=== PATIENT | female | born 1950 | race Caucasian/White ===

== ENCOUNTER 2022-10-27 09:58 | Inpatient (IN) | payer MEDICARE ==
--- NOTE | 2022-10-27 10:05 | ED ---
General Adult HPI - General Stated complaint: Bleeding R Arm Time Seen by Provider: 10/27/22 09:58 Source: patient, RN notes reviewed, old records reviewed - History of Present Illness Initial comments: This is a 71-year-old female who has a fistula in her forearm on the right. Patient states she woke up this morning and started to bleed and it was pumping like it was arterial bleeder. According to EMS was quite a message saying that the house was lightheaded but blood. Patient was unable to stop the bleeding EMS was called they eventually put a pressure dressing on and he slowly bleeding down considerably. - Related Data Home Medications Medication Instructions Recorded Confirmed ALPRAZolam [Xanax] 0.5 mg PO DAILY 10/27/22 10/27/22 Dicyclomine [Bentyl] 20 mg PO BID 10/27/22 10/27/22 HYDROcodone/APAP 10-325MG [Strawn 1 tab PO Q4H PRN 10/27/22 10/27/22 10-325] Isosorbide Dinitrate 20 mg PO BID 10/27/22 10/27/22 Lidocaine-Prilocaine Cream [Emla 1 applic TOPICAL MOWEFR PRN 10/27/22 10/27/22 Cream 2.5%/2.5%] Ondansetron [Zofran] 4 mg PO BID PRN 10/27/22 10/27/22 Sevelamer [Renvela] 2,400 mg PO AC-TID 10/27/22 10/27/22 allopurinoL [Zyloprim] 100 mg PO DAILY 10/27/22 10/27/22 amLODIPine [Norvasc] 10 mg PO DAILY 10/27/22 10/27/22 carvediloL [Coreg] 25 mg PO BID-W/MEALS 10/27/22 10/27/22 Allergies Allergy/AdvReac Type Severity Reaction Status Date / Time Iodinated Contrast Media Allergy Unknown Verified 10/27/22 11:09 Phenothiazines Allergy Unknown Verified 10/27/22 11:09 prednisone Allergy Unknown Verified 10/27/22 11:09 Review of Systems ROS Statement: Those systems with pertinent positive or pertinent negative responses have been documented in the HPI. ROS Other: All systems not noted in ROS Statement are negative. General Exam - General Exam Comments Initial Comments: GENERAL: Patient is well-developed and well-nourished. Patient is nontoxic and well-hydrated and is in mild distress. ENT: Neck is soft and supple. No significant lymphadenopathy is noted. Oropharynx is clear. Moist mucous membranes. Neck has full range of motion without eliciting any pain. 6640 EYES: The sclera were anicteric and conjunctiva were pink and moist. Extraocular move ments were intact and pupils were equal round and reactive to light. Eyelids were unremarkable. PULMONARY: Unlabored respirations. Good breath sounds bilaterally. No audible rales rhonchi or wheezing was noted. CARDIOVASCULAR: There is a regular rate and rhythm without any murmurs gallops or rubs. ABDOMEN: Soft and nontender with normal bowel sounds. SKIN: Skin is clear with no lesions or rashes and otherwise unremarkable. NEUROLOGIC: Patient is alert and oriented 2. Cranial nerves II through XII are grossly intact. Motor and sensory are also intact. Normal speech, volume and content. Symmetrical smile. MUSCULOSKELETAL: Normal extremities with adequate strength and full range of motion. Patient has a fistula in the right forearm is under a pressure wrap currently patient got great Refill all of her fingers on that side. I did not unwrap at this time because according to EMS is an arterial bleeder and it makes quite a mess LYMPHATICS: No significant lymphadenopathy is noted PSYCHIATRIC: Normal psychiatric evaluation. Course Vital Signs 10/27/22 10/27/22 10/27/22 10:03 11:41 11:43 Temperature 99.3 F 99.3 F Pulse Rate 58 L 52 L 52 L Respiratory 18 18 18 Rate Blood Pressure 120/94 120/79 120/79 O2 Sat by Pulse 98 100 100 Oximetry Medical Decision Making - Medical Decision Making Was pt. sent in by a medical professional or institution (, PA, ADDICTION SOCIAL WORKER, urgent care, hospital, or alf...) When possible be specific @ -No Did you speak to anyone other than the patient for history (EMS, parent, family, police, friend...)? What history was obtained from this source @ -EMS gave some history because the was not here to give history Did you review nursing and triage notes (agree or disagree)? Why? @ -I reviewed and agree with nursing and triage notes Were old charts reviewed (outside hosp., previous admission, EMS record, old EKG, old radiological studies, urgent care reports/EKG's, alf records)? Report findings @ -No old charts were reviewed Differential Diagnosis (chest pain, altered mental status, abdominal pain women, abdominal pain men, vaginal bleeding, weakness, fever, dyspnea, syncope, headache, dizziness, GI bleed, back pain, seizure, CVA, palpatations, mental health, musculoskeletal)? @ -Fistula bleed arterial, venous bleed, EKG interpreted by me (3pts min.). @ -As above X-rays interpreted by me (1pt min.). @ -None done CT interpreted by me (1pt min.). @ -None done U/S interpreted by me (1pt. min.). @ -None done What testing was considered but not performed or refused? (CT, X-rays, U/S, labs)? Why? @ -None What meds were considered but not given or refused? Why? @ -None Did you discuss the management of the patient with other professionals (p rofessionals i.e. , PA, ADDICTION SOCIAL WORKER, lab, RT, psych nurse, social sciences professor, admiralty lawyer, teacher, nuclear security officer, patient case coordinator)? Give summary @ -Spoke with Dr. Cesar and she came down and saw the patient was takento the emergency department. I also spoke with the [facility] hospitalist Was smoking cessation discussed for >3mins.? @ -No Was critical care preformed (if so, how long)? @ -No Were there social determinants of health that impacted care today? How? (Homelessness, low income, unemployed, alcoholism, drug addiction, transportation, low edu. Level, literacy, decrease access to med. care, long-term, rehab)? @ -No Was there de-escalation of care discussed even if they declined (Discuss DNR or withdrawal of care, Hospice)? DNR status @ -No What co-morbidities impacted this encounter? (DM, HTN, Smoking, COPD, CAD, Cancer, CVA, ARF, Chemo, Hep., AIDS, mental health diagnosis, sleep apnea, morbid obesity)? @ -None Was patient admitted / discharged? Hospital course, mention meds given and route, prescriptions, significant lab abnormalities, going to OR and other pert inent info. @ -14 done so the patient emergency department and decided to take the patient to the OR. Patient will be admitted to significant hospitalist and nephrology be on consult for renal dialysis Undiagnosed new problem with uncertain prognosis? @ -No Drug Therapy requiring intensive monitoring for toxicity (Heparin, Nitro, Insulin, Cardizem)? @ -No Were any procedures done? @ -No Diagnosis/symptom? @ -Arterial hemorrhage Acute, or Chronic, or Acute on Chronic? @ -Acute Uncomplicated (without systemic symptoms) or Complicated (systemic symptoms)? @ -Complicated Side effects of treatment? @ -No Exacerbation, Progression, or Severe Exacerbation? @ -No Poses a threat to life or bodily function? How? (Chest pain, [place], [place], pneumonia, PE, COPD, DKA, ARF, appy, cholecystitis, CVA, Diverticulitis, Homicidal, Suicidal, threat to staff... and all critical care pts) @ -Yes this could lead to the patient bleeding out Diagnosis/symptom? @ -Renal failure and needs dialysis Acute, or Chronic, or Acute on Chronic? @ -Acute Uncomplicated (without systemic symptoms) or Complicated (systemic symptoms)? @ -Complicated Side effects of treatment? @ -none Exacerbation, Progression, or Severe Exacerbation] @ -no Poses a threat to life or bodily function? @ -no - Lab Data Result diagrams: 10/27/22 10:20 10/27/22 10:20 Lab Results 10/27/22 10/27/22 10/27/22 Range/Units 10:20 10:20 10:20 WBC 7.2 (3.8-10.6) k/uL RBC 2.55 L (3.80-5.40) m/uL Hgb 8.2 L (11.4-16.0) gm/dL Hct 24.4 L (34.0-46.0) % MCV 95.7 (80.0-100.0) fL MCH 32.0 (25.0-35.0) pg MCHC 33.4 (31.0-37.0) g/dL RDW 16.2 H (11.5-15.5) % Plt Count 189 (150-450) k/uL MPV 7.6 Neutrophils % 64 % Lymphocytes % 23 % Monocytes % 7 % Eosinophils % 4 % Basophils % 0 % Neutrophils # 4.6 (1.3-7.7) k/uL Lymphocytes # 1.7 (1.0-4.8) k/uL Monocytes # 0.5 (0-1.0) k/uL Eosinophils # 0.3 (0-0.7) k/uL Basophils # 0.0 (0-0.2) k/uL Anisocytosis Slight PT 11.0 (9.0-12.0) sec INR 1.0 (<1.2) APTT 23.7 (22.0-30.0) sec Sodium 132 L (137-145) mmol/L Potassium 4.8 (3.5-5.1) mmol/L Chloride 91 L (98-107) mmol/L Carbon Dioxide 29 (22-30) mmol/L Anion Gap 12 mmol/L BUN 41 H (7-17) mg/dL Creatinine 6.14 H (0.52-1.04) mg/dL Est GFR (CKD-EPI)AfAm 7 (>60 ml/min/1.73 sqM) Est GFR (CKD-EPI)NonAf 6 (>60 ml/min/1.73 sqM) Glucose 119 H (74-99) mg/dL Calcium 8.2 L (8.4-10.2) mg/dL Total Bilirubin 0.4 (0.2-1.3) mg/dL AST 39 H (14-36) U/L ALT 26 (4-34) U/L Alkaline Phosphatase 118 (38-126) U/L Total Protein 7.2 (6.3-8.2) g/dL Albumin 3.9 (3.5-5.0) g/dL Blood Type Blood Type Confirm Blood Type Recheck Bld Type Recheck Status Antibody Screen Crossmatch Spec Expiration Date 10/27/22 10/27/22 Range/Units 10:20 10:25 WBC (3.8-10.6) k/uL RBC (3.80-5.40) m/uL Hgb (11.4-16.0) gm/dL Hct (34.0-46.0) % MCV (80.0-100.0) fL MCH (25.0-35.0) pg MCHC (31.0-37.0) g/dL RDW (11.5-15.5) % Plt Count (150-450) k/uL MPV Neutrophils % % Lymphocytes % % Monocytes % % Eosinophils % % Basophils % % Neutrophils # (1.3-7.7) k/uL Lymphocytes # (1.0-4.8) k/uL Monocytes # (0-1.0) k/uL Eosinophils # (0-0.7) k/uL Basophils # (0-0.2) k/uL Anisocytosis PT (9.0-12.0) sec INR (<1.2) APTT (22.0-30.0) sec Sodium (137-145) mmol/L Potassium (3.5-5.1) mmol/L Chloride (98-107) mmol/L Carbon Dioxide (22-30) mmol/L Anion Gap mmol/L BUN (7-17) mg/dL Creatinine (0.52-1.04) mg/dL Est GFR (CKD-EPI)AfAm (>60 ml/min/1.73 sqM) Est GFR (CKD-EPI)NonAf (>60 ml/min/1.73 sqM) Glucose (74-99) mg/dL Calcium (8.4-10.2) mg/dL Total Bilirubin (0.2-1.3) mg/dL AST (14-36) U/L ALT (4-34) U/L Alkaline Phosphatase (38-126) U/L Total Protein (6.3-8.2) g/dL Albumin (3.5-5.0) g/dL Blood Type A Positive Blood Type Confirm A Positive Blood Type Recheck No Previous Record Bld Type Recheck Status CABO Indicated Antibody Screen NEGATIVE Crossmatch See Detail Spec Expiration Date 10/30/20222319 Disposition Clinical Impression: Arterial hemorrhage Disposition: ADMITTED IP TO THIS [facility] Referrals: Nonstaff,Physician [REFERRING] - 1-2 days Time of Disposition: 11:54
[2022-10-27] MEDS ORDERED: SODIUM CHLORIDE 0.9% 500 ML 500 ML IV ONE ×2 (10:09→12:00)
[2022-10-27 10:31] LABS: Anisocytosis Slight; Basophils % (A) 0 %; Eosinophils # (A) 0.3 k/uL (0-0.7); Eosinophils % (A) 4 %; HCT 24.4 % (34.0-46.0); HGB 8.2 gm/dL (11.4-16.0); Lymphocytes # (A) 1.7 k/uL (1.0-4.8); Lymphocytes % (A) 23 %; MCHC 33.4 g/dL (31.0-37.0); MCV 95.7 fL (80.0-100.0); Mean Platelet Volume 7.6; Monocytes # (A) 0.5 k/uL (0-1.0); Monocytes % (A) 7 %; Neutrophils # (A) 4.6 k/uL (1.3-7.7); Neutrophils % (A) 64 %; Platelet Count 189 k/uL (150-450); RBC 2.55 m/uL (3.80-5.40); RDW 16.2 % (11.5-15.5); WBC 7.2 k/uL (3.8-10.6)
[2022-10-27 10:45] LABS: Partial Thromboplastin Time 23.7 sec (22.0-30.0)
[2022-10-27 10:48] LABS: Albumin 3.9 g/dL (3.5-5.0); Calcium 8.2 mg/dL (8.4-10.2); Potassium 4.8 mmol/L (3.5-5.1); Total Bilirubin 0.4 mg/dL (0.2-1.3); Total Protein 7.2 g/dL (6.3-8.2)
--- NOTE | 2022-10-27 11:36 | P.GSCN ---
History of Present Illness Consult date: 10/27/22 Reason for Consult: Bleeding fistula Requesting physician: Migel Jeong History of present illness: This a pleasant 71-year-old female who was brought in by EMS this morning for complaints of bleeding from her fistula. Apparently patient woke up this morning and was doing fine, her checked on her and was getting her ready to go for dialysis when he had noted that she was bleeding at her fistula site, bleeding was pulsatile. He applied pressure, however continued to bleed and called EMS. Pressure dressing with tourniquet was applied to the right arm to control bleeding by EMS. She has a past medical history including diabetes mellitus, end-stage renal disease on hemodialysis recent stroke in July 2022 and recent GI bleed at that time as well. Patient is a poor historian, much of her history obtained by her . They deny any blood thinners, denies aspirin or Plavix. States fistula was placed approximately 13 years ago. Her states that she has seen Dr. Reyes in the office once, prior to that she had been seeing Dr. Ware who placed the fistula however has not seen her in several years and was not following with anybody in regards to her fistula. She was supposed to get ultrasound of the fistula, however never followed up. She gets dialysis Sunday, her last dialysis treatment was on Sunday for which he states was full treatment without any difficulty with accessing fistula. States that they have not had any trouble with accessing and running dialysis, however they do state that the axis is same location each time and there has been scabbing over this area where the bleed is. Patient currently states that she has some numbness and tingling in her right hand, there is a tourniquet in place. Bleeding seems to be controlled at this time. She has good capillary refill, unable to palpate radial pulse. Has good sensorimotor of the right hand and upper extremity. She currently denies any shortness breath, chest pain, abdominal pain, does state she is nauseated but no vomiting. Hemoglobin 8.2. Blood pressure 120/64, heart rate 58, respiratory rate 18, oxygen 98% on 4 L nasal cannula, temperature 99.3. Review of Systems A 14 point review systems was completed all pertinent positives and negatives as stated in the HPI. Past Medical History Past Medical History: Asthma, Diabetes Mellitus, Dialysis, Sleep Apnea/CPAP/BIPAP, Thyroid Disorder History of Any Multi-Drug Resistant Organisms: None Reported Additional Past Surgical History / Comment(s): right fistula, left fistula Past Psychological History: No Psychological Hx Reported Smoking Status: Never smoker Past Alcohol Use History: None Reported Past Drug Use History: None Reported Medications and Allergies Home Medications Medication Instructions Recorded Confirmed Type ALPRAZolam [Xanax] 0.5 mg PO DAILY 10/27/22 10/27/22 History Dicyclomine [Bentyl] 20 mg PO BID 10/27/22 10/27/22 History HYDROcodone/APAP 10-325MG [Iron 1 tab PO Q4H PRN 10/27/22 10/27/22 History 10-325] Isosorbide Dinitrate 20 mg PO BID 10/27/22 10/27/22 History Lidocaine-Prilocaine Cream [Emla 1 applic TOPICAL MOWEFR PRN 10/27/22 10/27/22 History Cream 2.5%/2.5%] Ondansetron [Zofran] 4 mg PO BID PRN 10/27/22 10/27/22 History Sevelamer [Renvela] 2,400 mg PO AC-TID 10/27/22 10/27/22 History allopurinoL [Zyloprim] 100 mg PO DAILY 10/27/22 10/27/22 History amLODIPine [Norvasc] 10 mg PO DAILY 10/27/22 10/27/22 History carvediloL [Coreg] 25 mg PO BID-W/MEALS 10/27/22 10/27/22 History Allergies Allergy/AdvReac Type Severity Reaction Status Date / Time Iodinated Contrast Media Allergy Unknown Verified 10/27/22 11:09 Phenothiazines Allergy Unknown Verified 10/27/22 11:09 prednisone Allergy Unknown Verified 10/27/22 11:09 Surgical - Exam Vital Signs Temp Pulse Resp BP Pulse Ox 99.3 F 58 L 18 120/94 98 10/27/22 10:03 10/27/22 10:03 10/27/22 10:03 10/27/22 10:03 10/27/22 10:03 General appearance: The patient is alert, oriented, appears in no acute d istress. HET: Head is normocephalic and atraumatic. Pupils are equal and reactive. Neck: Supple. Trachea midline. Heart: Regular. Lungs: Equal expansion, normal respiratory effort. Abdomen: Soft, nontender, nondistended. Extremities: Normal skin color and turgor. Right upper extremity with dressing and tourniquet in place over the fistula, palpable thrill. Nonpalpable radial pulse, patient has good capillary refill, sensorimotor intact. Neurological: Patient is alert and oriented, does have some memory loss, poor memory likely due to previous stroke. Results - Labs 10/27/22 10:20 10/27/22 10:20 Abnormal Lab Results - Last 24 Hours (Table) 10/27/22 10/27/22 10/27/22 Range/Units 10:20 10:20 10:20 RBC 2.55 L (3.80-5.40) m/uL Hgb 8.2 L (11.4-16.0) gm/dL Hct 24.4 L (34.0-46.0) % RDW 16.2 H (11.5-15.5) % Sodium 132 L (137-145) mmol/L Chloride 91 L (98-107) mmol/L BUN 41 H (7-17) mg/dL Creatinine 6.14 H (0.52-1.04) mg/dL Glucose 119 H (74-99) mg/dL Calcium 8.2 L (8.4-10.2) mg/dL AST 39 H (14-36) U/L Crossmatch See Detail Diabetes panel 10/27/22 Range/Units 10:20 Sodium 132 L (137-145) mmol/L Potassium 4.8 (3.5-5.1) mmol/L Chloride 91 L (98-107) mmol/L Carbon Dioxide 29 (22-30) mmol/L BUN 41 H (7-17) mg/dL Creatinine 6.14 H (0.52-1.04) mg/dL Glucose 119 H (74-99) mg/dL Calcium 8.2 L (8.4-10.2) mg/dL AST 39 H (14-36) U/L ALT 26 (4-34) U/L Alkaline Phosphatase 118 (38-126) U/L Total Protein 7.2 (6.3-8.2) g/dL Albumin 3.9 (3.5-5.0) g/dL Calcium panel 10/27/22 Range/Units 10:20 Calcium 8.2 L (8.4-10.2) mg/dL Albumin 3.9 (3.5-5.0) g/dL Pituitary panel 10/27/22 Range/Units 10:20 Sodium 132 L (137-145) mmol/L Potassium 4.8 (3.5-5.1) mmol/L Chloride 91 L (98-107) mmol/L Carbon Dioxide 29 (22-30) mmol/L BUN 41 H (7-17) mg/dL Creatinine 6.14 H (0.52-1.04) mg/dL Glucose 119 H (74-99) mg/dL Calcium 8.2 L (8.4-10.2) mg/dL Adrenal panel 10/27/22 Range/Units 10:20 Sodium 132 L (137-145) mmol/L Potassium 4.8 (3.5-5.1) mmol/L Chloride 91 L (98-107) mmol/L Carbon Dioxide 29 (22-30) mmol/L BUN 41 H (7-17) mg/dL Creatinine 6.14 H (0.52-1.04) mg/dL Glucose 119 H (74-99) mg/dL Calcium 8.2 L (8.4-10.2) mg/dL Total Bilirubin 0.4 (0.2-1.3) mg/dL AST 39 H (14-36) U/L ALT 26 (4-34) U/L Alkaline Phosphatase 118 (38-126) U/L Total Protein 7.2 (6.3-8.2) g/dL Albumin 3.9 (3.5-5.0) g/dL Assessment and Plan Assessment: 1. Right upper extremity fistula hemorrhage 2. Acute blood loss anemia 3. End-stage renal disease on hemodialysis 4. Diabetes mellitus 5. History of stroke July 2022 Plan: Patient was evaluated in the emergency room, pressure dressing and tourniquet removed with Dr. Cesar at the bedside. Patient continued to have pulsatile bleeding, pressure was reapplied, attempted at suture however bleeding continued. Patient right upper extremity redressed with pressure dressing. Plan to take patient to the operating room for fistula hemorrhage, possible ligation, possible tunneled catheter. Transfuse 1 unit of blood. Please obtain consent. Patient and patient's agreeable to plan of care. Operating room notified per Dr. Cesar. The impression and plan of care has been dictated as directed. I performed a history and examination of this patient, discussed the same with the dictator. I agree with the dictator's note ,documented as a scribe. Any additional findings or plans will be noted.
[2022-10-27] MEDS ORDERED: GLYCOPYRROLATE 0.2 MG/ML 2 ML VIAL ONE (12:00)
[2022-10-27] MEDS ORDERED: PROPOFOL 10 MG/ML 20 ML VIAL IV ONE (12:00)
[2022-10-27] MEDS ORDERED: PHENYLEPHRINE-0.9% NACL SYG 1,000 MCG/10 ML SYRINGE ONE (12:00)
[2022-10-27] MEDS ORDERED: ePHEDrine 50 MG/ML 1 ML VIAL ONE (12:00)
[2022-10-27] MEDS ORDERED: KETAMINE 10 MG/ML 20 ML VIAL ONE (12:00)
[2022-10-27] MEDS ORDERED: fentaNYL (PF) 50 MCG/ML 2 ML AMP ONE (12:00)
[2022-10-27] MEDS ORDERED: SODIUM CHLORIDE 0.9% 50 ML with ceFAZolin 2,000 MG IV ONE ×2 (12:27)
[2022-10-27] MEDS ORDERED: GELATIN SPONGE,ABSORB (LARGE) 1 EACH SPONGE TOPICAL ONE (12:32)
[2022-10-27] MEDS ORDERED: THROMBIN (BOVINE) 5,000 UNIT VIAL TOPICAL ONE (12:33)
[2022-10-27] MEDS ORDERED: ceFAZolin 2,000 MG in SODIUM CHLORIDE 0.9% 500 ML IRRIGATION ONE (12:46)
[2022-10-27] MEDS ORDERED: HEPARIN SODIUM,PORCINE 2,000 UNIT in SODIUM CHLORIDE 0.9% 500 ML 500 ML IRRIGATION ONE (12:46)
[2022-10-27 13:31] LABS: Anisocytosis Slight; HCT 23.9 % (34.0-46.0); MCHC 33.5 g/dL (31.0-37.0); MCV 95.4 fL (80.0-100.0); Mean Platelet Volume 7.9; Platelet Count 133 k/uL (150-450); RBC 2.51 m/uL (3.80-5.40); RDW 16.2 % (11.5-15.5); WBC 6.5 k/uL (3.8-10.6)
[2022-10-27] MEDS ORDERED: ONDANSETRON 4 MG/2 ML VIAL IVP ONE (15:26)
[2022-10-27] MEDS ORDERED: HYDROmorphone 0.5 MG/0.5 ML SYRINGE IVP ONE ×3 (15:28→15:36)
[2022-10-27] MEDS ORDERED: MORPHINE SULFATE 2 MG/ML SYRINGE IVP PRN (15:57)
--- NOTE | 2022-10-27 15:57 | P.OP ---
Date of Procedure: 10/27/22 Description of Procedure: Preoperative diagnosis: Active hemorrhage right upper extremity AV loop forearm graft, skin ulceration, end-stage renal disease Postoperative diagnosis: Same Procedure: #1 control of hemorrhage #2 excision of graft and overlying necrotic skin/skin ulceration #3 interposition PTFE graft for dialysis Surgeon: Ashleigh Cesar D.O. EBL: 100 mL IV fluids: See records Urine output: Not measured Drains: None Complications: None immediately apparent Condition: Stable to recovery Operative indication and findings: Patient is a 71-year-old female with end- stage renal disease who gets dialysis via a left upper extremity loop forearm graft. She has been utilizing this graft for many years without significant issues. She was seen in our office back in June as a new patient and recommended to come back for follow-up however she did not return or visit, the transit she was in the hospital with other comorbidities including a recent stroke. They have been utilizing the fistula without issues. She woke up this morning and was getting ready to go to dialysis and began having pulsatile bleeding from the lateral portion of her arm with a continuous stick for access. Evaluation in the ER revealed an ulceration approximately 2-3 mm in size with active bleeding. Repeat pressure dressing was placed and the patient was taken to the OR. Discussion was had with the patient and her prior to the surgery. Attempts to revise the fistula versus ligation to control bleeding all discussed as well as the possibility of hemodialysis catheter. He seemingly understood the risks and are willing to proceed. Procedure in detail: The patient was taken the operative suite and placed in supine position. The right upper extremity was prepped and draped in usual sterile fashion with a pressure dressing was still in place, this was removed and the underlying portions were prepped and pressure was held again at the area of bleeding although it has decreased since the ER. Timeout was performed, all parties were in agreement. Proximally and distally to the area of thinned skin and bleeding, incisions were made and carried down to the graft itself. The graft was encircled proximally and distally. The decision was also then made to excise the overlying portion of skin with the necrotic ulceration. No elliptical incision was made around the area and carried onto the graft itself. The graft was transected at the proximal and distal incisions. Subcutaneous dissection was performed throughout the area of the graft itself. Appears to be well incorporated without evidence of infection. This was completely excised. At that point Tyler catheters were passed proximally and distally with return of significant amounts of thrombus. There was adequate pulsatile inflow as well as venous backbleeding therefore the plan to place an interposition graft was continued. A 4 x 7 graft was then tunneled between the points of incision. The graft was cut to size any proximal arterial anastomosis was performed with a 6-0 Prolene. The anastomosis completed and the graft was flushed pulsatile flow. Attention was then turned towards the outflow tract, the graft was cut to size and using a 6-0 Prolene, anastomosis was performed. Prior to completion of the graft, the artery was allowed to bleed in the vein was of backbleeding. The anastomosis was completed. There appeared to be adequate augmentation through the graft itself, there was diminished pulsatility to the level of the new graft in comparison with the previous graft given the significant amount of intimal hyperplasia in the previous graft. A Doppler was utilized and there was a appropriate bruit sounding waveform at the antecubital fossa with a palpable thrill in this area. She maintained a palpable radial pulse. That point the areas were copiously irrigated, hemostasis was perfected with electrocautery. The deep dermal layer was reapproximated with interrupted sutures of 3-0 Vicryl. Skin was reapproximated with running 4-0 Monocryl. The patient was allowed awaken from anesthesia and transferred to recovery in stable condition.
[2022-10-27] MEDS ORDERED: ONDANSETRON 4 MG TAB PO PRN (20:02)
[2022-10-27] MEDS: DICYCLOMINE 20 MG TAB PO SCH (20:35)
[2022-10-27] MEDS: carvediloL 12.5 MG TAB PO SCH (20:35)
[2022-10-27] MEDS: amLODIPine 10 MG TAB PO SCH (20:35)
[2022-10-27] MEDS: ISOSORBIDE DINITRATE 20 MG TAB PO SCH (20:35)
[2022-10-27 21:04] LABS: Glucose,Whole Blood 130 mg/dL (70-110)
[2022-10-28 05:10] LABS: Glucose,Whole Blood 116 mg/dL (70-110)
[2022-10-28] MEDS: SEVELAMER 800 MG TAB PO SCH ×3 (06:25→17:10)
[2022-10-28] MEDS: carvediloL 12.5 MG TAB PO SCH ×2 (06:25→17:10)
[2022-10-28] MEDS: ALPRAZolam 0.5 MG TAB PO SCH (08:36)
[2022-10-28] MEDS: allopurinoL 100 MG TAB PO SCH (08:36)
[2022-10-28] MEDS: amLODIPine 10 MG TAB PO SCH (08:36)
[2022-10-28] MEDS: DICYCLOMINE 20 MG TAB PO SCH ×2 (08:36→19:49)
[2022-10-28] MEDS: ISOSORBIDE DINITRATE 20 MG TAB PO SCH ×2 (08:37→19:49)
--- NOTE | 2022-10-28 09:41 | P.PN ---
Subjective Progress Note Date: 10/28/22 Principal diagnosis: right loop graft bleed patient doing well after recent emergent surgery. She states her arm is tender but denies any numbness in her hand or fingers. Objective - Vital Signs Vital signs: Vital Signs Temp 98.1 F 10/28/22 07:12 Pulse 58 L 10/28/22 07:12 Resp 16 10/28/22 07:12 BP 117/64 10/28/22 07:12 Pulse Ox 99 10/28/22 08:12 FiO2 Intake & Output 10/27/22 10/28/22 10/28/22 18:59 06:59 18:59 Intake Total 552 Output Total 100 Balance 452 Weight 80.286 kg Intake: IV 552 Output: Estimated Blood Loss 100 Other: # Voids 0 # Bowel Movements 0 - Exam Palpable thrill right upper extremity loop graft tender to palpation at the incision sites. graft augments well. palpable radial pulse - Labs CBC & Chem 7: 10/27/22 13:19 10/27/22 10:20 Labs: Abnormal Lab Results - Last 24 Hours (Table) 10/27/22 10/27/22 10/27/22 Range/Units 10:20 10:20 10:20 RBC 2.55 L (3.80-5.40) m/uL Hgb 8.2 L (11.4-16.0) gm/dL Hct 24.4 L (34.0-46.0) % RDW 16.2 H (11.5-15.5) % Plt Count (150-450) k/uL Sodium 132 L (137-145) mmol/L Chloride 91 L (98-107) mmol/L BUN 41 H (7-17) mg/dL Creatinine 6.14 H (0.52-1.04) mg/dL Glucose 119 H (74-99) mg/dL POC Glucose (mg/dL) (70-110) mg/dL Calcium 8.2 L (8.4-10.2) mg/dL AST 39 H (14-36) U/L Crossmatch See Detail 10/27/22 10/27/22 10/28/22 Range/Units 13:19 21:03 05:08 RBC 2.51 L (3.80-5.40) m/uL Hgb 8.0 L (11.4-16.0) gm/dL Hct 23.9 L (34.0-46.0) % RDW 16.2 H (11.5-15.5) % Plt Count 133 L (150-450) k/uL Sodium (137-145) mmol/L Chloride (98-107) mmol/L BUN (7-17) mg/dL Creatinine (0.52-1.04) mg/dL Glucose (74-99) mg/dL POC Glucose (mg/dL) 130 H 116 H (70-110) mg/dL Calcium (8.4-10.2) mg/dL AST (14-36) U/L Crossmatch Assessment and Plan Assessment: ESRD on HD Right upper extremity access bleed POD 1 hemorrhage control and revision Plan: Discussed with nephrology- if possible to hold off HD till Sunday would be recommended but if need to be utilized then graft has been outlined for place to access. Will re-eval Sunday.
--- NOTE | 2022-10-28 09:50 | P.NPCON ---
History of Present Illness - Reason for Consult end stage renal disease - History of Present Illness Reason for consultation: End-stage renal disease History of present illness: Patient is a 71-year-old female seen in renal consultation for end-stage renal disease. She is maintained on hemodialysis on Sunday schedule. Patient presented to the hospital due to hemorrhaging AV graft. She underwent excision of graft and overlying necrotic skin and interposition of the graft on 10/27/2022. She is currently resting in bed. No chest pain or shortness of breath. No vomiting or diarrhea. Only complains of soreness at the surgical site. She did not get dialysis yesterday. No other complaints at this time. Patient has long-standing history of diabetes as well as CVA. Vital signs are stable. General: Resting in bed. HEENT: Head exam is unremarkable. On nasal cannula. LUNGS: No audible rhonchi or wheezes. HEART: Rate and Rhythm are regular. ABDOMEN: No distention. No pain. EXTREMITITES: No edema. Past Medical History Past Medical History: Asthma, Diabetes Mellitus, Dialysis, Sleep Apnea/CPAP/BIPAP, Thyroid Disorder History of Any Multi-Drug Resistant Organisms: None Reported Additional Past Surgical History / Comment(s): right fistula, old left fistula Smoking Status: Never smoker - Past Family History Mother History Unknown: Yes Medications and Allergies Home Medications Medication Instructions Recorded Confirmed Type ALPRAZolam [Xanax] 0.5 mg PO DAILY 10/27/22 10/27/22 History Dicyclomine [Bentyl] 20 mg PO BID 10/27/22 10/27/22 History HYDROcodone/APAP 10-325MG [[place] 1 tab PO Q4H PRN 10/27/22 10/27/22 History 10-325] Isosorbide Dinitrate 20 mg PO BID 10/27/22 10/27/22 History Lidocaine-Prilocaine Cream [Emla 1 applic TOPICAL MOWEFR PRN 10/27/22 10/27/22 History Cream 2.5%/2.5%] Ondansetron [Zofran] 4 mg PO BID PRN 10/27/22 10/27/22 History Sevelamer [Renvela] 2,400 mg PO AC-TID 10/27/22 10/27/22 History allopurinoL [Zyloprim] 100 mg PO DAILY 10/27/22 10/27/22 History amLODIPine [Norvasc] 10 mg PO DAILY 10/27/22 10/27/22 History carvediloL [Coreg] 25 mg PO BID-W/MEALS 10/27/22 10/27/22 History Allergies Allergy/AdvReac Type Severity Reaction Status Date / Time Iodinated Contrast Media Allergy Unknown Verified 10/27/22 11:09 Phenothiazines Allergy Unknown Verified 10/27/22 11:09 prednisone Allergy Unknown Verified 10/27/22 11:09 Physical Exam Vitals: Vital Signs Temp Pulse Pulse Resp BP BP Pulse Ox 10/28/22 08:12 99 10/28/22 07:12 98.1 F 58 L 16 117/64 100 10/28/22 01:20 97.8 F 62 16 130/57 99 10/27/22 20:42 64 152/79 100 10/27/22 20:27 74 166/109 100 10/27/22 20:12 68 121/72 100 10/27/22 19:57 64 158/73 100 10/27/22 19:42 60 195/62 100 10/27/22 19:27 63 197/75 100 10/27/22 19:12 58 L 171/78 100 10/27/22 18:57 96.5 F L 58 L 18 171/78 100 10/27/22 17:20 56 L 16 150/67 100 10/27/22 16:47 57 L 16 136/62 100 10/27/22 16:32 56 L 16 140/65 100 10/27/22 16:17 56 L 16 141/61 100 10/27/22 16:02 54 L 16 132/64 100 10/27/22 15:47 54 L 16 135/65 100 10/27/22 15:32 58 L 16 130/67 99 10/27/22 15:17 63 16 125/74 98 10/27/22 15:02 65 16 114/60 99 10/27/22 14:47 97.0 F L 77 16 98/54 100 10/27/22 11:43 99.3 F 52 L 18 120/79 100 10/27/22 11:41 52 L 18 120/79 100 10/27/22 10:03 99.3 F 58 L 18 120/94 98 Intake and Output 10/27/22 10/28/22 10/28/22 22:59 06:59 14:59 Other: # Voids 0 # Bowel Movements 0 Weight 80.286 kg Results - Lab Results Most recent lab results Calcium 8.2 mg/dL (8.4-10.2) L 10/27/22 10:20 10/27/22 13:19 10/27/22 10:20 Assessment and Plan Plan: Assessment: 1. End-stage renal disease maintained on hemodialysis on Sunday schedule via right upper extremity AV graft. 2. Hemorrhage of AV graft status post excision an interposition 10/27/2022. 3. Chronic kidney disease mineral bone disease maintained on Renvela. 4. Hypertension with chronic kidney disease. Controlled. 5. Anemia of chronic kidney disease. Rule out deficiency. Plan: Check labs today. If stable, will plan for dialysis on Sunday to allow adequate healing of the graft. Check iron studies. Thank you for the consultation. I will continue to follow the patient with you during her hospital stay.
[2022-10-28] MEDS: HYDROcodone/APAP 5-325MG 1 EACH TAB PO PRN ×2 (10:05→20:08)
[2022-10-28 11:11] LABS: African American GFR (CKD) 6 (>60 ml/min/1.73 sqM); Anion Gap 11 mmol/L; Blood Urea Nitrogen 51 mg/dL (7-17); Calcium 8.2 mg/dL (8.4-10.2); Carbon Dioxide 27 mmol/L (22-30); Chloride 94 mmol/L (98-107); Glucose 134 mg/dL (74-99); Non-African American GFR(CKD) 5 (>60 ml/min/1.73 sqM); Potassium 5.3 mmol/L (3.5-5.1); Sodium 132 mmol/L (137-145)
[2022-10-28 11:29] LABS: Glucose,Whole Blood 144 mg/dL (70-110)
[2022-10-28] MEDS ORDERED: SODIUM ZIRCONIUM CYCLOSILICATE 10 GM PACKET PO ONE (11:40)
[2022-10-28 16:32] LABS: Glucose,Whole Blood 174 mg/dL (70-110)
[2022-10-28 20:22] LABS: Glucose,Whole Blood 170 mg/dL (70-110)
[2022-10-28 20:29] LABS: Iron 47 ug/dL (50-170)
[2022-10-28 20:42] LABS: % Iron Saturation 22.85 (12.00-45.00); Total Iron Binding Capacity 204 ug/dL (228-460)
[2022-10-29 06:08] LABS: Glucose,Whole Blood 119 mg/dL (70-110)
[2022-10-29] MEDS: amLODIPine 10 MG TAB PO SCH ×2 (08:23→08:46)
[2022-10-29] MEDS: DICYCLOMINE 20 MG TAB PO SCH ×2 (08:23→20:53)
[2022-10-29] MEDS: ALPRAZolam 0.5 MG TAB PO SCH (08:23)
[2022-10-29] MEDS: allopurinoL 100 MG TAB PO SCH (08:23)
[2022-10-29] MEDS: carvediloL 12.5 MG TAB PO SCH ×3 (08:23→16:57)
[2022-10-29] MEDS: ISOSORBIDE DINITRATE 20 MG TAB PO SCH ×2 (08:24→20:53)
[2022-10-29] MEDS: SEVELAMER 800 MG TAB PO SCH ×3 (08:24→16:56)
--- NOTE | 2022-10-29 08:30 | P.HPIM ---
History of Present Illness H&P Date: 10/27/22 Chief Complaint: Bleeding fistula 71-year-old female who was brought in by EMS this morning for complaints of bleeding from her fistula. Apparently patient woke up this morning and was doing fine, her checked on her and was getting her ready to go for dialysis when he had noted that she was bleeding at her fistula site, bleeding was pulsatile. He applied pressure, however continued to bleed and called EMS. Pressure dressing with tourniquet was applied to the right arm to control bleeding by EMS. She has a past medical history including diabetes mellitus, en d-stage renal disease on hemodialysis recent stroke in July 2022 and recent GI bleed at that time as well. Patient is a poor historian, much of her history obtained by her . They deny any blood thinners, denies aspirin or Plavix. States fistula was placed approximately 13 years ago. Her states that she has seen Dr. Reyes in the office once, prior to that she had been seeing Dr. Ware who placed the fistula however has not seen her in several years and was not following with anybody in regards to her fistula. She was supposed to get ultrasound of the fistula, however never followed up. She gets dialysis Sunday, her last dialysis treatment was on for which he states was full treatment without any difficulty with accessing fistula. States that they have not had any trouble with accessing and running dialysis, however they do state that the axis is same location each time and there has been scabbing over this area where the bleed is. Patient currently states that she has some numbness and tingling in her right hand, there is a tourniquet in place. Bleeding seems to be controlled at this time. She has good capillary refill, unable to palpate radial pulse. Has good sensorimotor of the right hand and upper extremity. She currently denies any shortness breath, chest pain, abdominal pain, does state she is nauseated but no vomiting. Hemoglobin 8.2. Blood pressure 120/64, heart rate 58, respiratory rate 18, oxygen 98% on 4 L nasal cannula, temperature 99.3. Review of Systems REVIEW OF SYSTEMS: CONSTITUTIONAL: No fever, no malaise, no fatigue. HEENT: No recent visual problems or hearing problems. Denied any sore throat. CARDIOVASCULAR: No chest pain, orthopnea, PND, no palpitations, no syncope. PULMONARY: No shortness of breath, no cough, no hemoptysis. GASTROINTESTINAL: No diarrhea, no nausea, no vomiting, no abdominal pain. NEUROLOGICAL: No headaches, no weakness, no numbness. HEMATOLOGICAL: Denies any bleeding or petechiae. GENITOURINARY: Denies any burning micturition, frequency, or urgency. MUSCULOSKELETAL/RHEUMATOLOGICAL: Denies any joint pain, swelling, or any muscle pain. ENDOCRINE: Denies any polyuria or polydipsia. The rest of the 14-point review of systems is negative. Past Medical History Past Medical History: Asthma, Diabetes Mellitus, Dialysis, Sleep Apnea/CPAP/BIPAP, Thyroid Disorder History of Any Multi-Drug Resistant Organisms: None Reported Additional Past Surgical History / Comment(s): right fistula, left fistula Past Psychological History: No Psychological Hx Reported Smoking Status: Never smoker Past Alcohol Use History: None Reported Past Drug Use History: None Reported - Past Family History Mother History Unknown: Yes Medications and Allergies Home Medications Medication Instructions Recorded Confirmed Type ALPRAZolam [Xanax] 0.5 mg PO DAILY 10/27/22 10/27/22 History Dicyclomine [Bentyl] 20 mg PO BID 10/27/22 10/27/22 History HYDROcodone/APAP 10-325MG [[place] 1 tab PO Q4H PRN 10/27/22 10/27/22 History 10-325] Isosorbide Dinitrate 20 mg PO BID 10/27/22 10/27/22 History Lidocaine-Prilocaine Cream [Emla 1 applic TOPICAL MOWEFR PRN 10/27/22 10/27/22 History Cream 2.5%/2.5%] Ondansetron [Zofran] 4 mg PO BID PRN 10/27/22 10/27/22 History Sevelamer [Renvela] 2,400 mg PO AC-TID 10/27/22 10/27/22 History allopurinoL [Zyloprim] 100 mg PO DAILY 10/27/22 10/27/22 History amLODIPine [Norvasc] 10 mg PO DAILY 10/27/22 10/27/22 History carvediloL [Coreg] 25 mg PO BID-W/MEALS 10/27/22 10/27/22 History Allergies Allergy/AdvReac Type Severity Reaction Status Date / Time Iodinated Contrast Media Allergy Unknown Verified 10/27/22 11:09 Phenothiazines Allergy Unknown Verified 10/27/22 11:09 prednisone Allergy Unknown Verified 10/27/22 11:09 Physical Exam Vitals: Vital Signs Temp Pulse Pulse Resp BP BP Pulse Ox 10/27/22 17:20 56 L 16 150/67 100 10/27/22 16:47 57 L 16 136/62 100 10/27/22 16:32 56 L 16 140/65 100 10/27/22 16:17 56 L 16 141/61 100 10/27/22 16:02 54 L 16 132/64 100 10/27/22 15:47 54 L 16 135/65 100 10/27/22 15:32 58 L 16 130/67 99 10/27/22 15:17 63 16 125/74 98 10/27/22 15:02 65 16 114/60 99 10/27/22 14:47 97.0 F L 77 16 98/54 100 10/27/22 11:43 99.3 F 52 L 18 120/79 100 10/27/22 11:41 52 L 18 120/79 100 10/27/22 10:03 99.3 F 58 L 18 120/94 98 Intake and Output 10/27/22 10/27/22 10/27/22 06:59 14:59 22:59 Intake Total 552 Output Total 100 Balance 452 Intake: IV 552 Output: Estimated Blood Loss 100 Other: Weight 80.286 kg PHYSICAL EXAMINATION: GENERAL: The patient is alert and oriented x3, not in any acute distress. Well developed, well nourished. HEENT: Pupils are round and equally reacting to light. EOMI. No scleral icterus. No conjunctival pallor. Normocephalic, atraumatic. No pharyngeal erythema. No thyromegaly. CARDIOVASCULAR: S1 and S2 present. No murmurs, rubs, or gallops. PULMONARY: Chest is clear to auscultation, no wheezing or crackles. ABDOMEN: Soft, nontender, nondistended, normoactive bowel sounds. No palpable organomegaly. MUSCULOSKELETAL: No joint swelling or deformity. EXTREMITIES: No cyanosis, clubbing, or pedal edema. NEUROLOGICAL: Gross neurological examination did not reveal any focal deficits. SKIN: No rashes. Results CBC & Chem 7: 10/27/22 13:19 10/28/22 18:00 Labs: Abnormal Lab Results - Last 24 Hours (Table) 10/27/22 10/27/22 10/27/22 Range/Units 10:20 10:20 10:20 RBC 2.55 L (3.80-5.40) m/uL Hgb 8.2 L (11.4-16.0) gm/dL Hct 24.4 L (34.0-46.0) % RDW 16.2 H (11.5-15.5) % Plt Count (150-450) k/uL Sodium 132 L (137-145) mmol/L Chloride 91 L (98-107) mmol/L BUN 41 H (7-17) mg/dL Creatinine 6.14 H (0.52-1.04) mg/dL Glucose 119 H (74-99) mg/dL Calcium 8.2 L (8.4-10.2) mg/dL AST 39 H (14-36) U/L Crossmatch See Detail 10/27/22 Range/Units 13:19 RBC 2.51 L (3.80-5.40) m/uL Hgb 8.0 L (11.4-16.0) gm/dL Hct 23.9 L (34.0-46.0) % RDW 16.2 H (11.5-15.5) % Plt Count 133 L (150-450) k/uL Sodium (137-145) mmol/L Chloride (98-107) mmol/L BUN (7-17) mg/dL Creatinine (0.52-1.04) mg/dL Glucose (74-99) mg/dL Calcium (8.4-10.2) mg/dL AST (14-36) U/L Crossmatch Thrombosis Risk Factor Assmnt - Choose All That Apply Each Risk Factor Represents 2 Points: Age 61-74 years, Major surgery Thrombosis Risk Factor Assessment Total Risk Factor Score: 4 Thrombosis Risk Factor Assessment Level: Moderate Risk Assessment and Plan Assessment: 1. Bleeding right upper extremity fistula - Patient was taken to or for control of hemorrhage along with excision of graft and overlying necrotic skin slight skin ulceration and interposition PTFE graft for dialysis 2. Acute blood loss anemia; patient received transfusion with 1 unit packed RBCs; we will continue to monitor H&H closely and transfuse if hemoglobin is less than 8 3. End-stage renal disease/HD; patient maintains a Sunday chair time; nephrology on board; continue with Renvela 2400 mg before meals 3 t imes a day 4. Chronic pain/anxiety; patient takes [place] 10 mg every 4 hours as needed along with Xanax 0.5 mg daily 5. Hypertension; patient takes amlodipine 10 mg daily, Coreg 25 mg twice a day and isosorbide 20 mg twice a day 6. Coronary artery disease; Coreg 25 mg twice a day and isosorbide 20 mg twice a day DVT prophylaxis; SCDs only given risk of rebleeding CODE STATUS; full code
--- NOTE | 2022-10-29 08:32 | P.PN ---
Subjective Progress Note Date: 10/28/22 71-year-old female who was brought in by EMS this morning for complaints of bleeding from her fistula. Apparently patient woke up this morning and was doing fine, her checked on her and was getting her ready to go for dialysis when he had noted that she was bleeding at her fistula site, bleeding was pulsatile. He applied pressure, however continued to bleed and called EMS. Pressure dressing with tourniquet was applied to the right arm to control bleeding by EMS. She has a past medical history including diabetes mellitus, end-stage renal disease on hemodialysis recent stroke in July 2022 and recent GI bleed at that time as well. Patient is a poor historian, much of her history obtained by her . They deny any blood thinners, denies aspirin or Plavix. States fistula was placed approximately 13 years ago. Her states that she has seen Dr. Reyes in the office once, prior to that she had been seeing Dr. Ware who placed the fistula however has not seen her in s everal years and was not following with anybody in regards to her fistula. She was supposed to get ultrasound of the fistula, however never followed up. She gets dialysis Sunday, her last dialysis treatment was on Sunday for which he states was full treatment without any difficulty with accessing fistula. States that they have not had any trouble with accessing and running dialysis, however they do state that the axis is same location each time and there has been scabbing over this area where the bleed is. Patient currently states that she has some numbness and tingling in her right hand, there is a tourniquet in place. Bleeding seems to be controlled at this time. She has good capillary refill, unable to palpate radial pulse. Has good sensorimotor of the right hand and upper extremity. She currently denies any shortness breath, chest pain, abdominal pain, does state she is nauseated but no vomiting. Hemoglobin 8.2. Blood pressure 120/64, heart rate 58, respiratory rate 18, oxygen 98% on 4 L nasal cannula, temperature 99.3. - Patient was taken to or for control of hemorrhage along with excision of graft and overlying necrotic skin slight skin ulceration and interposition PTFE graft for dialysis Objective - Vital Signs Vital signs: Vital Signs Temp 98.1 F 10/28/22 07:12 Pulse 58 L 10/28/22 07:12 Resp 16 10/28/22 07:12 BP 117/64 10/28/22 07:12 Pulse Ox 99 10/28/22 08:12 FiO2 Intake & Output 10/27/22 10/28/22 10/28/22 18:59 06:59 18:59 Intake Total 552 Output Total 100 Balance 452 Weight 80.286 kg Intake: IV 552 Output: Estimated Blood Loss 100 Other: # Voids 0 # Bowel Movements 0 - Exam GENERAL: The patient is alert and oriented x3, not in any acute distress. Well developed, well nourished. HEENT: Pupils are round and equally reacting to light. EOMI. No scleral icterus. No conjunctival pallor. Normocephalic, atraumatic. No pharyngeal erythema. No thyromegaly. CARDIOVASCULAR: S1 and S2 present. No murmurs, rubs, or gallops. PULMONARY: Chest is clear to auscultation, no wheezing or crackles. ABDOMEN: Soft, nontender, nondistended, normoactive bowel sounds. No palpable organomegaly. MUSCULOSKELETAL: No joint swelling or deformity. EXTREMITIES: No cyanosis, clubbing, or pedal edema. NEUROLOGICAL: Gross neurological examination did not reveal any focal deficits. SKIN: No rashes. - Labs CBC & Chem 7: 10/27/22 13:19 10/28/22 18:00 Labs: Abnormal Lab Results - Last 24 Hours (Table) 10/27/22 10/27/22 10/27/22 Range/Units 10:20 10:20 13:19 RBC 2.51 L (3.80-5.40) m/uL Hgb 8.0 L (11.4-16.0) gm/dL Hct 23.9 L (34.0-46.0) % RDW 16.2 H (11.5-15.5) % Plt Count 133 L (150-450) k/uL Sodium 132 L (137-145) mmol/L Chloride 91 L (98-107) mmol/L BUN 41 H (7-17) mg/dL Creatinine 6.14 H (0.52-1.04) mg/dL Glucose 119 H (74-99) mg/dL POC Glucose (mg/dL) (70-110) mg/dL Calcium 8.2 L (8.4-10.2) mg/dL AST 39 H (14-36) U/L Crossmatch See Detail 10/27/22 10/28/22 Range/Units 21:03 05:08 RBC (3.80-5.40) m/uL Hgb (11.4-16.0) gm/dL Hct (34.0-46.0) % RDW (11.5-15.5) % Plt Count (150-450) k/uL Sodium (137-145) mmol/L Chloride (98-107) mmol/L BUN (7-17) mg/dL Creatinine (0.52-1.04) mg/dL Glucose (74-99) mg/dL POC Glucose (mg/dL) 130 H 116 H (70-110) mg/dL Calcium (8.4-10.2) mg/dL AST (14-36) U/L Crossmatch Assessment and Plan Assessment: 1. Bleeding right upper extremity fistula - Patient was taken to or for control of hemorrhage along with excision of graft and overlying necrotic skin slight skin ulceration and interposition PTFE graft for dialysis 2. Acute blood loss anemia; patient received transfusion with 1 unit packed RBCs; we will continue to monitor H&H closely and transfuse if hemoglobin is less than 8 3. End-stage renal disease/HD; patient maintains a Sunday chair time; nephrology on board; continue with Renvela 2400 mg before meals 3 times a day 4. Chronic pain/anxiety; patient takes [place] 10 mg every 4 hours as needed along with Xanax 0.5 mg daily 5. Hypertension; patient takes amlodipine 10 mg daily, Coreg 25 mg twice a day and isosorbide 20 mg twice a day 6. Coronary artery disease; Coreg 25 mg twice a day and isosorbide 20 mg twice a day DVT prophylaxis; SCDs only given risk of rebleeding CODE STATUS; full code
[2022-10-29 09:48] LABS: African American GFR (CKD) 4.7 (60.0-200.0); Anion Gap 16.6 mmol/L (10.00-18.00); BUN/Creat Ratio 6.18 Ratio (12.00-20.00); Calcium 8.4 mg/dL (8.7-10.3); Carbon Dioxide 25.4 mmol/L (20.0-27.5); Non-African American GFR(CKD) 4.1 (60.0-200.0); Potassium 5.1 mmol/L (3.5-5.5)
[2022-10-29] MEDS: HYDROcodone/APAP 5-325MG 1 EACH TAB PO PRN ×2 (09:56→20:53)
[2022-10-29] MEDS ORDERED: SODIUM FERRIC GLUCONAT-SUCROSE 125 MG in SODIUM CHLORIDE 0.9% 100 ML IVPB ONE (10:12)
[2022-10-29] MEDS ORDERED: SODIUM ZIRCONIUM CYCLOSILICATE 10 GM PACKET PO ONE (10:13)
--- NOTE | 2022-10-29 10:14 | P.PN ---
Subjective Patient is seen in follow-up for end-stage renal disease. She is maintained on hemodialysis on Sunday schedule. Underwent excision and interposition of AV graft on 10/27/2022. Potassium level stable. Denies chest pain or shortness of breath. Vital signs are stable. General: No acute distress. HEENT: Head exam is unremarkable. LUNGS: No audible rhonchi or wheezes. HEART: Rate and Rhythm are regular. ABDOMEN: Soft, no distention. EXTREMITITES: No edema. Objective - Vital Signs Vital signs: Vital Signs Temp 97.3 F L 10/29/22 07:12 Pulse 60 10/29/22 07:12 Resp 16 10/29/22 07:12 BP 160/67 10/29/22 07:12 Pulse Ox 99 10/29/22 08:11 FiO2 Intake & Output 10/28/22 10/29/22 10/29/22 18:59 06:59 18:59 Other: # Voids 1 1 - Labs CBC & Chem 7: 10/27/22 13:19 10/29/22 04:58 Labs: Abnormal Lab Results - Last 24 Hours (Table) 10/27/22 10/28/22 10/28/22 Range/Units 10:20 10:36 11:28 Sodium 132 L (137-145) mmol/L Potassium 5.3 H (3.5-5.1) mmol/L Chloride 94 L (98-107) mmol/L BUN 51 H (7-17) mg/dL Creatinine 7.47 H* (0.52-1.04) mg/dL Est GFR (CKD-EPI)AfAm (60.0-200.0) Est GFR (CKD-EPI)NonAf (60.0-200.0) BUN/Creatinine Ratio (12.00-20.00) Ratio Glucose 134 H (74-99) mg/dL POC Glucose (mg/dL) 144 H (70-110) mg/dL Calcium 8.2 L (8.4-10.2) mg/dL Iron 47 L (50-170) ug/dL TIBC 204 L (228-460) ug/dL Transferrin 146.0 L (204.0-354.0) mg/dL Ferritin 1151.0 H (10.0-291.0) ng/mL Crossmatch See Detail 10/28/22 10/28/22 10/28/22 Range/Units 16:31 18:00 20:20 Sodium (137-145) mmol/L Potassium 5.2 H (3.5-5.1) mmol/L Chloride (98-107) mmol/L BUN (7-17) mg/dL Creatinine (0.52-1.04) mg/dL Est GFR (CKD-EPI)AfAm (60.0-200.0) Est GFR (CKD-EPI)NonAf (60.0-200.0) BUN/Creatinine Ratio (12.00-20.00) Ratio Glucose (74-99) mg/dL POC Glucose (mg/dL) 174 H 170 H (70-110) mg/dL Calcium (8.4-10.2) mg/dL Iron (50-170) ug/dL TIBC (228-460) ug/dL Transferrin (204.0-354.0) mg/dL Ferritin (10.0-291.0) ng/mL Crossmatch 10/29/22 10/29/22 Range/Units 04:58 06:06 Sodium 134 L (137-145) mmol/L Potassium (3.5-5.1) mmol/L Chloride 92 L (98-107) mmol/L BUN 55.0 H (7-17) mg/dL Creatinine 8.9 H* (0.52-1.04) mg/dL Est GFR (CKD-EPI)AfAm 4.7 L (60.0-200.0) Est GFR (CKD-EPI)NonAf 4.1 L (60.0-200.0) BUN/Creatinine Ratio 6.18 L (12.00-20.00) Ratio Glucose (74-99) mg/dL POC Glucose (mg/dL) 119 H (70-110) mg/dL Calcium 8.4 L (8.4-10.2) mg/dL Iron (50-170) ug/dL TIBC (228-460) ug/dL Transferrin (204.0-354.0) mg/dL Ferritin (10.0-291.0) ng/mL Crossmatch Assessment and Plan Plan: Assessment: 1. End-stage renal disease maintained on hemodialysis on Sunday schedule via right upper extremity AV graft. 2. Hemorrhage of AV graft status post excision an interposition 10/27/2022. 3. Chronic kidney disease mineral bone disease maintained on Renvela. 4. Hypertension with chronic kidney disease. 5. Anemia of chronic kidney disease. Mild iron deficiency noted. Plan: Plan for dialysis on Sunday to allow adequate healing of the graft. IV iron today. Add Aranesp. Lokelma 10 g once today.
[2022-10-29 11:26] LABS: Glucose,Whole Blood 211 mg/dL (70-110)
[2022-10-29] MEDS ORDERED: DARBEPOETIN ALFA 40 MCG/0.4 ML SYRINGE SQ SCH (12:00)
[2022-10-29 17:02] LABS: Glucose,Whole Blood 180 mg/dL (70-110)
--- NOTE | 2022-10-29 18:09 | P.PN ---
Subjective Progress Note Date: 10/29/22 Principal diagnosis: right loop graft bleed patient doing well. She states her arm is tender but denies any numbness in her hand or fingers. Objective - Vital Signs Vital signs: Vital Signs Temp 97.5 F L 10/29/22 14:00 Pulse 53 L 10/29/22 14:00 Resp 15 10/29/22 14:00 BP 120/62 10/29/22 14:00 Pulse Ox 96 10/29/22 14:00 FiO2 Intake & Output 10/28/22 10/29/22 10/29/22 18:59 06:59 18:59 Other: # Voids 1 1 - Exam Palpable thrill right upper extremity loop graft tender to palpation at the incision sites. graft augments well. palpable radial pulse - Labs CBC & Chem 7: 10/27/22 13:19 10/29/22 04:58 Labs: Abnormal Lab Results - Last 24 Hours (Table) 10/27/22 10/28/22 10/28/22 Range/Units 10:20 10:36 18:00 Sodium (135-145) mmol/L Potassium 5.2 H (3.5-5.1) mmol/L Chloride (96-109) mmol/L BUN (9.0-27.0) mg/dL Creatinine (0.6-1.5) mg/dL Est GFR (CKD-EPI)AfAm (60.0-200.0) Est GFR (CKD-EPI)NonAf (60.0-200.0) BUN/Creatinine Ratio (12.00-20.00) Ratio POC Glucose (mg/dL) (70-110) mg/dL Calcium (8.7-10.3) mg/dL Iron 47 L (50-170) ug/dL TIBC 204 L (228-460) ug/dL Transferrin 146.0 L (204.0-354.0) mg/dL Ferritin 1151.0 H (10.0-291.0) ng/mL Crossmatch See Detail 10/28/22 10/29/22 10/29/22 Range/Units 20:20 04:58 06:06 Sodium 134 L (135-145) mmol/L Potassium (3.5-5.1) mmol/L Chloride 92 L (96-109) mmol/L BUN 55.0 H (9.0-27.0) mg/dL Creatinine 8.9 H* (0.6-1.5) mg/dL Est GFR (CKD-EPI)AfAm 4.7 L (60.0-200.0) Est GFR (CKD-EPI)NonAf 4.1 L (60.0-200.0) BUN/Creatinine Ratio 6.18 L (12.00-20.00) Ratio POC Glucose (mg/dL) 170 H 119 H (70-110) mg/dL Calcium 8.4 L (8.7-10.3) mg/dL Iron (50-170) ug/dL TIBC (228-460) ug/dL Transferrin (204.0-354.0) mg/dL Ferritin (10.0-291.0) ng/mL Crossmatch 10/29/22 10/29/22 Range/Units 11:25 17:00 Sodium (135-145) mmol/L Potassium (3.5-5.1) mmol/L Chloride (96-109) mmol/L BUN (9.0-27.0) mg/dL Creatinine (0.6-1.5) mg/dL Est GFR (CKD-EPI)AfAm (60.0-200.0) Est GFR (CKD-EPI)NonAf (60.0-200.0) BUN/Creatinine Ratio (12.00-20.00) Ratio POC Glucose (mg/dL) 211 H 180 H (70-110) mg/dL Calcium (8.7-10.3) mg/dL Iron (50-170) ug/dL TIBC (228-460) ug/dL Transferrin (204.0-354.0) mg/dL Ferritin (10.0-291.0) ng/mL Crossmatch Assessment and Plan Assessment: ESRD on HD Right upper extremity access bleed post op hemorrhage control and revision Plan: Hemodialysis Sunday per nephrology. Will follow.
[2022-10-29 20:12] LABS: Glucose,Whole Blood 184 mg/dL (70-110)
[2022-10-30 06:32] LABS: Glucose,Whole Blood 127 mg/dL (70-110)
[2022-10-30] MEDS: carvediloL 12.5 MG TAB PO SCH ×2 (06:52→17:09)
[2022-10-30] MEDS: SEVELAMER 800 MG TAB PO SCH ×3 (06:52→17:09)
[2022-10-30] MEDS: ALPRAZolam 0.5 MG TAB PO SCH (08:29)
[2022-10-30] MEDS: DICYCLOMINE 20 MG TAB PO SCH (08:29)
[2022-10-30] MEDS: allopurinoL 100 MG TAB PO SCH (08:29)
[2022-10-30] MEDS: ISOSORBIDE DINITRATE 20 MG TAB PO SCH (08:37)
[2022-10-30 09:56] LABS: Basophils % (A) 0 %; Eosinophils # (A) 0.3 k/uL (0-0.7); Eosinophils % (A) 3 %; HCT 21.1 % (34.0-46.0); HGB 7.2 gm/dL (11.4-16.0); Lymphocytes # (A) 1.4 k/uL (1.0-4.8); Lymphocytes % (A) 18 %; MCH 32.3 pg (25.0-35.0); MCHC 34.4 g/dL (31.0-37.0); Mean Platelet Volume 7.5; Monocytes # (A) 0.5 k/uL (0-1.0); Monocytes % (A) 6 %; Neutrophils # (A) 5.6 k/uL (1.3-7.7); Neutrophils % (A) 72 %; Platelet Count 156 k/uL (150-450); RBC 2.24 m/uL (3.80-5.40); RDW 15.7 % (11.5-15.5); WBC 7.8 k/uL (3.8-10.6)
[2022-10-30] MEDS: amLODIPine 10 MG TAB PO SCH (09:59)
[2022-10-30 10:17] LABS: African American GFR (CKD) 8 (>60 ml/min/1.73 sqM); Anion Gap 9 mmol/L; Blood Urea Nitrogen 40 mg/dL (7-17); Calcium 7.9 mg/dL (8.4-10.2); Carbon Dioxide 29 mmol/L (22-30); Chloride 94 mmol/L (98-107); Glucose 127 mg/dL (74-99); Non-African American GFR(CKD) 7 (>60 ml/min/1.73 sqM); Sodium 132 mmol/L (137-145)
--- NOTE | 2022-10-30 11:07 | P.PN ---
Subjective Patient is seen in follow-up for end-stage renal disease. She is maintained on hemodialysis on Sunday schedule. Underwent excision and interposition of AV graft on 10/27/2022. Tolerating dialysis well. No active complaints. Vital signs are stable. General: No acute distress. HEENT: Head exam is unremarkable. LUNGS: No audible rhonchi or wheezes. HEART: Rate and Rhythm are regular. ABDOMEN: Soft, no distention. EXTREMITITES: No edema. Objective - Vital Signs Vital signs: Vital Signs Temp 97.8 F 10/30/22 06:46 Pulse 63 10/30/22 06:46 Resp 17 10/30/22 06:46 BP 157/72 10/30/22 06:46 Pulse Ox 98 10/30/22 08:28 FiO2 Intake & Output 10/29/22 10/30/22 10/30/22 18:59 06:59 18:59 Output Total 0 Balance 0 Output: Urine 0 Other: # Voids 1 # Bowel Movements 1 - Labs CBC & Chem 7: 10/30/22 09:48 10/30/22 09:48 Labs: Abnormal Lab Results - Last 24 Hours (Table) 10/29/22 10/29/22 10/29/22 Range/Units 11:25 17:00 20:10 RBC (3.80-5.40) m/uL Hgb (11.4-16.0) gm/dL Hct (34.0-46.0) % RDW (11.5-15.5) % Sodium (137-145) mmol/L Chloride (98-107) mmol/L BUN (7-17) mg/dL Creatinine (0.52-1.04) mg/dL Glucose (74-99) mg/dL POC Glucose (mg/dL) 211 H 180 H 184 H (70-110) mg/dL Calcium (8.4-10.2) mg/dL 10/30/22 10/30/22 10/30/22 Range/Units 06:30 09:48 09:48 RBC 2.24 L (3.80-5.40) m/uL Hgb 7.2 L (11.4-16.0) gm/dL Hct 21.1 L (34.0-46.0) % RDW 15.7 H (11.5-15.5) % Sodium 132 L (137-145) mmol/L Chloride 94 L (98-107) mmol/L BUN 40 H (7-17) mg/dL Creatinine 5.73 H (0.52-1.04) mg/dL Glucose 127 H (74-99) mg/dL POC Glucose (mg/dL) 127 H (70-110) mg/dL Calcium 7.9 L (8.4-10.2) mg/dL Assessment and Plan Plan: Assessment: 1. End-stage renal disease maintained on hemodialysis on Sunday schedule via right upper extremity AV graft. 2. Hemorrhage of AV graft status post excision an interposition 10/27/2022. 3. Chronic kidney disease mineral bone disease maintained on Renvela. 4. Hypertension with chronic kidney disease. Stable. 5. Anemia of chronic kidney disease. Mild iron deficiency noted. Status post IV iron. On . Plan: Currently seen while undergoing hemodialysis. Next treatment on Sunday.
[2022-10-30 11:48] LABS: Glucose,Whole Blood 142 mg/dL (70-110)
--- NOTE | 2022-10-30 11:58 | P.PN ---
Subjective Progress Note Date: 10/30/22 Principal diagnosis: Fistula bleed Patient was seen and examined today as a follow-up. Patient came in with a right fistula arterial bleed and underwent control of hemorrhage, excision of graft and overlying necrotic skin ulceration with interposition of PTFE graft for dialysis on 10/27/2022. Patient is scheduled to undergo dialysis today. No further bleeding from right arm. Patient denies any pain in her right arm, Objective - Vital Signs Vital signs: Vital Signs Temp 97.8 F 10/30/22 06:46 Pulse 63 10/30/22 06:46 Resp 17 10/30/22 06:46 BP 157/72 10/30/22 06:46 Pulse Ox 98 10/30/22 08:28 FiO2 Intake & Output 10/29/22 10/30/22 10/30/22 18:59 06:59 18:59 Output Total 0 Balance 0 Output: Urine 0 Other: # Voids 1 # Bowel Movements 1 - Exam General appearance: The patient is alert, oriented, appears in no acute distress. HET: Head is normocephalic and atraumatic. Pupils are equal and reactive. Neck: Supple. Extremities: Normal skin color and turgor. Right upper extremity with palpable thrill over the graft, mild ecchymosis with tenderness to palpation at incision site, no bleeding. Sensorimotor intact. Neurological: Patient is alert and oriented. - Labs CBC & Chem 7: 10/30/22 09:48 10/30/22 09:48 Labs: Abnormal Lab Results - Last 24 Hours (Table) 10/29/22 10/29/22 10/30/22 Range/Units 17:00 20:10 06:30 RBC (3.80-5.40) m/uL Hgb (11.4-16.0) gm/dL Hct (34.0-46.0) % RDW (11.5-15.5) % Sodium (137-145) mmol/L Chloride (98-107) mmol/L BUN (7-17) mg/dL Creatinine (0.52-1.04) mg/dL Glucose (74-99) mg/dL POC Glucose (mg/dL) 180 H 184 H 127 H (70-110) mg/dL Calcium (8.4-10.2) mg/dL 10/30/22 10/30/22 10/30/22 Range/Units 09:48 09:48 11:35 RBC 2.24 L (3.80-5.40) m/uL Hgb 7.2 L (11.4-16.0) gm/dL Hct 21.1 L (34.0-46.0) % RDW 15.7 H (11.5-15.5) % Sodium 132 L (137-145) mmol/L Chloride 94 L (98-107) mmol/L BUN 40 H (7-17) mg/dL Creatinine 5.73 H (0.52-1.04) mg/dL Glucose 127 H (74-99) mg/dL POC Glucose (mg/dL) 142 H (70-110) mg/dL Calcium 7.9 L (8.4-10.2) mg/dL Assessment and Plan Assessment: 1. Right upper extremity fistula hemorrhage status post hemorrhage control and revision of loop graft 2. Acute blood loss anemia 3. End-stage renal disease on hemodialysis 4. Diabetes mellitus 5. History of stroke July 2022 Plan: 1. Continue with hemodialysis per recommendations from nephrology 2. If hemodialysis successful, patient is cleared from vascular surgery for discharge 3. Follow-up with Dr. Cesar in 1-2 weeks Thank you for this consultation. The impression and plan of care has been dictated as directed. I performed a history and examination of this patient, discussed the same with the dictator. I agree with the dictator's note ,documented as a scribe. Any additional findings or plans will be noted.
[2022-10-30 14:49] VITALS: RESP 16
[2022-10-30 17:14] LABS: Glucose,Whole Blood 193 mg/dL (70-110)
[2022-10-30 17:17] VITALS: BP 163/78; PULSE 76; TEMP 97.3
[2022-10-30 19:39] LABS: Hepatitis B Surface AB- Quant 20.6 mIU/mL; Hepatitis B Surface Antibody Reactive (Nonreactive)
--- NOTE | 2022-10-31 13:56 | P.DS ---
Providers Date of admission: 10/27/22 11:55 Expected date of discharge: 10/30/22 Attending physician: Carolyn Torres Consults: 10/27/22 11:55 Consult Physician Urgent Consulting Provider: Ashleigh Cesar Consult Reason/Comments: Arterial hemorrhage Do you want consulting provider notified?: Already Contacted Consult Physician Urgent Consulting Provider: Christy Mcneill Consult Reason/Comments: Renal failure needs dialysis Do you want consulting provider notified?: Yes Primary care physician: [facility] Hospital Course: Final diagnosis -Bleeding right upper extremity fistula, status post control of hemorrhage along with excision of graft and overlying necrotic skin slight skin ulceration and interposition PTFE graft for dialysis -Acute blood loss anemia; secondary to above -End-stage renal disease/HD; patient maintains a Sunday -Chronic pain/anxiety -Hypertension -Coronary artery disease -DVT prophylaxis; SCDs only given risk of rebleeding -full code Discharge disposition Patient is being discharged in a stable condition with guarded prognosis to home . Patient will follow-up with Dr. mercy logan in the outpatient setting upon discharge. Patient is to continue with hemodialysis as scheduled and close outpatient follow-up with nephrology. Patient follow-up with vascular surgery outpatient. Total time taken is greater than 35 minutes. Hospital course This is a 71-year-old female who was recently admitted with bleeding noted of her right upper extremity fistula and being closely monitored. Family had noticed pulsatile bleeding and placed pressure on and called 911 and EMS applied tourniquet and brought to the ER requiring a unit of PRBC and patient also went to the OR with vascular surgery for control of hemorrhage with excision of the graft and overlying necrotic skin. Patient undergoing dialysis with no issues and per nephrology will receive a unit of PRBC and close outpatient follow-up. Patient may be discharged home after dialysis and has been cleared by vascular surgery. Patient reports she would like to go home. Currently no reports of chest pain, shortness of breath, or palpitations. Patient is afebrile. No reports of nausea or vomiting and patient is tolerating diet. Patient will be discharged home today and will continue her current hemodialysis Sunday/Sunday/Sunday with her next session being on Sunday. Please refer to other consultation notes for further HPI. Physical exam: Gen: This is a 71-year-old female who is awake, alert and oriented 3, well- developed, well-nourished, obese HEENT: Head is atraumatic, normocephalic. Pupils equal, round. Sclerae is anicteric. NECK: Supple. No JVD. No lymphadenopathy. No thyromegaly. LUNGS: Diminished breath sounds bilaterally with no wheezes or rhonchi. No intercostal retractions. HEART: S1, S2 are muffled ABDOMEN: Soft. Bowel sounds are present. No masses. No tenderness. EXTREMITIES: No pedal edema. No calf tenderness. Right upper extremity fistula functioning with no active bleeding noted during dialysis NEUROLOGICAL: Patient is awake, alert and oriented x3. Cranial nerves 2 through 12 are grossly intact. Please refer to medication reconciliation sheet for a list of medications. The impression and plan of care has been dictated by Elaina Paulino, Nurse Practitioner as directed. Dr. Brian MD I have performed a history and examination and MDM of this patient, discussed the same with the dictator, and agree with the dictator's assessment and plan as written ,documented as a scribe. Based on total visit time, I have performed more than 50% of the visit. Patient Condition at Discharge: Fair Plan - Discharge Summary New Discharge Prescriptions: New Darbepoetin Rad [Aranesp] 40 mcg SQ Q7D each Continue Dicyclomine [Bentyl] 20 mg PO BID HYDROcodone/APAP 10-325MG [[place] 10-325] 1 tab PO Q4H PRN PRN Reason: Pain ALPRAZolam [Xanax] 0.5 mg PO DAILY carvediloL [Coreg] 25 mg PO BID-W/MEALS Sevelamer [Renvela] 2,400 mg PO AC-TID amLODIPine [Norvasc] 10 mg PO DAILY allopurinoL [Zyloprim] 100 mg PO DAILY Ondansetron [Zofran] 4 mg PO BID PRN PRN Reason: Nausea Lidocaine-Prilocaine Cream [Emla Cream 2.5%/2.5%] 1 applic TOPICAL MOWEFR PRN PRN Reason: dialysis Isosorbide Dinitrate 20 mg PO BID Discharge Medication List ALPRAZolam [Xanax] 0.5 mg PO DAILY 10/27/22 [History] Dicyclomine [Bentyl] 20 mg PO BID 10/27/22 [History] HYDROcodone/APAP 10-325MG [[place] 10-325] 1 tab PO Q4H PRN 10/27/22 [History] Isosorbide Dinitrate 20 mg PO BID 10/27/22 [History] Lidocaine-Prilocaine Cream [Emla Cream 2.5%/2.5%] 1 applic TOPICAL MOWEFR PRN 10/27/22 [History] Ondansetron [Zofran] 4 mg PO BID PRN 10/27/22 [History] Sevelamer [Renvela] 2,400 mg PO AC-TID 10/27/22 [History] allopurinoL [Zyloprim] 100 mg PO DAILY 10/27/22 [History] amLODIPine [Norvasc] 10 mg PO DAILY 10/27/22 [History] carvediloL [Coreg] 25 mg PO BID-W/MEALS 10/27/22 [History] Darbepoetin Rad [Aranesp] 40 mcg SQ Q7D each 10/30/22 [Rx] Follow up Appointment(s)/Referral(s): Ashleigh Cesar DO [STAFF PHYSICIAN] - 11/14/22 1:00 pm Nonstaff,Physician [REFERRING] - 1-2 days Charles Kohler DO [STAFF PHYSICIAN] - 1 Week (Office stated that patient will follow up at dialysis as scheduled) Patient Instructions/Handouts: Acute Posthemorrhagic Anemia (DC), Arteriovenous Fistula Creation for Hemodialysis (DC) Activity/Diet/Wound Care/Special Instructions: Activity Limited until follow-up Follow-up with nephrology outpatient Continue taking medications as prescribed Continue dialysis on Sunday/Sunday/Sunday with Sunday being your next scheduled session Discharge Disposition: HOME SELF-CARE
== END 2022-10-30 17:44 | disposition home or self-care (01) | DRG 252 ==
LOC: EC 09:58 → 4SSUR 11:53 → UNDOADMIN 11:53 → 4SSUR 11:55
PROVIDERS: ADMIT Hospitalist; ATTEND Hospitalist
PROC: 0HBCXZZ Excision of Left Upper Arm Skin, External Approach (ICD-10-PCS; principal; 2022-10-27 12:25)
PROC: 03QY0ZZ Repair Upper Artery, Open Approach (ICD-10-PCS; principal; 2022-10-27 12:25)
PROC: 03WY0JZ Revision of Synthetic Substitute in Upper Artery, Open Approach (ICD-10-PCS; principal; 2022-10-27 12:25)
PROC: 5A1D70Z Performance of Urinary Filtration, Intermittent, Less than 6 Hours Per Day (ICD-10-PCS; 2022-10-30)
DX: T82.838A Hemorrhage due to vascular prosthetic devices, implants and grafts, initial encounter (principal); N18.6 End stage renal disease; D62 Acute posthemorrhagic anemia; I12.0 Hypertensive chronic kidney disease with stage 5 chronic kidney disease or end stage renal disease; D63.1 Anemia in chronic kidney disease; Z99.2 Dependence on renal dialysis; E83.9 Disorder of mineral metabolism, unspecified; F41.9 Anxiety disorder, unspecified; J45.909 Unspecified asthma, uncomplicated; G89.29 Other chronic pain; I25.10 Atherosclerotic heart disease of native coronary artery without angina pectoris; Z79.899 Other long term (current) drug therapy; Z86.73 Personal history of transient ischemic attack (TIA), and cerebral infarction without residual deficits; L98.499 Non-pressure chronic ulcer of skin of other sites with unspecified severity; E07.9 Disorder of thyroid, unspecified; G47.30 Sleep apnea, unspecified; Z88.8 Allergy status to other drugs, medicaments and biological substances; Z91.041 Radiographic dye allergy status
CPT/HCPCS: 36415; 80048; 80053; 82728; 83540; 83550; 84132; 85025; 85027; 85610; 85730; 86706; 86850; 86900; 86901; 86920; 87340; 94760; 96360; 99285

== ENCOUNTER 2023-06-18 16:17 | Inpatient (IN) | payer MEDICARE ==
--- NOTE | 2023-06-18 16:42 | ED ---
General Adult HPI - General Chief complaint: Altered Mental Status Stated complaint: AMS Time Seen by Provider: 06/18/23 16:24 Source: patient, EMS, RN notes reviewed Mode of arrival: EMS Limitations: altered mental status - History of Present Illness Initial comments: Patient is a pleasant 72-year-old female presenting to the emergency department with concerns with reported change in mental status. Patient reportedly does live on her own and is normally oriented 3. Patient reportedly has had symptoms since yesterday, unclear when. Unclear last known well. Unclear if history of similar symptoms previously. Patient provides no history. Patient does come from dialysis where she reportedly did complete dialysis. - Related Data Home Medications Medication Instructions Recorded Confirmed ALPRAZolam [Xanax] 0.5 mg PO DAILY 10/27/22 06/18/23 Dicyclomine [Bentyl] 20 mg PO DAILY 10/27/22 06/18/23 HYDROcodone/APAP 10-325MG [[place] 1 tab PO Q4H PRN 10/27/22 06/18/23 10-325] Isosorbide Dinitrate 20 mg PO BID 10/27/22 06/18/23 Lidocaine-Prilocaine Cream [Emla 1 applic TOPICAL MOWEFR PRN 10/27/22 06/18/23 Cream 2.5%/2.5%] Ondansetron [Zofran] 4 mg PO BID PRN 10/27/22 06/18/23 Sevelamer [Renvela] 2,400 mg PO AC-TID 10/27/22 06/18/23 allopurinoL [Zyloprim] 100 mg PO DAILY 10/27/22 06/18/23 amLODIPine [Norvasc] 10 mg PO DAILY 10/27/22 06/18/23 carvediloL [Coreg] 25 mg PO BID-W/MEALS 10/27/22 06/18/23 Insulin Glargine [Lantus Vial] 40 unit SQ DIRECTED 06/18/23 06/18/23 Insulin Lispro [humaLOG Kwikpen] See Protocol SQ DIRECTED PRN 06/18/23 06/18/23 Midodrine [ProAmatine] 5 mg PO MOWEFR PRN 06/18/23 06/18/23 Sevelamer [Renvela] 1,600 mg PO BID PRN 06/18/23 06/18/23 Sodium Zirconium Cyclosilicate 10 gm PO DIRECTED PRN 06/18/23 06/18/23 [Lokelma] Allergies Allergy/AdvReac Type Severity Reaction Status Date / Time Iodinated Contrast Media Allergy Unknown Verified 06/18/23 18:20 Phenothiazines Allergy Unknown Verified 06/18/23 18:20 prednisone Allergy Unknown Verified 06/18/23 18:20 Review of Systems ROS Statement: Those systems with pertinent positive or pertinent negative responses have been documented in the HPI. ROS Other: All systems not noted in ROS Statement are negative. Constitutional: Denies: fever Eyes: Denies: eye pain ENT: Denies: ear pain Respiratory: Denies: cough Cardiovascular: Denies: chest pain Endocrine: Denies: fatigue Gastrointestinal: Denies: abdominal pain Genitourinary: Denies: dysuria Musculoskeletal: Denies: back pain Skin: Denies: rash Neurological: Reports: as per HPI. Denies: headache Past Medical History Past Medical History: Asthma, Diabetes Mellitus, Dialysis, Sleep Apnea/CPAP/BIPA P, Thyroid Disorder History of Any Multi-Drug Resistant Organisms: None Reported Additional Past Surgical History / Comment(s): right fistula, left fistula Past Psychological History: No Psychological Hx Reported Smoking Status: Never smoker Past Alcohol Use History: None Reported Past Drug Use History: None Reported - Past Family History Mother History Unknown: Yes General Exam Limitations: altered mental status General appearance: alert, in no apparent distress Head exam: Present: normocephalic Eye exam: Present: normal appearance, EOMI ENT exam: Present: normal oropharynx Neck exam: Present: normal inspection. Absent: meningismus Respiratory exam: Present: normal lung sounds bilaterally Cardiovascular Exam: Present: regular rate, normal rhythm GI/Abdominal exam: Present: soft. Absent: tenderness Extremities exam: Present: normal inspection Neurological exam: Present: alert, altered, other (Nonverbal. Does not follow commands. No flaccid paralysis.) Expanded Neurological exam: Present: total aphasia, protecting the airway Eye Response: (4) open spontaneously Motor Response: (4) withdraws to pain Verbal Response: (1) no verbal response Psychiatric exam: Present: flat affect Skin exam: Present: normal color Course Vital Signs 06/18/23 06/18/23 06/18/23 16:20 16:48 17:00 Temperature 98.1 F Pulse Rate 74 76 76 Respiratory 20 14 14 Rate Blood Pressure 207/94 222/113 194/85 O2 Sat by Pulse 99 99 99 Oximetry 06/18/23 06/18/23 06/18/23 18:00 18:30 20:04 Temperature Pulse Rate 69 70 68 Respiratory 14 14 19 Rate Blood Pressure 216/109 219/111 207/99 O2 Sat by Pulse 98 97 97 Oximetry EKG Findings - EKG Results: EKG: interpreted by ERMD (left axis. Diffuse Q waves. No acute ST change.), sinus rhythm Medical Decision Making - Medical Decision Making Was pt. sent in by a medical professional or institution (, PA, BREAKER UNIT ASSEMBLER, urgent care, hospital, or fci...) When possible be specific @ -Patient was sent in by dialysis Did you speak to anyone other than the patient for history (EMS, parent, family, police, friend...)? What history was obtained from this source @ -No Did you review nursing and triage notes (agree or disagree)? Why? @ -I reviewed and agree with nursing and triage notes Were old charts reviewed (outside hosp., previous admission, EMS record, old EKG, old radiological studies, urgent care reports/EKG's, fci records)? Report findings @ -Previous admission was reviewed Differential Diagnosis (chest pain, altered mental status, abdominal pain women, abdominal pain men, vaginal bleeding, weakness, fever, dyspnea, syncope, headache, dizziness, GI bleed, back pain, seizure, CVA, palpatations, mental health, musculoskeletal)? @ -Differential Altered Mental Status: Hypoglycemia, DKA, hypercapnia, ETOH, overdose, CO poisoning, trauma, myxedema coma, HTN encephalopathy, infection, encephalitis, psychosis, intercranial hemorrhage, hepatic encephalopathy, meningitis, CVA, this is not meant to be an all-inclusive list EKG interpreted by me (3pts min.). @ -As above X-rays interpreted by me (1pt min.). @ -Chest x-ray does not reveal acute abnormality CT interpreted by me (1pt min.). @ -CT brain without obvious large hemorrhage U/S interpreted by me (1pt. min.). @ -None done What testing was considered but not performed or refused? (CT, X-rays, U/S, labs)? Why? @ -None What meds were considered but not given or refused? Why? @ -None Did you discuss the management of the patient with other professionals (professionals i.e. , PA, BREAKER UNIT ASSEMBLER, lab, RT, psych nurse, social worker masters, tea room manager, teacher, wildlife conservation officer, field case manager)? Give summary @ -Case was discussed with Dr. silver covering hospital call, who will admit. No consults at this time. Was smoking cessation discussed for >3mins.? @ -No Was critical care preformed (if so, how long)? @ -No Were there social determinants of health that impacted care today? How? (Homelessness, low income, unemployed, alcoholism, drug addiction, transportation, low edu. Level, literacy, decrease access to med. care, usp, rehab)? @ -No Was there de-escalation of care discussed even if they declined (Discuss DNR or withdrawal of care, Hospice)? DNR status @ -No What co-morbidities impacted this encounter? (DM, HTN, Smoking, COPD, CAD, Cancer, CVA, ARF, Chemo, Hep., AIDS, mental health diagnosis, sleep apnea, morbid obesity)? @ -None Was patient admitted / discharged? Hospital course, mention meds given and route, prescriptions, significant lab abnormalities, going to OR and other pertinent info. @ -Patient reevaluated and now was verbal. Patient states she does not make urine. Patient still is unable to orient at all. Patient states her mind is not working well. Patient will be admitted. Admission orders written. Undiagnosed new problem with uncertain prognosis? @ -No Drug Therapy requiring intensive monitoring for toxicity (Heparin, Nitro, Insulin, Cardizem)? @ -No Were any procedures done? @ -No Diagnosis/symptom? @ -default Acute, or Chronic, or Acute on Chronic? @ -default Uncomplicated (without systemic symptoms) or Complicated (systemic symptoms)? @ -default Side effects of treatment? @ -No Exacerbation, Progression, or Severe Exacerbation? @ -No Poses a threat to life or bodily function? How? (Chest pain, [place], DC, pneumonia, PE, COPD, DKA, ARF, appy, cholecystitis, CVA, Diverticulitis, Homicidal, Suicidal, threat to staff... and all critical care pts) @ -No - Lab Data Result diagrams: 06/18/23 16:46 06/18/23 16:46 Lab Results 06/18/23 06/18/23 06/18/23 Range/Units 16:46 16:46 16:46 WBC 8.1 (3.8-10.6) k/uL RBC 3.69 L (3.80-5.40) m/uL Hgb 11.8 (11.4-16.0) gm/dL Hct 35.4 (34.0-46.0) % MCV 96.0 (80.0-100.0) fL MCH 31.9 (25.0-35.0) pg MCHC 33.2 (31.0-37.0) g/dL RDW 15.7 H (11.5-15.5) % Plt Count 155 (150-450) k/uL MPV 6.9 Neutrophils % 75 % Lymphocytes % 16 % Monocytes % 6 % Eosinophils % 2 % Basophils % 0 % Neutrophils # 6.1 (1.3-7.7) k/uL Lymphocytes # 1.3 (1.0-4.8) k/uL Monocytes # 0.5 (0-1.0) k/uL Eosinophils # 0.2 (0-0.7) k/uL Basophils # 0.0 (0-0.2) k/uL PT 11.4 (10.0-12.5) sec INR 1.1 (<1.2) APTT 27.0 (22.0-30.0) sec Sodium 135 L (137-145) mmol/L Potassium 4.7 (3.5-5.1) mmol/L Chloride 97 L (98-107) mmol/L Carbon Dioxide 25 (22-30) mmol/L Anion Gap 13 mmol/L BUN 27 H (7-17) mg/dL Creatinine 4.02 H (0.52-1.04) mg/dL Est GFR (CKD-EPI)AfAm 12 (>60 ml/min/1.73 sqM) Est GFR (CKD-EPI)NonAf 11 (>60 ml/min/1.73 sqM) Glucose 113 H (74-99) mg/dL Calcium 9.0 (8.4-10.2) mg/dL Total Bilirubin 1.3 (0.2-1.3) mg/dL AST 36 (14-36) U/L ALT 16 (4-34) U/L Alkaline Phosphatase 134 H (38-126) U/L Ammonia (<30) umol/L Troponin I (0.000-0.034) ng/mL Total Protein 7.6 (6.3-8.2) g/dL Albumin 4.1 (3.5-5.0) g/dL Serum Alcohol <10 mg/dL 06/18/23 06/18/23 Range/Units 16:46 16:46 WBC (3.8-10.6) k/uL RBC (3.80-5.40) m/uL Hgb (11.4-16.0) gm/dL Hct (34.0-46.0) % MCV (80.0-100.0) fL MCH (25.0-35.0) pg MCHC (31.0-37.0) g/dL RDW (11.5-15.5) % Plt Count (150-450) k/uL MPV Neutrophils % % Lymphocytes % % Monocytes % % Eosinophils % % Basophils % % Neutrophils # (1.3-7.7) k/uL Lymphocytes # (1.0-4.8) k/uL Monocytes # (0-1.0) k/uL Eosinophils # (0-0.7) k/uL Basophils # (0-0.2) k/uL PT (10.0-12.5) sec INR (<1.2) APTT (22.0-30.0) sec Sodium (137-145) mmol/L Potassium (3.5-5.1) mmol/L Chloride (98-107) mmol/L Carbon Dioxide (22-30) mmol/L Anion Gap mmol/L BUN (7-17) mg/dL Creatinine (0.52-1.04) mg/dL Est GFR (CKD-EPI)AfAm (>60 ml/min/1.73 sqM) Est GFR (CKD-EPI)NonAf (>60 ml/min/1.73 sqM) Glucose (74-99) mg/dL Calcium (8.4-10.2) mg/dL Total Bilirubin (0.2-1.3) mg/dL AST (14-36) U/L ALT (4-34) U/L Alkaline Phosphatase (38-126) U/L Ammonia <9 (<30) umol/L Troponin I 0.025 (0.000-0.034) ng/mL Total Protein (6.3-8.2) g/dL Albumin (3.5-5.0) g/dL Serum Alcohol mg/dL Disposition Clinical Impression: Altered mental status Disposition: ADMITTED IP TO THIS HOSP Is patient prescribed a controlled substance at d/c from ED?: No Referrals: Fareed Logan DO [REFERRING] - 1-2 days Time of Disposition: 20:47
[2023-06-18 17:14] LABS: Basophils % (A) 0 %; Eosinophils # (A) 0.2 k/uL (0-0.7); Eosinophils % (A) 2 %; HCT 35.4 % (34.0-46.0); HGB 11.8 gm/dL (11.4-16.0); Lymphocytes # (A) 1.3 k/uL (1.0-4.8); Lymphocytes % (A) 16 %; MCH 31.9 pg (25.0-35.0); MCHC 33.2 g/dL (31.0-37.0); Mean Platelet Volume 6.9; Monocytes # (A) 0.5 k/uL (0-1.0); Monocytes % (A) 6 %; Neutrophils # (A) 6.1 k/uL (1.3-7.7); Neutrophils % (A) 75 %; Platelet Count 155 k/uL (150-450); RBC 3.69 m/uL (3.80-5.40); RDW 15.7 % (11.5-15.5); WBC 8.1 k/uL (3.8-10.6)
[2023-06-18 17:24] LABS: INR 1.1 (<1.2); Prothrombin Time 11.4 sec (10.0-12.5)
[2023-06-18 17:33] LABS: ALT 16 U/L (4-34); AST 36 U/L (14-36); African American GFR (CKD) 12 (>60 ml/min/1.73 sqM); Albumin 4.1 g/dL (3.5-5.0); Alcohol <10 mg/dL; Alkaline Phosphatase 134 U/L (38-126); Anion Gap 13 mmol/L; Blood Urea Nitrogen 27 mg/dL (7-17); Carbon Dioxide 25 mmol/L (22-30); Chloride 97 mmol/L (98-107); Glucose 113 mg/dL (74-99); Non-African American GFR(CKD) 11 (>60 ml/min/1.73 sqM); Potassium 4.7 mmol/L (3.5-5.1); Sodium 135 mmol/L (137-145); Total Bilirubin 1.3 mg/dL (0.2-1.3); Total Protein 7.6 g/dL (6.3-8.2)
--- NOTE | 2023-06-18 17:55 | CT ---
EXAMINATION TYPE: CT brain wo con DATE OF EXAM: 06/18/2023 COMPARISON: None INDICATION: AMS DLP: 1118.4 mGycm, Automated exposure control for dose reduction was used. CONTRAST: None CT of the brain is performed utilizing 3 mm thick sections through the posterior fossa and 3 mm thick sections through the remaining calvarium. Study is performed within 24 hours of arrival to the hosp ital. No abnormal hyperdensity is present to suggest an acute intracranial hemorrhage. No mass lesion is evident. No acute infarcts are evident. There appears to be an old infarct within the right watershed region. No mass effect is evident. Periventricular white matter hypodensity is present, likely on the basis o f chronic white matter ischemic changes. Ventricles and sulci are prominent for the patient age. Paranasal sinuses and mastoid air cells within the [id number] are clear. IMPRESSION: 1. No acute intracranial process. Follow-up MRI can be performed as clinically indicated. 2. Periventricular white matter hypodensity, likely on the basis of chronic white matter ischemic. 3. Findings suggestive for an old right watershed infarct
--- NOTE | 2023-06-18 18:37 | XR ---
EXAMINATION TYPE: XR chest 2V DATE OF EXAM: 06/18/2023 COMPARISON: None INDICATION: Altered mental status TECHNIQUE: Frontal and lateral views of the chest are obtained. FINDINGS: The heart size is enlarged. The pulmonary vasculature is normal in. No suspicious focal consolidation is evident.. IMPRESSION: 1. Cardiomegaly. 2. No acute pulmonary process. Follow up exams can be performed as clinically indicated.
[2023-06-18] MEDS ORDERED: hydrALAZINE HCL 20 MG/ML 1 ML VIAL IVP STA (19:17)
[2023-06-18] MEDS ORDERED: ACETAMINOPHEN TAB 325 MG TAB PO PRN (20:48)
[2023-06-18] MEDS ORDERED: NALOXONE 0.4 MG/ML 1 ML VIAL IV PRN (20:48)
[2023-06-18] MEDS ORDERED: ONDANSETRON 4 MG TAB PO PRN (20:52)
[2023-06-18] MEDS: SODIUM CHLORIDE 0.9% 1,000 ML IV SCH (21:11)
[2023-06-18] MEDS: ISOSORBIDE DINITRATE 20 MG TAB PO SCH (21:32)
[2023-06-18] MEDS: carvediloL 12.5 MG TAB PO SCH (21:32)
[2023-06-18 22:03] LABS: Appearance,Urine Cloudy (Clear); Bacteria,Urine Rare /hpf; Bilirubin,Urine Negative (Negative); Blood,Urine Moderate (Negative); Color,Urine Light Yellow; Glucose,Urine (UA) 1+ (Negative); Ketones,Urine Negative (Negative); Leukocyte Esterase,Urine Negative (Negative); Mucus,Urine Rare /hpf; Nitrite,Urine Negative (Negative); Protein,Urine 3+ (Negative); RBC,Urine 16 /hpf (0-5); Specific Gravity,Urine 1.015 (1.001-1.035); Squamous Epithelial Cell,Urine 10 /hpf (0-4); Urobilinogen,Urine <2.0 mg/dL (<2.0); WBC,Urine 12 /hpf (0-5)
--- NOTE | 2023-06-19 01:38 | P.HPIM ---
History of Present Illness H&P Date: 06/18/23 Patient is a 72-year-old female with a PMH of ESRD on hemodialysis, type II DM, hypertension, hypothyroidism who was brought to the emergency room via EMS for altered mental status. History severely limited as patient was very confused at the time of interview. Attempted to contact patient's spouse with numbers in the chart with no response. As per the ED provider and documentation, the patient is normally alert and oriented 3 had become increasingly confused over the past 48 hours. She underwent her regularly scheduled dialysis prior to coming to the emergency room with no improvement in her symptoms. At time of interview, the patient is answering "I don't know" to essentially all questions. In the emergency room CT brain revealed chronic white matter changes with no acute abnormalities. Chest x-ray revealed cardiomegaly with no acute abnormalities. EKG revealed sinus rhythm at [address]/T-wave changes noted as reviewed by me. Laboratory evaluation was remarkable for BUN 27, creatinine 4.02, a contaminated UA. ED documentation reviewed and case discussed with ED provider. Review of systems: Unable to obtain due to mental status Physical examination: Vital signs reviewed General: non toxic, no distress, appears at stated age, overweight Derm: no unusual rashes/lesions, warm Head: atraumatic, normocephalic, symmetric Eyes: EOMI, no lid lag, anicteric sclera, pupils equal round reactive to light ENT: Nose and ears atraumatic Neck: No cervical lymphadenopathy, trachea midline, supple Mouth: no lip lesion, mucus membranes moist Cardiovascular: S1S2 reg, no murmur, positive dorsalis pedis pulse bilateral, no edema Lungs: CTA bilateral, no rhonchi, no rales, no accessory muscle use Abdominal: soft, nontender to palpation, no guarding Ext: muscle strength 5 out of 5 in all 4 extremities grossly, no gross muscle atrophy, no contractures Neuro: no gross focal neuro deficits, moving all extremities, Psych: Not oriented to self, place, or time, answering most questions with "I don't know" Assessment: Altered mental status, unclear etiology Hypertensive urgency Chronic conditions: ESRD on hemodialysis, type II DM, hypertension, hypothyroidism Imaging: In the emergency room CT brain revealed chronic white matter changes with no acute abnormalities. Chest x-ray revealed cardiomegaly with no acute abnormalities. EKG revealed sinus rhythm at [address]/T-wave changes noted as reviewed by me. Data Review: Laboratory evaluation was remarkable for BUN 27, creatinine 4.02, a contaminated UA. Plan: Fall precautions Neurology consulted Neuro checks Cardiac monitoring Continue home medications DVT prophylaxis: Lovenox subcu The patient is admitted with an anticipated greater than 2 midnight stay for evaluation of AMS CODE STATUS: Full Code Discussed with: Patient Anticipated discharge place: Home Past Medical History Past Medical History: Asthma, Diabetes Mellitus, Dialysis, Sleep Apnea/CPAP/BIPAP, Thyroid Disorder History of Any Multi-Drug Resistant Organisms: None Reported Additional Past Surgical History / Comment(s): right fistula, left fistula Past Psychological History: No Psychological Hx Reported Smoking Status: Never smoker Past Alcohol Use History: None Reported Past Drug Use History: None Reported - Past Family History Mother History Unknown: Yes Medications and Allergies Home Medications Medication Instructions Recorded Confirmed Type ALPRAZolam [Xanax] 0.5 mg PO DAILY 10/27/22 06/18/23 History Dicyclomine [Bentyl] 20 mg PO DAILY 10/27/22 06/18/23 History HYDROcodone/APAP 10-325MG [[place] 1 tab PO Q4H PRN 10/27/22 06/18/23 History 10-325] Isosorbide Dinitrate 20 mg PO BID 10/27/22 06/18/23 History Lidocaine-Prilocaine Cream [[place] 1 applic TOPICAL MOWEFR PRN 10/27/22 06/18/23 History Cream 2.5%/2.5%] Ondansetron [Zofran] 4 mg PO BID PRN 10/27/22 06/18/23 History Sevelamer [Renvela] 2,400 mg PO AC-TID 10/27/22 06/18/23 History allopurinoL [Zyloprim] 100 mg PO DAILY 10/27/22 06/18/23 History amLODIPine [Norvasc] 10 mg PO DAILY 10/27/22 06/18/23 History carvediloL [Coreg] 25 mg PO BID-W/MEALS 10/27/22 06/18/23 History Insulin Glargine [Lantus Vial] 40 unit SQ DIRECTED 06/18/23 06/18/23 History Insulin Lispro [humaLOG Kwikpen] See Protocol SQ DIRECTED PRN 06/18/23 06/18/23 History Midodrine [ProAmatine] 5 mg PO MOWEFR PRN 06/18/23 06/18/23 History Sevelamer [Renvela] 1,600 mg PO BID PRN 06/18/23 06/18/23 History Sodium Zirconium Cyclosilicate 10 gm PO DIRECTED PRN 06/18/23 06/18/23 History [Lokelma] Allergies Allergy/AdvReac Type Severity Reaction Status Date / Time Iodinated Contrast Media Allergy Unknown Verified 06/18/23 18:20 Phenothiazines Allergy Unknown Verified 06/18/23 18:20 prednisone Allergy Unknown Verified 06/18/23 18:20 Physical Exam Vitals: Vital Signs Temp Pulse Resp BP Pulse Ox 06/18/23 20:04 68 19 207/99 97 06/18/23 18:30 70 14 219/111 97 06/18/23 18:00 69 14 216/109 98 06/18/23 17:00 76 14 194/85 99 06/18/23 16:48 76 14 222/113 99 06/18/23 16:20 98.1 F 74 20 207/94 99 Intake and Output 06/18/23 06/18/23 06/18/23 06:59 14:59 22:59 Other: Weight 72.3 kg Results CBC & Chem 7: 06/18/23 16:46 06/18/23 16:46 Labs: Abnormal Lab Results - Last 24 Hours (Table) 06/18/23 06/18/23 Range/Units 16:46 16:46 RBC 3.69 L (3.80-5.40) m/uL RDW 15.7 H (11.5-15.5) % Sodium 135 L (137-145) mmol/L Chloride 97 L (98-107) mmol/L BUN 27 H (7-17) mg/dL Creatinine 4.02 H (0.52-1.04) mg/dL Glucose 113 H (74-99) mg/dL Alkaline Phosphatase 134 H (38-126) U/L
[2023-06-19 04:47] LABS: Glucose,Whole Blood 128 mg/dL (70-110)
[2023-06-19 07:56] LABS: Glucose,Whole Blood 121 mg/dL (70-110)
[2023-06-19] MEDS ORDERED: ENOXAPARIN 40 MG/0.4 ML SYRINGE SQ SCH (09:00)
[2023-06-19] MEDS: INSULIN ASPART (NovoLOG) 100 UNIT/ML VIAL SQ SCH ×4 (09:06→21:04)
[2023-06-19] MEDS: carvediloL 12.5 MG TAB PO SCH ×2 (09:19→17:02)
[2023-06-19 09:25] LABS: Basophils % (A) 0 %; Eosinophils # (A) 0.1 k/uL (0-0.7); Eosinophils % (A) 1 %; HGB 11.2 gm/dL (11.4-16.0); Hypochromasia Slight; Lymphocytes % (A) 14 %; MCH 31.5 pg (25.0-35.0); MCHC 32.1 g/dL (31.0-37.0); MCV 98.1 fL (80.0-100.0); Macrocytosis Slight; Mean Platelet Volume 7.4; Monocytes # (A) 0.5 k/uL (0-1.0); Monocytes % (A) 7 %; Neutrophils # (A) 5.3 k/uL (1.3-7.7); Neutrophils % (A) 75 %; Platelet Count 156 k/uL (150-450); RBC 3.57 m/uL (3.80-5.40); RDW 15.7 % (11.5-15.5)
[2023-06-19] MEDS: allopurinoL 100 MG TAB PO SCH (09:26)
[2023-06-19] MEDS: amLODIPine 10 MG TAB PO SCH (09:26)
[2023-06-19] MEDS: ALPRAZolam 0.5 MG TAB PO SCH (09:26)
[2023-06-19] MEDS: ISOSORBIDE DINITRATE 20 MG TAB PO SCH ×2 (09:26→21:32)
[2023-06-19 09:42] LABS: ALT 13 U/L (4-34); AST 24 U/L (14-36); African American GFR (CKD) 8 (>60 ml/min/1.73 sqM); Albumin 3.9 g/dL (3.5-5.0); Alkaline Phosphatase 123 U/L (38-126); Anion Gap 16 mmol/L; Blood Urea Nitrogen 39 mg/dL (7-17); Calcium 8.6 mg/dL (8.4-10.2); Carbon Dioxide 23 mmol/L (22-30); Chloride 98 mmol/L (98-107); Glucose 119 mg/dL (74-99); Non-African American GFR(CKD) 7 (>60 ml/min/1.73 sqM); Potassium 4.2 mmol/L (3.5-5.1); Sodium 137 mmol/L (137-145)
[2023-06-19 12:40] LABS: Glucose,Whole Blood 165 mg/dL (70-110)
--- NOTE | 2023-06-19 12:46 | P.NPCON ---
History of Present Illness - Reason for Consult end stage renal disease - History of Present Illness Patient is a 72-year-old female with end-stage renal disease on hemodialysis on a Sunday schedule. She is admitted to the hospital with complaints of mental status changes. Patient did finish her treatment yesterday. Mentation has apparently deteriorated over the last 2-3 days prior to admission. CTs scan showed no acute findings No fever documented No history of nausea vomiting abdominal pain or diarrhea. Patient has a right arm AV fistula. Blood pressure was significantly elevated at 222/113 on initial admission Review of Systems As per HPI Past Medical History Past Medical History: Asthma, Diabetes Mellitus, Dialysis, Sleep Apnea/CPAP/BIPAP, Thyroid Disorder History of Any Multi-Drug Resistant Organisms: None Reported Additional Past Surgical History / Comment(s): right fistula, left fistula Past Psychological History: No Psychological Hx Reported Smoking Status: Never smoker Past Alcohol Use History: None Reported Past Drug Use History: None Reported - Past Family History Mother History Unknown: Yes Medications and Allergies Home Medications Medication Instructions Recorded Confirmed Type ALPRAZolam [Xanax] 0.5 mg PO DAILY 10/27/22 06/18/23 History Dicyclomine [Bentyl] 20 mg PO DAILY 10/27/22 06/18/23 History HYDROcodone/APAP 10-325MG [[place] 1 tab PO Q4H PRN 10/27/22 06/18/23 History 10-325] Isosorbide Dinitrate 20 mg PO BID 10/27/22 06/18/23 History Lidocaine-Prilocaine Cream [[place]ml[place] 1 applic TOPICAL MOWEFR PRN 10/27/22 06/18/23 History Cream 2.5%/2.5%] Ondansetron [Zofran] 4 mg PO BID PRN 10/27/22 06/18/23 History Sevelamer [Renvela] 2,400 mg PO AC-TID 10/27/22 06/18/23 History allopurinoL [Zyloprim] 100 mg PO DAILY 10/27/22 06/18/23 History amLODIPine [Norvasc] 10 mg PO DAILY 10/27/22 06/18/23 History carvediloL [Coreg] 25 mg PO BID-W/MEALS 10/27/22 06/18/23 History Insulin Glargine [Lantus Vial] 40 unit SQ DIRECTED 06/18/23 06/18/23 History Insulin Lispro [humaLOG Kwikpen] See Protocol SQ DIRECTED PRN 06/18/23 06/18/23 History Midodrine [ProAmatine] 5 mg PO MOWEFR PRN 06/18/23 06/18/23 History Sevelamer [Renvela] 1,600 mg PO BID PRN 06/18/23 06/18/23 History Sodium Zirconium Cyclosilicate 10 gm PO DIRECTED PRN 06/18/23 06/18/23 History [Lokelma] Allergies Allergy/AdvReac Type Severity Reaction Status Date / Time Iodinated Contrast Media Allergy Unknown Verified 06/18/23 18:20 Phenothiazines Allergy Unknown Verified 06/18/23 18:20 prednisone Allergy Unknown Verified 06/18/23 18:20 Physical Exam Vitals: Vital Signs Temp Pulse Resp BP Pulse Ox 06/19/23 11:30 70 22 154/82 95 06/19/23 10:33 67 22 139/79 90 L 06/19/23 09:11 98.6 F 73 22 213/96 95 06/19/23 07:51 77 16 214/97 95 06/19/23 06:26 77 18 189/80 97 06/19/23 04:20 75 18 212/101 99 06/19/23 03:09 72 18 165/113 97 06/19/23 01:48 72 17 190/92 98 06/19/23 00:57 71 17 181/103 97 06/18/23 23:52 72 17 187/90 97 06/18/23 22:22 80 19 122/69 97 06/18/23 20:04 68 19 207/99 97 06/18/23 18:30 70 14 219/111 97 06/18/23 18:00 69 14 216/109 98 06/18/23 17:00 76 14 194/85 99 06/18/23 16:48 76 14 222/113 99 06/18/23 16:20 98.1 F 74 20 207/94 99 Intake and Output 06/18/23 06/19/23 06/19/23 22:59 06:59 14:59 Other: Weight 72.3 kg Patient is awake, comfortable, no acute distress Examination of the heart S1 and S2 Examination of the lungs bilateral breath sounds are heard Abdomen is soft nontender Examination lower extremities shows no significant edema [employer] exam shows patient is moving all 4 extremities. She did answer questions fairly appropriately Results - Lab Results Most recent lab results Calcium 8.6 mg/dL (8.4-10.2) 06/19/23 08:38 11 08:38 06/19/23 08:38 Assessment and Plan Assessment: 1. End-stage renal disease on hemodialysis on a Sunday schedule while right arm AV fistula 2. Mental status changes with initial CT of the head showing no acute findings. Mentation seems to have improved slightly. 3. CK D mineral bone disorder 4. Hypertensive urgency, improved. Patient was restarted on her home medications. Plan: Hemodialysis in a.m. Increase UF with hemodialysis in a.m. Check phosphorus. Patient is not on any phosphate binders Continue to avoid pain medications Continue current antihypertensive regimen Thank you for the consultation. We will continue to follow the patient with you during her hospitalization.
--- NOTE | 2023-06-19 12:57 | US ---
EXAMINATION TYPE: US carotid duplex BILAT DATE OF EXAM: 06/19/2023 COMPARISON: NONE CLINICAL INDICATION: Female, 72 years old with history of cva; TECHNIQUE: Carotid duplex ultrasound examination. Indirect Doppler criteria was utilized. FINDINGS: EXAM MEASUREMENTS: RIGHT: Peak Systolic Velocity (PSV) cm/sec ----- Right CCA: 51 ----- Right ICA: 65 ----- Right ECA: 89 ICA/CCA ratio: 1.3 RIGHT: End Diastole cm/sec ----- Right CCA: 6 ----- Right ICA: 14 ----- Right ECA: 9 LEFT: Peak Systolic Velocity (PSV) cm/sec ----- Left CCA: 82 ----- Left ICA: 60 ----- Left ECA: 63 ICA/CCA ratio: 0.7 LEFT: End Diastole cm/sec ----- Left CCA: 7 ----- Left ICA: 4 ----- Left ECA: 0 VERTEBRALS (direction of flow): Right Vertebral: Antegrade Left Vertebral: Antegrade Rhythm: Normal [employer] PIL[employer] NOTES: Plaque noted at bilateral CCA bulbs, no wall thickness noted, no elevated velociti es. IMPRESSION: No ultrasound evidence for hemodynamically significant stenosis of the bilateral visualized carotid a rterial systems. Criteria for Assigning % of Stenosis / Diameter reduction (Estimation based on the indirect measurements of the internal carotid artery velocities (ICA PSV). 1. Normal (no stenosis)=ICA PSV < 125 cm/s: ratio < 2.0: ICA EDV<40 cm/s. 2. Less than 50% stenosis=ICA PSV < 125 cm/s: ratio < 2.0: ICA EDV<40 cm/s. 3. 50 to 69% stenosis=ICA PSV of 125 to 230 cm/s: ration 2.0 ? 4.0: ICA EDV 40-100 cm/s. 4. Greater than 70% stenosis to near occlusion= ICA PSV > 230 cm/s: ratio > 4.0: ICA EDV > 100 cm/s. 5. Near occlusion= ICA PSV velocities may be low or undetectable: variable ratio and ICA EDV. 6. Total occlusion=unable to detect flow.
--- NOTE | 2023-06-19 13:02 | P.PN ---
Subjective Progress Note Date: 06/19/23 Patient is a 72-year-old female with a PMH of ESRD on hemodialysis, type II DM, hypertension, hypothyroidism who was brought to the emergency room via EMS for altered mental status. History severely limited as patient was very confused at the time of interview. Attempted to contact patient's spouse with numbers in the chart with no response. As per the ED provider and documentation, the patient is normally alert and oriented 3 had become increasingly confused over the past 48 hours. She underwent her regularly scheduled dialysis prior to coming to the emergency room with no improvement in her symptoms. At time of interview, the patient is answering "I don't know" to essentially all questions. In the emergency room CT brain revealed chronic white matter changes with no acute abnormalities. Chest x-ray revealed cardiomegaly with no acute abnormalities. EKG revealed sinus rhythm at [address]/T-wave changes noted as reviewed by me. Laboratory evaluation was remarkable for BUN 27, creatinine 4.02, a contaminated UA. 06/19 Patient was seen and examined. She is confused. Not answering questions appropriately. Slow to respond. Difficult neurological exam. 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 Discussed with Dr. Sarmiento, order EEG and CVA workup. CBC shows Hg 11.2. CMP BUN 39, Cr 5.66, glucose 119. Nephrology on board, recommending HD starting tomorrow. Physical examination: Vital signs reviewed General: non toxic, no distress, appears at stated age, overweight Head: atraumatic, normocephalic, symmetric Eyes: EOMI, no lid lag, anicteric sclera ENT: Nose and ears atraumatic Neck: No cervical lymphadenopathy, trachea midline, supple Cardiovascular: S1S2 reg, no murmur, positive dorsalis pedis pulse bilateral Lungs: CTA bilateral, no rhonchi, no rales, no accessory muscle use Ext: no gross muscle atrophy, no contractures Neuro: Unable to complete neurological exam due to mentation Psych: Not oriented to self, place, or time, answering most questions with "I don't know" Altered mental status, unclear etiology Hypertensive urgency Normocytic anemia Chronic conditions: ESRD on hemodialysis, type II DM, hypertension, hypothyroidism Based on my assessment of this patient, this patient meets a high complexity level of care. Patient has an acute diagnosis of acute metabolic encephalopathy that poses a threat to life or bodily function. Found to have an old CVA on CT head. Not on antiplatelet agents. CVA workup ordered. Altered mental status, unclear etiology: Rule out CVA. MRI brain. Echo. Carotid doppler. TSH, B12, Folate, Ammonia ordered. Telemetry monitoring. PT/OT/ST consulted. Advanced neurochecks. Neurology on board. Hypertensive urgency: BP 154/82. Continue Imdur 20 mg PO BID, Coreg 25 mg PO BID, Amlodipine 10 mg PO QD. Normocytic anemia: Stable. Trend. Likely AOCD from ESRD. B12 and Folate as above. I have reviewed the following senior science consultant notes: Nephro note. I have reviewed the results of the following tests: CBC, BMP. I have ordered the following tests: MRI brain. Echo. Carotid doppler. TSH, B12, Folate, Ammonia. I have discussed the care of this patient with the following independent historian: I have independently interpreted the following test below: I have discussed the management of this patient with the following physician: Discussed with Dr. Sarmiento as above. Objective - Vital Signs Vital signs: Vital Signs Temp 98.6 F 06/19/23 09:11 Pulse 70 06/19/23 11:30 Resp 22 06/19/23 11:30 BP 154/82 06/19/23 11:30 Pulse Ox 95 06/19/23 11:30 FiO2 Intake & Output 06/18/23 06/19/23 06/19/23 18:59 06:59 18:59 Weight 72.3 kg - Labs CBC & Chem 7: 06/19/23 08:38 06/19/23 08:38 Labs: Abnormal Lab Results - Last 24 Hours (Table) 06/18/23 06/18/23 06/18/23 Range/Units 16:46 16:46 16:46 RBC 3.69 L (3.80-5.40) m/uL Hgb (11.4-16.0) gm/dL RDW 15.7 H (11.5-15.5) % Sodium 135 L (137-145) mmol/L Chloride 97 L (98-107) mmol/L BUN 27 H (7-17) mg/dL Creatinine 4.02 H (0.52-1.04) mg/dL Glucose 113 H (74-99) mg/dL POC Glucose (mg/dL) (70-110) mg/dL Alkaline Phosphatase 134 H (38-126) U/L Urine Appearance Cloudy H (Clear) Urine Protein 3+ H (Negative) Urine Glucose (UA) 1+ H (Negative) Urine Blood Moderate H (Negative) Urine RBC 16 H (0-5) /hpf Urine WBC 12 H (0-5) /hpf Ur Squamous Epith Cells 10 H (0-4) /hpf Urine Bacteria Rare H (None) /hpf Urine Mucus Rare H (None) /hpf 06/19/23 06/19/23 06/19/23 Range/Units 04:45 07:54 08:38 RBC 3.57 L (3.80-5.40) m/uL Hgb 11.2 L (11.4-16.0) gm/dL RDW 15.7 H (11.5-15.5) % Sodium (137-145) mmol/L Chloride (98-107) mmol/L BUN (7-17) mg/dL Creatinine (0.52-1.04) mg/dL Glucose (74-99) mg/dL POC Glucose (mg/dL) 128 H 121 H (70-110) mg/dL Alkaline Phosphatase (38-126) U/L Urine Appearance (Clear) Urine Protein (Negative) Urine Glucose (UA) (Negative) Urine Blood (Negative) Urine RBC (0-5) /hpf Urine WBC (0-5) /hpf Ur Squamous Epith Cells (0-4) /hpf Urine Bacteria (None) /hpf Urine Mucus (None) /hpf 06/19/23 06/19/23 Range/Units 08:38 12:38 RBC (3.80-5.40) m/uL Hgb (11.4-16.0) gm/dL RDW (11.5-15.5) % Sodium (137-145) mmol/L Chloride (98-107) mmol/L BUN 39 H (7-17) mg/dL Creatinine 5.66 H (0.52-1.04) mg/dL Glucose 119 H (74-99) mg/dL POC Glucose (mg/dL) 165 H (70-110) mg/dL Alkaline Phosphatase (38-126) U/L Urine Appearance (Clear) Urine Protein (Negative) Urine Glucose (UA) (Negative) Urine Blood (Negative) Urine RBC (0-5) /hpf Urine WBC (0-5) /hpf Ur Squamous Epith Cells (0-4) /hpf Urine Bacteria (None) /hpf Urine Mucus (None) /hpf
--- NOTE | 2023-06-19 13:57 | P.CNNES ---
History of Present Illness Consult date: 06/19/23 Requesting physician: Kaitlyn Cotto Reason for Consult: ams History of Present Illness: This is a 72-year-old woman who presented emergency department because of altered mental status. The patient could not provide any history for me. History is obtained from medical record. Per the ED note patient reportedly does live on her own and is normally oriented 3.. Since the patient has been having symptoms since 06/17/2023 and unclear last normal. It seems the patient did complete dialysis and she came from dialysis. Some other workup during his hospital visit consisted of: Patient got blood pressure on presentation was 207/94 and then got as high as 222/113. Today her blood pressure also is running at in the 200s over 90s Patient is afebrile. White blood cell has been within normal limits Sodium, calcium, phosphorus, AST ALT and ammonia level is within normal limits. Ammonia is less than 9 TSH is 2.280 Creatinine is 5.66, initial serum glucose was 113. CT of the head is reported as no acute intracranial process. Follow-up MRI can be performed is currently indicated.. Ventricle white matter hypodensity, likely on the basis of chronic white matter ischemia. 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 Carotid duplex is reported as no ultrasound evidence for hemodynamically significant stenosis of bilateral visualize carotid arterial system. Urine alcohol is less than 10. Review of Systems Review of system is limited but the positive and negative as per HPI. Past Medical History Past Medical History: Asthma, Diabetes Mellitus, Dialysis, Sleep Apnea/CPA P/BIPAP, Thyroid Disorder History of Any Multi-Drug Resistant Organisms: None Reported Additional Past Surgical History / Comment(s): right fistula, left fistula Past Psychological History: No Psychological Hx Reported Smoking Status: Never smoker Past Alcohol Use History: None Reported Past Drug Use History: None Reported - Past Family History Mother History Unknown: Yes Medications and Allergies Home Medications Medication Instructions Recorded Confirmed Type ALPRAZolam [Xanax] 0.5 mg PO DAILY 10/27/22 06/18/23 History Dicyclomine [Bentyl] 20 mg PO DAILY 10/27/22 06/18/23 History HYDROcodone/APAP 10-325MG [[place] 1 tab PO Q4H PRN 10/27/22 06/18/23 History 10-325] Isosorbide Dinitrate 20 mg PO BID 10/27/22 06/18/23 History Lidocaine-Prilocaine Cream [Emla 1 applic TOPICAL MOWEFR PRN 10/27/22 06/18/23 History Cream 2.5%/2.5%] Ondansetron [Zofran] 4 mg PO BID PRN 10/27/22 06/18/23 History Sevelamer [Renvela] 2,400 mg PO AC-TID 10/27/22 06/18/23 History allopurinoL [Zyloprim] 100 mg PO DAILY 10/27/22 06/18/23 History amLODIPine [Norvasc] 10 mg PO DAILY 10/27/22 06/18/23 History carvediloL [Coreg] 25 mg PO BID-W/MEALS 10/27/22 06/18/23 History Insulin Glargine [Lantus Vial] 40 unit SQ HS 06/18/23 06/19/23 History Insulin Lispro [humaLOG Kwikpen] See Protocol SQ AC-TID PRN 06/18/23 06/19/23 History Midodrine [ProAmatine] 5 mg PO MOWEFR PRN 06/18/23 06/18/23 History Sevelamer [Renvela] 1,600 mg PO BID PRN 06/18/23 06/18/23 History Sodium Zirconium Cyclosilicate 10 gm PO DIRECTED PRN 06/18/23 06/18/23 History [Lokelma] Allergies Allergy/AdvReac Type Severity Reaction Status Date / Time Iodinated Contrast Media Allergy Unknown Verified 06/18/23 18:20 Phenothiazines Allergy Unknown Verified 06/18/23 18:20 prednisone Allergy Unknown Verified 06/18/23 18:20 Physical Examination - Vital Signs Vital Signs: Vital Signs Temp Pulse Resp BP Pulse Ox 06/19/23 11:30 70 22 154/82 95 06/19/23 10:33 67 22 139/79 90 L 06/19/23 09:11 98.6 F 73 22 213/96 95 06/19/23 07:51 77 16 214/97 95 06/19/23 06:26 77 18 189/80 97 11/07/23 04:20 75 18 212/101 99 06/19/23 03:09 72 18 165/113 97 06/19/23 01:48 72 17 190/92 98 06/19/23 00:57 71 17 181/103 97 06/18/23 23:52 72 17 187/90 97 06/18/23 22:22 80 19 122/69 97 06/18/23 20:04 68 19 207/99 97 06/18/23 18:30 70 14 219/111 97 06/18/23 18:00 69 14 216/109 98 06/18/23 17:00 76 14 194/85 99 06/18/23 16:48 76 14 222/113 99 06/18/23 16:20 98.1 F 74 20 207/94 99 Intake and Output 06/18/23 06/19/23 06/19/23 22:59 06:59 14:59 Other: Weight 72.3 kg GENERAL: The patient is lying in bed and does not appear in acute distress. NEUROLOGICAL: Limited. Higher mental function: The patient is very drowsy but is awakeable to voice. Gael hair is oriented to self and she stated she is in the hospital. The she states she does not know the year or the month. She followed a few simple commands such as show me a thumbs up and wiggling the toes. Ankle which is limited She opened her right eye but had left eye closed and that she refused to allow me to open her left eye. The right pupil is about 3 mm and reactive to light. No facial weakness. No dysarthria. 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 She wiggled her toes minimally. Otherwise unable to assess individual muscle strength because of her cooperation. Appears normal tone and bulk. Reflexes unable to assess because of her cooperation. Plantars are mute bilaterally Results - Laboratory Findings CBC and BMP: 06/19/23 08:38 06/19/23 08:38 Abnormal Lab Findings: Abnormal Labs 06/18/23 06/18/23 06/18/23 16:46 16:46 16:46 RBC 3.69 L Hgb RDW 15.7 H Sodium 135 L Chloride 97 L BUN 27 H Creatinine 4.02 H Glucose 113 H POC Glucose (mg/dL) Alkaline Phosphatase 134 H Urine Appearance Cloudy H Urine Protein 3+ H Urine Glucose (UA) 1+ H Urine Blood Moderate H Urine RBC 16 H Urine WBC 12 H Ur Squamous Epith Cells 10 H Urine Bacteria Rare H Urine Mucus Rare H 06/19/23 06/19/23 06/19/23 04:45 07:54 08:38 RBC 3.57 L Hgb 11.2 L RDW 15.7 H Sodium Chloride BUN Creatinine Glucose POC Glucose (mg/dL) 128 H 121 H Alkaline Phosphatase Urine Appearance Urine Protein Urine Glucose (UA) Urine Blood Urine RBC Urine WBC Ur Squamous Epith Cells Urine Bacteria Urine Mucus 06/19/23 06/19/23 08:38 12:38 RBC Hgb RDW Sodium Chloride BUN 39 H Creatinine 5.66 H Glucose 119 H POC Glucose (mg/dL) 165 H Alkaline Phosphatase Urine Appearance Urine Protein Urine Glucose (UA) Urine Blood Urine RBC Urine WBC Ur Squamous Epith Cells Urine Bacteria Urine Mucus Assessment and Plan Assessment: This is a 72-year-old woman who presents because of altered mental status. Encephalopathy of unknown etiology. Rule out stroke Stroke over the right parietal and occipital but does not appear acute I feel possibly chronic End-stage renal disease on dialysis Plan: MRI the brain without, 2-D echo are ordered by the primary I ordered routine EEG to rule out any underlying seizure discharges Vitamin B12, folate R orders pending I started the patient on aspirin 81 mg and Lipitor 20 mg daily at bedtime. Ordered lipid panel PT, OT and also periodic consulted Continue neuro checks Cardiac monitoring We'll defer the rest of the medical management to primary team For DVT prophylaxis the patient is on Lovenox The plan discussed with the patient primary team. Thank you for the consultation Time with Patient: Greater than 30
[2023-06-19 16:54] LABS: Glucose,Whole Blood 181 mg/dL (70-110)
[2023-06-19] MEDS ORDERED: ATORVASTATIN 20 MG TAB PO SCH (21:00)
[2023-06-19 21:03] LABS: Glucose,Whole Blood 148 mg/dL (70-110)
[2023-06-19] MEDS: SODIUM CHLORIDE 0.9% 1,000 ML IV SCH (21:03)
--- NOTE | 2023-06-19 22:37 | EEG ---
ELECTROENCEPHALOGRAM REPORT CLINICAL HISTORY: This is a 72-year-old woman with altered mental status. The video EEG is obtained to evaluate for seizure epileptiform activity. RELEVANT MEDICATION: Xanax. EEG TYPE: This is a routine 21-channel EEG with video using the 10/20 electrode placement system. DESCRIPTION: The background consists of [id number] voltage of 6 hertz activity intermixed with delta activity. There is no physiological stage 2 sleep architecture. There is no focal slowing. Interictal and ictal is none. ACTIVATION PROCEDURE: Photic stimulation and hyperventilation are not performed. CLINICAL INTERPRETATION: This is an abnormal routine EEG. The background slowing is suggestive of moderate encephalopathy. Otherwise, there is no focal slowing, epileptiform discharge, or seizure on the EEG. Clinical correlation is recommended. MMRAHUL / SOBEIDAN: [id number] / MTDD
[2023-06-19] MEDS ORDERED: hydrALAZINE HCL 25 MG TAB PO STA (23:43)
[2023-06-20 01:04] LABS: Chol/HDL Ratio 7.12 Ratio; LDL Cholesterol,Calculated 120.8 mg/dL (0.0-131.0)
[2023-06-20 06:08] LABS: Glucose,Whole Blood 129 mg/dL (70-110)
[2023-06-20] MEDS: INSULIN ASPART (NovoLOG) 100 UNIT/ML VIAL SQ SCH ×4 (06:15→20:20)
[2023-06-20] MEDS: carvediloL 12.5 MG TAB PO SCH ×2 (06:25→17:46)
--- NOTE | 2023-06-20 07:12 | CA ---
Transthoracic Echo Report Name: Mary Walker Age: 72 Gender: F : 1950 Exam Date: 06/19/2023 15:35 Exam Location: [facility] Ht (in): 63 Wt (lb): 159 Ordering Physician: Jair Coffey MD Attending/Referring Phys: [employer] Nancy Gómez RDCS Procedure CPT: Indications: CVA Cardiac Hx: Technical Quality: Fair Contrast 1: Total Dose (mL): Contrast 2: Total Dose (mL): MEASUREMENTS (Male / Female) Normal Values 2D ECHO LV Diastolic Diameter PLAX 4.8 cm 4.2 - 5.9 / 3.9 - 5.3 cm LV Systolic Diameter PLAX 3.1 cm IVS Diastolic Thickness 0.9 cm 0.6 - 1.0 / 0.6 - 0.9 cm LVPW Diastolic Thickness 1.1 cm 0.6 - 1.0 / 0.6 - 0.9 cm LV Relative Wall Thickness 0.4 RV Internal Dim ED PLAX 3.7 cm LA Systolic Diameter LX 3.7 cm 3.0 - 4.0 / 2.7 - 3.8 cm LV Diastolic Volume MOD 4C 75.4 cm??? LV Systolic Volume MOD 4C 35.5 cm??? LV Ejection Fraction MOD 4C 52.9 % LV Cardiac Index MOD 4C 1563.1 cm???/min???m??? LV Diastolic Length 4C 8.1 cm LV Systolic Length 4C 6.8 cm LV Diastolic Volume MOD 2C 82.0 cm??? LV Systolic Volume MOD 2C 47.0 cm??? LV Ejection Fraction MOD 2C 42.6 % LV Cardiac Index MOD 2C 1369.8 cm???/min???m??? LV Diastolic Length 2C 7.0 cm LV Systolic Length 2C 6.8 cm LA Volume 61.4 cm??? 18 - 58 / 22 - 52 cm??? LA Volume Index 33.9 cm???/m??? 16 - 28 cm???/m??? M-MODE Aortic Root Diameter MM 3.0 cm MV E Point Septal Separation 0.5 cm AV Cusp Separation MM 1.8 cm DOPPLER AV Peak Velocity 233.4 cm/s AV Peak Gradient 21.8 mmHg AV Mean Velocity 172.8 cm/s AV Mean Gradient 13.5 mmHg AV Velocity Time Integral 60.6 cm LVOT Peak Velocity 150.3 cm/s LVOT Peak Gradient 9.0 mmHg MV Area PHT 3.7 cm??? Mitral E Point Velocity 129.6 cm/s Mitral A Point Velocity 124.4 cm/s Mitral E to A Ratio 1.0 MV Deceleration Time 204.0 ms MV E' Velocity 5.3 cm/s Mitral E to MV E' Ratio 24.4 TR Peak Velocity 317.3 cm/s TR Peak Gradient 40.3 mmHg Right Ventricular Systolic Press 45.3 mmHg FINDINGS Left Ventricle Left ventricular ejection fraction is estimated at 55-60 %. Left ventricular cavity size normal. Normal left ventricular wall motion. Grade 2 diastolic dysfunction. Right Ventricle Mild right ventricular dilatation. Mild pulmonary hypertension. Right Atrium Normal right atrial size. Left Atrium Mildly increased left atrial volume. Mildly increased left atrial area. Mitral Valve Mitral valve thickened. Mild mitral annular calcification. Aortic Valve Trileaflet aortic valve. Aortic valve sclerosis. Mild aortic stenosis with a peak gradient of 22 mmHg and a mean gradient of 14 mmHg. Tricuspid Valve Structurally normal tricuspid valve. Mild tricuspid regurgitation. Pulmonic Valve Structurally normal pulmonic valve. No pulmonic regurgitation. Pericardium No pericardial effusion. Aorta Normal size aortic root and proximal ascending aorta. CONCLUSIONS 1. Normal left ventricular size and systolic function 2. Mild tricuspid regurgitation with mild pulmonary hypertension 3. Mild aortic stenosis Previewed by: Dr. Matt Dias MD (Electronically Signed) Final Date: 20 June 2023 07:11
[2023-06-20] MEDS ORDERED: hydrALAZINE HCL 25 MG TAB PO PRN (07:51)
[2023-06-20] MEDS: ENOXAPARIN 30 MG/0.3 ML SYRINGE SQ SCH (08:27)
[2023-06-20] MEDS: allopurinoL 100 MG TAB PO SCH (08:27)
[2023-06-20] MEDS: ASPIRIN 81 MG PO SCH (08:27)
[2023-06-20] MEDS: ISOSORBIDE DINITRATE 20 MG TAB PO SCH ×2 (08:27→20:56)
[2023-06-20] MEDS: ALPRAZolam 0.5 MG TAB PO SCH (08:27)
[2023-06-20] MEDS: amLODIPine 10 MG TAB PO SCH (08:27)
--- NOTE | 2023-06-20 10:24 | P.PN ---
Subjective Progress Note Date: 06/20/23 Patient is a 72-year-old female with a PMH of ESRD on hemodialysis, type II DM, hypertension, hypothyroidism who was brought to the emergency room via EMS for altered mental status. History severely limited as patient was very confused at the time of interview. Attempted to contact patient's spouse with numbers in the chart with no response. As per the ED provider and documentation, the patient is normally alert and oriented 3 had become increasingly confused over the past 48 hours. She underwent her regularly scheduled dialysis prior to coming to the emergency room with no improvement in her symptoms. At time of interview, the patient is answering "I don't know" to essentially all questions. In the emergency room CT brain revealed chronic white matter changes with no acute abnormalities. Chest x-ray revealed cardiomegaly with no acute abnormalities. EKG revealed sinus rhythm at [address]/T-wave changes noted as reviewed by me. Laboratory evaluation was remarkable for BUN 27, creatinine 4.02, a contaminated UA. 06/19 Patient was seen and examined. She is confused. Not answering questions appropriately. Slow to respond. Difficult neurological exam. 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 Discussed with Dr. Sarmiento, order EEG and CVA workup. CBC shows Hg 11.2. CMP BUN 39, Cr 5.66, glucose 119. Nephrology on board, recommending HD starting tomorrow. 06/20 Patient was seen and examined. Pleasantly confused today but feels at baseline. She reports a previous history of CVA. EEG shows moderate encephalopathy. Echo shows EF 55-60% with G2DD. Lipitor increased to 40 mg PO QD. Hydralazine 25 mg PO QID PRN for SBP > 200 and DBP > 100. TSH 2.28. B12 1498. Folate 11.3. Ammonia < 9. BMP pending this morning. Physical examination: Vital signs reviewed General: non toxic, no distress, appears at stated age, overweight Head: atraumatic, normocephalic, symmetric Eyes: EOMI, no lid lag, anicteric sclera ENT: Nose and ears atraumatic Neck: No cervical lymphadenopathy, trachea midline, supple Cardiovascular: S1S2 reg, no murmur, positive dorsalis pedis pulse bilateral Lungs: CTA bilateral, no rhonchi, no rales, no accessory muscle use Ext: no gross muscle atrophy, no contractures Neuro: Unable to complete neurological exam due to mentation Psych: Not oriented to self, place, or time Altered mental status, unclear etiology Hypertensive urgency Normocytic anemia Chronic conditions: ESRD on hemodialysis, type II DM, hypertension, hypothyroidism Based on my assessment of this patient, this patient meets a high complexity level of care. Patient has an acute diagnosis of acute metabolic encephalopathy that poses a threat to life or bodily function. Found to have an old CVA on CT head. Not on antiplatelet agents. CVA workup ordered. Altered mental status, unclear etiology: Rule out CVA. MRI brain. Telemetry monitoring. PT/OT/ST consulted. Advanced neurochecks. Neurology on board. Hypertensive urgency: BP 164/76. Continue Imdur 20 mg PO BID, Coreg 25 mg PO BID, Amlodipine 10 mg PO QD. Hydralazine 25 mg PO QID PRN for SBP > 200 and DBP > 100 Normocytic anemia: Stable. Trend. Likely AOCD from ESRD. B12 and Folate as above. I have reviewed the following cosmetic consultant notes: Neurology note. I have reviewed the results of the following tests: Echo. Carotid doppler. TSH, B12, Folate, Ammonia. I have ordered the following tests: MRI brain. BMP. I have discussed the care of this patient with the following independent historian: I have independently interpreted the following test below: I have discussed the management of this patient with the following physician: Discussed with Dr. Sarmiento as above. Objective - Vital Signs Vital signs: Vital Signs Temp 98.6 F 06/20/23 08:22 Pulse 69 06/20/23 09:59 Resp 18 06/20/23 09:59 BP 164/76 06/20/23 08:22 Pulse Ox 97 06/20/23 08:22 FiO2 Intake & Output 06/19/23 06/20/23 06/20/23 18:59 06:59 18:59 Intake Total 100 118 Output Total 0 Balance 100 118 Intake: Intake, IV Titration 100 Amount Sodium Chloride 0.9% 1, 100 000 ml @ 20 mls/hr IV . Q24H [facility] Rx#:[id number] Oral 118 Output: Urine 0 Other: Voiding Method Diaper Diaper - Labs CBC & Chem 7: 06/19/23 08:38 06/19/23 08:38 Labs: Abnormal Lab Results - Last 24 Hours (Table) 11/03/0406/19/23 06/19/23 Range/Units 08:38 08:38 12:38 POC Glucose (mg/dL) 165 H (70-110) mg/dL Triglycerides 161.00 H (0.00-149.00) mg/dL HDL Cholesterol 25.00 L (40.00-60.00) mg/dL Vitamin B12 1498.0 H (200.0-944.0) pg/mL 06/19/23 06/19/23 06/20/23 Range/Units 16:53 21:01 06:06 POC Glucose (mg/dL) 181 H 148 H 129 H (70-110) mg/dL Triglycerides (0.00-149.00) mg/dL HDL Cholesterol (40.00-60.00) mg/dL Vitamin B12 (200.0-944.0) pg/mL
--- NOTE | 2023-06-20 11:41 | P.PN ---
Subjective Patient is seen for follow-up for end-stage renal disease. Maintained on hemodialysis on a Sunday vent is a Sunday schedule. She was admitted to the hospital with mental status changes. This morning patient is communicating fairly well with an interesting sense of humor. She is currently being evaluated by speech therapy and appears to be tolerating crackers with applesauce quite well. Next Patient will be scheduled for hemodialysis today. Objective - Vital Signs Vital signs: Vital Signs Temp 98.6 F 06/20/23 08:22 Pulse 69 06/20/23 09:59 Resp 18 06/20/23 09:59 BP 164/76 06/20/23 08:22 Pulse Ox 99 06/20/23 11:19 FiO2 Intake & Output 06/19/23 06/20/23 06/20/23 18:59 06:59 18:59 Intake Total 100 118 Output Total 0 Balance 100 118 Weight 72.3 kg Intake: Intake, IV Titration 100 Amount Sodium Chloride 0.9% 1, 100 000 ml @ 20 mls/hr IV . 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 She did answer questions fairly appropriately - Labs CBC & Chem 7: 06/19/23 08:38 06/19/23 08:38 Labs: Abnormal Lab Results - Last 24 Hours (Table) 06/19/23 06/19/23 06/19/23 Range/Units 08:38 08:38 12:38 POC Glucose (mg/dL) 165 H (70-110) mg/dL Triglycerides 161.00 H (0.00-149.00) mg/dL HDL Cholesterol 25.00 L (40.00-60.00) mg/dL Vitamin B12 1498.0 H (200.0-944.0) pg/mL 06/19/23 06/19/23 06/20/23 Range/Units 16:53 21:01 06:06 POC Glucose (mg/dL) 181 H 148 H 129 H (70-110) mg/dL Triglycerides (0.00-149.00) mg/dL HDL Cholesterol (40.00-60.00) mg/dL Vitamin B12 (200.0-944.0) pg/mL Assessment and Plan Assessment: 1. End-stage renal disease on hemodialysis on a Sunday schedule while right arm AV fistula 2. Mental status changes with initial CT of the head showing no acute findings. Mentation seems to have improved slightly. 3. CK D mineral bone disorder 4. Hypertensive urgency, improved. Patient was restarted on her home medications. Blood pressure is elevated again this morning. Plan: Hemodialysis today with increase UF as tolerated. Add scheduled dose of hydralazine as blood pressure was elevated again this morning. Blood pressure is also expected to improve post hemodialysis and ultrafiltration as well. Continue to avoid pain medications Continue current antihypertensive regimen
[2023-06-20 11:58] LABS: Glucose,Whole Blood 206 mg/dL (70-110)
[2023-06-20 12:23] LABS: African American GFR (CKD) 5 (>60 ml/min/1.73 sqM); Anion Gap 15 mmol/L; Blood Urea Nitrogen 62 mg/dL (7-17); Calcium 8.3 mg/dL (8.4-10.2); Carbon Dioxide 23 mmol/L (22-30); Chloride 100 mmol/L (98-107); Glucose 220 mg/dL (74-99); Non-African American GFR(CKD) 5 (>60 ml/min/1.73 sqM); Potassium 4.1 mmol/L (3.5-5.1); Sodium 138 mmol/L (137-145)
--- NOTE | 2023-06-20 13:47 | P.PN ---
Subjective Progress Note Date: 06/20/23 I am following-up with the patient and she feels she is doing better. 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 She denies of any headache, focal weakness. Objective - Vital Signs Vital signs: Vital Signs Temp 98.6 F 06/20/23 08:22 Pulse 61 06/20/23 11:39 Resp 18 06/20/23 11:39 BP 175/80 06/20/23 11:39 Pulse Ox 98 06/20/23 11:39 FiO2 Intake & Output 06/19/23 06/20/23 06/20/23 18:59 06:59 18:59 Intake Total 100 118 Output Total 0 Balance 100 118 Weight 72.3 kg Intake: Intake, IV Titration 100 Amount Sodium Chloride 0.9% 1, 100 000 ml @ 20 mls/hr IV . Q24H [facility] Rx#:[id number] Oral 118 Output: Urine 0 Other: Voiding Method Diaper Diaper - Exam General: Lying in bed and is not in acute distress. Neuro: The patient is awake, alert, oriented to self and stated she is in the hospital. Upon asking her the time she was taking random stuff. She was able to name objects correctly (pen and watch). No neglect. Pupils are round, equal and reactive to light. 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 Left eye is deviated to left. Visual field over the right eye is full. Has restriction looking medially over the left eye. No facial weakness. No dysarthria. Motor: Hard to assess individual muscle strength but lifting all extremities above gravity. Some other workup during his hospital visit consisted of: Patient got blood pressure on presentation was 207/94 and then got as high as 222/113. Today her blood pressure also is running at in the 200s over 90s Patient is afebrile. White blood cell has been within normal limits Sodium, calcium, phosphorus, AST ALT within normal limits. Ammonia is less than 9 TSH is 2.280 Vitamin B-12 was 1498 Folate is 11.30. Creatinine is 5.66, initial serum glucose was 113. CT of the head is reported as no acute intracranial process. Follow-up MRI can be performed is currently indicated.. Ventricle white matter hypodensity, likely on the basis of chronic white matter ischemia. 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 Carotid duplex is reported as no ultrasound evidence for hemodynamically significant stenosis of bilateral visualize carotid arterial system. Routine EEG: Is abnormal. The background slowing suggestive of moderate encephalopathy. Otherwise there is no focal slowing, epileptiform discharges or seizure on the EEG. 2D echo: Normal left ventricular size and systolic function. Mild tricuspid regurgitation with mild pulmonary hypertension. Mild aortic stenosis. - Labs CBC & Chem 7: 06/19/23 08:38 06/20/23 11:13 Labs: Abnormal Lab Results - Last 24 Hours (Table) 06/19/23 06/19/23 06/19/23 Range/Units 08:38 08:38 16:53 BUN (7-17) mg/dL Creatinine (0.52-1.04) mg/dL Glucose (74-99) mg/dL POC Glucose (mg/dL) 181 H (70-110) mg/dL Calcium (8.4-10.2) mg/dL Triglycerides 161.00 H (0.00-149.00) mg/dL HDL Cholesterol 25.00 L (40.00-60.00) mg/dL Vitamin B12 1498.0 H (200.0-944.0) pg/mL 06/19/23 06/20/23 06/20/23 Range/Units 21:01 06:06 11:13 BUN 62 H (7-17) mg/dL Creatinine 7.77 H* (0.52-1.04) mg/dL Glucose 220 H (74-99) mg/dL POC Glucose (mg/dL) 148 H 129 H (70-110) mg/dL Calcium 8.3 L (8.4-10.2) mg/dL Triglycerides (0.00-149.00) mg/dL HDL Cholesterol (40.00-60.00) mg/dL Vitamin B12 (200.0-944.0) pg/mL 06/20/23 Range/Units 11:57 BUN (7-17) mg/dL Creatinine (0.52-1.04) mg/dL Glucose (74-99) mg/dL POC Glucose (mg/dL) 206 H (70-110) mg/dL Calcium (8.4-10.2) mg/dL Triglycerides (0.00-149.00) mg/dL HDL Cholesterol (40.00-60.00) mg/dL Vitamin B12 (200.0-944.0) pg/mL Assessment and Plan Assessment: This is a 72-year-old woman who presents because of altered mental status. Encephalopathy of unknown etiology. Rule out stroke---mentation improved compared to yesterday. Stroke over the right parietal and occipital but does not appear acute I feel possibly chronic Legally blind over the left eye End-stage renal disease on dialysis Plan: MRI the brain without: pending. I started the patient on aspirin 81 mg and Lipitor 20 mg daily at bedtime. PT, OT and also periodic consulted Continue neuro checks Cardiac monitoring We'll defer the rest of the medical management to primary team For DVT prophylaxis the patient is on Lovenox The plan discussed with the patient primary team. Time with Patient: Less than 30
[2023-06-20 16:43] LABS: Glucose,Whole Blood 149 mg/dL (70-110)
[2023-06-20 20:01] LABS: Glucose,Whole Blood 252 mg/dL (70-110)
[2023-06-20] MEDS: SODIUM CHLORIDE 0.9% 1,000 ML IV SCH (20:56)
[2023-06-20] MEDS ORDERED: ATORVASTATIN 40 MG TAB PO SCH (21:00)
[2023-06-21 03:53] LABS: Hepatitis B Surface AB- Quant 21.7 mIU/mL; Hepatitis B Surface Antigen Nonreactive
[2023-06-21 05:52] LABS: Glucose,Whole Blood 112 mg/dL (70-110)
[2023-06-21] MEDS: INSULIN ASPART (NovoLOG) 100 UNIT/ML VIAL SQ SCH ×3 (05:52→17:28)
[2023-06-21] MEDS: carvediloL 12.5 MG TAB PO SCH ×2 (05:54→17:28)
[2023-06-21] MEDS: amLODIPine 10 MG TAB PO SCH (09:11)
[2023-06-21] MEDS: ENOXAPARIN 30 MG/0.3 ML SYRINGE SQ SCH (09:11)
[2023-06-21] MEDS: allopurinoL 100 MG TAB PO SCH (09:11)
[2023-06-21] MEDS: ISOSORBIDE DINITRATE 20 MG TAB PO SCH (09:11)
[2023-06-21] MEDS: ASPIRIN 81 MG PO SCH (09:11)
[2023-06-21] MEDS: ALPRAZolam 0.5 MG TAB PO SCH (09:11)
[2023-06-21 11:38] LABS: Glucose,Whole Blood 182 mg/dL (70-110)
--- NOTE | 2023-06-21 12:59 | P.PN ---
Subjective Progress Note Date: 06/21/23 I am following-up with patient and she felt she was doing well but was taking random stuff and seem confused. Objective - Vital Signs Vital signs: Vital Signs Temp 98.5 F 06/21/23 11:59 Pulse 81 06/21/23 11:59 Resp 19 06/21/23 11:59 BP 169/80 06/21/23 11:59 Pulse Ox 95 06/21/23 11:59 FiO2 Intake & Output 06/20/23 06/21/23 06/21/23 18:59 06:59 18:59 Intake Total 658 240 236 Output Total 3000 0 Balance -2342 240 236 Weight 72.3 kg Intake: Oral 358 240 236 Hemodialysis 300 Output: Urine 0 Hemodialysis 3000 Other: Voiding Method Diaper Diaper Diaper - Exam General: Lying in bed and is not in acute distress. Neuro: The patient is awake and seems confused talking about random stuff. Upon asking her name she was mumbling thing. She was able to name pen and watch. Pupils are round, equal and reactive to light. 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 Left eye is deviated to left. Visual field over the right eye is full. Has restriction looking medially over the left eye. No facial weakness. No dysarthria. Motor: Hard to assess individual muscle strength but lifting all extremities above gravity. Some other workup during his hospital visit consisted of: Patient got blood pressure on presentation was 207/94 and then got as high as 222/113. Today her blood pressure also is running at in the 200s over 90s Patient is afebrile. White blood cell has been within normal limits Sodium, calcium, phosphorus, AST ALT within normal limits. Ammonia is less than 9 TSH is 2.280 Vitamin B-12 was 1498 Folate is 11.30. Creatinine is 5.66, initial serum glucose was 113. CT of the head is reported as no acute intracranial process. Follow-up MRI can be performed is currently indicated.. Ventricle white matter hypodensity, likely on the basis of chronic white matter ischemia. 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 Carotid duplex is reported as no ultrasound evidence for hemodynamically significant stenosis of bilateral visualize carotid arterial system. Routine EEG: Is abnormal. The background slowing suggestive of moderate encephalopathy. Otherwise there is no focal slowing, epileptiform discharges or seizure on the EEG. 2D echo: Normal left ventricular size and systolic function. Mild tricuspid regurgitation with mild pulmonary hypertension. Mild aortic stenosis. - Labs CBC & Chem 7: 06/19/23 08:38 06/20/23 11:13 Labs: Abnormal Lab Results - Last 24 Hours (Table) 06/20/23 06/20/23 06/20/23 Range/Units 11:13 16:41 19:59 POC Glucose (mg/dL) 149 H 252 H (70-110) mg/dL Hep Bs Antibody A (Negative) 06/21/23 06/21/23 Range/Units 05:50 11:35 POC Glucose (mg/dL) 112 H 182 H (70-110) mg/dL Hep Bs Antibody (Negative) Assessment and Plan Assessment: This is a 72-year-old woman who presents because of altered mental status. Delirium: Unknown exact cause. 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 Will get repeat CT head. I started the patient on aspirin 81 mg and Lipitor 20 mg daily at bedtime. PT, OT and also periodic consulted Continue neuro checks Cardiac monitoring We'll defer the rest of the medical management to primary team For DVT prophylaxis the patient is on Lovenox The plan discussed with the patient's primary team. Time with Patient: Less than 30
--- NOTE | 2023-06-21 13:08 | P.DS ---
Providers Date of admission: 06/18/23 20:50 Expected date of discharge: 06/21/23 Attending physician: Kaitlyn Cotto MD Consults: 06/19/23 01:37 Consult Physician Urgent Consulting Provider: Clinton Sarmiento Consult Reason/Comments: AMS Do you want consulting provider notified?: Yes 06/19/23 01:38 Consult Physician Urgent Consulting Provider: Charles Kohler Consult Reason/Comments: HD resumption Do you want consulting provider notified?: Yes Primary care physician: Stated None Hospital Course: Patient is a 72-year-old female with a PMH of ESRD on hemodialysis, type II DM, hypertension, hypothyroidism who was brought to the emergency room via EMS for altered mental status. History severely limited as patient was very confused at the time of interview. Attempted to contact patient's spouse with numbers in the chart with no response. As per the ED provider and documentation, the patient is normally alert and oriented 3 had become increasingly confused over the past 48 hours. She underwent her regularly scheduled dialysis prior to coming to the emergency room with no improvement in her symptoms. At time of interview, the patient is answering "I don't know" to essentially all questions. In the emergency room CT brain revealed chronic white matter changes with no acute abnormalities. Chest x-ray revealed cardiomegaly with no acute abnormalities. EKG revealed sinus rhythm at [address]/T-wave changes noted as reviewed by me. Laboratory evaluation was remarkable for BUN 27, creatinine 4.02, a contaminated UA. 06/19 Patient was seen and examined. She is confused. Not answering questions appropriately. Slow to respond. Difficult neurological exam. 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 Discussed with Dr. Sarmiento, order EEG and CVA workup. CBC shows Hg 11.2. CMP BUN 39, Cr 5.66, glucose 119. Nephrology on board, recommending HD starting tomorrow. 06/20 Patient was seen and examined. Pleasantly confused today but feels at baseline. She reports a previous history of CVA. EEG shows moderate encephalopathy. Echo shows EF 55-60% with G2DD. Lipitor increased to 40 mg PO QD. Hydralazine 25 mg PO QID PRN for SBP > 200 and DBP > 100. TSH 2.28. B12 1498. Folate 11.3. Ammonia < 9. BMP pending this morning. 06/21 Patient was seen and examined. Her is at bedside. Her reports that she is 70% improved. He reports her mentation has been worsening since her stroke one year ago. She would like to go home today. states she has 24H supervision. He has a hospital bed, walker and ramp at home. Discussed with Dr. Sarmiento, MRI unable to be done due to spine stimulator implant, plans to repeat CT head to rule out acute CVA. Plans to discharge home today after PT evaluation and if CT head stable. Pertinent studies include brain CT, CXR, EKG, Carotid doppler, Echo, EEG. General: non toxic, no distress, appears at stated age, overweight Head: atraumatic, normocephalic, symmetric Eyes: EOMI, no lid lag, anicteric sclera ENT: Nose and ears atraumatic Neck: No cervical lymphadenopathy, trachea midline, supple Cardiovascular: S1S2 reg, no murmur Lungs: CTA bilateral, no rhonchi, no rales, no accessory muscle use Ext: no gross muscle atrophy, no contractures Neuro: Unable to complete neurological exam due to mentation Psych: Alert and oriented x 2 Discharge Diagnosis: Altered mental status, unclear etiology Hypertensive urgency Normocytic anemia Chronic conditions: ESRD on hemodialysis, type II DM, hypertension, hypothyroidism This complex discharge took 35 minutes to complete. Patient Condition at Discharge: Stable Plan - Discharge Summary Discharge Rx Participant: Yes New Discharge Prescriptions: No Action Dicyclomine [Bentyl] 20 mg PO DAILY HYDROcodone/APAP 10-325MG [Erie 10-325] 1 tab PO Q4H PRN PRN Reason: Pain ALPRAZolam [Xanax] 0.5 mg PO DAILY Midodrine [ProAmatine] 5 mg PO MOWEFR PRN PRN Reason: DIALYSIS Insulin Glargine [Lantus Vial] 40 unit SQ HS carvediloL [Coreg] 25 mg PO BID-W/MEALS Sevelamer [Renvela] 2,400 mg PO AC-TID amLODIPine [Norvasc] 10 mg PO DAILY allopurinoL [Zyloprim] 100 mg PO DAILY Ondansetron [Zofran] 4 mg PO BID PRN PRN Reason: Nausea Lidocaine-Prilocaine Cream [Emla Cream 2.5%/2.5%] 1 applic TOPICAL MOWEFR PRN PRN Reason: dialysis Isosorbide Dinitrate 20 mg PO BID Sevelamer [Renvela] 1,600 mg PO BID PRN PRN Reason: WITH SNACKS Insulin Lispro [humaLOG Kwikpen] See Protocol SQ AC-TID PRN PRN Reason: Blood Sugar - High Sodium Zirconium Cyclosilicate [Lokelma] 10 gm PO SUTUTHSA Discharge Medication List ALPRAZolam [Xanax] 0.5 mg PO DAILY 10/27/22 [History] Dicyclomine [Bentyl] 20 mg PO DAILY 10/27/22 [History] HYDROcodone/APAP 10-325MG [Erie 10-325] 1 tab PO Q4H PRN 10/27/22 [History] Isosorbide Dinitrate 20 mg PO BID 10/27/22 [History] Lidocaine-Prilocaine Cream [Emla Cream 2.5%/2.5%] 1 applic TOPICAL MOWEFR PRN 10/27/22 [History] Ondansetron [Zofran] 4 mg PO BID PRN 10/27/22 [History] Sevelamer [Renvela] 2,400 mg PO AC-TID 10/27/22 [History] allopurinoL [Zyloprim] 100 mg PO DAILY 10/27/22 [History] amLODIPine [Norvasc] 10 mg PO DAILY 10/27/22 [History] carvediloL [Coreg] 25 mg PO BID-W/MEALS 10/27/22 [History] Insulin Glargine [Lantus Vial] 40 unit SQ HS 06/18/23 [History] Insulin Lispro [humaLOG Kwikpen] See Protocol SQ AC-TID PRN 06/18/23 [History] Midodrine [ProAmatine] 5 mg PO MOWEFR PRN 06/18/23 [History] Sevelamer [Renvela] 1,600 mg PO BID PRN 06/18/23 [History] Sodium Zirconium Cyclosilicate [Lokelma] 10 gm PO SUTUTHSA 06/18/23 [History] Follow up Appointment(s)/Referral(s): Fareed Logan DO [REFERRING] - 1-2 days
--- NOTE | 2023-06-21 13:13 | P.PN ---
Subjective Patient is seen for follow-up for end-stage renal disease. Maintained on hemodialysis on a Sunday vent is a Sunday schedule. She was admitted to the hospital with mental status changes. This morning patient is communicating fairly well with an interesting sense of humor. Status post hemodialysis yesterday with UF of 3 L. Blood pressure has improved Complaining of pain in the arm at site of the axis. No hematoma noted. Objective - Vital Signs Vital signs: Vital Signs Temp 98.5 F 06/21/23 11:59 Pulse 81 06/21/23 11:59 Resp 19 06/21/23 11:59 BP 169/80 06/21/23 11:59 Pulse Ox 95 06/21/23 11:59 FiO2 Intake & Output 06/20/23 06/21/23 06/21/23 18:59 06:59 18:59 Intake Total 658 240 236 Output Total 3000 0 Balance -2342 240 236 Weight 72.3 kg Intake: Oral 358 240 236 Hemodialysis 300 Output: Urine 0 Hemodialysis 3000 Other: Voiding Method Diaper Diaper Diaper - Exam Patient is awake, comfortable, no acute distress Examination of the heart S1 and S2 Examination of the lungs bilateral breath sounds are heard Abdomen is soft nontender Examination lower extremities shows no significant edema [employer] exam shows patient is moving all 4 extremities. She did answer questions fairly appropriately - Labs CBC & Chem 7: 06/19/23 08:38 06/20/23 11:13 Labs: Abnormal Lab Results - Last 24 Hours (Table) 06/20/23 06/20/23 06/20/23 Range/Units 11:13 16:41 19:59 POC Glucose (mg/dL) 149 H 252 H (70-110) mg/dL Hep Bs Antibody A (Negative) 06/21/23 06/21/23 Range/Units 05:50 11:35 POC Glucose (mg/dL) 112 H 182 H (70-110) mg/dL Hep Bs Antibody (Negative) Assessment and Plan Assessment: 1. End-stage renal disease on hemodialysis on a Sunday schedule while right arm AV fistula 2. Mental status changes with initial CT of the head showing no acute findings. Mentation seems to have improved. 3. CK D mineral bone disorder 4. Hypertensive urgency, improved. Patient was restarted on her home medications. Blood pressure has improved post dialysis. Plan: Hemodialysis in a.m. Continue current antihypertensive regimen
[2023-06-21 14:02] VITALS: RESP 20
[2023-06-21 16:30] LABS: Glucose,Whole Blood 158 mg/dL (70-110)
--- NOTE | 2023-06-21 16:31 | CDI ---
Documentation Clarification Form Date: 06/21/2023 03:52:18 PM From: Nelly Townsend RN, CCDS Admit Date: 06/18/2023 08:50:00 PM Patient Name: Mary Walker Visit Number: [id number] Discharge Date: ATTENTION: The Clinical Documentation Specialists (CDI) and [facility] Coding Staff appreciate your assistance in clarifying documentation. Please respond to the clarification below the line at the bottom and electronically sign. The CDI & [facility] Coding staff will review the response and follow-up if needed. Please note: Queries are made part of the Legal Health Record. If you have any questions, please contact the author of this message via ITS. Dr. Jair Wagnernam Your patient has the documented symptom of Altered Mental Status in the ED assessment and neurology consult with unspecified encephalopathy. Additional clarification regarding the etiology/cause of this symptom is requested. History/Risk Factors: Asthma, Diabetes Mellitus, ESRD, Dialysis, Sleep Apnea/CPAP/BIPAP, Thyroid Disorder Clinical Indicators: 72-year-old female present with altered mental status, elevated blood pressure of 207/94 and as high as 222/113. 06/18 VS: 216/109 69 14 98% RA 219/111 70 14 06/19 VS: 214/97 77 16 95 % 4/l NC 06/18 CT brain: hypodensity over the right parietal occipital region which does not seem acute and it feels chronic. 06/19 Carotid duplex is reported as no ultrasound evidence for hemodynamically significant stenosis of bilateral visualize carotid arterial system. 06/18 Labs: WBC 8.1, BUN 27, and CR 4.02 06/18 CXR: Cardiomegaly. No acute pulmonary process 06/19 Electroencephalogram Report: this is an abnormal routine EEG. The background slowing is suggestive of moderate encephalopathy. Otherwise, there is no focal slowing, epileptiform discharge or seizure on the EEG. Treatment: County Historian/Telemetry Neurological assessment Q15MX4, Q30MX2, Q1HX2, Q8H Norvasc 10 MG PO BID Daily Coreg 25 MG PO BID Hydralazine 20 MG IVP Once 06/18 Hydralazine 25MG PO Once Isordil 20 MG PO BID 06/18-06/21 Please clarify the etiology of the symptom of Altered Mental Status: [ x ] Hypertensive Emergency with Hypertensive Encephalopathy [ ] Hypertensive Encephalopathy due to [insert cause of encephalopathy] [ ] Delirium (specify cause): [ ] Other condition (please specify) [ ] Unable to determine (Template Last Revised: September 2020) MTDD
--- NOTE | 2023-06-21 16:42 | CT ---
EXAMINATION TYPE: CT brain wo con DATE OF EXAM: 06/21/2023 COMPARISON: 06/21/2023 INDICATION: confusion. r/o stroke DLP: 1126.4 mGycm, Automated exposure control for dose reduction was used. CONTRAST: None CT of the brain is performed utilizing 3 mm thick sections through the posterior fossa and 3 mm thick sections through the remaining calvarium. Study is performed within 24 hours of arrival to the hosp ital. No abnormal hyperdensity is present to suggest an acute intracranial hemorrhage. No mass lesion is evident. No acute infarcts are evident. Right watershed infarct is evident, present previously. Periventricula r white matter hypodensity is present compatible with chronic white matter ischemic changes. Old lacu aline infarct within the left caudate head is present. Ventricles and sulci are prominent for the patient age. Paranasal sinuses and mastoid air cells within the dlieo-oh-bolx are clear. IMPRESSION: 1. 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 2. Chronic patchy periventricular white matter ischemic changes with atrophy. 3. Follow-up MRI can be performed if additional evaluation would be of benefit.
[2023-06-21 16:51] VITALS: BP 166/76; PULSE 73; TEMP 98.4
== END 2023-06-21 18:15 | disposition home or self-care (01) | DRG 682 ==
LOC: EC 16:17 → 3SCARD 20:50
PROVIDERS: ADMIT Internal Medicine; ATTEND Internal Medicine
PROC: 5A1D70Z Performance of Urinary Filtration, Intermittent, Less than 6 Hours Per Day (ICD-10-PCS; principal; 2023-06-19)
DX: I12.0 Hypertensive chronic kidney disease with stage 5 chronic kidney disease or end stage renal disease (principal); N18.6 End stage renal disease; I67.4 Hypertensive encephalopathy; I16.1 Hypertensive emergency; E11.22 Type 2 diabetes mellitus with diabetic chronic kidney disease; D63.1 Anemia in chronic kidney disease; H54.8 Legal blindness, as defined in USA; M89.8X9 Other specified disorders of bone, unspecified site; Z79.899 Other long term (current) drug therapy; Z86.73 Personal history of transient ischemic attack (TIA), and cerebral infarction without residual deficits; Z79.4 Long term (current) use of insulin; Z99.2 Dependence on renal dialysis
CPT/HCPCS: 36415; 70450; 71046; 80048; 80053; 80061; 80320; 81001; 82140; 82607; 82746; 84100; 84443; 84484; 85025; 85610; 85730; 86706; 87340; 90935; 93005; 93306; 93880; 94760; 95816; 96372; 96374; 99285

== ENCOUNTER 2023-08-07 11:33 | Inpatient (IN) | payer MEDICARE, OTHER ==
[2023-08-07] MEDS ORDERED: SODIUM CHLORIDE 0.9% 1,000 ML IV ONE (12:27)
[2023-08-07] MEDS ORDERED: METOCLOPRAMIDE 5 MG/ML 2 ML VIAL IVP STA (12:28)
[2023-08-07] MEDS ORDERED: diphenhydrAMINE 50 MG/ML 1 ML VIAL IVP STA (12:28)
[2023-08-07] MEDS ORDERED: ACETAMINOPHEN TAB 500 MG TAB PO STA (12:29)
--- NOTE | 2023-08-07 13:38 | XR ---
EXAMINATION TYPE: XR chest 2V DATE OF EXAM: 08/07/2023 1:16 PM CLINICAL INDICATION:Female, 72 years old with history of altered mental status; [facility] COMPARISON: 06/18/2023 TECHNIQUE: Frontal and lateral views of the chest are obtained. FINDINGS: Heart size is stable, mildly to moderately enlarged. Atherosclerotic calcifications of the aorta. The pulmonary vasculature is within normal limits. No suspicious focal consolidation. No sizable pleural effusion or pneumothorax. Osseous structures appear grossly unchanged. Degenerative changes of the shoulders and spine, with ne urostimulator lead projected over the posterior spinal canal in the region of the thoracolumbar junct ion. IMPRESSION: Cardiomegaly, without evidence of an acute pulmonary abnormality.
[2023-08-07 14:12] LABS: Basophils # (A) 0.1 k/uL (0-0.2); Basophils % (A) 0 %; Eosinophils # (A) 0.1 k/uL (0-0.7); Eosinophils % (A) 1 %; HGB 14.1 gm/dL (11.4-16.0); Lymphocytes # (A) 0.9 k/uL (1.0-4.8); Lymphocytes % (A) 9 %; MCH 30.6 pg (25.0-35.0); MCHC 32.1 g/dL (31.0-37.0); MCV 95.1 fL (80.0-100.0); Mean Platelet Volume 8.5; Monocytes # (A) 0.6 k/uL (0-1.0); Monocytes % (A) 6 %; Neutrophils # (A) 8.6 k/uL (1.3-7.7); Neutrophils % (A) 82 %; Platelet Count 172 k/uL (150-450); RBC 4.63 m/uL (3.80-5.40); RDW 15.3 % (11.5-15.5); WBC 10.4 k/uL (3.8-10.6)
[2023-08-07 14:26] LABS: ALT 48 U/L (4-34); AST 15 U/L (14-36); African American GFR (CKD) 4 (>60 ml/min/1.73 sqM); Albumin 4.1 g/dL (3.5-5.0); Alkaline Phosphatase 202 U/L (38-126); Anion Gap 22 mmol/L; Blood Urea Nitrogen 68 mg/dL (7-17); Calcium 8.5 mg/dL (8.4-10.2); Carbon Dioxide 23 mmol/L (22-30); Chloride 90 mmol/L (98-107); Glucose 172 mg/dL (74-99); Non-African American GFR(CKD) 3 (>60 ml/min/1.73 sqM); Sodium 135 mmol/L (137-145); Total Bilirubin 0.8 mg/dL (0.2-1.3); Total Protein 7.5 g/dL (6.3-8.2)
[2023-08-07 14:35] LABS: INR 1.1 (<1.2); Partial Thromboplastin Time 29.1 sec (22.0-30.0); Potassium 6.2 mmol/L (3.5-5.1); Prothrombin Time 11.8 sec (10.0-12.5)
--- NOTE | 2023-08-07 15:04 | ED ---
Altered Mental Status HPI - General Chief Complaint: Altered Mental Status Stated Complaint: Altered Mental Status Time Seen by Provider: 08/07/23 12:00 Source: patient, EMS Mode of arrival: EMS Limitations: altered mental status - History of Present Illness Initial Comments: 72-year-old female presents to the emergency department for generalized weakne ss. is at bedside and helps provide the history. States that she has had a significant decline in the past week. She has been refusing to take her medications. She normally has dialysis Sunday however because of the holiday her schedule has been adjusted. She had dialysis on Sunday and her next treatment was supposed to be today. She has not wanted to ambulate because of left knee pain and swelling. He has been unable to get her up out of bed. He states that she has been more agitated recently. No reported fevers. No worsening shortness of breath. Patient does were 4 L at all times. She makes very little urine. She follows with Dr. Kohler. Skin is concerned about her confusion. When I questioned the patient she reports that she has a headache and nausea. No other alleviating, precipitating or modifying factors - Related Data Home Medications Medication Instructions Recorded Confirmed ALPRAZolam [Xanax] 0.5 mg PO DAILY 10/27/22 08/07/23 Dicyclomine [Bentyl] 20 mg PO DAILY 10/27/22 08/07/23 Isosorbide Dinitrate 20 mg PO BID 10/27/22 08/07/23 Lidocaine-Prilocaine Cream [Emla 1 applic TOPICAL MOWEFR PRN 10/27/22 08/07/23 Cream 2.5%/2.5%] Ondansetron [Zofran] 4 mg PO BID PRN 10/27/22 08/07/23 Sevelamer [Renvela] 2,400 mg PO AC-TID 10/27/22 08/07/23 allopurinoL [Zyloprim] 100 mg PO DAILY 10/27/22 08/07/23 amLODIPine [Norvasc] 10 mg PO DAILY PRN 10/27/22 08/07/23 carvediloL [Coreg] 25 mg PO BID-W/MEALS 10/27/22 08/07/23 Insulin Glargine [Lantus Vial] 40 unit SQ HS 06/18/23 08/07/23 Insulin Lispro [humaLOG Kwikpen] See Protocol SQ AC-TID PRN 06/18/23 08/07/23 Sevelamer [Renvela] 1,600 mg PO BID PRN 06/18/23 08/07/23 Previous Rx's Medication Instructions Recorded Atorvastatin [Lipitor] 40 mg PO HS #30 tab 06/21/23 Acetaminophen-Codeine 300-30mg 1 each PO Q6HR PRN 5 Days #20 tab 08/10/23 [Tylenol w/codeine #3] Clopidogrel [Plavix] 75 mg PO DAILY #30 tablet 08/10/23 hydrALAZINE HCL 50 mg PO BID #60 tablet 08/10/23 predniSONE 10 mg PO DIRECTED #12 tab 08/10/23 Allergies Allergy/AdvReac Type Severity Reaction Status Date / Time Iodinated Contrast Media Allergy Unknown Verified 08/07/23 13:46 Phenothiazines Allergy Unknown Verified 08/07/23 13:46 prednisone Allergy Unknown Verified 08/07/23 13:46 Review of Systems ROS Statement: Those systems with pertinent positive or pertinent negative responses have been documented in the HPI. ROS Other: All systems not noted in ROS Statement are negative. Past Medical History Past Medical History: Asthma, Diabetes Mellitus, Dialysis, Sleep Apnea/CPAP/BIPAP, Thyroid Disorder History of Any Multi-Drug Resistant Organisms: None Reported Additional Past Surgical History / Comment(s): right fistula, left fistula old Past Psychological History: No Psychological Hx Reported Smoking Status: Never smoker Past Alcohol Use History: None Reported Past Drug Use History: None Reported - Past Family History Mother History Unknown: Yes General Exam Limitations: altered mental status General appearance: alert, lethargic Head exam: Present: atraumatic, normocephalic, normal inspection Eye exam: Present: normal appearance, PERRL, EOMI. Absent: scleral icterus, conjunctival injection, periorbital swelling ENT exam: Present: mucous membranes dry Neck exam: Present: normal inspection. Absent: tenderness, meningismus, lymphadenopathy Respiratory exam: Present: normal lung sounds bilaterally. Absent: respiratory distress, wheezes, rales, rhonchi, stridor Cardiovascular Exam: Present: regular rate, normal rhythm, normal heart sounds. Absent: systolic murmur, diastolic murmur, rubs, gallop, clicks GI/Abdominal exam: Present: soft, normal bowel sounds. Absent: distended, tenderness, guarding, rebound, rigid Extremities exam: Present: joint swelling (left knee. no warmth or erythema) Neurological exam: Present: alert, oriented X3 Psychiatric exam: Present: flat affect Skin exam: Present: warm, dry, intact, normal color. Absent: rash Course Vital Signs 08/07/23 08/07/23 08/07/23 11:38 12:46 15:11 Temperature 98.7 F Pulse Rate 68 64 66 Pulse Rate [ Right Supine Radial] Respiratory 18 18 20 Rate Blood Pressure 198/99 186/82 187/87 Blood Pressure [Left Arm] Blood Pressure [Right Arm] O2 Sat by Pulse 95 100 96 Oximetry 08/07/23 08/07/23 08/07/23 16:49 18:34 20:02 Temperature 98.1 F Pulse Rate 63 65 Pulse Rate [ 66 Right Supine Radial] Respiratory 18 18 18 Rate Blood Pressure 174/86 200/95 Blood Pressure 169/89 [Left Arm] Blood Pressure [Right Arm] O2 Sat by Pulse 96 99 99 Oximetry 08/07/23 08/07/23 08/07/23 21:00 22:37 23:00 Temperature Pulse Rate 64 65 Pulse Rate [ Right Supine Radial] Respiratory 18 18 18 Rate Blood Pressure 165/89 149/89 111/72 Blood Pressure [Left Arm] Blood Pressure [Right Arm] O2 Sat by Pulse 100 Oximetry 08/07/23 08/07/23 08/08/23 23:20 23:36 00:10 Temperature 97.8 F Pulse Rate 65 67 Pulse Rate [ 62 Right Supine Radial] Respiratory 18 16 20 Rate Blood Pressure 148/68 186/97 Blood Pressure [Left Arm] Blood Pressure 164/77 [Right Arm] O2 Sat by Pulse 100 99 Oximetry 08/08/23 08/08/23 08/08/23 01:03 02:13 03:17 Temperature Pulse Rate 63 64 64 Pulse Rate [ Right Supine Radial] Respiratory 16 18 16 Rate Blood Pressure 180/88 180/90 183/93 Blood Pressure [Left Arm] Blood Pressure [Right Arm] O2 Sat by Pulse 96 98 98 Oximetry 08/08/23 08/08/23 08/08/23 04:22 05:15 06:55 Temperature Pulse Rate 62 73 Pulse Rate [ Right Supine Radial] Respiratory 16 18 16 Rate Blood Pressure 168/82 195/99 Blood Pressure [Left Arm] Blood Pressure [Right Arm] O2 Sat by Pulse 97 99 Oximetry 08/08/23 08/08/23 08/08/23 08:50 10:05 11:04 Temperature 99.3 F Pulse Rate 64 65 97 Pulse Rate [ Right Supine Radial] Respiratory 18 19 20 Rate Blood Pressure 126/86 164/90 176/97 Blood Pressure [Left Arm] Blood Pressure [Right Arm] O2 Sat by Pulse 98 97 97 Oximetry 08/08/23 08/08/23 08/08/23 12:24 14:02 15:04 Temperature 98.4 F 98.4 F Pulse Rate 68 73 66 Pulse Rate [ Right Supine Radial] Respiratory 18 18 17 Rate Blood Pressure 143/77 153/76 142/83 Blood Pressure [Left Arm] Blood Pressure [Right Arm] O2 Sat by Pulse 96 97 96 Oximetry 08/08/23 08/08/23 16:11 18:25 Temperature 97.2 F L 97.9 F Pulse Rate 64 69 Pulse Rate [ Right Supine Radial] Respiratory 16 19 Rate Blood Pressure 136/75 166/87 Blood Pressure [Left Arm] Blood Pressure [Right Arm] O2 Sat by Pulse 97 97 Oximetry Medical Decision Making - Medical Decision Making Was pt. sent in by a medical professional or institution (, PA, GIZZARD PEELER, urgent care, hospital, or [place] health care facility...) When possible be specific @ -No Did you speak to anyone other than the patient for history (EMS, parent, family, police, friend...)? What history was obtained from this source @ - and EMS Did you review nursing and triage notes (agree or disagree)? Why? @ -I reviewed and agree with nursing and triage notes Were old charts reviewed (outside hosp., previous admission, EMS record, old EKG, old radiological studies, urgent care reports/EKG's, [place] health care facility records)? Report findings @ -No old charts were reviewed Differential Diagnosis (chest pain, altered mental status, abdominal pain women, abdominal pain men, vaginal bleeding, weakness, fever, dyspnea, syncope, headache, dizziness, GI bleed, back pain, seizure, CVA, palpatations, mental health, musculoskeletal)? @ -Differential Altered Mental Status: Hypoglycemia, DKA, hypercapnia, ETOH, overdose, CO poisoning, trauma, myxedema coma, HTN encephalopathy, infection, encephalitis, psychosis, intercranial hemorrhage, hepatic encephalopathy, meningitis, CVA, this is not meant to be an all-inclusive list EKG interpreted by me (3pts min.). @ -Yes and demonstrates sinus rhythm with a rate of 68. MT interval 214. QRS 89. QTC of 430. No acute ST segment elevations or depressions X-rays interpreted by me (1pt min.). @ -yes and demonstrates knee effusion CT interpreted by me (1pt min.). @ -yes and demonstrates no acute process U/S interpreted by me (1pt. min.). @ -None done What testing was considered but not performed or refused? (CT, X-rays, U/S, labs)? Why? @ -None What meds were considered but not given or refused? Why? @ -None Did you discuss the management of the patient with other professionals (professionals i.e. , PA, GIZZARD PEELER, lab, RT, psych nurse, social studies teacher, armature and rotor winder, teacher, global chief experience officer, pillowcase turner)? Give summary @ -Spoke with Dr. Mcneill who is going to dialyze the patient Was smoking cessation discussed for >3mins.? @ -No Was critical care preformed (if so, how long)? @ -No Were there social determinants of health that impacted care today? How? (Homelessness, low income, unemployed, alcoholism, drug addiction, transportation, low edu. Level, literacy, decrease access to med. care, correction, rehab)? @ -No Was there de-escalation of care discussed even if they declined (Discuss DNR or withdrawal of care, Hospice)? DNR status @ -No What co-morbidities impacted this encounter? (DM, HTN, Smoking, COPD, CAD, Cancer, CVA, ARF, Chemo, Hep., AIDS, mental health diagnosis, sleep apnea, morbid obesity)? @ -esrd on hd Was patient admitted / discharged? Hospital course, mention meds given and route, prescriptions, significant lab abnormalities, going to OR and other pertinent info. @ -Upon arrival patient was placed into room 7. Thorough history and physical exam was performed. IV was established. Patient was given Reglan, Benadryl and Tylenol for her headache. Laboratory studies are conducted. CT of her brain was performed. Chest x-rays performed. Upon return results they are discussed with the patient and at bedside. I did speak with Dr. Mcneill who will dialyze the patient. I will consult orthopedics for her left knee effusion. Patient is admitted to [facility]. Awaiting a callback at this time. Undiagnosed new problem with uncertain prognosis? @ -yes Drug Therapy requiring intensive monitoring for toxicity (Heparin, Nitro, Ins ulin, Cardizem)? @ -No Were any procedures done? @ -No Diagnosis/symptom? @ -acute encephalopathy, left knee effusion, hyperkalemia, nstemi, esrd on hd Acute, or Chronic, or Acute on Chronic? @ -acute Uncomplicated (without systemic symptoms) or Complicated (systemic symptoms)? @ -complicated Side effects of treatment? @ -No Exacerbation, Progression, or Severe Exacerbation? @ -No Poses a threat to life or bodily function? How? (Chest pain, USA, VT, pneumonia, PE, COPD, DKA, ARF, appy, cholecystitis, CVA, Diverticulitis, Homicidal, Suicidal, threat to staff... and all critical care pts) @ -yes due to hyperkalemia - Lab Data Result diagrams: 08/10/23 07:39 08/10/23 07:39 Lab Results 08/07/23 08/07/23 08/07/23 Range/Units 14:00 14:00 14:00 WBC 10.4 (3.8-10.6) k/uL RBC 4.63 (3.80-5.40) m/uL Hgb 14.1 (11.4-16.0) gm/dL Hct 44.0 (34.0-46.0) % MCV 95.1 (80.0-100.0) fL MCH 30.6 (25.0-35.0) pg MCHC 32.1 (31.0-37.0) g/dL RDW 15.3 (11.5-15.5) % Plt Count 172 (150-450) k/uL MPV 8.5 Neutrophils % 82 % Lymphocytes % 9 % Monocytes % 6 % Eosinophils % 1 % Basophils % 0 % Neutrophils # 8.6 H (1.3-7.7) k/uL Lymphocytes # 0.9 L (1.0-4.8) k/uL Monocytes # 0.6 (0-1.0) k/uL Eosinophils # 0.1 (0-0.7) k/uL Basophils # 0.1 (0-0.2) k/uL PT 11.8 (10.0-12.5) sec INR 1.1 (<1.2) APTT 29.1 (22.0-30.0) sec Sodium 135 L (137-145) mmol/L Potassium 6.2 H* (3.5-5.1) mmol/L Chloride 90 L (98-107) mmol/L Carbon Dioxide 23 (22-30) mmol/L Anion Gap 22 mmol/L BUN 68 H (7-17) mg/dL Creatinine 10.28 H* (0.52-1.04) mg/dL Est GFR (CKD-EPI)AfAm 4 (>60 ml/min/1.73 sqM) Est GFR (CKD-EPI)NonAf 3 (>60 ml/min/1.73 sqM) Glucose 172 H (74-99) mg/dL Uric Acid (3.7-7.4) mg/dL Calcium 8.5 (8.4-10.2) mg/dL Phosphorus (2.5-4.5) mg/dL Total Bilirubin 0.8 (0.2-1.3) mg/dL AST 15 (14-36) U/L ALT 48 H (4-34) U/L Alkaline Phosphatase 202 H (38-126) U/L Troponin I (0.000-0.034) ng/mL Total Protein 7.5 (6.3-8.2) g/dL Albumin 4.1 (3.5-5.0) g/dL Influenza Type A (PCR) (Not Detectd) Influenza Type B (PCR) (Not Detectd) RSV (PCR) (Not Detectd) SARS-CoV-2 (PCR) (Not Detectd) 08/07/23 08/07/23 08/07/23 Range/Units 14:00 14:00 14:34 WBC (3.8-10.6) k/uL RBC (3.80-5.40) m/uL Hgb (11.4-16.0) gm/dL Hct (34.0-46.0) % MCV (80.0-100.0) fL MCH (25.0-35.0) pg MCHC (31.0-37.0) g/dL RDW (11.5-15.5) % Plt Count (150-450) k/uL MPV Neutrophils % % Lymphocytes % % Monocytes % % Eosinophils % % Basophils % % Neutrophils # (1.3-7.7) k/uL Lymphocytes # (1.0-4.8) k/uL Monocytes # (0-1.0) k/uL Eosinophils # (0-0.7) k/uL Basophils # (0-0.2) k/uL PT (10.0-12.5) sec INR (<1.2) APTT (22.0-30.0) sec Sodium (137-145) mmol/L Potassium (3.5-5.1) mmol/L Chloride (98-107) mmol/L Carbon Dioxide (22-30) mmol/L Anion Gap mmol/L BUN (7-17) mg/dL Creatinine (0.52-1.04) mg/dL Est GFR (CKD-EPI)AfAm (>60 ml/min/1.73 sqM) Est GFR (CKD-EPI)NonAf (>60 ml/min/1.73 sqM) Glucose (74-99) mg/dL Uric Acid 8.2 H (3.7-7.4) mg/dL Calcium (8.4-10.2) mg/dL Phosphorus 7.1 H (2.5-4.5) mg/dL Total Bilirubin (0.2-1.3) mg/dL AST (14-36) U/L ALT (4-34) U/L Alkaline Phosphatase (38-126) U/L Troponin I 0.049 H* (0.000-0.034) ng/mL Total Protein (6.3-8.2) g/dL Albumin (3.5-5.0) g/dL Influenza Type A (PCR) Not Detected (Not Detectd) Influenza Type B (PCR) Not Detected (Not Detectd) RSV (PCR) Not Detected (Not Detectd) SARS-CoV-2 (PCR) Not Detected (Not Detectd) Disposition Clinical Impression: Encephalopathy acute, Hyperkalemia, ESRD (end stage renal disease), Knee effusion, left Disposition: ADMITTED IP TO THIS HOSP Condition: Stable Is patient prescribed a controlled substance at d/c from ED?: No Time of Disposition: 15:19 Decision to Admit Reason: Admit from EC Decision Date: 08/07/23 Decision Time: 15:19
--- NOTE | 2023-08-07 15:10 | CT ---
EXAMINATION TYPE: CT brain wo con DATE OF EXAM: 08/07/2023 COMPARISON: 06/21/2023 HISTORY: weakness CT DLP: 1140.4 mGycm Automated exposure control for dose reduction was used. FINDINGS: The ventricles, basal cisterns and sulci over the convexities are markedly enlarged consistent with m arked atrophy. There is remote infarct involving the right parietal lobe. There are remote lacunar infarcts in the basal ganglia bilaterally. There is mild to moderate chronic ischemic white matter demyelination. There is no mass effect or shift of midline structures. There is no acute intra or extra-axial hemorrhage. The posterior fossa is grossly normal. The intraorbital contents appear normal and symmetric. Visualized paranasal sinuses and mastoid air cells are well aerated. IMPRESSION: 1. No acute bleed or mass effect 2. Marked generalized atrophy. 3. Remote lacunar infarcts in the basal ganglia and remote right parietal lobe infarct 4 mild to moderate chronic ischemic white matter demyelination.
--- NOTE | 2023-08-07 15:10 | XR ---
EXAMINATION TYPE: XR knee complete LT DATE OF EXAM: 08/07/2023 COMPARISON: NONE HISTORY: 72-year-old female pain and swelling TECHNIQUE: 3 views FINDINGS: There is an underlying large joint effusion. There is moderate loss of cartilage and joint space in the medial compartment. Tricompartmental degenerative spurring is present. Limited due to th e degree of osteopenia. No displaced fracture is identified. Vascular calcifications. IMPRESSION: 1. Limited due to the degree of marked osteopenia. No displaced fracture is seen. 2. However, there is a large joint effusion. Correlate for traumatic versus inflammatory or infectiou s etiologies. MRI if clinically indicated. 3. Tricompartmental osteoarthrosis, moderate cartilage and joint space narrowing in the medial compar tment.
[2023-08-07 15:18] LABS: Phosphorus 7.1 mg/dL (2.5-4.5); Uric Acid 8.2 mg/dL (3.7-7.4)
[2023-08-07] MEDS ORDERED: NALOXONE 0.4 MG/ML 1 ML VIAL IV PRN (15:21)
[2023-08-07] MEDS ORDERED: DEXTROSE 50% SYRINGE 50 ML IVP STA (15:23)
[2023-08-07] MEDS ORDERED: INSULIN REGULAR 100 UNIT/ML VIAL (IV) IV ONE ×2 (15:23→16:00)
[2023-08-07 15:40] LABS: Glucose,Whole Blood 147 mg/dL (70-110)
[2023-08-07] MEDS: amLODIPine 10 MG TAB PO SCH (23:01)
[2023-08-07] MEDS: carvediloL 12.5 MG TAB PO SCH (23:01)
[2023-08-08 01:44] LABS: Glucose,Whole Blood 134 mg/dL (70-110)
[2023-08-08] MEDS: carvediloL 12.5 MG TAB PO SCH (06:58)
[2023-08-08] MEDS ORDERED: HYDROcodone/APAP 10-325MG 1 EACH TAB PO PRN (07:10)
[2023-08-08] MEDS ORDERED: SEVELAMER 800 MG TAB PO PRN (07:11)
[2023-08-08] MEDS ORDERED: ONDANSETRON 4 MG TAB PO PRN (07:11)
--- NOTE | 2023-08-08 08:43 | P.HPIM ---
History of Present Illness This is a pleasant 72 years old female with past medical history of ESRD on hemodialysis, type II DM, hypertension, hypothyroidism She presents because she sent from dialysis Center for feeling weak and altered mental status, on admission her blood pressure was elevated. Patient had similar presentation about one month ago, at that time she's been seen by neurologist and she had extensive neurological workup which was unremarkable. Today she is somewhat confused about why she came to the hospital. But seems to known she is a [facility] and the names of the person's but she is confused about the date and the year. Herself currently denies any specific symptoms, she says she does not make urine. She denies any GI symptoms like vomiting diarrhea or abdominal pain but states she is not eating well currently. She denies headache dizziness weakness or numbness. No slurred speech, no blurred vision. No chest pain or dyspnea or coughing. She denies smoking or alcohol or illicit drugs. Her PCP is Dr. Omaira Guerrier as she confirms She says she walks little bit, she is complaining of from left knee swelling but no pain bruised hotness or warmth. No trauma. I counseled patient about her pain medication Narco, she's been taking it for pain but she could not specify what the reason or where her pain specifically. Review of Systems Review of systems CONSTITUTIONAL: No fever, no malaise, no fatigue. HEENT: No recent visual problems or hearing problems. Denied any sore throat. CARDIOVASCULAR: No orthopnea, PND, no palpitations, no syncope. PULMONARY: No shortness of breath, no cough, no hemoptysis. GASTROINTESTINAL: No diarrhea, no nausea, no vomiting, no abdominal pain. Normoactive bowel sounds. NEUROLOGICAL: No headaches, no weakness, no numbness. HEMATOLOGICAL: Denies any bleeding or petechiae. GENITOURINARY: Denies any burning micturition, frequency, or urgency. MUSCULOSKELETAL/RHEUMATOLOGICAL: Denies any joint pain, swelling, or any muscle pain. ENDOCRINE: Denies any polyuria or polydipsia. Past Medical History Past Medical History: Asthma, Diabetes Mellitus, Dialysis, Sleep Apnea/C PAP/BIPAP, Thyroid Disorder History of Any Multi-Drug Resistant Organisms: None Reported Additional Past Surgical History / Comment(s): right fistula, left fistula old Past Psychological History: No Psychological Hx Reported Smoking Status: Never smoker Past Alcohol Use History: None Reported Past Drug Use History: None Reported - Past Family History Mother History Unknown: Yes Medications and Allergies Home Medications Medication Instructions Recorded Confirmed Type ALPRAZolam [Xanax] 0.5 mg PO DAILY 10/27/22 08/07/23 History Dicyclomine [Bentyl] 20 mg PO DAILY 10/27/22 08/07/23 History HYDROcodone/APAP 10-325MG [Butler 1 tab PO Q4H PRN 10/27/22 08/07/23 History 10-325] Isosorbide Dinitrate 20 mg PO BID 10/27/22 08/07/23 History Lidocaine-Prilocaine Cream [Emla 1 applic TOPICAL MOWEFR PRN 10/27/22 08/07/23 History Cream 2.5%/2.5%] Ondansetron [Zofran] 4 mg PO BID PRN 10/27/22 08/07/23 History Sevelamer [Renvela] 2,400 mg PO AC-TID 10/27/22 08/07/23 History allopurinoL [Zyloprim] 100 mg PO DAILY 10/27/22 08/07/23 History amLODIPine [Norvasc] 10 mg PO DAILY PRN 10/27/22 08/07/23 History carvediloL [Coreg] 25 mg PO BID-W/MEALS 10/27/22 08/07/23 History Insulin Glargine [Lantus Vial] 40 unit SQ HS 06/18/23 08/07/23 History Insulin Lispro [humaLOG Kwikpen] See Protocol SQ AC-TID PRN 06/18/23 08/07/23 History Midodrine [ProAmatine] 5 mg PO MOWEFR PRN 06/18/23 08/07/23 History Sevelamer [Renvela] 1,600 mg PO BID PRN 06/18/23 08/07/23 History Aspirin 81 mg PO DAILY #30 tab 06/21/23 08/07/23 Rx Atorvastatin [Lipitor] 40 mg PO HS #30 tab 06/21/23 08/07/23 Rx Allergies Allergy/AdvReac Type Severity Reaction Status Date / Time Iodinated Contrast Media Allergy Unknown Verified 08/07/23 13:46 Phenothiazines Allergy Unknown Verified 08/07/23 13:46 prednisone Allergy Unknown Verified 08/07/23 13:46 Physical Exam Vitals: Vital Signs Temp Pulse Pulse Resp BP BP Pulse Ox 08/08/23 06:55 73 16 195/99 99 08/08/23 05:15 18 08/08/23 04:22 62 16 168/82 97 08/08/23 03:17 64 16 183/93 98 08/08/23 02:13 64 18 180/90 98 08/08/23 01:03 63 16 180/88 96 08/08/23 00:10 67 20 186/97 99 08/07/23 23:36 97.8 F 62 16 164/77 08/07/23 23:20 65 18 148/68 100 08/07/23 23:00 65 18 111/72 08/07/23 22:37 64 18 149/89 100 08/07/23 21:00 18 165/89 08/07/23 20:02 65 18 200/95 99 08/07/23 16:49 63 18 174/86 96 08/07/23 15:11 66 20 187/87 96 08/07/23 12:46 64 18 186/82 100 08/07/23 11:38 98.7 F 68 18 198/99 95 Intake and Output 08/07/23 08/08/23 08/08/23 22:59 06:59 14:59 Intake Total 500 Output Total 2000 Balance -1500 Intake: Hemodialysis 500 Output: Hemodialysis 2000 GENERAL: The patient is alert and oriented x3, not in any acute distress. Well developed, well nourished. HEENT: Pupils are round and equally reacting to light. EOMI. No scleral icterus. No conjunctival pallor. Normocephalic, atraumatic. No pharyngeal erythema. No thyromegaly. CARDIOVASCULAR: S1 and S2 present. No murmurs, rubs, or gallops. PULMONARY: Chest is clear to auscultation, no wheezing , no crackles. ABDOMEN: Soft, nontender, nondistended, normoactive bowel sounds. No palpable organomegaly. MUSCULOSKELETAL: No joint swelling or deformity. EXTREMITIES: No cyanosis, clubbing, or pedal edema. NEUROLOGICAL: Gross neurological examination did not reveal any focal deficits. SKIN: No rashes. no petechiae. Results CBC & Chem 7: 08/07/23 14:00 08/07/23 14:00 Labs: Abnormal Lab Results - Last 24 Hours (Table) 08/07/23 08/07/23 08/07/23 Range/Units 14:00 14:00 14:00 Neutrophils # 8.6 H (1.3-7.7) k/uL Lymphocytes # 0.9 L (1.0-4.8) k/uL Sodium 135 L (137-145) mmol/L Potassium 6.2 H* (3.5-5.1) mmol/L Chloride 90 L (98-107) mmol/L BUN 68 H (7-17) mg/dL Creatinine 10.28 H* (0.52-1.04) mg/dL Glucose 172 H (74-99) mg/dL POC Glucose (mg/dL) (70-110) mg/dL Uric Acid (3.7-7.4) mg/dL Phosphorus (2.5-4.5) mg/dL ALT 48 H (4-34) U/L Alkaline Phosphatase 202 H (38-126) U/L Troponin I 0.049 H* (0.000-0.034) ng/mL 08/07/23 08/07/23 08/07/23 Range/Units 14:34 15:38 17:21 Neutrophils # (1.3-7.7) k/uL Lymphocytes # (1.0-4.8) k/uL Sodium (137-145) mmol/L Potassium (3.5-5.1) mmol/L Chloride (98-107) mmol/L BUN (7-17) mg/dL Creatinine (0.52-1.04) mg/dL Glucose (74-99) mg/dL POC Glucose (mg/dL) 147 H (70-110) mg/dL Uric Acid 8.2 H (3.7-7.4) mg/dL Phosphorus 7.1 H (2.5-4.5) mg/dL ALT (4-34) U/L Alkaline Phosphatase (38-126) U/L Troponin I 0.045 H* (0.000-0.034) ng/mL 08/07/23 08/08/23 Range/Units 20:14 01:42 Neutrophils # (1.3-7.7) k/uL Lymphocytes # (1.0-4.8) k/uL Sodium (137-145) mmol/L Potassium (3.5-5.1) mmol/L Chloride (98-107) mmol/L BUN (7-17) mg/dL Creatinine (0.52-1.04) mg/dL Glucose (74-99) mg/dL POC Glucose (mg/dL) 134 H (70-110) mg/dL Uric Acid (3.7-7.4) mg/dL Phosphorus (2.5-4.5) mg/dL ALT (4-34) U/L Alkaline Phosphatase (38-126) U/L Troponin I 0.045 H* (0.000-0.034) ng/mL Assessment and Plan Assessment: Mild metabolic/toxic encephalopathy, multifactorial, mainly secondary to uncontrolled hypertension, dialysis patient and medication effect like narcotics hypertension with urgency, present on admission Left knee effusion with no evidence of arthritis, no trauma End-stage renal disease on hemodialysis. Generalized pain, could be musculoskeletal, no specific pain area Hypothyroidism Type 2 diabetes mellitus Plan: Hold midodrine Add hydralazine 50 mg for better blood pressure control. Continue with Norvasc 10 mg. Correction was taking 25 mg twice a day, this dose was lowered during this admission to 12.5 because of bradycardia Hold Butler and put the patient on Tylenol 3 for pain control Continue with hemodialysis per nephrology team Orthopedic team consult for left knee effusion and possible need for aspiration. Labs and medication were reviewed.. Continue same treatment. Continue with symptomatic treatment. Resume home medication. Monitor labs and vitals. DVT and GI prophylaxis. Further recommendations as per clinical course of the patient DVT prophylaxis: Subcutaneous heparin GI Prophylaxis: Pepcid PT/OT: Pending Prognosis is guarded
[2023-08-08] MEDS: HEPARIN SODIUM,PORCINE 5,000 UNIT/ML 1 ML VIAL SQ SCH ×2 (08:49→20:58)
[2023-08-08] MEDS: FAMOTIDINE 20 MG/2 ML VIAL IV SCH ×2 (08:49→20:58)
[2023-08-08] MEDS: hydrALAZINE HCL 50 MG TAB PO SCH ×2 (08:52→20:58)
[2023-08-08] MEDS: amLODIPine 10 MG TAB PO SCH (08:52)
[2023-08-08] MEDS: ISOSORBIDE DINITRATE 20 MG TAB PO SCH ×2 (08:52→20:58)
[2023-08-08] MEDS: DICYCLOMINE 20 MG TAB PO SCH (08:52)
[2023-08-08] MEDS: allopurinoL 100 MG TAB PO SCH (08:52)
[2023-08-08] MEDS: SEVELAMER 800 MG TAB PO SCH ×2 (08:53→12:25)
[2023-08-08 11:16] LABS: Basophils % (A) 0 %; Eosinophils # (A) 0.1 k/uL (0-0.7); Eosinophils % (A) 1 %; HCT 45.1 % (34.0-46.0); HGB 13.9 gm/dL (11.4-16.0); Hypochromasia Slight; Lymphocytes # (A) 0.7 k/uL (1.0-4.8); Lymphocytes % (A) 8 %; MCH 30.1 pg (25.0-35.0); MCHC 30.8 g/dL (31.0-37.0); MCV 97.8 fL (80.0-100.0); Mean Platelet Volume 8.8; Monocytes # (A) 0.8 k/uL (0-1.0); Monocytes % (A) 9 %; Neutrophils # (A) 7.1 k/uL (1.3-7.7); Neutrophils % (A) 81 %; Platelet Count 172 k/uL (150-450); RBC 4.61 m/uL (3.80-5.40); RDW 15.2 % (11.5-15.5); WBC 8.8 k/uL (3.8-10.6)
--- NOTE | 2023-08-08 11:31 | P.NPCON ---
History of Present Illness - Reason for Consult end stage renal disease - History of Present Illness patient is a 72-year-old female with end-stage renal disease maintained on hemodialysis on a Sunday schedule. Patient is admitted to the hospital with complaints of generalized weakness. She also had mental status changes. Patient was not able to make it for hemodialysis as outpatient. Potassium was 6.2 and patient was volume overloaded at the time of admission. Status post hemodialysis yesterday with UF of about 2 L. Patient is scheduled for hemodialysis again today. No fever chills nausea vomiting or abdominal pain noted. Review of Systems As per HPI. Past Medical History Past Medical History: Asthma, Diabetes Mellitus, Dialysis, Sleep Apnea/CPAP/BIPAP, Thyroid Disorder History of Any Multi-Drug Resistant Organisms: None Reported Additional Past Surgical History / Comment(s): right fistula, left fistula old Past Psychological History: No Psychological Hx Reported Smoking Status: Never smoker Past Alcohol Use History: None Reported Past Drug Use History: None Reported - Past Family History Mother History Unknown: Yes Medications and Allergies Home Medications Medication Instructions Recorded Confirmed Type ALPRAZolam [Xanax] 0.5 mg PO DAILY 10/27/22 08/07/23 History Dicyclomine [Bentyl] 20 mg PO DAILY 10/27/22 08/07/23 History HYDROcodone/APAP 10-325MG [[place] 1 tab PO Q4H PRN 10/27/22 08/07/23 History 10-325] Isosorbide Dinitrate 20 mg PO BID 10/27/22 08/07/23 History Lidocaine-Prilocaine Cream [Emla 1 applic TOPICAL MOWEFR PRN 10/27/22 08/07/23 History Cream 2.5%/2.5%] Ondansetron [Zofran] 4 mg PO BID PRN 10/27/22 08/07/23 History Sevelamer [Renvela] 2,400 mg PO AC-TID 10/27/22 08/07/23 History allopurinoL [Zyloprim] 100 mg PO DAILY 10/27/22 08/07/23 History amLODIPine [Norvasc] 10 mg PO DAILY PRN 10/27/22 08/07/23 History carvediloL [Coreg] 25 mg PO BID-W/MEALS 10/27/22 08/07/23 History Insulin Glargine [Lantus Vial] 40 unit SQ HS 06/18/23 08/07/23 History Insulin Lispro [humaLOG Kwikpen] See Protocol SQ AC-TID PRN 06/18/23 08/07/23 History Midodrine [ProAmatine] 5 mg PO MOWEFR PRN 06/18/23 08/07/23 History Sevelamer [Renvela] 1,600 mg PO BID PRN 06/18/23 08/07/23 History Aspirin 81 mg PO DAILY #30 tab 06/21/23 08/07/23 Rx Atorvastatin [Lipitor] 40 mg PO HS #30 tab 06/21/23 08/07/23 Rx Allergies Allergy/AdvReac Type Severity Reaction Status Date / Time Iodinated Contrast Media Allergy Unknown Verified 08/07/23 13:46 Phenothiazines Allergy Unknown Verified 08/07/23 13:46 prednisone Allergy Unknown Verified 08/07/23 13:46 Physical Exam Vitals: Vital Signs Temp Pulse Pulse Resp BP BP Pulse Ox 08/08/23 11:04 97 20 176/97 97 08/08/23 10:05 65 19 164/90 97 08/08/23 08:50 99.3 F 64 18 126/86 98 08/08/23 06:55 73 16 195/99 99 08/08/23 05:15 18 08/08/23 04:22 62 16 168/82 97 08/08/23 03:17 64 16 183/93 98 08/08/23 02:13 64 18 180/90 98 08/08/23 01:03 63 16 180/88 96 08/08/23 00:10 67 20 186/97 99 08/07/23 23:36 97.8 F 62 16 164/77 08/07/23 23:20 65 18 148/68 100 08/07/23 23:00 65 18 111/72 08/07/23 22:37 64 18 149/89 100 08/07/23 21:00 18 165/89 08/07/23 20:02 65 18 200/95 99 08/07/23 16:49 63 18 174/86 96 08/07/23 15:11 66 20 187/87 96 08/07/23 12:46 64 18 186/82 100 08/07/23 11:38 98.7 F 68 18 198/99 95 Intake and Output 08/07/23 08/08/23 08/08/23 22:59 06:59 14:59 Intake Total 500 Output Total 1999 Balance -1500 Intake: Hemodialysis 500 Output: Hemodialysis 1999 Patient is awake, comfortable, no acute distress Examination of the heart S1 and S2 Examination of the lungs shows bilateral breath sounds are heard Abdomen is soft nontender Examination lower extremity shows trace edema bilaterally [employer] exam shows patient is moving all 4 extremities. Results - Lab Results Most recent lab results Calcium 8.5 mg/dL (8.4-10.2) 08/07/23 14:00 Phosphorus 7.1 mg/dL (2.5-4.5) H 08/07/23 14:34 08/08/23 10:28 08/07/23 14:00 Assessment and Plan Assessment: 1. End-stage renal disease on hemodialysis on a Sunday schedule 2. Hyperkalemia associated with end-stage renal disease 3. Volume overload currently improved 4. Mental status changes 5. Hypertension with CK D stage IV mostly volume related Plan: repeat hemodialysis today with UF of about 2-3 L as tolerated.
[2023-08-08 11:45] LABS: African American GFR (CKD) 6 (>60 ml/min/1.73 sqM); Anion Gap 16 mmol/L; Blood Urea Nitrogen 40 mg/dL (7-17); Calcium 8.2 mg/dL (8.4-10.2); Carbon Dioxide 24 mmol/L (22-30); Chloride 94 mmol/L (98-107); Glucose 262 mg/dL (74-99); Non-African American GFR(CKD) 6 (>60 ml/min/1.73 sqM); Sodium 134 mmol/L (137-145)
[2023-08-08 11:58] LABS: Potassium 5.6 mmol/L (3.5-5.1)
--- NOTE | 2023-08-08 14:54 | P.CNOR ---
History of Present Illness - [facility] Consult date: 08/08/23 Consult reason: joint pain History of present illness: Patient is a pleasant 72-year-old female seen in the emergency department this afternoon in consultation for left knee pain. She initially presented to the ER on 08/07/2023 for altered mental status and complaints of generalized weakness. History was given through her . Orthopedics was asked to see her regarding left knee pain and effusion. She is pleasant at bedside today in able to communicate adequately. She denies any trauma or injury to the left knee. She denies fever or chills. She has some mild pain with range of motion of the left knee. She denies numbness or tingling that is new. No calf pain. No chest pain or shortness breath. Review of Systems All systems: negative Constitutional: Denies chills, Denies fever Eyes: denies blurred vision, denies pain Ears, nose, mouth and throat: Denies headache, Denies sore throat Cardiovascular: Denies chest pain, Denies shortness of breath Respiratory: Denies cough Gastrointestinal: Denies abdominal pain, Denies diarrhea, Denies nausea, Denies vomiting Genitourinary: Denies dysuria, Denies hematuria Musculoskeletal: Denies myalgias Integumentary: Denies pruritus, Denies rash Neurological: Denies numbness, Denies weakness Psychiatric: Denies anxiety, Denies depression Endocrine: Denies fatigue, Denies weight change Past Medical History Past Medical History: Asthma, Diabetes Mellitus, Dialysis, Sleep Apnea/CPAP/BIPAP, Thyroid Disorder History of Any Multi-Drug Resistant Organisms: None Reported Additional Past Surgical History / Comment(s): right fistula, left fistula old Past Psychological History: No Psychological Hx Reported Smoking Status: Never smoker Past Alcohol Use History: None Reported Past Drug Use History: None Reported - Past Family History Mother History Unknown: Yes Medications and Allergies Home Medications Medication Instructions Recorded Confirmed Type ALPRAZolam [Xanax] 0.5 mg PO DAILY 10/27/22 08/07/23 History Dicyclomine [Bentyl] 20 mg PO DAILY 10/27/22 08/07/23 History HYDROcodone/APAP 10-325MG [[place] 1 tab PO Q4H PRN 10/27/22 08/07/23 History 10-325] Isosorbide Dinitrate 20 mg PO BID 10/27/22 08/07/23 History Lidocaine-Prilocaine Cream [Emla 1 applic TOPICAL MOWEFR PRN 10/27/22 08/07/23 History Cream 2.5%/2.5%] Ondansetron [Zofran] 4 mg PO BID PRN 10/27/22 08/07/23 History Sevelamer [Renvela] 2,400 mg PO AC-TID 10/27/22 08/07/23 History allopurinoL [Zyloprim] 100 mg PO DAILY 10/27/22 08/07/23 History amLODIPine [Norvasc] 10 mg PO DAILY PRN 10/27/22 08/07/23 History carvediloL [Coreg] 25 mg PO BID-W/MEALS 10/27/22 08/07/23 History Insulin Glargine [Lantus Vial] 40 unit SQ HS 06/18/23 08/07/23 History Insulin Lispro [humaLOG Kwikpen] See Protocol SQ AC-TID PRN 06/18/23 08/07/23 History Midodrine [ProAmatine] 5 mg PO MOWEFR PRN 06/18/23 08/07/23 History Sevelamer [Renvela] 1,600 mg PO BID PRN 06/18/23 08/07/23 History Aspirin 81 mg PO DAILY #30 tab 06/21/23 08/07/23 Rx Atorvastatin [Lipitor] 40 mg PO HS #30 tab 06/21/23 08/07/23 Rx Allergies Allergy/AdvReac Type Severity Reaction Status Date / Time Iodinated Contrast Media Allergy Unknown Verified 08/07/23 13:46 Phenothiazines Allergy Unknown Verified 08/07/23 13:46 prednisone Allergy Unknown Verified 08/07/23 13:46 Physical Examination Inspection of the left lower extremity shows no wounds. There is no erythema. No deformity. She has mild effusion. It is not red. Is not hot to touch. There is mild tenderness at the medial and lateral joint lines. Patellar tracking is normal. She has active range of motion with flexion to 100 and full extension. The knee appears to be ligamentously stable. Calf is soft no ntender. Neurovascular status is grossly intact with motor and sensation throughout the left lower extremity. There is 1+ dorsalis pedis pulse and less than 2 second cap refill. Results X-rays left knee show no acute fractures dislocations or lesions. She has osteopenia. 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 There is a joint effusion. - Labs Labs: Abnormal Lab Results - Last 24 Hours (Table) 08/07/23 08/07/23 08/07/23 Range/Units 14:00 14:00 14:34 MCHC (31.0-37.0) g/dL Lymphocytes # (1.0-4.8) k/uL Sodium 135 L (137-145) mmol/L Potassium 6.2 H* (3.5-5.1) mmol/L Chloride 90 L (98-107) mmol/L BUN 68 H (7-17) mg/dL Creatinine 10.28 H* (0.52-1.04) mg/dL Glucose 172 H (74-99) mg/dL POC Glucose (mg/dL) (70-110) mg/dL Uric Acid 8.2 H (3.7-7.4) mg/dL Calcium (8.4-10.2) mg/dL Phosphorus 7.1 H (2.5-4.5) mg/dL ALT 48 H (4-34) U/L Alkaline Phosphatase 202 H (38-126) U/L Troponin I 0.049 H* (0.000-0.034) ng/mL 08/07/23 08/07/23 08/07/23 Range/Units 15:38 17:21 20:14 MCHC (31.0-37.0) g/dL Lymphocytes # (1.0-4.8) k/uL Sodium (137-145) mmol/L Potassium (3.5-5.1) mmol/L Chloride (98-107) mmol/L BUN (7-17) mg/dL Creatinine (0.52-1.04) mg/dL Glucose (74-99) mg/dL POC Glucose (mg/dL) 147 H (70-110) mg/dL Uric Acid (3.7-7.4) mg/dL Calcium (8.4-10.2) mg/dL Phosphorus (2.5-4.5) mg/dL ALT (4-34) U/L Alkaline Phosphatase (38-126) U/L Troponin I 0.045 H* 0.045 H* (0.000-0.034) ng/mL 08/08/23 08/08/23 08/08/23 Range/Units 01:42 10:28 10:28 MCHC 30.8 L (31.0-37.0) g/dL Lymphocytes # 0.7 L (1.0-4.8) k/uL Sodium 134 L (137-145) mmol/L Potassium 5.6 H (3.5-5.1) mmol/L Chloride 94 L (98-107) mmol/L BUN 40 H (7-17) mg/dL Creatinine 6.88 H (0.52-1.04) mg/dL Glucose 262 H (74-99) mg/dL POC Glucose (mg/dL) 134 H (70-110) mg/dL Uric Acid (3.7-7.4) mg/dL Calcium 8.2 L (8.4-10.2) mg/dL Phosphorus (2.5-4.5) mg/dL ALT (4-34) U/L Alkaline Phosphatase (38-126) U/L Troponin I (0.000-0.034) ng/mL 08/08/23 Range/Units 10:28 MCHC (31.0-37.0) g/dL Lymphocytes # (1.0-4.8) k/uL Sodium (137-145) mmol/L Potassium (3.5-5.1) mmol/L Chloride (98-107) mmol/L BUN (7-17) mg/dL Creatinine (0.52-1.04) mg/dL Glucose (74-99) mg/dL POC Glucose (mg/dL) (70-110) mg/dL Uric Acid (3.7-7.4) mg/dL Calcium (8.4-10.2) mg/dL Phosphorus (2.5-4.5) mg/dL ALT (4-34) U/L Alkaline Phosphatase (38-126) U/L Troponin I 0.037 H* (0.000-0.034) ng/mL H & H 08/07/23 08/08/23 Range/Units 14:00 10:28 Hgb 14.1 13.9 (11.4-16.0) gm/dL Hct 44.0 45.1 (34.0-46.0) % Coagulation 08/07/23 Range/Units 14:00 INR 1.1 (<1.2) Result Diagrams: 08/08/23 10:28 08/08/23 10:28 Assessment and Plan (1) Knee effusion, left Narrative/Plan: There is no plans for immediate surgical intervention. Recommend Initial conservative measures including ice, rest and possible corticosteroids if okay with the primary team and not contraindicated. Would have her follow up as an outpatient for further evaluation and recommendations. We can continue to follow from the periphery. Thank you. Current Visit: Yes Status: Acute Priority: Medium Code(s): M25.462 - EFFUSION, LEFT KNEE SNOMED Code(s): 849413567801967 Time with Patient: Less than 30
[2023-08-08 20:27] LABS: Glucose,Whole Blood 166 mg/dL (70-110)
[2023-08-08] MEDS: ATORVASTATIN 40 MG TAB PO SCH (20:58)
[2023-08-08 21:21] LABS: Hepatitis B Surface Antigen Nonreactive
[2023-08-08 22:15] LABS: Hepatitis B Surface AB- Quant 21.1 mIU/mL
[2023-08-08] MEDS: Acetaminophen-Codeine 300-30mg TAB PO PRN (23:37)
[2023-08-09] MEDS ORDERED: ZINC OXIDE PASTE (Z-GUARD) 1 APPLIC TOPICAL PRN (04:56)
[2023-08-09] MEDS: SEVELAMER 800 MG TAB PO SCH ×4 (06:02→17:01)
[2023-08-09] MEDS: carvediloL 12.5 MG TAB PO SCH ×3 (06:02→17:01)
[2023-08-09 06:07] LABS: Glucose,Whole Blood 133 mg/dL (70-110)
[2023-08-09] MEDS: FAMOTIDINE 20 MG/2 ML VIAL IV SCH ×3 (09:56→20:37)
[2023-08-09] MEDS: DICYCLOMINE 20 MG TAB PO SCH (10:00)
[2023-08-09] MEDS: HEPARIN SODIUM,PORCINE 5,000 UNIT/ML 1 ML VIAL SQ SCH ×2 (10:00→20:04)
[2023-08-09] MEDS: amLODIPine 10 MG TAB PO SCH (10:00)
[2023-08-09] MEDS: ISOSORBIDE DINITRATE 20 MG TAB PO SCH ×2 (10:00→20:03)
[2023-08-09] MEDS: hydrALAZINE HCL 50 MG TAB PO SCH ×2 (10:00→20:04)
[2023-08-09] MEDS: allopurinoL 100 MG TAB PO SCH (10:00)
[2023-08-09] MEDS ORDERED: predniSONE 10 MG TAB PO STA ×2 (10:05→11:57)
[2023-08-09] MEDS: Acetaminophen-Codeine 300-30mg TAB PO PRN ×2 (10:06→20:07)
--- NOTE | 2023-08-09 10:35 | P.CRDCN ---
History of Present Illness History of present illness: HISTORY OF PRESENT ILLNESS: This is a 72-year-old female with a past medical history significant for end- stage renal disease on hemodialysis, hypertension, and hyperlipidemia. Patient does not follow with a rn mds coordinator. We have been asked to see the patient in consultation for abnormal troponins. Patient examined at the bedside. patient is confused at the time of examination and believes that she is sitting with her . she was brought from her dialysis center for weakness and altered mental status. The patient is sitting up in the chair this morning eating breakfast. She denies chest pain or pressure. She denies SOB. Vital signs are stable. * EKG reveals sinus mechanism with no signs of acute ischemia * Chest xray cardiomegaly without evidence of acute pulmonary abnormality * Laboratory data: WBC 8.8. Hemoglobin 13.9. Platelet count 172. Sodium 134. Potassium 5.6. BUN 40. Creatinine 6.88. troponin 0.049. 0.045. 0.045. 0.037. * Current home cardiac medications include carvedilol 25 mg twice a day, Isordil 20 mg twice a day, Lipitor 40 mg at night, aspirin 81 mg daily and Midodrine PRN * Most recent echocardiogram obtained in June 2023 revealed ejection fraction 55-60%, mild aortic stenosis, mild tricuspid regurgitation, mild pulm onary hypertension REVIEW OF SYSTEMS: At the time of my exam: CONSTITUTIONAL: Denies fever or chills. HEENT: Denies blurred vision, vision changes, or eye pain. Denies hemoptysis CARDIOVASCULAR: Denies chest pain. Denies orthopnea. Denies PND. Denies palpitations RESPIRATORY: Denies shortness of breath. GASTROINTESTINAL: Denies abdominal pain. Denies nausea or vomiting. HEMATOLOGIC: Denies bleeding disorders. GENITOURINARY: Denies any blood in urine. SKIN: Denies pruitis. Denies rash. PHYSICAL EXAM: VITAL SIGNS: Reviewed. GENERAL: Well-developed in no acute distress. HEENT: Head is normocephalic. Pupils are equal, round. Sclerae anicteric. Mucous membranes of the mouth are moist. Neck supple. No JVD or thyromegaly LUNGS: Respirations even and unlabored. Lungs essentially clear to auscultation bilaterally. HEART: Regular rate and rhythm. S1 and S2 heard. Systolic murmur noted. ABDOMEN: Soft. Nondistended. Nontender. EXTREMITIES: Normal range of motion. No clubbing or cyanosis. Peripheral pulses intact. No lower extremity edema NEUROLOGIC: Awake and alert. Oriented x 1 ASSESSMENT: Altered mental status End-stage renal disease on hemodialysis Abnormal troponins, flat, likely secondary to above Mild aortic stenosis Left knee effusion History of hypertension History of hyperlipidemia PLAN: An acute coronary event has been ruled out Continue current cardiac medications Obtain limited echo Hemodialysis per nephrology Further recommendations pending patient's course Nurse practitioner note has been reviewed by physician. Signing provider agrees with the documented findings, assessment, and plan of care. Past Medical History Past Medical History: Asthma, Diabetes Mellitus, Dialysis, Sleep Apnea/CPAP/B IPAP, Thyroid Disorder History of Any Multi-Drug Resistant Organisms: None Reported Additional Past Surgical History / Comment(s): right fistula, left fistula old Past Psychological History: No Psychological Hx Reported Smoking Status: Never smoker Past Alcohol Use History: None Reported Past Drug Use History: None Reported - Past Family History Mother History Unknown: Yes Medications and Allergies Home Medications Medication Instructions Recorded Confirmed Type ALPRAZolam [Xanax] 0.5 mg PO DAILY 10/27/22 08/07/23 History Dicyclomine [Bentyl] 20 mg PO DAILY 10/27/22 08/07/23 History HYDROcodone/APAP 10-325MG [[place] 1 tab PO Q4H PRN 10/27/22 08/07/23 History 10-325] Isosorbide Dinitrate 20 mg PO BID 10/27/22 08/07/23 History Lidocaine-Prilocaine Cream [Emla 1 applic TOPICAL MOWEFR PRN 10/27/22 08/07/23 History Cream 2.5%/2.5%] Ondansetron [Zofran] 4 mg PO BID PRN 10/27/22 08/07/23 History Sevelamer [Renvela] 2,400 mg PO AC-TID 10/27/22 08/07/23 History allopurinoL [Zyloprim] 100 mg PO DAILY 10/27/22 08/07/23 History amLODIPine [Norvasc] 10 mg PO DAILY PRN 10/27/22 08/07/23 History carvediloL [Coreg] 25 mg PO BID-W/MEALS 10/27/22 08/07/23 History Insulin Glargine [Lantus Vial] 40 unit SQ HS 06/18/23 08/07/23 History Insulin Lispro [humaLOG Kwikpen] See Protocol SQ AC-TID PRN 06/18/23 08/07/23 History Midodrine [ProAmatine] 5 mg PO MOWEFR PRN 06/18/23 08/07/23 History Sevelamer [Renvela] 1,600 mg PO BID PRN 06/18/23 08/07/23 History Aspirin 81 mg PO DAILY #30 tab 06/21/23 08/07/23 Rx Atorvastatin [Lipitor] 40 mg PO HS #30 tab 06/21/23 08/07/23 Rx Allergies Allergy/AdvReac Type Severity Reaction Status Date / Time Iodinated Contrast Media Allergy Unknown Verified 08/07/23 13:46 Phenothiazines Allergy Unknown Verified 08/07/23 13:46 prednisone Allergy Unknown Verified 08/07/23 13:46 Physical Exam Vitals: Vital Signs Temp Pulse Pulse Resp BP BP Pulse Ox 08/09/23 04:00 68 16 135/78 99 08/09/23 00:00 71 16 137/78 97 08/08/23 20:00 98.2 F 75 16 112/68 99 08/08/23 18:25 97.9 F 69 19 166/87 97 08/08/23 16:11 97.2 F L 64 16 136/75 97 08/08/23 15:04 66 17 142/83 96 08/08/23 14:02 98.4 F 73 18 153/76 97 08/08/23 12:24 98.4 F 68 18 143/77 96 08/08/23 11:04 97 20 176/97 97 Intake and Output 08/08/23 08/09/23 08/09/23 22:59 06:59 14:59 Intake Total 540 118 Output Total 0 Balance 540 118 Intake: Oral 540 118 Output: Urine 0 Other: Voiding Method Toilet Toilet Weight 72.575 kg Results 08/08/23 10:28 08/08/23 10:28 Cardiac Enzymes 08/08/23 Range/Units 10:28 Troponin I 0.037 H* (0.000-0.034) ng/mL CBC 08/08/23 Range/Units 10:28 WBC 8.8 (3.8-10.6) k/uL RBC 4.61 (3.80-5.40) m/uL Hgb 13.9 (11.4-16.0) gm/dL Hct 45.1 (34.0-46.0) % Plt Count 172 (150-450) k/uL Comprehensive Metabolic Panel 08/08/23 Range/Units 10:28 Sodium 134 L (137-145) mmol/L Potassium 5.6 H (3.5-5.1) mmol/L Chloride 94 L (98-107) mmol/L Carbon Dioxide 24 (22-30) mmol/L BUN 40 H (7-17) mg/dL Creatinine 6.88 H (0.52-1.04) mg/dL Glucose 262 H (74-99) mg/dL Calcium 8.2 L (8.4-10.2) mg/dL Current Medications Generic Name Dose Route Start Last Admin Trade Name Freq PRN Reason Stop Dose Admin Acetaminophen/Codeine Phosphate 1 each 08/08/23 08:43 08/09/23 10:06 Acetaminophen-Codeine 300-30mg Tab PO 1 each Q6HR PRN Administration Pain Allopurinol 100 mg 08/08/23 09:00 08/09/23 10:00 Allopurinol 100 Mg Tab PO 100 mg DAILY YASMIN Administration Amlodipine Besylate 10 mg 08/07/23 20:30 08/09/23 10:00 Amlodipine 10 Mg Tab PO 10 mg DAILY YASMIN Administration Atorvastatin Calcium 40 mg 08/08/23 21:00 08/08/23 20:58 Atorvastatin 40 Mg Tab PO 40 mg HS YASMIN Administration Carvedilol 12.5 mg 08/07/23 20:30 08/09/23 08:33 Carvedilol 12.5 Mg Tab PO 12.5 mg BID-W/MEALS YASMIN Administration Dicyclomine HCl 20 mg 08/08/23 09:00 08/09/23 10:00 Dicyclomine 20 Mg Tab PO 20 mg DAILY YASMIN Administration Famotidine 10 mg 08/08/23 09:00 08/09/23 09:56 Famotidine 20 Mg/2 Ml Vial IV Not Given Q12HR YASMIN Heparin Sodium (Porcine) 5,000 unit 08/08/23 09:00 08/09/23 10:00 Heparin Sodium,Porcine 5,000 Unit/Ml 1 Ml Vial SQ 5,000 unit Q12HR YASMIN Administration Hydralazine HCl 50 mg 08/08/23 09:00 08/09/23 10:00 Hydralazine Hcl 50 Mg Tab PO 50 mg BID YASMIN Administration Isosorbide Dinitrate 20 mg 08/08/23 09:00 08/09/23 10:00 Isosorbide Dinitrate 20 Mg Tab PO 20 mg BID YASMIN Administration Naloxone HCl 0.2 mg 08/07/23 15:21 Naloxone 0.4 Mg/Ml 1 Ml Vial IV Q2M PRN Opioid Reversal Ondansetron HCl 4 mg 08/08/23 07:11 Ondansetron 4 Mg Tab PO BID PRN Nausea Petrolatum 1 applic 08/09/23 04:56 Zinc Oxide Paste (Z-Guard) 1 Applic Applic TOPICAL Q2HR PRN Wound Healing Sevelamer Carbonate 2,400 mg 08/08/23 07:30 08/09/23 08:33 Sevelamer 800 Mg Tab PO 2,400 mg AC-TID YASMIN Administration Sevelamer Carbonate 1,600 mg 08/08/23 07:11 Sevelamer 800 Mg Tab PO BID PRN WITH SNACKS Intake and Output 08/08/23 08/09/23 08/09/23 22:59 06:59 14:59 Intake Total 540 118 Output Total 0 Balance 540 118 Intake: Oral 540 118 Output: Urine 0 Other: Voiding Method Toilet Toilet Weight 72.575 kg 08/08/23 10:28 08/08/23 10:28
[2023-08-09 11:31] LABS: Glucose,Whole Blood 175 mg/dL (70-110)
[2023-08-09] MEDS ORDERED: LORazepam 2 MG/ML INJ IV PRN (11:47)
--- NOTE | 2023-08-09 11:52 | P.PN ---
Subjective This is a pleasant 72 years old female with past medical history of ESRD on hemodialysis, type II DM, hypertension, hypothyroidism She presents because she sent from dialysis Center for feeling weak and altered mental status, on admission her blood pressure was elevated. Patient had similar presentation about one month ago, at that time she's been seen by neurologist and she had extensive neurological workup which was unremarkable. Today she is somewhat confused about why she came to the hospital. But seems to known she is a [facility] and the names of the person's but she is confused about the date and the year. Herself currently denies any specific symptoms, she says she does not make urine. She denies any GI symptoms like vomiting diarrhea or abdominal pain but states she is not eating well currently. She denies headache dizziness weakness or numbness. No slurred speech, no blurred vision. No chest pain or dyspnea or coughing. She denies smoking or alcohol or illicit drugs. Her PCP is Dr. Omaira Guerrier as she confirms She says she walks little bit, she is complaining of from left knee swelling but no pain bruised hotness or warmth. No trauma. I counseled patient about her pain medication Narco, she's been taking it for pain but she could not specify what the reason or where her pain specifically. 08/09/2023 patient is less confused, disoriented oriented to place but not to time or person, she has in situ her illness and she follows commands. She's, pleasant and relaxed. Her CAT scan showing old infarcts, she is on baby aspirin which is resumed, with known to check MRI of the brain, patient denies mental in her heart but she is claustrophobic. She moves all extremities equally and symmetrically. No cranial nerves abnormality noted. She has evidence of elevated troponin, cardiology consult obtained, echocardiogram is pending. Patient currently on Coreg and aspirin Her blood pressure is better controlled, at home she is on Norvasc 10 mg, Coreg 25 mg. Had thousand 500 mg twice a day added. She has evidence of left knee swelling, orthopedic consult obtained, I discussed the case with them they think it's arthritis, no rheumatology service in this facility. And patient says she is ALLERGIC to prednisone but she does not know. Risks and benefits are explained for the patient and she is agreeable to start testing dose of the small prednisone 10 mg 1 and we will monitor his stable we'll give her total of 40 mg daily. Discussed with the patient and the site is family agreeable. Review of systems CONSTITUTIONAL: No fever, no malaise, no fatigue. HEENT: No recent visual problems or hearing problems. Denied any sore throat. CARDIOVASCULAR: No orthopnea, PND, no palpitations, no syncope. PULMONARY: No shortness of breath, no cough, no hemoptysis. GASTROINTESTINAL: No diarrhea, no nausea, no vomiting, no abdominal pain. Normoactive bowel sounds. NEUROLOGICAL: No headaches, no weakness, no numbness. Active Medications Generic Name Dose Route Start Last Admin Trade Name Freq PRN Reason Stop Dose Admin Acetaminophen/Codeine Phosphate 1 each 08/08/23 08:43 08/09/23 10:06 Acetaminophen-Codeine 300-30mg Tab PO 1 each Q6HR PRN Administration Pain Allopurinol 100 mg 08/08/23 09:00 08/09/23 10:00 Allopurinol 100 Mg Tab PO 100 mg DAILY YASMIN Administration Amlodipine Besylate 10 mg 08/07/23 20:30 08/09/23 10:00 Amlodipine 10 Mg Tab PO 10 mg DAILY YASMIN Administration Atorvastatin Calcium 40 mg 08/08/23 21:00 08/08/23 20:58 Atorvastatin 40 Mg Tab PO 40 mg HS YASMIN Administration Carvedilol 25 mg 08/09/23 17:30 Carvedilol 12.5 Mg Tab PO BID-W/MEALS YASMIN Dicyclomine HCl 20 mg 08/08/23 09:00 08/09/23 10:00 Dicyclomine 20 Mg Tab PO 20 mg DAILY YASMIN Administration Famotidine 10 mg 08/08/23 09:00 08/09/23 09:56 Famotidine 20 Mg/2 Ml Vial IV Not Given Q12HR YASMIN Heparin Sodium (Porcine) 5,000 unit 08/08/23 09:00 08/09/23 10:00 Heparin Sodium,Porcine 5,000 Unit/Ml 1 Ml Vial SQ 5,000 unit Q12HR YASMIN Administration Hydralazine HCl 50 mg 08/08/23 09:00 08/09/23 10:00 Hydralazine Hcl 50 Mg Tab PO 50 mg BID YASMIN Administration Isosorbide Dinitrate 20 mg 08/08/23 09:00 08/09/23 10:00 Isosorbide Dinitrate 20 Mg Tab PO 20 mg BID YASMIN Administration Lorazepam 1 mg 08/09/23 11:47 Lorazepam 2 Mg/Ml Inj IV 08/12/23 11:48 ONCE PRN Anxiety Naloxone HCl 0.2 mg 08/07/23 15:21 Naloxone 0.4 Mg/Ml 1 Ml Vial IV Q2M PRN Opioid Reversal Ondansetron HCl 4 mg 08/08/23 07:11 Ondansetron 4 Mg Tab PO BID PRN Nausea Petrolatum 1 applic 08/09/23 04:56 Zinc Oxide Paste (Z-Guard) 1 Applic Applic TOPICAL Q2HR PRN Wound Healing Sevelamer Carbonate 2,400 mg 08/08/23 07:30 08/09/23 08:33 Sevelamer 800 Mg Tab PO 2,400 mg AC-TID YASMIN Administration Sevelamer Carbonate 1,600 mg 08/08/23 07:11 Sevelamer 800 Mg Tab PO BID PRN WITH SNACKS Objective - Vital Signs Vital signs: Vital Signs Temp 97.9 F 08/09/23 08:30 Pulse 75 08/09/23 08:30 Resp 17 08/09/23 08:30 BP 149/75 08/09/23 08:30 Pulse Ox 97 08/09/23 08:30 FiO2 Intake & Output 08/08/23 08/09/23 08/09/23 18:59 06:59 18:59 Intake Total 540 118 Output Total 0 Balance 540 118 Weight 72.575 kg Intake: Oral 540 118 Output: Urine 0 Other: Voiding Method Toilet Toilet # Bowel Movements 0 - Exam -GENERAL: The patient is alert and oriented x1-2, not in any acute distress. Well developed, well nourished. HEENT: Pupils are round and equally reacting to light. EOMI. No scleral icterus. No conjunctival pallor. Normocephalic, atraumatic. No pharyngeal erythema. No thyromegaly. CARDIOVASCULAR: S1 and S2 present. No murmurs, rubs, or gallops. PULMONARY: Chest is clear to auscultation, no wheezing , no crackles. ABDOMEN: Soft, nontender, nondistended, normoactive bowel sounds. No palpable organomegaly. MUSCULOSKELETAL: No joint swelling or deformity. EXTREMITIES: No cyanosis, clubbing, or pedal edema. NEUROLOGICAL: Gross neurological examination did not reveal any focal deficits. SKIN: No rashes. no petechiae. - Labs CBC & Chem 7: 08/08/23 10:28 08/08/23 10:28 Labs: Abnormal Lab Results - Last 24 Hours (Table) 08/08/23 08/08/23 08/08/23 Range/Units 10:28 10:28 10:28 Sodium 134 L (137-145) mmol/L Potassium 5.6 H (3.5-5.1) mmol/L Chloride 94 L (98-107) mmol/L BUN 40 H (7-17) mg/dL Creatinine 6.88 H (0.52-1.04) mg/dL Glucose 262 H (74-99) mg/dL POC Glucose (mg/dL) (70-110) mg/dL Calcium 8.2 L (8.4-10.2) mg/dL Troponin I 0.037 H* (0.000-0.034) ng/mL Hep Bs Antibody A (Negative) 08/08/23 08/09/23 08/09/23 Range/Units 20:26 06:05 11:29 Sodium (137-145) mmol/L Potassium (3.5-5.1) mmol/L Chloride (98-107) mmol/L BUN (7-17) mg/dL Creatinine (0.52-1.04) mg/dL Glucose (74-99) mg/dL POC Glucose (mg/dL) 166 H 133 H 175 H (70-110) mg/dL Calcium (8.4-10.2) mg/dL Troponin I (0.000-0.034) ng/mL Hep Bs Antibody (Negative) Assessment and Plan Assessment: -Mild metabolic/toxic encephalopathy, multifactorial, mainly secondary to uncontrolled hypertension, dialysis patient and medication effect like narcotics , remote infarct/strokes -hypertension with urgency, present on admission -Left knee effusion with no evidence of arthritis, no trauma. Most likely acute gouty arthritis of the left knee -End-stage renal disease on hemodialysis. -Dictated troponin, looks nonspecific, no chest pain. Rule out cardiac causes -Generalized pain, could be musculoskeletal, no specific pain area -Hypothyroidism -Type 2 diabetes mellitus Plan: Continue monitoring neuro check MRI of the brain Hold midodrine Add hydralazine 50 mg for better blood pressure control. Continue with Norvasc 10 mg. Correction was taking 25 mg twice a day, this dose was lowered during this admission to 12.5 because of bradycardia Hold [place] and put the patient on Tylenol 3 for pain control Continue with hemodialysis per nephrology team Orthopedic team consult for left knee effusion and possible , no need for aspiration as they recommended Start prednisone for gout arthritis and they recommended, no rheumatology service in this facility Labs and medication were reviewed.. Continue same treatment. Continue with symptomatic treatment. Resume home medication. Monitor labs and vitals. DVT and GI prophylaxis. Further recommendations as per clinical course of the patient DVT prophylaxis: Subcutaneous heparin GI Prophylaxis: Pepcid PT/OT: Pending Prognosis is guarded
--- NOTE | 2023-08-09 12:51 | P.PN ---
Subjective Patient is seen for follow-up for end-stage renal disease. Admitted with volume overload and hyperkalemia with mental status changes. Mentation has improved. Status post 2 consecutive hemodialysis treatments with UF of 4.5 L. Scheduled for hemodialysis tomorrow. No significant complaints today. Objective - Vital Signs Vital signs: Vital Signs Temp 97.9 F 08/09/23 08:30 Pulse 75 08/09/23 08:30 Resp 17 08/09/23 08:30 BP 149/75 08/09/23 08:30 Pulse Ox 97 08/09/23 08:30 FiO2 Intake & Output 08/08/23 08/09/23 08/09/23 18:59 06:59 18:59 Intake Total 540 118 Output Total 0 Balance 540 118 Weight 72.575 kg Intake: Oral 540 118 Output: Urine 0 Other: Voiding Method Toilet Toilet # Bowel Movements 0 - Exam Patient is awake, comfortable, no acute distress Examination of the heart S1 and S2 Examination of the lungs shows bilateral breath sounds are heard Abdomen is soft nontender Examination lower extremity shows trace edema bilaterally 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 - Labs CBC & Chem 7: 08/08/23 10:28 08/08/23 10:28 Labs: Abnormal Lab Results - Last 24 Hours (Table) 08/08/23 08/08/23 08/09/23 Range/Units 10:28 20:26 06:05 POC Glucose (mg/dL) 166 H 133 H (70-110) mg/dL Hep Bs Antibody A (Negative) 08/09/23 Range/Units 11:29 POC Glucose (mg/dL) 175 H (70-110) mg/dL Hep Bs Antibody (Negative) Assessment and Plan Assessment: 1. End-stage renal disease on hemodialysis on a Sunday schedule 2. Hyperkalemia associated with end-stage renal disease 3. Volume overload currently improved 4. Mental status changes 5. Hypertension with CK D stage IV mostly volume related and improved Plan: repeat hemodialysis in a.m. with goal UF of about 2-2.5 L.
--- NOTE | 2023-08-09 14:57 | CA ---
Transthoracic Echo Report Name: Mary Walker Age: 72 Gender: F : 1950 Exam Date: 08/09/2023 13:07 Exam Location: [facility] Ht (in): 64 Wt (lb): 160 Ordering Physician: Eduarda Bravo Attending/Referring Phys: [id number], Shelly Consumer Science Teacher Yunior Hsieh Procedure CPT: Indications: EF, abnormal trops Cardiac Hx: Technical Quality: Fair Contrast 1: Total Dose (mL): Contrast 2: Total Dose (mL): MEASUREMENTS (Male / Female) Normal Values 2D ECHO LVOT Diameter 1.7 cm Aortic Root Diameter 2.4 cm LV Diastolic Volume MOD BP 26.8 cm??? 67 - 155 / 56 - 104 cm??? LV Systolic Volume MOD BP 13.8 cm??? 22 - 58 / 19 - 49 cm??? LV Ejection Fraction MOD BP 48.5 % >= 55 % LV Diastolic Volume MOD 4C 27.1 cm??? LV Systolic Volume MOD 4C 10.8 cm??? LV Ejection Fraction MOD 4C 60.1 % LV Diastolic Length 4C 6.1 cm LV Systolic Length 4C 4.9 cm LV Diastolic Volume MOD 2C 26.3 cm??? LV Systolic Volume MOD 2C 14.8 cm??? LV Ejection Fraction MOD 2C 43.8 % LV Diastolic Length 2C 6.2 cm LV Systolic Length 2C 5.9 cm FINDINGS Left Ventricle Normal LV size and wall hickness.. Left ventricular ejection fraction is estimated at 55-60 %. Right Ventricle Normal right ventricular size. Right Atrium Normal right atrial size. Left Atrium Normal left atrial size. Mitral Valve Aortic Valve Tricuspid Valve Pulmonic Valve Pericardium Normal pericardium. Aorta CONCLUSIONS Limited 2-D echo Left ventricular ejection fraction 55-60% Normal right ventricular size and function. Previewed by: Dr. Yves De La Torre DO (Electronically Signed) Final Date: 09 August 2023 14:56
[2023-08-09 17:25] LABS: Glucose,Whole Blood 273 mg/dL (70-110)
[2023-08-09] MEDS: ASPIRIN 81 MG PO SCH ×2 (17:55→17:57)
--- NOTE | 2023-08-09 17:57 | P.CNNES ---
History of Present Illness Consult date: 08/09/23 Requesting physician: Ashish E Sheet Reason for Consult: confused, old stroke cannot have MRI History of Present Illness: This is a 72-year-old woman who presented emergency department because of generalized weakness. Some of the history is obtained from medical record. The ED team is seems the notified them that the patient's refusing to take her medication. She's been more agitated. She's been having confusion. She isn't as end-stage renal disease on dialysis. She denies of any headache. She is unable to provide history. Of note I personally saw the patient last on 06/21/[address] atus and I felt she had delirium. It was unknown cause of delirium. She had an EEG which showed moderate encephalopathy. The patient had CT of the head which was negative for any acute process. She patient has old stroke over the right parieto-occipital region. During that hospital visit I started the patient on aspirin and Lipitor. Please refer to my notes for further details. Some of the workup during his hospital visit consisted of: Patient white blood cell has been within normal limits. She is afebrile. Uric acid is 8.2, phosphorus is 7.1, calcium is 8.2, glucose has been in the range of this 260. Potassium is 5.6, sodium is 134, creatinine is 6.8 and the BUN is 40 CT of the head is reported as no acute bleed or mass effect. Marketed generous atrophy. Remote lacunar infarct in basal ganglia remote right parietal lobe infarct. Mild to moderate chronic ischemic ischemic white matter demyelination. I personally reviewed the CT of the head and that there is no acute subacute ischemia. Limited 2-D echo was reported as left ventricular ejection fraction of 55-60%. Normal right ventricular size and function. Review of Systems Limited but the positive and negative as per HPI. Past Medical History Past Medical History: Asthma, Diabetes Mellitus, Dialysis, Sleep Apnea/CPAP/BIPAP, Thyroid Disorder History of Any Multi-Drug Resistant Organisms: None Reported Additional Past Surgical History / Comment(s): right fistula, left fistula old Past Psychological History: No Psychological Hx Reported Smoking Status: Never smoker Past Alcohol Use History: None Reported Past Drug Use History: None Reported - Past Family History Mother History Unknown: Yes Medications and Allergies Home Medications Medication Instructions Recorded Confirmed Type ALPRAZolam [Xanax] 0.5 mg PO DAILY 10/27/22 08/07/23 History Dicyclomine [Bentyl] 20 mg PO DAILY 10/27/22 08/07/23 History HYDROcodone/APAP 10-325MG [Clarence 1 tab PO Q4H PRN 10/27/22 08/07/23 History 10-325] Isosorbide Dinitrate 20 mg PO BID 10/27/22 08/07/23 History Lidocaine-Prilocaine Cream [Emla 1 applic TOPICAL MOWEFR PRN 10/27/22 08/07/23 History Cream 2.5%/2.5%] Ondansetron [Zofran] 4 mg PO BID PRN 10/27/22 08/07/23 History Sevelamer [Renvela] 2,400 mg PO AC-TID 10/27/22 08/07/23 History allopurinoL [Zyloprim] 100 mg PO DAILY 10/27/22 08/07/23 History amLODIPine [Norvasc] 10 mg PO DAILY PRN 10/27/22 08/07/23 History carvediloL [Coreg] 25 mg PO BID-W/MEALS 10/27/22 08/07/23 History Insulin Glargine [Lantus Vial] 40 unit SQ HS 06/18/23 08/07/23 History Insulin Lispro [humaLOG Kwikpen] See Protocol SQ AC-TID PRN 06/18/23 08/07/23 History Midodrine [ProAmatine] 5 mg PO MOWEFR PRN 06/18/23 08/07/23 History Sevelamer [Renvela] 1,600 mg PO BID PRN 06/18/23 08/07/23 History Aspirin 81 mg PO DAILY #30 tab 06/21/23 08/07/23 Rx Atorvastatin [Lipitor] 40 mg PO HS #30 tab 06/21/23 08/07/23 Rx Allergies Allergy/AdvReac Type Severity Reaction Status Date / Time Iodinated Contrast Media Allergy Unknown Verified 08/07/23 13:46 Phenothiazines Allergy Unknown Verified 08/07/23 13:46 prednisone Allergy Unknown Verified 08/07/23 13:46 Physical Examination - Vital Signs Vital Signs: Vital Signs Temp Pulse Pulse Resp BP BP Pulse Ox 12/28/23 16:12 98.1 F 65 18 124/68 96 08/09/23 12:00 98.3 F 72 18 108/61 93 L 08/09/23 08:30 97.9 F 75 17 149/75 97 08/09/23 04:00 68 16 135/78 99 08/09/23 00:00 71 16 137/78 97 08/08/23 20:00 98.2 F 75 16 112/68 99 08/08/23 18:25 97.9 F 69 19 166/87 97 Intake and Output 08/09/23 08/09/23 08/09/23 06:59 14:59 22:59 Intake Total 540 236 Output Total 0 Balance 540 236 Intake: Oral 540 236 Output: Urine 0 Other: Voiding Method Toilet Toilet # Bowel Movements 0 GENERAL: The patient is lying in bed and is not in acute distress. NEUROLOGICAL: Limited. Patient is oriented to self. Upon asking her where she is at she stated "were am I" twice. Then after multiple questioning she stated she is important [place]. She followed very few simple commands by sticking her tongue got showing thumbs up. 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 Unable to assess the right eye is her cooperation. No facial weakness. No dysarthria Motor strength was unable to assess individual muscle strength because of her cooperation but she is able to. Bilateral upper extremity above gravity briefly and was wiggling toes. Results - Laboratory Findings CBC and BMP: 08/08/23 10:28 08/08/23 10:28 Abnormal Lab Findings: Abnormal Labs 08/07/23 08/07/23 08/07/23 14:00 14:00 14:00 MCHC Neutrophils # 8.6 H Lymphocytes # 0.9 L Sodium 135 L Potassium 6.2 H* Chloride 90 L BUN 68 H Creatinine 10.28 H* Glucose 172 H POC Glucose (mg/dL) Uric Acid Calcium Phosphorus ALT 48 H Alkaline Phosphatase 202 H Troponin I 0.049 H* Hep Bs Antibody 08/07/23 08/07/23 08/07/23 14:34 15:38 17:21 MCHC Neutrophils # Lymphocytes # Sodium Potassium Chloride BUN Creatinine Glucose POC Glucose (mg/dL) 147 H Uric Acid 8.2 H Calcium Phosphorus 7.1 H ALT Alkaline Phosphatase Troponin I 0.045 H* Hep Bs Antibody 12/08/08/23 08/08/23 20:14 01:42 10:28 MCHC 30.8 L Neutrophils # Lymphocytes # 0.7 L Sodium Potassium Chloride BUN Creatinine Glucose POC Glucose (mg/dL) 134 H Uric Acid Calcium Phosphorus ALT Alkaline Phosphatase Troponin I 0.045 H* Hep Bs Antibody 08/08/23 08/08/23 08/08/23 10:28 10:28 10:28 MCHC Neutrophils # Lymphocytes # Sodium 134 L Potassium 5.6 H Chloride 94 L BUN 40 H Creatinine 6.88 H Glucose 262 H POC Glucose (mg/dL) Uric Acid Calcium 8.2 L Phosphorus ALT Alkaline Phosphatase Troponin I 0.037 H* Hep Bs Antibody A 08/08/23 08/09/23 08/09/23 20:26 06:05 11:29 MCHC Neutrophils # Lymphocytes # Sodium Potassium Chloride BUN Creatinine Glucose POC Glucose (mg/dL) 166 H 133 H 175 H Uric Acid Calcium Phosphorus ALT Alkaline Phosphatase Troponin I Hep Bs Antibody 08/09/23 17:23 MCHC Neutrophils # Lymphocytes # Sodium Potassium Chloride BUN Creatinine Glucose POC Glucose (mg/dL) 273 H Uric Acid Calcium Phosphorus ALT Alkaline Phosphatase Troponin I Hep Bs Antibody Assessment and Plan Assessment: This is a 72-year-old woman who has confusion. Patient has elevated uric acid, phosphorus. Patient has end-stage renal disease on dialysis. I personally seen the patient last on 06/21/2023 and she had delirium. Encephalopathy likely due to toxic metabolic derangement. 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 Patient had a TSH, vitamin B12, folate level checked in the first week of June 2023 which were normal. I'll not recheck them from neurological perspe ctive. I ordered ammonia level Prasanth with the primary team of adding aspirin 81 mg for secondary stroke prophylaxis Patient is on Lipitor 40 mg daily at bedtime. We'll defer the rest of the medical management to the primary team and other specialists The plan discussed with the primary team and her nurse Thank you for the consultation Time with Patient: Greater than 30
[2023-08-09] MEDS: ATORVASTATIN 40 MG TAB PO SCH (20:04)
[2023-08-09 20:17] LABS: Glucose,Whole Blood 315 mg/dL (70-110)
[2023-08-10 06:05] LABS: Glucose,Whole Blood 229 mg/dL (70-110)
[2023-08-10] MEDS: carvediloL 12.5 MG TAB PO SCH (06:41)
[2023-08-10] MEDS: SEVELAMER 800 MG TAB PO SCH ×2 (06:41→15:28)
[2023-08-10] MEDS: HEPARIN SODIUM,PORCINE 5,000 UNIT/ML 1 ML VIAL SQ SCH (08:11)
[2023-08-10] MEDS: ISOSORBIDE DINITRATE 20 MG TAB PO SCH (08:14)
[2023-08-10] MEDS: DICYCLOMINE 20 MG TAB PO SCH (08:15)
[2023-08-10] MEDS: allopurinoL 100 MG TAB PO SCH (08:16)
[2023-08-10] MEDS: predniSONE 20 MG TAB PO SCH ×2 (08:21→08:41)
[2023-08-10] MEDS: ASPIRIN 81 MG PO SCH ×2 (08:21→08:41)
[2023-08-10] MEDS: FAMOTIDINE 20 MG/2 ML VIAL IV SCH (08:21)
[2023-08-10 08:23] LABS: Basophils % (A) 0 %; Eosinophils % (A) 0 %; HCT 43.6 % (34.0-46.0); HGB 13.7 gm/dL (11.4-16.0); Hypochromasia Slight; Lymphocytes % (A) 16 %; MCH 30.4 pg (25.0-35.0); MCHC 31.5 g/dL (31.0-37.0); MCV 96.3 fL (80.0-100.0); Monocytes # (A) 0.4 k/uL (0-1.0); Monocytes % (A) 6 %; Neutrophils # (A) 4.8 k/uL (1.3-7.7); Neutrophils % (A) 77 %; Platelet Count 219 k/uL (150-450); RBC 4.52 m/uL (3.80-5.40); RDW 14.9 % (11.5-15.5); WBC 6.2 k/uL (3.8-10.6)
[2023-08-10 08:56] LABS: ALT 22 U/L (4-34); AST 11 U/L (14-36); African American GFR (CKD) 6 (>60 ml/min/1.73 sqM); Albumin 3.9 g/dL (3.5-5.0); Alkaline Phosphatase 167 U/L (38-126); Anion Gap 18 mmol/L; Bilirubin, Delta 0.5 mg/dL (0.0-0.2); Blood Urea Nitrogen 42 mg/dL (7-17); Carbon Dioxide 26 mmol/L (22-30); Chloride 88 mmol/L (98-107); Glucose 196 mg/dL (74-99); Non-African American GFR(CKD) 6 (>60 ml/min/1.73 sqM); Potassium 5.4 mmol/L (3.5-5.1); Sodium 132 mmol/L (137-145); Total Bilirubin 0.5 mg/dL (0.2-1.3); Total Protein 7.3 g/dL (6.3-8.2)
--- NOTE | 2023-08-10 11:34 | P.PN ---
Subjective Progress Note Date: 08/10/23 On follow-up with the patient and the she is accompanied with her who stated her mentation is drastically better compared to initial presentation. Patient feels she is doing better overall. Denies of any focal weakness. According to the she was not on any aspirin since she has gout so he discontinued the aspirin in the past. Objective - Vital Signs Vital signs: Vital Signs Temp 98.2 F 08/10/23 08:06 Pulse 64 08/10/23 08:06 Resp 19 08/10/23 08:06 BP 138/74 08/10/23 08:06 Pulse Ox 95 08/10/23 08:06 FiO2 Intake & Output 08/09/23 08/10/23 08/10/23 18:59 06:59 18:59 Intake Total 236 240 Output Total 0 Balance 236 240 Intake: Oral 236 240 Output: Urine 0 Other: Voiding Method Toilet Toilet Toilet # Voids 1 # Bowel Movements 0 0 - Exam General: Patient is sitting up in chair and is not in acute distress. Neuro: Patient is awake alert oriented to self time and she stated she is in the hospit al. She is following simple commands. No aphasia or neglect. She is legally blind on the left eye. She has exotropia on the left eye. Visual field is awful on the right eye. No facial weakness. No dysarthria. Strength: Motor in all extremity as above gravity and appears symmetrical. Some of the workup during his hospital visit consisted of: Patient white blood cell has been within normal limits. She is afebrile. Uric acid is 8.2, phosphorus is 7.1, calcium is 8.2, glucose has been in the range of this 260. Potassium is 5.6, sodium is 134, creatinine is 6.8 and the BUN is 40 Ammonia level is <9 CT of the head is reported as no acute bleed or mass effect. Marketed generous atrophy. Remote lacunar infarct in basal ganglia remote right parietal lobe infarct. Mild to moderate chronic ischemic ischemic white matter demyelination. I personally reviewed the CT of the head and that there is no acute subacute ischemia. Limited 2-D echo was reported as left ventricular ejection fraction of 55-60%. Normal right ventricular size and function. - Labs CBC & Chem 7: 08/10/23 07:39 12/29/23 07:39 Labs: Abnormal Lab Results - Last 24 Hours (Table) 08/09/23 08/09/23 08/09/23 Range/Units 11:29 17:23 20:15 Sodium (137-145) mmol/L Potassium (3.5-5.1) mmol/L Chloride (98-107) mmol/L BUN (7-17) mg/dL Creatinine (0.52-1.04) mg/dL Glucose (74-99) mg/dL POC Glucose (mg/dL) 175 H 273 H 315 H (70-110) mg/dL Delta Bilirubin (0.0-0.2) mg/dL AST (14-36) U/L Alkaline Phosphatase (38-126) U/L 08/10/23 08/10/23 Range/Units 06:02 07:39 Sodium 132 L (137-145) mmol/L Potassium 5.4 H (3.5-5.1) mmol/L Chloride 88 L (98-107) mmol/L BUN 42 H (7-17) mg/dL Creatinine 6.87 H (0.52-1.04) mg/dL Glucose 196 H (74-99) mg/dL POC Glucose (mg/dL) 229 H (70-110) mg/dL Delta Bilirubin 0.5 H (0.0-0.2) mg/dL AST 11 L (14-36) U/L Alkaline Phosphatase 167 H (38-126) U/L Assessment and Plan Assessment: This is a 72-year-old woman who has confusion. Patient has elevated uric acid, phosphorus. Patient has end-stage renal disease on dialysis. I personally seen the patient last on 06/21/2023 and she had delirium. Encephalopathy likely due to toxic metabolic derangement. 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 Mild encephalopathy. There is no focal slowing, epileptiform discharge. Since the patient's mentation has improved though no reason to repeat any further brain imaging. Patient had a TSH, vitamin B12, folate level checked in the first week of June 2023 which were normal. I'll not recheck them from neurological perspective. I ordered ammonia level I spoke with the patient's and the patient has gout that's why he stopped aspirin in the past because of her arthritic changes. Therefore I'll stop the aspirin and place her on Plavix 75 mg daily. Patient is on Lipitor 40 mg daily at bedtime. We'll defer the rest of the medical management to the primary team and other specialists The plan discussed with the patient and who is at bedside. Patient is clear from neurological perspective. Please notify neurology team if any further concerns. Time with Patient: Less than 30
[2023-08-10 11:40] LABS: Glucose,Whole Blood 211 mg/dL (70-110)
--- NOTE | 2023-08-10 11:44 | EEG ---
ELECTROENCEPHALOGRAM REPORT CLINICAL HISTORY: This is a 72-year-old woman with altered mental status. The video EEG is obtained to evaluate for seizure epileptiform activity. RELEVANT MEDICATION: The patient is on Xanax. EEG TYPE: A routine 21-channel EEG with video using the 10/20 electrode placement system. DESCRIPTION: Wakefulness and brief drowsiness was obtained. During awake state, posterior- dominant rhythm consists of nin-vn-[id number] voltage of 6.5 to 7 hertz activity. There is no physiological stage 2 sleep architecture. There is no focal slowing. Interictal and ictal is none. ACTIVATION PROCEDURE: Photic stimulation did not evoke a posterior driving response. There is no abnormality during the photic stimulation. Hyperventilation is not performed. CLINICAL INTERPRETATION: This is an abnormal routine EEG. The background slowing is suggestive of mild encephalopathy. Otherwise, there is no focal slowing, epileptiform discharge, or seizure on the EEG. Clinical correlation is recommended. LEATHA / DARRON: [id number] / [id number]
--- NOTE | 2023-08-10 12:24 | P.PN ---
Subjective HISTORY OF PRESENT ILLNESS: This is a 72-year-old female with a past medical history significant for end- stage renal disease on hemodialysis, hypertension, and hyperlipidemia. Patient does not follow with a well services operator. We have been asked to see the patient in consultation for abnormal troponins. Patient examined at the bedside. patient is confused at the time of examination and believes that she is sitting with her . she was brought from her dialysis center for weakness and altered mental status. The patient is sitting up in the chair this morning eating breakfast. She denies chest pain or pressure. She denies SOB. Vital signs are stable. * EKG reveals sinus mechanism with no signs of acute ischemia * Chest xray cardiomegaly without evidence of acute pulmonary abnormality * Laboratory data: WBC 8.8. Hemoglobin 13.9. Platelet count 172. Sodium 134. Potassium 5.6. BUN 40. Creatinine 6.88. troponin 0.049. 0.045. 0.045. 0.037. * Current home cardiac medications include carvedilol 25 mg twice a day, Isordil 20 mg twice a day, Lipitor 40 mg at night, aspirin 81 mg daily and Midodrine PRN * Most recent echocardiogram obtained in June 2023 revealed ejection fraction 55-60%, mild aortic stenosis, mild tricuspid regurgitation, mild pulmonary hypertension 08/10/2023 Patient examined this morning at the bedside. She denies chest pain or pressure. She denies shortness of breath. Vital signs are stable. Echocardiogram completed revealing ejection fraction 55-60%. PHYSICAL EXAM: VITAL SIGNS: Reviewed. GENERAL: Well-developed in no acute distress. HEENT: Head is normocephalic. Pupils are equal, round. Sclerae anicteric. Mucous membranes of the mouth are moist. Neck supple. No JVD or thyromegaly LUNGS: Respirations even and unlabored. Lungs essentially clear to auscultation bilaterally. HEART: Regular rate and rhythm. S1 and S2 heard. Systolic murmur noted. ABDOMEN: Soft. Nondistended. Nontender. EXTREMITIES: Normal range of motion. No clubbing or cyanosis. Peripheral pulses intact. No lower extremity edema NEUROLOGIC: Awake and alert. Oriented x 1 ASSESSMENT: Altered mental status End-stage renal disease on hemodialysis Abnormal troponins, flat, likely secondary to above Mild aortic stenosis Left knee effusion History of hypertension History of hyperlipidemia PLAN: Continue current cardiac medications Hemodialysis per nephrology No further inpatient recommend from a cardiac standpoint We will sign off. Please reconsult if needed. Nurse practitioner note has been reviewed by physician. Signing provider agrees with the documented findings, assessment, and plan of care. Objective - Vital Signs Vital signs: Vital Signs Temp 98.2 F 08/10/23 08:06 Pulse 64 08/10/23 08:06 Resp 19 08/10/23 08:06 BP 138/74 08/10/23 08:06 Pulse Ox 95 08/10/23 08:06 FiO2 Intake & Output 08/09/23 08/10/23 08/10/23 18:59 06:59 18:59 Intake Total 236 240 Output Total 0 Balance 236 240 Intake: Oral 236 240 Output: Urine 0 Other: Voiding Method Toilet Toilet Toilet # Voids 1 # Bowel Movements 0 0 - Labs CBC & Chem 7: 08/10/23 07:39 08/10/23 07:39 Labs: Abnormal Lab Results - Last 24 Hours (Table) 08/09/23 08/09/23 08/10/23 Range/Units 17:23 20:15 06:02 Sodium (137-145) mmol/L Potassium (3.5-5.1) mmol/L Chloride (98-107) mmol/L BUN (7-17) mg/dL Creatinine (0.52-1.04) mg/dL Glucose (74-99) mg/dL POC Glucose (mg/dL) 273 H 315 H 229 H (70-110) mg/dL Delta Bilirubin (0.0-0.2) mg/dL AST (14-36) U/L Alkaline Phosphatase (38-126) U/L 08/10/23 08/10/23 Range/Units 07:39 11:38 Sodium 132 L (137-145) mmol/L Potassium 5.4 H (3.5-5.1) mmol/L Chloride 88 L (98-107) mmol/L BUN 42 H (7-17) mg/dL Creatinine 6.87 H (0.52-1.04) mg/dL Glucose 196 H (74-99) mg/dL POC Glucose (mg/dL) 211 H (70-110) mg/dL Delta Bilirubin 0.5 H (0.0-0.2) mg/dL AST 11 L (14-36) U/L Alkaline Phosphatase 167 H (38-126) U/L
--- NOTE | 2023-08-10 12:42 | P.PN ---
Subjective Patient is seen in follow-up for end-stage renal disease. She is maintained on hemodialysis on Sunday schedule. Completed hemodialysis this morning. No active complaints. Vital signs are stable. General: No acute distress. HEENT: Head exam is unremarkable. LUNGS: No audible rhonchi or wheezes. HEART: Rate and Rhythm are regular. ABDOMEN: Nontender. EXTREMITITES: No edema. Objective - Vital Signs Vital signs: Vital Signs Temp 98.2 F 08/10/23 08:06 Pulse 64 08/10/23 08:06 Resp 19 08/10/23 08:06 BP 138/74 08/10/23 08:06 Pulse Ox 95 08/10/23 08:06 FiO2 Intake & Output 08/09/23 08/10/23 08/10/23 18:59 06:59 18:59 Intake Total 236 240 Output Total 0 Balance 236 240 Intake: Oral 236 240 Output: Urine 0 Other: Voiding Method Toilet Toilet Toilet # Voids 1 # Bowel Movements 0 0 - Labs CBC & Chem 7: 08/10/23 07:39 08/10/23 07:39 Labs: Abnormal Lab Results - Last 24 Hours (Table) 08/09/23 08/09/23 08/10/23 Range/Units 17:23 20:15 06:02 Sodium (137-145) mmol/L Potassium (3.5-5.1) mmol/L Chloride (98-107) mmol/L BUN (7-17) mg/dL Creatinine (0.52-1.04) mg/dL Glucose (74-99) mg/dL POC Glucose (mg/dL) 273 H 315 H 229 H (70-110) mg/dL Delta Bilirubin (0.0-0.2) mg/dL AST (14-36) U/L Alkaline Phosphatase (38-126) U/L 08/10/23 08/10/23 Range/Units 07:39 11:38 Sodium 132 L (137-145) mmol/L Potassium 5.4 H (3.5-5.1) mmol/L Chloride 88 L (98-107) mmol/L BUN 42 H (7-17) mg/dL Creatinine 6.87 H (0.52-1.04) mg/dL Glucose 196 H (74-99) mg/dL POC Glucose (mg/dL) 211 H (70-110) mg/dL Delta Bilirubin 0.5 H (0.0-0.2) mg/dL AST 11 L (14-36) U/L Alkaline Phosphatase 167 H (38-126) U/L Assessment and Plan Plan: Assessment: 1. End-stage renal disease maintained on hemodialysis on Sunday ay schedule. 2. Hyperkalemia secondary to chronic kidney disease. Expect improvement postdialysis. 3. Hypertension with chronic kidney disease. Better controlled. 4. Chronic kidney disease mineral bone disease maintained on Renvela. 5. Gout maintained on prednisone. 6. Diabetes mellitus. Plan: Plan for discharge home today. Patient will continue hemodialysis at outpatient unit.
[2023-08-10 15:35] VITALS: BP 107/63; PULSE 70; RESP 20; TEMP 98
[2023-08-10] MEDS: amLODIPine 10 MG TAB PO SCH (17:24)
[2023-08-10] MEDS: hydrALAZINE HCL 50 MG TAB PO SCH (17:25)
--- NOTE | 2023-08-10 20:55 | P.DS ---
Providers Date of admission: 08/07/23 15:23 Attending physician: Oneil Pickard MD Consults: 08/07/23 15:19 Consult Physician Urgent Consulting Provider: Christy Mcneill Consult Reason/Comments: esrd on hd Do you want consulting provider notified?: Already Contacted 08/08/23 13:53 Consult Physician Routine Consulting Provider: Deep Ríos Consult Reason/Comments: high troponin Do you want consulting provider notified?: Yes 08/08/23 20:47 Consult Physician Urgent Consulting Provider: Tracy Logan Consult Reason/Comments: agout arthritis of the knee Do you want consulting provider notified?: Yes, Notify in am 08/09/23 12:41 Consult Physician Routine Consulting Provider: Clinton Sarmiento Consult Reason/Comments: confused, old stroke, cannot have mri Do you want consulting provider notified?: Yes Primary care physician: Stated None Hospital Course: Diagnoses: -Mild metabolic/toxic encephalopathy, multifactorial, mainly secondary to uncontrolled hypertension, dialysis patient and medication effect like narcotics , remote infarct/strokes improved -hypertension with urgency, present on admission. Improved -Left knee effusion with no evidence of arthritis, no trauma. Most likely acute gouty arthritis of the left knee. Improving on steroids -End-stage renal disease on hemodialysis. -Mildly elevated troponin, looks nonspecific, no chest pain. Cardiology team signed off -Generalized pain, could be musculoskeletal, no specific pain area. Differential diagnosis fibromyalgia -Hypothyroidism -Type 2 diabetes mellitus Hospital course: This is a pleasant 72 years old female with past medical history of ESRD on hemodialysis, type II DM, hypertension, hypothyroidism She presents because she sent from dialysis Center for feeling weak and altered mental status, on admission her blood pressure was elevated. Patient had similar presentation about one month ago, at that time she's been seen by neurologist and she had extensive neurological workup which was unremarkable. Patient was discharged on aspirin but patient stopped taking it because of her gouty arthritis. On admission she was mildly confused, she is evaluated by neurologist, EEG showing only mild encephalopathy with no epileptiform discharge. Patient was started on Plavix instead of aspirin. Orthopedic team evaluated the patient for left knee effusion, no aspiration needed for this would put risk of infection as per my discussion with the orthopedic team. Patient started on a prednisone and she tolerated that well Tonie no ALLERGIC reaction was noted (prednisone was listed as one of the patient ALLERGIC to but when I asked the patient she states that make her fuzzy and affects her mood which is most likely side effect rather than ALLERGIC reaction. With monitoring more than 24 hours no ALLERGIC reaction noted, no rash or urticaria, no wheezing, no month a swelling, no soft tissue swelling, no hypertension) Patient will be discharged on tapered steroids over 6-7 days to finish her course of therapy. Patient takes Coreg and Norvasc at home, hydralazine 50 g twice a day added with better blood pressure controlled Also Bunkie was stopped and started on Tylenol 3 to decrease chances of her altered mental status, she tolerates medicine well and AMS improved significantly upon discharge She's been evaluated by acid pumper who signed off the case. Patient with no chest pain or dyspnea. No other new complaints She was getting hemodialysis. Last hemodialysis was today. After that patient is hemodynamically stable. Patient denies any other symptoms and she is eager to go home today. Patient was cleared for discharge by all consultants acid pumper, neurologist at [facility]. Patient was used recommended and instructed to go to subacute rehab to decrease risk of falling. Risk of brain bleed is explained for the patient especially she is on antiplatelet therapy. Patient was adamant not to go to rehab and she wants to go home Problems and management plan were discussed with the patient and he verbalized understanding and acceptance Patient was found stable and can be discharged home in guarded prognosis however he needs follow-up as an outpatient. Patient was instructed to follow up with PCP within one week and patient agrees Patient was instructed to follow up with acid pumper Dr. stanley in one week Patient was instructed to follow up with neurologist Dr. Pinto in one week Patient was instructed to follow up with her tile designer Dr. Mcneill/Dr. Kohler in one week and she agrees as she has the contact information Physical exam Gen: patient is a AAOx3, no distress CVS: S1-S2, RRR, no murmur Lungs: B/L CTA, no wheezing Abdomen: soft, no distention, no tenderness, positive bowel sounds Extremity: no leg edema or induration Time spent more than 35 minutes Patient Condition at Discharge: Stable Plan - Discharge Summary Discharge Rx Participant: Yes New Discharge Prescriptions: New predniSONE 10 mg PO DIRECTED #12 tab Acetaminophen-Codeine 300-30mg [Tylenol w/codeine #3] 1 each PO Q6HR PRN 5 Days #20 tab PRN Reason: Pain Clopidogrel [Plavix] 75 mg PO DAILY #30 tablet hydrALAZINE HCL 50 mg PO BID #60 tablet Continue Dicyclomine [Bentyl] 20 mg PO DAILY ALPRAZolam [Xanax] 0.5 mg PO DAILY Insulin Glargine [Lantus Vial] 40 unit SQ HS Atorvastatin [Lipitor] 40 mg PO HS #30 tab carvediloL [Coreg] 25 mg PO BID-W/MEALS Sevelamer [Renvela] 2,400 mg PO AC-TID amLODIPine [Norvasc] 10 mg PO DAILY PRN PRN Reason: sbp >180 allopurinoL [Zyloprim] 100 mg PO DAILY Ondansetron [Zofran] 4 mg PO BID PRN PRN Reason: Nausea Lidocaine-Prilocaine Cream [Emla Cream 2.5%/2.5%] 1 applic TOPICAL MOWEFR PRN PRN Reason: dialysis Isosorbide Dinitrate 20 mg PO BID Sevelamer [Renvela] 1,600 mg PO BID PRN PRN Reason: WITH SNACKS Insulin Lispro [humaLOG Kwikpen] See Protocol SQ AC-TID PRN PRN Reason: Blood Sugar - High Discontinued HYDROcodone/APAP 10-325MG [Bunkie 10-325] 1 tab PO Q4H PRN PRN Reason: Pain Midodrine [ProAmatine] 5 mg PO MOWEFR PRN PRN Reason: DIALYSIS Aspirin 81 mg PO DAILY #30 tab Discharge Medication List ALPRAZolam [Xanax] 0.5 mg PO DAILY 10/27/22 [History] Dicyclomine [Bentyl] 20 mg PO DAILY 10/27/22 [History] Isosorbide Dinitrate 20 mg PO BID 10/27/22 [History] Lidocaine-Prilocaine Cream [Emla Cream 2.5%/2.5%] 1 applic TOPICAL MOWEFR PRN 10/27/22 [History] Ondansetron [Zofran] 4 mg PO BID PRN 10/27/22 [History] Sevelamer [Renvela] 2,400 mg PO AC-TID 10/27/22 [History] allopurinoL [Zyloprim] 100 mg PO DAILY 10/27/22 [History] amLODIPine [Norvasc] 10 mg PO DAILY PRN 10/27/22 [History] carvediloL [Coreg] 25 mg PO BID-W/MEALS 10/27/22 [History] Insulin Glargine [Lantus Vial] 40 unit SQ HS 06/18/23 [History] Insulin Lispro [humaLOG Kwikpen] See Protocol SQ AC-TID PRN 06/18/23 [History] Sevelamer [Renvela] 1,600 mg PO BID PRN 06/18/23 [History] Atorvastatin [Lipitor] 40 mg PO HS #30 tab 06/21/23 [Rx] Acetaminophen-Codeine 300-30mg [Tylenol w/codeine #3] 1 each PO Q6HR PRN 5 Days #20 tab 08/10/23 [Rx] Clopidogrel [Plavix] 75 mg PO DAILY #30 tablet 08/10/23 [Rx] hydrALAZINE HCL 50 mg PO BID #60 tablet 08/10/23 [Rx] predniSONE 10 mg PO DIRECTED #12 tab 08/10/23 [Rx] Follow up Appointment(s)/Referral(s): Vivien Pinto MD [Medical Doctor] - 1 Week None,Stated [Primary Care Provider] - 1-2 days Deep Ríos MD [STAFF PHYSICIAN] - 1 Week Patient Instructions/Handouts: Hyperkalemia (DC), End Stage Kidney Disease (DC) Activity/Diet/Wound Care/Special Instructions: heart healthy and renal diet activity is restricted till you see your doctor Discharge Disposition: HOME WITH HOME HEALTH SERVICES
[2023-08-11] MEDS ORDERED: CLOPIDOGREL 75 MG TAB PO SCH (09:00)
== END 2023-08-10 15:56 | disposition home health service (06) | DRG 91 ==
LOC: EC 11:33 → 3SCARD 15:23
PROVIDERS: ADMIT Internal Medicine; ATTEND Internal Medicine
PROC: 5A1D70Z Performance of Urinary Filtration, Intermittent, Less than 6 Hours Per Day (ICD-10-PCS; principal; 2023-08-08)
DX: G92.8 Other toxic encephalopathy (principal); N18.6 End stage renal disease; I12.0 Hypertensive chronic kidney disease with stage 5 chronic kidney disease or end stage renal disease; I67.4 Hypertensive encephalopathy; E11.22 Type 2 diabetes mellitus with diabetic chronic kidney disease; E87.5 Hyperkalemia; E83.39 Other disorders of phosphorus metabolism; E78.5 Hyperlipidemia, unspecified; E87.70 Fluid overload, unspecified; R45.1 Restlessness and agitation; G47.30 Sleep apnea, unspecified; I16.0 Hypertensive urgency; J45.909 Unspecified asthma, uncomplicated; I27.20 Pulmonary hypertension, unspecified; Z99.2 Dependence on renal dialysis; T40.605A Adverse effect of unspecified narcotics, initial encounter; F40.240 Claustrophobia; E83.9 Disorder of mineral metabolism, unspecified; I08.2 Rheumatic disorders of both aortic and tricuspid valves; H54.8 Legal blindness, as defined in USA; M10.9 Gout, unspecified; M17.12 Unilateral primary osteoarthritis, left knee; Z79.02 Long term (current) use of antithrombotics/antiplatelets; Z79.4 Long term (current) use of insulin; Z79.52 Long term (current) use of systemic steroids; Z79.82 Long term (current) use of aspirin; Z79.899 Other long term (current) drug therapy; Z86.73 Personal history of transient ischemic attack (TIA), and cerebral infarction without residual deficits; Z88.8 Allergy status to other drugs, medicaments and biological substances; Z91.041 Radiographic dye allergy status; Z91.81 History of falling
CPT/HCPCS: 36415; 70450; 71046; 80048; 80053; 80076; 82140; 84100; 84484; 84550; 85025; 85610; 85730; 86706; 87340; 87636; 90935; 93005; 93308; 95816; 96372; 96374; 96375; 99285

== ENCOUNTER 2023-08-20 14:21 | Inpatient (IN) | payer MEDICARE, OTHER ==
--- NOTE | 2023-08-20 15:19 | ED ---
Syncope HPI - General Chief Complaint: Syncope Stated Complaint: syncope Time Seen by Provider: 08/20/23 14:31 Source: patient, family, EMS, RN notes reviewed Mode of arrival: EMS Limitations: no limitations - History of Present Illness Initial Comments: This is a 72-year-old female who presents to the emergency department for a syncopal episode. Patient was at dialysis, when she started to feel dizzy, and had a syncopal episode. She was reportedly unconscious for 5-10 minutes. She did not hit her head or sustain any injuries. Denies any history of similar problems in the past. Other than feeling dizzy beforehand, she did not have any symptoms. She has continued to feel somewhat dizzy, but otherwise states that she feels fine. Denies any chest pain or shortness of breath. She does wear oxygen at home, but has not had to increase this. She is currently on hemodialysis Sunday, Sunday, and Sunday. She did not finish dialysis because of this episode, and had 2.5 out of the 3.5 scheduled hours. Her is at bedside, who states that she seems confused at this time. MD Complaint: loss of consciousness - Related Data Home Medications Medication Instructions Recorded Confirmed ALPRAZolam [Xanax] 0.5 mg PO DAILY 10/27/22 08/20/23 Dicyclomine [Bentyl] 20 mg PO DAILY 10/27/22 08/20/23 Isosorbide Dinitrate 20 mg PO BID 10/27/22 08/20/23 Lidocaine-Prilocaine Cream [Emla 1 applic TOPICAL MOWEFR PRN 10/27/22 08/20/23 Cream 2.5%/2.5%] Ondansetron [Zofran] 4 mg PO BID PRN 10/27/22 08/20/23 Sevelamer [Renvela] 2,400 mg PO AC-TID 10/27/22 08/20/23 allopurinoL [Zyloprim] 100 mg PO DAILY 10/27/22 08/20/23 amLODIPine [Norvasc] 10 mg PO DAILY PRN 10/27/22 08/20/23 carvediloL [Coreg] 25 mg PO BID-W/MEALS 10/27/22 08/20/23 Insulin Glargine [Lantus Vial] 40 unit SQ HS 06/18/23 08/20/23 Insulin Lispro [humaLOG Kwikpen] See Protocol SQ AC-TID PRN 06/18/23 08/20/23 Sevelamer [Renvela] 1,600 mg PO BID PRN 06/18/23 08/20/23 Acetaminophen-Codeine 300-30mg 1 tab PO Q6HR PRN 08/20/23 08/20/23 [Tylenol w/codeine #3] Previous Rx's Medication Instructions Recorded Atorvastatin [Lipitor] 40 mg PO HS #30 tab 06/21/23 Clopidogrel [Plavix] 75 mg PO DAILY #30 tablet 08/10/23 hydrALAZINE HCL 50 mg PO BID #60 tablet 08/10/23 Allergies Allergy/AdvReac Type Severity Reaction Status Date / Time Iodinated Contrast Media Allergy Unknown Verified 08/20/23 18:00 Phenothiazines Allergy Unknown Verified 08/20/23 18:00 prednisone Allergy Unknown Verified 08/20/23 18:00 Review of Systems ROS Statement: Those systems with pertinent positive or pertinent negative responses have been documented in the HPI. ROS Other: All systems not noted in ROS Statement are negative. Past Medical History Past Medical History: Asthma, Diabetes Mellitus, Dialysis, Sleep Apnea/CPAP/ BIPAP, Thyroid Disorder History of Any Multi-Drug Resistant Organisms: None Reported Additional Past Surgical History / Comment(s): right fistula, left fistula old Past Psychological History: No Psychological Hx Reported Smoking Status: Never smoker Past Alcohol Use History: None Reported Past Drug Use History: None Reported - Past Family History Mother History Unknown: Yes General Exam Limitations: no limitations General appearance: alert, in no apparent distress Head exam: Present: atraumatic, normocephalic, normal inspection Respiratory exam: Present: normal lung sounds bilaterally. Absent: respiratory distress, wheezes, rales, rhonchi, stridor Cardiovascular Exam: Present: regular rate, normal rhythm, normal heart sounds. Absent: systolic murmur, diastolic murmur, rubs, gallop, clicks Neurological exam: Present: alert, oriented X3, CN II-XII intact Psychiatric exam: Present: normal affect, normal mood Skin exam: Present: warm, dry, intact, normal color. Absent: rash Course Vital Signs 08/20/23 08/20/23 08/20/23 14:28 17:07 19:39 Temperature 98.5 F 98.6 F Pulse Rate 74 64 64 Respiratory 22 18 18 Rate Blood Pressure 160/75 152/71 168/111 O2 Sat by Pulse 98 96 94 L Oximetry 08/20/23 08/21/23 08/21/23 22:24 00:18 03:19 Temperature Pulse Rate 65 67 68 Respiratory 19 17 19 Rate Blood Pressure 213/66 184/68 189/68 O2 Sat by Pulse 99 96 Oximetry 08/21/23 08/21/23 05:03 06:44 Temperature Pulse Rate 60 62 Respiratory 17 17 Rate Blood Pressure 177/64 168/64 O2 Sat by Pulse 96 98 Oximetry Medical Decision Making - Medical Decision Making This is a 72-year-old female who presents to the emergency department for a syncopal episode. Was pt. sent in by a medical professional or institution? @ -No Did you speak to anyone other than the patient for history? @ -EMS provided the information about how long the patient was unconscious. Her provided the information about her seeming confused. Did you review nursing and triage notes? @ -Yes, and I agree, it is accurate with regards to the patient's symptoms. Were old charts reviewed? @ -No Differential Diagnosis? @ -Differential Syncope: Valvular disease, hypertrophic cardiomyopathy, pulmonary embolism, tamponade, tachycardia, bradycardia, CA, hypovolemia, hemorrhage, dissection, anemia, intracranial hemorrhage, seizure, hypoglycemia, carbon monoxide poisoning, this is not meant to be an all-inclusive list. EKG interpreted by me (3pts min.)? @ -EKG interpreted by me demonstrating the following: Sinus rhythm. Ventricular rate 71 BPM, MA interval 189 ms, QRS duration 88 ms, QTc 403 ms. X-rays interpreted by me (1pt min.)? @ -Chest x-ray obtained. My interpretation identifies no evidence of a pleural effusion. CT interpreted by me (1pt min.)? @ -CT scan of the brain obtained. My interpretation identifies no evidence of an acute intracranial hemorrhage. U/S interpreted by me (1pt. min.)? @ -Not obtained What testing was considered but not performed? (CT, X-rays, U/S, labs)? Why? @ -None What meds were considered but not given? Why? @ -None Did you discuss the management of the patient with other professionals? @ -Yes, Nga Moncada with [facility], who accepts the patient for admission. Did you reconcile home meds? @ -Yes Was smoking cessation discussed for >3mins.? @ -No Was critical care preformed (if so, how long)? @ -No Were there social determinants of health that impacted care today? How? (Homelessness, low income, unemployed, alcoholism, drug addiction, transportation, low edu. Level, literacy, decrease access to med. care, fpc, rehab)? @ -No Was there de-escalation of care discussed even if they declined? (Discuss DNR or withdrawal of care, Hospice)? @ -No What co-morbidities impacted this encounter? (DM, HTN, Smoking, COPD, CAD, Cancer, CVA, Hep., AIDS, mental health diagnosis, sleep apnea, morbid obesity)? @ -Renal disease, DM, asthma, thyroid disorder Was patient admitted / discharged? @ -Admitted. Lab work obtained demonstrating poor renal function, consistent with her hx of ESRD on dialysis. She also had a decrease in hemoglobin when compared with prior. She denies any nausea/vomiting and she has no dark, tarry, or bloody stools. Liver enzymes are also mildly elevated when compared with prior. Patient denies any abdominal pain and she no longer has her gallbladder. Ammonia level negative. Chest x-ray demonstrates possible retrocardiac infilt rate. Patient is also positive for COVID-19. It is unclear if the retrocardiac infiltrate is related to the COVID or a developing pneumonia, antibiotic decision deferred to admitting team. Procalcitonin ordered with results pending at the time of admission. Patient denies any respiratory symptoms. CT scan of the brain obtained as well demonstrating no acute changes. The cause of her syncopal episode is not entirely clear. Given her age, comorbidities, and the duration of the episode, patient was admitted to medicine for further evaluation. Undiagnosed new problem with uncertain prognosis? @ -None Drug Therapy requiring intensive monitoring for toxicity (Heparin, Nitro, Insulin, Cardizem)? @ -None Were any procedures done? @ -None Diagnosis/symptom? @ -Syncope, anemia, COVID-19 Acute, or Chronic, or Acute on Chronic? @ -Acute Uncomplicated (without systemic symptoms) or Complicated (systemic symptoms)? @ -Complicated Side effects of treatment? @ -None Exacerbation, Progression, or Severe Exacerbation] @ -Not applicable Poses a threat to life or bodily function? @ -Yes This case was discussed in detail with the attending ED physician, Dr. Jeong. Presentation, findings, and treatment plan discussed in detail as well. - Lab Data Result diagrams: 08/20/23 16:06 08/20/23 16:06 Lab Results 08/20/23 08/20/23 08/20/23 Range/Units 16:06 16:06 16:06 WBC 5.9 (3.8-10.6) k/uL RBC 3.47 L (3.80-5.40) m/uL Hgb 10.7 L D (11.4-16.0) gm/dL Hct 32.3 L (34.0-46.0) % MCV 93.0 (80.0-100.0) fL MCH 30.9 (25.0-35.0) pg MCHC 33.2 (31.0-37.0) g/dL RDW 15.4 (11.5-15.5) % Plt Count 103 L D (150-450) k/uL MPV 8.0 Neutrophils % 85 % Lymphocytes % 8 % Monocytes % 5 % Eosinophils % 1 % Basophils % 0 % Neutrophils # 5.0 (1.3-7.7) k/uL Lymphocytes # 0.5 L (1.0-4.8) k/uL Monocytes # 0.3 (0-1.0) k/uL Eosinophils # 0.1 (0-0.7) k/uL Basophils # 0.0 (0-0.2) k/uL PT 10.8 (10.0-12.5) sec INR 1.0 (<1.2) APTT 26.5 (22.0-30.0) sec Sodium 130 L (137-145) mmol/L Potassium 5.1 (3.5-5.1) mmol/L Chloride 94 L (98-107) mmol/L Carbon Dioxide 23 (22-30) mmol/L Anion Gap 13 mmol/L BUN 57 H (7-17) mg/dL Creatinine 5.91 H (0.52-1.04) mg/dL Est GFR (CKD-EPI)AfAm 8 (>60 ml/min/1.73 sqM) Est GFR (CKD-EPI)NonAf 7 (>60 ml/min/1.73 sqM) Glucose 219 H (74-99) mg/dL Calcium 7.9 L (8.4-10.2) mg/dL Magnesium 2.1 (1.6-2.3) mg/dL Total Bilirubin 0.7 (0.2-1.3) mg/dL AST 41 H (14-36) U/L ALT 120 H (4-34) U/L Alkaline Phosphatase 205 H (38-126) U/L Troponin I (0.000-0.034) ng/mL Total Protein 6.0 L (6.3-8.2) g/dL Albumin 3.3 L (3.5-5.0) g/dL Influenza Type A (PCR) (Not Detectd) Influenza Type B (PCR) (Not Detectd) RSV (PCR) (Not Detectd) SARS-CoV-2 (PCR) (Not Detectd) 08/20/23 08/20/23 Range/Units 16:06 16:06 WBC (3.8-10.6) k/uL RBC (3.80-5.40) m/uL Hgb (11.4-16.0) gm/dL Hct (34.0-46.0) % MCV (80.0-100.0) fL MCH (25.0-35.0) pg MCHC (31.0-37.0) g/dL RDW (11.5-15.5) % Plt Count (150-450) k/uL MPV Neutrophils % % Lymphocytes % % Monocytes % % Eosinophils % % Basophils % % Neutrophils # (1.3-7.7) k/uL Lymphocytes # (1.0-4.8) k/uL Monocytes # (0-1.0) k/uL Eosinophils # (0-0.7) k/uL Basophils # (0-0.2) k/uL PT (10.0-12.5) sec INR (<1.2) APTT (22.0-30.0) sec Sodium (137-145) mmol/L Potassium (3.5-5.1) mmol/L Chloride (98-107) mmol/L Carbon Dioxide (22-30) mmol/L Anion Gap mmol/L BUN (7-17) mg/dL Creatinine (0.52-1.04) mg/dL Est GFR (CKD-EPI)AfAm (>60 ml/min/1.73 sqM) Est GFR (CKD-EPI)NonAf (>60 ml/min/1.73 sqM) Glucose (74-99) mg/dL Calcium (8.4-10.2) mg/dL Magnesium (1.6-2.3) mg/dL Total Bilirubin (0.2-1.3) mg/dL AST (14-36) U/L ALT (4-34) U/L Alkaline Phosphatase (38-126) U/L Troponin I 0.016 (0.000-0.034) ng/mL Total Protein (6.3-8.2) g/dL Albumin (3.5-5.0) g/dL Influenza Type A (PCR) Not Detected (Not Detectd) Influenza Type B (PCR) Not Detected (Not Detectd) RSV (PCR) Not Detected (Not Detectd) SARS-CoV-2 (PCR) Detected A (Not Detectd) - Radiology Data Radiology results: report reviewed, image reviewed Disposition Clinical Impression: Syncope, Anemia, COVID-19 Disposition: ADMITTED IP TO [facility] Time of Disposition: 18:22
--- NOTE | 2023-08-20 16:23 | XR ---
EXAMINATION TYPE: XR chest 2V DATE OF EXAM: 08/20/2023 COMPARISON: 08/07/2023 INDICATION: Syncope TECHNIQUE: Frontal and lateral views of the chest are obtained. FINDINGS: The heart size is large. The pulmonary vasculature is normal. Retrocardiac infiltrate may be present. Clinical correlation recommended. IMPRESSION: 1. Clinical correlation recommended for retrocardiac infiltrate.
[2023-08-20 16:38] LABS: Basophils % (A) 0 %; Eosinophils # (A) 0.1 k/uL (0-0.7); Eosinophils % (A) 1 %; HCT 32.3 % (34.0-46.0); Lymphocytes # (A) 0.5 k/uL (1.0-4.8); Lymphocytes % (A) 8 %; MCH 30.9 pg (25.0-35.0); MCHC 33.2 g/dL (31.0-37.0); Monocytes # (A) 0.3 k/uL (0-1.0); Monocytes % (A) 5 %; Neutrophils % (A) 85 %; RBC 3.47 m/uL (3.80-5.40); RDW 15.4 % (11.5-15.5); WBC 5.9 k/uL (3.8-10.6)
[2023-08-20 16:46] LABS: ALT 120 U/L (4-34); AST 41 U/L (14-36); African American GFR (CKD) 8 (>60 ml/min/1.73 sqM); Albumin 3.3 g/dL (3.5-5.0); Alkaline Phosphatase 205 U/L (38-126); Anion Gap 13 mmol/L; Blood Urea Nitrogen 57 mg/dL (7-17); Calcium 7.9 mg/dL (8.4-10.2); Carbon Dioxide 23 mmol/L (22-30); Chloride 94 mmol/L (98-107); Glucose 219 mg/dL (74-99); Magnesium 2.1 mg/dL (1.6-2.3); Non-African American GFR(CKD) 7 (>60 ml/min/1.73 sqM); Potassium 5.1 mmol/L (3.5-5.1); Sodium 130 mmol/L (137-145); Total Bilirubin 0.7 mg/dL (0.2-1.3)
[2023-08-20 16:47] LABS: HGB 10.7 gm/dL (11.4-16.0); Platelet Count 103 k/uL (150-450)
[2023-08-20 16:56] LABS: Partial Thromboplastin Time 26.5 sec (22.0-30.0); Prothrombin Time 10.8 sec (10.0-12.5)
--- NOTE | 2023-08-20 17:45 | CT ---
EXAMINATION TYPE: CT brain wo con DATE OF EXAM: 08/20/2023 COMPARISON: 08/07/2023 INDICATION: Syncope, dizziness. DLP: 1122.3 mGycm, Automated exposure control for dose reduction was used. CONTRAST: None CT of the brain is performed utilizing 3 mm thick sections through the posterior fossa and 3 mm thick sections through the remaining calvarium. Study is performed within 24 hours of arrival to the hosp ital. No abnormal hyperdensity is present to suggest an acute intracranial hemorrhage. No mass lesion is evident. No acute infarcts are evident. 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 Stable periventricular white matter hypodensity is present, likely on the basis of chronic white m atter ischemic changes. Old lacunar infarct left caudate head is stable. Ventricles and sulci are prominent for the patient age. There is an air-fluid level within the left maxillary sinus. Mucosal thickening of ethmoid air cells. There is opacification with air-fluid levels within the sphenoid sinuses. Clinical correlation is re commended for sinusitis. IMPRESSION: 1. Subacute or old ischemic changes within the brain, stable from comparison. 2. Paranasal sinusitis including bilateral sphenoid sinuses, ethmoid air cells, left maxillary sinus.
[2023-08-20] MEDS ORDERED: NALOXONE 0.4 MG/ML 1 ML VIAL IV PRN (18:45)
[2023-08-20] MEDS ORDERED: ACETAMINOPHEN TAB 325 MG TAB PO PRN (18:45)
[2023-08-20] MEDS ORDERED: Acetaminophen-Codeine 300-30mg TAB PO PRN (18:52)
[2023-08-20] MEDS ORDERED: amLODIPine 10 MG TAB PO PRN (18:52)
[2023-08-20] MEDS ORDERED: ONDANSETRON 4 MG TAB PO PRN (18:52)
[2023-08-20] MEDS ORDERED: LIDOCAINE-PRILOCAINE 2.5-2.5% CREAM 5 GM TUBE TOPICAL PRN (18:52)
[2023-08-20] MEDS ORDERED: SEVELAMER 800 MG TAB PO PRN (18:52)
[2023-08-20] MEDS: ISOSORBIDE DINITRATE 20 MG TAB PO SCH (22:22)
[2023-08-20] MEDS: ATORVASTATIN 40 MG TAB PO SCH (22:23)
[2023-08-20] MEDS: hydrALAZINE HCL 50 MG TAB PO SCH (22:23)
[2023-08-21] MEDS ORDERED: DEXTROSE 50% SYRINGE 50 ML IVP PRN ×2 (09:04)
[2023-08-21] MEDS: ALPRAZolam 0.5 MG TAB PO SCH (09:17)
[2023-08-21] MEDS: SEVELAMER 800 MG TAB PO SCH ×3 (09:18→17:48)
[2023-08-21] MEDS: ISOSORBIDE DINITRATE 20 MG TAB PO SCH ×2 (09:18→22:08)
[2023-08-21] MEDS: hydrALAZINE HCL 50 MG TAB PO SCH ×2 (09:19→21:48)
[2023-08-21] MEDS: CLOPIDOGREL 75 MG TAB PO SCH (09:19)
[2023-08-21] MEDS: carvediloL 12.5 MG TAB PO SCH ×2 (09:19→17:49)
[2023-08-21] MEDS: allopurinoL 100 MG TAB PO SCH (09:19)
[2023-08-21] MEDS: DICYCLOMINE 20 MG TAB PO SCH (09:19)
[2023-08-21] MEDS: HYDROcodone/APAP 5-325MG 1 EACH TAB PO PRN ×2 (09:21→21:48)
--- NOTE | 2023-08-21 11:39 | P.NPCON ---
History of Present Illness - Reason for Consult end stage renal disease - History of Present Illness Patient is a 72-year-old female with end-stage renal disease on hemodialysis on a Sunday schedule. Patient is admitted to the hospital with history of syncopal episode post dialysis. Blood pressure was not noted to be low. No history of fever or chills abdominal pain nausea vomiting or diarrhea. Patient did admit to feeling dizzy. CT of the head does not show any acute findings. Subacute or old ischemic changes noted which are stable from comparison. Neurology has been consulted. Review of Systems As per HPI Past Medical History Past Medical History: Asthma, Diabetes Mellitus, Dialysis, Sleep Apnea/CPAP/BIPA P, Thyroid Disorder History of Any Multi-Drug Resistant Organisms: None Reported Additional Past Surgical History / Comment(s): right fistula, left fistula old Past Psychological History: No Psychological Hx Reported Smoking Status: Never smoker Past Alcohol Use History: None Reported Past Drug Use History: None Reported - Past Family History Mother History Unknown: Yes Medications and Allergies Home Medications Medication Instructions Recorded Confirmed Type ALPRAZolam [Xanax] 0.5 mg PO DAILY 10/27/22 08/20/23 History Dicyclomine [Bentyl] 20 mg PO DAILY 10/27/22 08/20/23 History Isosorbide Dinitrate 20 mg PO BID 10/27/22 08/20/23 History Lidocaine-Prilocaine Cream [Emla 1 applic TOPICAL MOWEFR PRN 10/27/22 08/20/23 History Cream 2.5%/2.5%] Ondansetron [Zofran] 4 mg PO BID PRN 10/27/22 08/20/23 History Sevelamer [Renvela] 2,400 mg PO AC-TID 10/27/22 08/20/23 History allopurinoL [Zyloprim] 100 mg PO DAILY 10/27/22 08/20/23 History amLODIPine [Norvasc] 10 mg PO DAILY PRN 10/27/22 08/20/23 History carvediloL [Coreg] 25 mg PO BID-W/MEALS 10/27/22 08/20/23 History Insulin Glargine [Lantus Vial] 40 unit SQ HS 06/18/23 08/20/23 History Insulin Lispro [humaLOG Kwikpen] See Protocol SQ AC-TID PRN 06/18/23 08/20/23 History Sevelamer [Renvela] 1,600 mg PO BID PRN 06/18/23 08/20/23 History Atorvastatin [Lipitor] 40 mg PO HS #30 tab 06/21/23 08/20/23 Rx Clopidogrel [Plavix] 75 mg PO DAILY #30 tablet 08/10/23 08/20/23 Rx hydrALAZINE HCL 50 mg PO BID #60 tablet 08/10/23 08/20/23 Rx Acetaminophen-Codeine 300-30mg 1 tab PO Q6HR PRN 08/20/23 08/20/23 History [Tylenol w/codeine #3] Allergies Allergy/AdvReac Type Severity Reaction Status Date / Time Iodinated Contrast Media Allergy Unknown Verified 08/20/23 18:00 Phenothiazines Allergy Unknown Verified 08/20/23 18:00 prednisone Allergy Unknown Verified 08/20/23 18:00 Physical Exam Vitals: Vital Signs Temp Pulse Resp BP Pulse Ox 08/21/23 09:00 97.6 F 66 20 179/59 96 08/21/23 06:44 62 17 168/64 98 08/21/23 05:03 60 17 177/64 96 08/21/23 03:19 68 19 189/68 96 08/21/23 00:18 67 17 184/68 08/20/23 22:24 65 19 213/66 99 08/20/23 19:39 98.6 F 64 18 168/111 94 L 08/20/23 17:07 64 18 152/71 96 08/20/23 14:28 98.5 F 74 22 160/75 98 Patient is aake, comfortable, no acute distress. Answers questions appropriately. Lungs are clear CVS S1 and S2 Abdomen is soft, non tender. 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 Results - Lab Results Most recent lab results Calcium 7.9 mg/dL (8.4-10.2) L 08/20/23 16:06 Magnesium 2.1 mg/dL (1.6-2.3) 08/20/23 16:06 08/20/23 16:06 08/20/23 16:06 Assessment and Plan Assessment: 1. End stage renal disease on HD on a MWF schedule. 2. Syncopal episode post HD with no documented hypotension. BP noted to high. Neurology has been consulted. 3. CKD mineral bone disorder. 4. HTN with CKD stage 5, uncontrolled. Increase hydralazine to 50 mg tid Plan: Hemodialysis in am. Increase hydralazine to 50 mg tid Continue with Renvela with meals.
[2023-08-21 11:42] LABS: Glucose,Whole Blood 184 mg/dL (70-110)
--- NOTE | 2023-08-21 12:41 | P.CNNES ---
History of Present Illness Consult date: 08/21/23 Requesting physician: Lucille Pak Reason for Consult: Syncope History of Present Illness: Patient is a 72-year-old right-handed female with history of ESRD, on hemodialysis, diabetes, previous history of CVA came to the hospital by ambulance yesterday at 2:41 PM for a syncopal spell at the dialysis center. Patient apparently passed out while having dialysis. She was sitting in the recliner at that time. No seizure-like activity was noticed. As per EMS flow sheet, when they arrived to the Dialysis Ctr[facility] they found patient in the chair. Patient was unconscious and being held up by staff due to slumping in the chair. Staff stated that patient became unconscious after 2.5 hours. Patient still has the remaining of her left. No issues up to the event but did state she had a blood pressure of 82/40 prior to the incident. When EMS arrived, patient was alert and oriented 4. Patient has a patent airway with normal respiration and no neurological deficits. Patient now started to move her fingers and make moaning noises. Staff mentioned no history of stroke or seizures. No sickness noted but patient did have a fall over the weekend. Patient becoming more alert and speaking. EKG shows sinus rhythm. Patient's blood pressure at the scene was 183/111, pulse rate 74, respiration 18 saturation 98%. Repeat blood pressure 185/126. Chest x-ray showed clinical correlation recommended for retrocardiac infiltrate. CT head showed subacute or old ischemic changes within the brain. Stable from comparison. Paranasal sinusitis including bilateral sphenoid sinuses, ethmoid air cells., Left maxillary sinus. 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 Agree with evidence of bilateral sinus disease. EKG shows sinus rhythm with left axis deviation. Patient was recently seen by Dr. Clinton Sarmiento on 06/19/2023 and then again on 08/09/2023. Each time (on 06/19/2023 and 08/10/2023) patient had EEG performed, which revealed encephalopathy without any epileptiform activity. Patient had a carotid Doppler on 06/19/2023, which revealed no significant hemodynamically stenosis of bilateral visualize carotid arterial system. Antegrade flow in both vertebral arteries. 2-D echo from 06/19/2023 revealed normal left ventricular size and systolic function, with EF 55-60%. Mild TR, mild pulmonary hypertension. Mild aortic stenosis. Mildly increased left atrial volume. Patient does take Plavix 75 mg, Lipitor 40 mg insulin and other blood pressure medications. Patient lives with her and patient sister. Uses a walker all the wheelchair. She does have a regular cane as 4 pronged cane but she does not use those. Patient's mentioned that on Sunday she lost balance and fell, bruising her left side of the chest. She did not pass out, did not have any seizure. Patient had history of stroke about 2 or 3 years ago, for which she was treated at [facility]. She is currently on Plavix. Patient has some residual left-sided weakness from the stroke. Patient does have a spinal cord stimulator as well. Patient has history of hemodialysis going on for 14 years. Patient's mentions that patient has been confused for 1 month to 6 weeks. She would not answer appropriately to questions asked. He believes is her memory is slowly getting worse. Patient's was recommended to have patient follow up with a neurologist outpatient to rule out any early cognitive impairment. She does not have a neurologist at this time. Review of Systems Constitutional: Denies chills, Denies fever Eyes: left loss of vision (since ), denies blurred vision, denies pain Ears: deny: decreased hearing, ear discharge Ears, nose, mouth and throat: Denies headache, Denies sore throat, Denies vertigo Cardiovascular: Denies chest pain, Denies shortness of breath Respiratory: Reports cough, Reports excessive sputum Gastrointestinal: Denies abdominal pain, Denies diarrhea, Denies nausea, Denies vomiting Genitourinary: Denies hematuria Musculoskeletal: Denies low back pain, Denies myalgias, Denies neck pain Integumentary: Denies pruritus, Denies rash Neurological: Reports as per HPI Psychiatric: Reports anxiety, Denies depression Hematologic/Lymphatic: Reports easy bleeding, Reports easy bruising Past Medical History Past Medical History: Asthma, Diabetes Mellitus, Dialysis, Sleep Apnea/CPAP/BIPAP, Thyroid Disorder History of Any Multi-Drug Resistant Organisms: None Reported Additional Past Surgical History / Comment(s): right fistula, left fistula old Past Psychological History: No Psychological Hx Reported Smoking Status: Never smoker Past Alcohol Use History: None Reported Past Drug Use History: None Reported - Past Family History Mother History Unknown: Yes Medications and Allergies Home Medications Medication Instructions Recorded Confirmed Type ALPRAZolam [Xanax] 0.5 mg PO DAILY 10/27/22 08/20/23 History Dicyclomine [Bentyl] 20 mg PO DAILY 10/27/22 08/20/23 History Isosorbide Dinitrate 20 mg PO BID 10/27/22 08/20/23 History Lidocaine-Prilocaine Cream [Emla 1 applic TOPICAL MOWEFR PRN 10/27/22 08/20/23 History Cream 2.5%/2.5%] Ondansetron [Zofran] 4 mg PO BID PRN 10/27/22 08/20/23 History Sevelamer [Renvela] 2,400 mg PO AC-TID 10/27/22 08/20/23 History allopurinoL [Zyloprim] 100 mg PO DAILY 10/27/22 08/20/23 History amLODIPine [Norvasc] 10 mg PO DAILY PRN 10/27/22 08/20/23 History carvediloL [Coreg] 25 mg PO BID-W/MEALS 10/27/22 08/20/23 History Insulin Glargine [Lantus Vial] 40 unit SQ HS 06/18/23 08/20/23 History Insulin Lispro [humaLOG Kwikpen] See Protocol SQ AC-TID PRN 06/18/23 08/20/23 History Sevelamer [Renvela] 1,600 mg PO BID PRN 06/18/23 08/20/23 History Atorvastatin [Lipitor] 40 mg PO HS #30 tab 06/21/23 08/20/23 Rx Clopidogrel [Plavix] 75 mg PO DAILY #30 tablet 08/10/23 08/20/23 Rx hydrALAZINE HCL 50 mg PO BID #60 tablet 08/10/23 08/20/23 Rx Acetaminophen-Codeine 300-30mg 1 tab PO Q6HR PRN 08/20/23 08/20/23 History [Tylenol w/codeine #3] Allergies Allergy/AdvReac Type Severity Reaction Status Date / Time Iodinated Contrast Media Allergy Unknown Verified 08/20/23 18:00 Phenothiazines Allergy Unknown Verified 08/20/23 18:00 prednisone Allergy Unknown Verified 08/20/23 18:00 Physical Examination - Vital Signs Vital Signs: Vital Signs Temp Pulse Resp BP Pulse Ox 08/21/23 06:44 62 17 168/64 98 08/21/23 05:03 60 17 177/64 96 08/21/23 03:19 68 19 189/68 96 08/21/23 00:18 67 17 184/68 08/20/23 22:24 65 19 213/66 99 08/20/23 19:39 98.6 F 64 18 168/111 94 L 08/20/23 17:07 64 18 152/71 96 08/20/23 14:28 98.5 F 74 22 160/75 98 Patient is an elderly female, very pleasant, in no acute distress. Patient is alert awake oriented to time place and person. Patient states it is August and the year is 2022. She knows that she is in [facility] in [facility]. Speech and language functions are normal. Patient can name and repeat very well. No aphasia or dysarthria. Attention, concentration and fund of knowledge is adequate. Detail cognitive function testing deferred. On cranial nerve examination, pupils are equal, round and reacting to light, visual arcos are full on confrontation, with no neglect on double simultaneous stimulation. Patient is legally blind in the left eye. Extraocular muscles are intact with no nystagmus. Face is symmetric, tongue protrudes to the midline. Palatal elevation and sensation normal, hearing and shoulder shrug normal, facial sensation normal. On muscle strength testing, there is no pronator drift and the strength is normal in arms and legs distally and proximally, except left shoulder which is weak because of pain. Her hip flexion is weaker on the left 4, but normal 5 on the right. Ankle dorsiflexion are normal. Deep tendon reflexes are symmetric (right/left) Sensory to touch is equal with no neglect on double simultaneous stimulation. Cerebellar function showed no ataxia for kflyau-vs-soid testing. No dysdiadochokinesia. Tone and bulk of muscles normal. Gait deferred.. On general examination, there is no carotid bruit or murmur, S1-S2 audible. Chest is clear on consultation. Abdomen is soft nontender. No organomegaly, bowel sounds present. Peripheral pulses are present. No peripheral edema. Results - Laboratory Findings CBC and BMP: 08/20/23 16:06 08/20/23 16:06 Abnormal Lab Findings: Abnormal Labs 08/20/23 08/20/23 08/20/23 16:06 16:06 16:06 RBC 3.47 L Hgb 10.7 L D Hct 32.3 L Plt Count 103 L D Lymphocytes # 0.5 L Sodium 130 L Chloride 94 L BUN 57 H Creatinine 5.91 H Glucose 219 H Calcium 7.9 L AST 41 H ALT 120 H Alkaline Phosphatase 205 H Total Protein 6.0 L Albumin 3.3 L Procalcitonin SARS-CoV-2 (PCR) Detected A 08/20/23 18:58 RBC Hgb Hct Plt Count Lymphocytes # Sodium Chloride BUN Creatinine Glucose Calcium AST ALT Alkaline Phosphatase Total Protein Albumin Procalcitonin 0.21 H SARS-CoV-2 (PCR) Assessment and Plan Assessment: * Syncope, likely due to hypotension. Patient has acute Covid infection. Her blood pressure prior to syncopal spell was 82/40, although when the EMS arrived, she was actually very hypertensive. Patient has presented with confusional episodes in the past, but negative EEG performed 2. * Acute Covid infection * End-stage renal disease, on hemodialysis. * Hypertensive encephalopathy * History of stroke over the right posterior watershed region * Paranasal sinus disease * Diabetes * Legally blind over the left eye Plan: * Patient's syncope was likely due to acute hypotension and acute Covid infe ction. No other workup indicated. * Carotid Doppler on 06/19/2023, which revealed no significant hemodynamically stenosis of bilateral visualize carotid arterial system. Antegrade flow in both vertebral arteries. * 2-D echo from 06/19/2023 revealed normal left ventricular size and systolic function, with EF 55-60%. Mild TR, mild pulmonary hypertension. Mild aortic stenosis. Mildly increased left atrial volume. No need to repeat. * Patient had an EEG performed twice (in June 2023 and July 2023), both of them are normal. No need to repeat. * Treatment of acute Covid infection and other medical conditions as per IM and other specialties. * No other neurological workup indicated. Thank you for the consult.
[2023-08-21] MEDS: INSULIN ASPART (NovoLOG) 100 UNIT/ML VIAL SQ SCH ×3 (13:34→21:49)
[2023-08-21] MEDS: ZINC SULFATE 220 MG CAP PO SCH (16:04)
[2023-08-21 17:22] LABS: Glucose,Whole Blood 228 mg/dL (70-110)
[2023-08-21] MEDS ORDERED: FAMOTIDINE 20 MG/2 ML VIAL IV PRN (19:10)
[2023-08-21] MEDS ORDERED: methylPREDNISolone SOD SUCCI 125 MG/2 ML VIAL IV PRN (19:13)
[2023-08-21] MEDS ORDERED: diphenhydrAMINE 50 MG/ML 1 ML VIAL IVP PRN (19:14)
[2023-08-21 20:38] LABS: Glucose,Whole Blood 213 mg/dL (70-110)
[2023-08-21] MEDS: ATORVASTATIN 40 MG TAB PO SCH (21:48)
[2023-08-21] MEDS: HEPARIN SODIUM,PORCINE 5,000 UNIT/ML 1 ML VIAL SQ SCH (21:49)
[2023-08-21] MEDS: INSULIN DETEMIR (LEVEMIR) 100 UNIT/ML SYR SQ SCH (21:49)
--- NOTE | 2023-08-21 22:59 | HP ---
HISTORY AND PHYSICAL CHIEF COMPLAINT: Syncope, unresponsiveness, COVID-19 positivity, end-stage renal disease, and possible pneumonia. HISTORY OF PRESENT ILLNESS: This is a 72-year-old woman with a past medical history of multiple medical problems including end-stage renal disease, was receiving hemodialysis through the midway up to 2.5 hours. The patient passed out and was unresponsive for a few minutes. The blood pressure was 82/40. The patient was taken to [facility]. Chest x-ray showed suspicion of pneumonia. COVID-19 was positive. The patient was admitted for further evaluation and treatment. There is no history of any fever, rigors, chills, headache, loss of consciousness. The patient has taken COVID vaccine before. PAST MEDICAL HISTORY: Reviewed include asthma, COPD, hemodialysis, sleep apnea. Rest of the history and rest of the chart is also reviewed. HOME MEDICATIONS: Norvasc. Doses and rest of medications reviewed. ALLERGIES: Reviewed include phenothiazine. Rest of the allergies reviewed. FAMILY HISTORY: No history of heart disease or strokes in the family. SOCIAL HISTORY: No history of smoking or alcohol. REVIEW OF SYSTEMS: Fourteen-point review is negative except as mentioned earlier. PHYSICAL EXAMINATION: VITAL SIGNS: Pulse is 62, blood pressure 168/62, respirations 17. HEENT: Conjunctivae normal. NECK: No jugular venous distention. CARDIOVASCULAR: S1, S2. RESPIRATIONS: Breath sounds diminished at the bases with bilateral scattered rhonchi and crackles. ABDOMEN: Soft, nontender. LEGS: No edema, no swelling. NERVOUS SYSTEM: No focal deficits. SKIN: No ulcer, rash, bleeding. JOINTS: No active deforming arthropathy. LABORATORY DATA: Reviewed. Hemoglobin 10.7. Chest x-ray reviewed personally. ASSESSMENT: 1. Syncope possibly secondary to hypotension. 2. Acute COVID-19 infection with possible COVID-19 pneumonia. 3. Possible superadded bacterial pneumonia with elevated procalcitonin. 4. Thrombocytopenia. 5. End-stage renal disease, on hemodialysis. 6. Anemia, multifactorial. 7. History of asthma. 8. History of hemodialysis. 9. Hypothyroidism. 10.History of sleep apnea. RECOMMENDATIONS AND DISCUSSION: This is a 72-year-old woman, who presented with multiple complex medical issues, we will monitor the patient closely. I would recommend to continue current medications. Recommend empiric antibiotics. Consult Infectious Disease for possible remdesivir. Otherwise, we will continue to monitor. Resume the home medications. Overall prognosis extremely guarded because of multiple complex medical issues. Continue the hemodialysis. Home medications will be continued once they are confirmed and I would also recommend zinc and multivitamins and the usual medications also. Prognosis guarded. Further recommendations to follow. MMODL / IJN: [id number] /
[2023-08-22 05:42] LABS: Glucose,Whole Blood 112 mg/dL (70-110)
[2023-08-22] MEDS: INSULIN ASPART (NovoLOG) 100 UNIT/ML VIAL SQ SCH ×4 (06:39→20:45)
[2023-08-22] MEDS: SEVELAMER 800 MG TAB PO SCH ×3 (06:43→17:37)
[2023-08-22] MEDS: carvediloL 12.5 MG TAB PO SCH ×2 (06:43→17:38)
[2023-08-22] MEDS: allopurinoL 100 MG TAB PO SCH (09:48)
[2023-08-22] MEDS: ISOSORBIDE DINITRATE 20 MG TAB PO SCH ×2 (09:48→20:46)
[2023-08-22] MEDS: ZINC SULFATE 220 MG CAP PO SCH (09:48)
[2023-08-22] MEDS: ALPRAZolam 0.5 MG TAB PO SCH (09:48)
[2023-08-22] MEDS: hydrALAZINE HCL 50 MG TAB PO SCH ×2 (09:48→20:46)
[2023-08-22] MEDS: DICYCLOMINE 20 MG TAB PO SCH (09:48)
[2023-08-22] MEDS: HEPARIN SODIUM,PORCINE 5,000 UNIT/ML 1 ML VIAL SQ SCH ×2 (09:48→20:45)
[2023-08-22] MEDS: CLOPIDOGREL 75 MG TAB PO SCH (09:48)
[2023-08-22 10:44] LABS: Basophils # (A) 0.01 X 10*3/uL (0.00-0.10); Basophils % (A) 0.2 %; Eosinophils % (A) 1.6 %; HCT 27.1 % (37.2-46.3); HGB 8.7 g/dL (12.0-15.0); Lymphocytes # (A) 0.92 X 10*3/uL (0.90-5.00); Lymphocytes % (A) 14.7 %; MCHC 32.1 g/dL (32.0-37.0); MCV 93.4 FL (80.0-97.0); Monocytes % (A) 9.6 %; NRBC Per 100 WBC 0 X 10*3/uL (0.00-0.01); Neutrophils # (A) 4.58 X 10*3/uL (1.80-7.70); Neutrophils % (A) 73.1 %; Platelet Count 133 X 10*3/uL (140-440); RDW 15.7 % (11.5-14.5); WBC 6.26 X 10*3/uL (4.50-10.00)
[2023-08-22 11:08] LABS: Glucose,Whole Blood 149 mg/dL (70-110)
[2023-08-22 11:17] LABS: BUN/Creat Ratio 8.79 Ratio (12.00-20.00); Glucose 97 mg/dL (70-110)
[2023-08-22 11:18] LABS: Calcium 7.9 mg/dL (8.7-10.3); Carbon Dioxide 23.4 mmol/L (21.6-31.8); Chloride 96 mmol/L (96-109); Sodium 136 mmol/L (135-145)
--- NOTE | 2023-08-22 12:31 | P.PN ---
Subjective Patient is seen for follow-up for end-stage renal disease. She is currently seen on hemodialysis. There is mild infiltration noted on her right arm AV fistula however both [place] are in and functioning. No significant complaints today. Objective - Vital Signs Vital signs: Vital Signs Temp 98.7 F 08/22/23 07:59 Pulse 58 L 08/22/23 08:55 Resp 22 08/22/23 07:59 BP 179/67 08/22/23 07:59 Pulse Ox 97 08/22/23 07:59 FiO2 Intake & Output 08/21/23 08/22/23 08/22/23 18:59 06:59 18:59 Other: # Voids 3 - Exam atient is aake, comfortable, no acute distress. Answers questions appropriately. Lungs are clear CVS S1 and S2 Abdomen is soft, non tender. 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 - Labs CBC & Chem 7: 08/22/23 06:27 08/22/23 06:27 Labs: Abnormal Lab Results - Last 24 Hours (Table) 08/21/23 08/21/23 08/21/23 Range/Units 13:11 17:19 20:25 RBC (4.10-5.20) X 10*6/uL Hgb (12.0-15.0) g/dL Hct (37.2-46.3) % RDW (11.5-14.5) % Plt Count (140-440) X 10*3/uL Immature Gran # (0.00-0.04) X 10*3/uL D-Dimer 1.50 H (<0.60) mg/L FEU Potassium (3.5-5.5) mmol/L Anion Gap (4.00-12.00) mmol/L BUN (9.0-27.0) mg/dL Creatinine (0.6-1.5) mg/dL Est GFR (CKD-EPI) (>=60) BUN/Creatinine Ratio (12.00-20.00) Ratio POC Glucose (mg/dL) 228 H 213 H (70-110) mg/dL Hemoglobin A1c (<=6.0) % Calcium (8.7-10.3) mg/dL 08/22/23 08/22/23 08/22/23 Range/Units 05:40 06:27 06:27 RBC 2.90 L (4.10-5.20) X 10*6/uL Hgb 8.7 L (12.0-15.0) g/dL Hct 27.1 L (37.2-46.3) % RDW 15.7 H (11.5-14.5) % Plt Count 133 L (140-440) X 10*3/uL Immature Gran # 0.05 H (0.00-0.04) X 10*3/uL D-Dimer (<0.60) mg/L FEU Potassium (3.5-5.5) mmol/L Anion Gap (4.00-12.00) mmol/L BUN (9.0-27.0) mg/dL Creatinine (0.6-1.5) mg/dL Est GFR (CKD-EPI) (>=60) BUN/Creatinine Ratio (12.00-20.00) Ratio POC Glucose (mg/dL) 112 H (70-110) mg/dL Hemoglobin A1c 6.5 H (<=6.0) % Calcium (8.7-10.3) mg/dL 08/22/23 08/22/23 Range/Units 06:27 11:07 RBC (4.10-5.20) X 10*6/uL Hgb (12.0-15.0) g/dL Hct (37.2-46.3) % RDW (11.5-14.5) % Plt Count (140-440) X 10*3/uL Immature Gran # (0.00-0.04) X 10*3/uL D-Dimer (<0.60) mg/L FEU Potassium 6.0 H (3.5-5.5) mmol/L Anion Gap 16.60 H (4.00-12.00) mmol/L BUN 80.0 H (9.0-27.0) mg/dL Creatinine 9.1 A* (0.6-1.5) mg/dL Est GFR (CKD-EPI) 4 L (>=60) BUN/Creatinine Ratio 8.79 L (12.00-20.00) Ratio POC Glucose (mg/dL) 149 H (70-110) mg/dL Hemoglobin A1c (<=6.0) % Calcium 7.9 L (8.7-10.3) mg/dL Assessment and Plan Assessment: 1. End stage renal disease on HD on a MWF schedule. 2. Syncopal episode post HD with no documented hypotension. BP noted to high. Neurology has been consulted. 3. CKD mineral bone disorder. 4. HTN with CKD stage 5, uncontrolled. Increase hydralazine to 50 mg tid 5. Small infiltrate noted at the right arm AV fistula site. Plan: Hemodialysis on Sunday schedule. Increase UF as tolerated Continue with Renvela with meals.
[2023-08-22] MEDS: amLODIPine 10 MG TAB PO SCH (15:00)
[2023-08-22 17:18] LABS: Glucose,Whole Blood 232 mg/dL (70-110)
[2023-08-22] MEDS: ALBUTEROL HFA INHALER INHALATION SCH ×2 (17:27→21:16)
[2023-08-22 20:38] LABS: Glucose,Whole Blood 319 mg/dL (70-110)
[2023-08-22] MEDS: INSULIN DETEMIR (LEVEMIR) 100 UNIT/ML SYR SQ SCH (20:45)
[2023-08-22] MEDS: ATORVASTATIN 40 MG TAB PO SCH (20:46)
--- NOTE | 2023-08-22 22:12 | P.CONS ---
History of Present Illness - Reason for Consult Consult date: 08/21/23 COVID, remdesivir? Requesting physician: Elaina Paulino - Chief Complaint Weakness and syncopal episode x 1 day - History of Present Illness Patient is a 72-year-old female with a past medical history significant for diabetes mellitus asthma hypothyroidism patient did have a history of end-stage renal disease on dialysis through the right forearm AV fistula patient was brought into the hospital yesterday afternoon for evaluation of a syncopal episode apparently the patient was at dialysis when the patient started to feel dizzy and passed out no history of any head injury patient was brought into the hospital for further evaluation patient on presentation to the hospital was afebrile and no fever has been ordered subsequently and the patient did not recall having any fever at home no O2 sats on room air has been documented the patient has been on 3 L nasal cannula oxygen patient did have a white count of 5.9 did have elevated BUN and creatinine levels also mildly elevated she tested positive for COVID-19 blood culture obtained which are currently pending patient did have a chest x-ray concerning for retrocardiac infiltrate CT of the brain did show subacute or old ischemic changes within the brain stable for comparison infectious he was consulted for further management and need for remdesivir, patient also recently did have a fall with a large bruise to the left upper arm and left side of the chest aching pain to the area mild to moderate in intensity with no radiation Review of Systems Positive point and negatives has been mentioned in the HPI, complete review of systems was performed and all other systems are negative Past Medical History Past Medical History: Asthma, Diabetes Mellitus, Dialysis, Sleep Apnea/CPAP/BIPAP, Thyroid Disorder History of Any Multi-Drug Resistant Organisms: None Reported Additional Past Surgical History / Comment(s): right fistula, left fistula old Past Psychological History: No Psychological Hx Reported Smoking Status: Never smoker Past Alcohol Use History: None Reported Past Drug Use History: None Reported - Past Family History Mother History Unknown: Yes Medications and Allergies Home Medications Medication Instructions Recorded Confirmed Type ALPRAZolam [Xanax] 0.5 mg PO DAILY 10/27/22 08/20/23 History Dicyclomine [Bentyl] 20 mg PO DAILY 10/27/22 08/20/23 History Isosorbide Dinitrate 20 mg PO BID 10/27/22 08/20/23 History Lidocaine-Prilocaine Cream [Emla 1 applic TOPICAL MOWEFR PRN 10/27/22 08/20/23 History Cream 2.5%/2.5%] Ondansetron [Zofran] 4 mg PO BID PRN 10/27/22 08/20/23 History Sevelamer [Renvela] 2,400 mg PO AC-TID 10/27/22 08/20/23 History allopurinoL [Zyloprim] 100 mg PO DAILY 10/27/22 08/20/23 History amLODIPine [Norvasc] 10 mg PO DAILY PRN 10/27/22 08/20/23 History carvediloL [Coreg] 25 mg PO BID-W/MEALS 10/27/22 08/20/23 History Insulin Lispro [humaLOG Kwikpen] See Protocol SQ AC-TID PRN 06/18/23 08/20/23 History Sevelamer [Renvela] 1,600 mg PO BID PRN 06/18/23 08/20/23 History Atorvastatin [Lipitor] 40 mg PO HS #30 tab 06/21/23 08/20/23 Rx Clopidogrel [Plavix] 75 mg PO DAILY #30 tablet 08/10/23 08/20/23 Rx hydrALAZINE HCL 50 mg PO BID #60 tablet 08/10/23 08/20/23 Rx Acetaminophen-Codeine 300-30mg 1 tab PO Q6HR PRN 08/20/23 08/20/23 History [Tylenol w/codeine #3] Albuterol Sulfate [Albuterol 1 puff PO Q4-6H PRN #8.5 gm 08/28/23 Rx Sulfate Hfa] Famotidine [Pepcid] 20 mg PO DAILY #30 tablet 08/28/23 Rx Insulin Glargine [Lantus Vial] 15 unit SQ HS #0 08/28/23 08/20/23 Rx cefUROXime axetiL [Ceftin] 500 mg PO BID 3 Days #6 tab 08/28/23 Rx Allergies Allergy/AdvReac Type Severity Reaction Status Date / Time Iodinated Contrast Media Allergy Unknown Verified 08/20/23 18:00 Phenothiazines Allergy Unknown Verified 08/20/23 18:00 prednisone Allergy Unknown Verified 08/20/23 18:00 Physical Exam Vitals: Vital Signs Temp Pulse Resp BP Pulse Ox 08/21/23 09:00 97.6 F 66 20 179/59 96 08/21/23 06:44 62 17 168/64 98 08/21/23 05:03 60 17 177/64 96 08/21/23 03:19 68 19 189/68 96 08/21/23 00:18 67 17 184/68 08/20/23 22:24 65 19 213/66 99 08/20/23 19:39 98.6 F 64 18 168/111 94 L 08/20/23 17:07 64 18 152/71 96 08/20/23 14:28 98.5 F 74 22 160/75 98 GENERAL DESCRIPTION: Elderly female lying in bed, no distress. No tachypnea or accessory muscle of respiration use. HEENT: Shows Pallor , no scleral icterus. Oral mucous membrane is dry. No pharyngeal erythema or thrush NECK: Trachea central, no thyromegaly. LUNGS: Unlabored breathing. Decreased breath sound the base HEART: S1, S2, regular rate and rhythm. No loud murmur ABDOMEN: Soft, no tenderness , guarding or rigidity, no organomegaly EXTREMITIES: No edema of feet. SKIN: Significant bruising to the left chest wall and left shoulder area NEUROLOGICAL: The patient is awake, alert, oriented x3, mood and affect normal. Results CBC & Chem 7: 08/28/23 07:59 08/28/23 07:59 Labs: Abnormal Lab Results - Last 24 Hours (Table) 08/20/23 08/20/23 08/20/23 Range/Units 16:06 16:06 16:06 RBC 3.47 L (3.80-5.40) m/uL Hgb 10.7 L D (11.4-16.0) gm/dL Hct 32.3 L (34.0-46.0) % Plt Count 103 L D (150-450) k/uL Lymphocytes # 0.5 L (1.0-4.8) k/uL Sodium 130 L (137-145) mmol/L Chloride 94 L (98-107) mmol/L BUN 57 H (7-17) mg/dL Creatinine 5.91 H (0.52-1.04) mg/dL Glucose 219 H (74-99) mg/dL POC Glucose (mg/dL) (70-110) mg/dL Calcium 7.9 L (8.4-10.2) mg/dL AST 41 H (14-36) U/L ALT 120 H (4-34) U/L Alkaline Phosphatase 205 H (38-126) U/L Total Protein 6.0 L (6.3-8.2) g/dL Albumin 3.3 L (3.5-5.0) g/dL Procalcitonin (0.02-0.09) ng/mL SARS-CoV-2 (PCR) Detected A (Not Detectd) 08/20/23 08/21/23 Range/Units 18:58 11:40 RBC (3.80-5.40) m/uL Hgb (11.4-16.0) gm/dL Hct (34.0-46.0) % Plt Count (150-450) k/uL Lymphocytes # (1.0-4.8) k/uL Sodium (137-145) mmol/L Chloride (98-107) mmol/L BUN (7-17) mg/dL Creatinine (0.52-1.04) mg/dL Glucose (74-99) mg/dL POC Glucose (mg/dL) 184 H (70-110) mg/dL Calcium (8.4-10.2) mg/dL AST (14-36) U/L ALT (4-34) U/L Alkaline Phosphatase (38-126) U/L Total Protein (6.3-8.2) g/dL Albumin (3.5-5.0) g/dL Procalcitonin 0.21 H (0.02-0.09) ng/mL SARS-CoV-2 (PCR) (Not Detectd) Assessment and Plan (1) COVID-19 Status: Acute Code(s): U07.1 - COVID-19 SNOMED Code(s): 492283280 (2) Pneumonia Status: Acute Code(s): J18.9 - PNEUMONIA, UNSPECIFIED ORGANISM SNOMED Code(s): 375826885 Plan: 1patient presented to hospital after the patient have a syncopal episode at dialysis in this patient with no fever did not have any respiratory symptoms tested positive for COVID-19 with a question of incidental finding patient chest x-ray did show some retrocardiac infiltrate and a question of possible secondary bacterial pneumonia rather than related to COVID-19 2-patient do have renal failure and no significant hypoxemia documented not an ideal candidate for remdesivir 3-we will check procalcitonin level 4-continue with empiric Rocephin while waiting for the workup to be completed We will follow on clinical condition and cultures to further adjust medication if needed Thank you for this consultation we will follow the patient along with you Dictation was produced using [employer] dictation software. please excuse any grammatical, word or spelling errors. Time with Patient: Greater than 30
--- NOTE | 2023-08-22 22:15 | P.PN ---
Subjective Progress Note Date: 08/22/23 Principal diagnosis: Reason for follow-up is positive COVID-19 test and a question of pneumonia Patient is a 72-year female with a past medical history significant for end-stage renal disease on dialysis patient was brought into the hospital after the patient did have a syncopal episode and dialysis she tested positive for COVID-19 however the patient did not have any hypoxemia chest x-ray was suggestive of retrocardiac infiltrate and did have mildly elevated proca lcitonin. On today's evaluation that is 08/22/2023, The patient denies having any fever or any chills, the patient is breathing comfortably she is currently on 3 L nasal cannula oxygen however O2 sats were checked on room air she was satting 97% patient denies having any chest pain or cough no nausea vomiting no abdominal pain or diarrhea has been complaining of some discomfort to the left upper chest and arm area with the patient did have a bruise from recent fall. Patient did have white count of 6.26 creatinine is 5.91 Pro-Lex 0.21 Objective - Vital Signs Vital signs: Vital Signs Temp 98.7 F 08/22/23 07:59 Pulse 58 L 08/22/23 08:55 Resp 22 08/22/23 07:59 BP 179/67 08/22/23 07:59 Pulse Ox 97 08/22/23 07:59 FiO2 Intake & Output 08/21/23 08/22/23 08/22/23 18:59 06:59 18:59 Other: # Voids 3 - Exam GENERAL DESCRIPTION: An elderly female lying in bed in no distress RESPIRATORY SYSTEM: Unlabored breathing , decreased breath sounds at bases HEART: S1 S2 regular rate and rhythm , ABDOMEN: Soft , no tenderness EXTREMITIES: No edema feet - Labs CBC & Chem 7: 08/22/23 06:27 08/22/23 06:27 Labs: Abnormal Lab Results - Last 24 Hours (Table) 08/21/23 08/21/23 08/21/23 Range/Units 13:11 17:19 20:25 RBC (4.10-5.20) X 10*6/uL Hgb (12.0-15.0) g/dL Hct (37.2-46.3) % RDW (11.5-14.5) % Plt Count (140-440) X 10*3/uL Immature Gran # (0.00-0.04) X 10*3/uL D-Dimer 1.50 H (<0.60) mg/L FEU Potassium (3.5-5.5) mmol/L Anion Gap (4.00-12.00) mmol/L BUN (9.0-27.0) mg/dL Creatinine (0.6-1.5) mg/dL Est GFR (CKD-EPI) (>=60) BUN/Creatinine Ratio (12.00-20.00) Ratio POC Glucose (mg/dL) 228 H 213 H (70-110) mg/dL Hemoglobin A1c (<=6.0) % Calcium (8.7-10.3) mg/dL 08/22/23 08/22/23 08/22/23 Range/Units 05:40 06:27 06:27 RBC 2.90 L (4.10-5.20) X 10*6/uL Hgb 8.7 L (12.0-15.0) g/dL Hct 27.1 L (37.2-46.3) % RDW 15.7 H (11.5-14.5) % Plt Count 133 L (140-440) X 10*3/uL Immature Gran # 0.05 H (0.00-0.04) X 10*3/uL D-Dimer (<0.60) mg/L FEU Potassium (3.5-5.5) mmol/L Anion Gap (4.00-12.00) mmol/L BUN (9.0-27.0) mg/dL Creatinine (0.6-1.5) mg/dL Est GFR (CKD-EPI) (>=60) BUN/Creatinine Ratio (12.00-20.00) Ratio POC Glucose (mg/dL) 112 H (70-110) mg/dL Hemoglobin A1c 6.5 H (<=6.0) % Calcium (8.7-10.3) mg/dL 08/22/23 08/22/23 Range/Units 06:27 11:07 RBC (4.10-5.20) X 10*6/uL Hgb (12.0-15.0) g/dL Hct (37.2-46.3) % RDW (11.5-14.5) % Plt Count (140-440) X 10*3/uL Immature Gran # (0.00-0.04) X 10*3/uL D-Dimer (<0.60) mg/L FEU Potassium 6.0 H (3.5-5.5) mmol/L Anion Gap 16.60 H (4.00-12.00) mmol/L BUN 80.0 H (9.0-27.0) mg/dL Creatinine 9.1 A* (0.6-1.5) mg/dL Est GFR (CKD-EPI) 4 L (>=60) BUN/Creatinine Ratio 8.79 L (12.00-20.00) Ratio POC Glucose (mg/dL) 149 H (70-110) mg/dL Hemoglobin A1c (<=6.0) % Calcium 7.9 L (8.7-10.3) mg/dL Assessment and Plan (1) Pneumonia Current Visit: Yes Status: Acute Code(s): J18.9 - PNEUMONIA, UNSPECIFIED ORGANISM SNOMED Code(s): 041015563 (2) COVID-19 Current Visit: Yes Status: Acute Code(s): U07.1 - COVID-19 SNOMED Code(s): 141617799 Plan: 1patient presented to hospital after the patient have a syncopal episode at dialysis in this patient with no fever did not have any respiratory symptoms tested positive for COVID-19 with a question of incidental finding patient chest x-ray did show some retrocardiac infiltrate and a question of possible secondary bacterial pneumonia rather than related to COVID-19 2-patient do have renal failure and no significant hypoxemia documented not an ideal candidate for remdesivir 3-patient did have mild elevated procalcitonin level and with a retrocardiac infiltrate concern for possible secondary bacterial pneumonia 4-patient to continue with Rocephin and monitor clinical course closely Dictation was produced using [employer] dictation software. please excuse any grammatical, word or spelling errors. Time with Patient: Less than 30
[2023-08-23 05:36] LABS: Glucose,Whole Blood 58 mg/dL (70-110)
[2023-08-23 05:51] LABS: Glucose,Whole Blood 91 mg/dL (70-110)
[2023-08-23] MEDS: INSULIN ASPART (NovoLOG) 100 UNIT/ML VIAL SQ SCH ×4 (06:06→21:45)
--- NOTE | 2023-08-23 07:14 | XR ---
EXAMINATION TYPE: XR chest 1V portable DATE OF EXAM: 08/23/2023 COMPARISON: 08/20/2023 INDICATION: Short of breath TECHNIQUE: Single frontal view of the chest is obtained. FINDINGS: The heart size is mildly prominent. The pulmonary vasculature is normal. The lungs are clear. IMPRESSION: 1. Mild cardiomegaly. 2. No acute pulmonary process radiographically
--- NOTE | 2023-08-23 07:37 | PN ---
PROGRESS NOTE DATE OF SERVICE: 08/22/2023 SUBJECTIVE: This 72-year-old woman was admitted with syncope as well as acute COVID-19 infection, is being closely monitored. Blood pressure is improved. The patient is able to tolerate hemodialysis today. Multiple consultants are following the patient closely. Hemoglobin is 8.7. V/Q scan has been recommended. OBJECTIVE: VITAL SIGNS: Pulse 57, blood pressure 167/70, and respirations 18. CHEST: Clear to auscultation. CARDIOVASCULAR: S1, S2. ABDOMEN: Soft. NERVOUS SYSTEM: Nonfocal. LABORATORY DATA: Reviewed. ASSESSMENT: 1. Syncope, possibly secondary to hypotension. 2. Acute COVID-19 infection with possible COVID-19 pneumonia. 3. Hypertension. 4. Possible super added bacterial pneumonia with elevated procalcitonin. 5. Thrombocytopenia. 6. End-stage renal disease, on hemodialysis. 7. Anemia, multifactorial. 8. History of asthma. 9. History of hemodialysis. 10.Hypothyroidism. 11.History of sleep apnea. RECOMMENDATIONS: I recommended to continue current management, continue symptomatic treatment, otherwise closely follow with Infectious Disease as well as Nephrology. Continue the hemodialysis. We will start the patient on Norvasc. We will continue to monitor. Guarded prognosis. Further recommendations to follow. MMODL / IJN: [id number] /
[2023-08-23] MEDS: amLODIPine 10 MG TAB PO SCH (08:06)
[2023-08-23] MEDS: hydrALAZINE HCL 50 MG TAB PO SCH ×2 (08:06→21:36)
[2023-08-23] MEDS: ZINC SULFATE 220 MG CAP PO SCH (08:06)
[2023-08-23] MEDS: CLOPIDOGREL 75 MG TAB PO SCH (08:06)
[2023-08-23] MEDS: HEPARIN SODIUM,PORCINE 5,000 UNIT/ML 1 ML VIAL SQ SCH ×2 (08:06→21:46)
[2023-08-23] MEDS: DICYCLOMINE 20 MG TAB PO SCH (08:06)
[2023-08-23] MEDS: allopurinoL 100 MG TAB PO SCH (08:06)
[2023-08-23] MEDS: carvediloL 12.5 MG TAB PO SCH ×2 (08:06→17:33)
[2023-08-23] MEDS: ALPRAZolam 0.5 MG TAB PO SCH (08:06)
[2023-08-23] MEDS: SEVELAMER 800 MG TAB PO SCH ×3 (08:07→17:33)
[2023-08-23] MEDS: ISOSORBIDE DINITRATE 20 MG TAB PO SCH ×2 (08:07→21:36)
[2023-08-23] MEDS: ALBUTEROL HFA INHALER INHALATION SCH ×4 (08:46→19:58)
[2023-08-23 09:32] LABS: ALT 60 U/L (8-44); AST 21 U/L (13-35); Albumin 3.4 g/dL (3.8-4.9); Albumin/Globulin Ratio 1.21 Ratio (1.60-3.17); Alkaline Phosphatase 153 U/L (41-126); Blood Urea Nitrogen 49.8 mg/dL (9.0-27.0); Calcium 8.2 mg/dL (8.7-10.3); Carbon Dioxide 22.8 mmol/L (21.6-31.8); Chloride 95 mmol/L (96-109); Globulin 2.8 g/dL (1.6-3.3); Glucose 102 mg/dL (70-110); Sodium 137 mmol/L (135-145); Total Bilirubin 0.4 mg/dL (0.3-1.2); Total Protein 6.2 g/dL (6.2-8.2)
[2023-08-23 09:35] LABS: Basophils # (A) 0.04 X 10*3/uL (0.00-0.10); Basophils % (A) 0.6 %; Eosinophils % (A) 1.4 %; HCT 34.4 % (37.2-46.3); HGB 10.3 g/dL (12.0-15.0); Lymphocytes # (A) 0.81 X 10*3/uL (0.90-5.00); Lymphocytes % (A) 11.5 %; MCHC 29.9 g/dL (32.0-37.0); MCV 100.3 FL (80.0-97.0); Mean Platelet Volume 12.4 FL (9.5-12.2); Monocytes # (A) 0.49 X 10*3/uL (0.20-1.00); NRBC Per 100 WBC 0 X 10*3/uL (0.00-0.01); Neutrophils # (A) 5.53 X 10*3/uL (1.80-7.70); Neutrophils % (A) 78.5 %; Platelet Count 99 X 10*3/uL (140-440); RBC 3.43 X 10*6/uL (4.10-5.20); RDW 15.9 % (11.5-14.5); WBC 7.04 X 10*3/uL (4.50-10.00)
[2023-08-23 11:23] LABS: Glucose,Whole Blood 110 mg/dL (70-110)
--- NOTE | 2023-08-23 12:49 | P.PN ---
Subjective Patient is seen for follow-up for end-stage renal disease. Status post hemodialysis yesterday with UF of 1.8 L. No significant complaints today. Objective - Vital Signs Vital signs: Vital Signs Temp 97.5 F L 08/23/23 09:45 Pulse 71 08/23/23 09:45 Resp 19 08/23/23 09:45 BP 116/57 08/23/23 09:45 Pulse Ox 100 08/23/23 09:45 FiO2 Intake & Output 08/22/23 08/23/23 08/23/23 18:59 06:59 18:59 Intake Total 500 200 Output Total 1850 Balance -1350 200 Intake: Oral 200 Hemodialysis 500 Output: Urine 0 Hemodialysis 1850 Other: # Voids 1 # Bowel Movements 1 - Exam atient is aake, comfortable, no acute distress. Answers questions appropriately. Lungs are clear CVS S1 and S2 Abdomen is soft, non tender. 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 - Labs CBC & Chem 7: 08/23/23 06:16 08/23/23 06:16 Labs: Abnormal Lab Results - Last 24 Hours (Table) 08/22/23 08/22/23 08/23/23 Range/Units 17:17 20:35 05:30 RBC (4.10-5.20) X 10*6/uL Hgb (12.0-15.0) g/dL Hct (37.2-46.3) % MCV (80.0-97.0) FL MCHC (32.0-37.0) g/dL RDW (11.5-14.5) % Plt Count (140-440) X 10*3/uL MPV (9.5-12.2) FL Immature Gran # (0.00-0.04) X 10*3/uL Lymphocytes # (0.90-5.00) X 10*3/uL Chloride (96-109) mmol/L Anion Gap (4.00-12.00) mmol/L BUN (9.0-27.0) mg/dL Creatinine (0.6-1.5) mg/dL Est GFR (CKD-EPI) (>=60) BUN/Creatinine Ratio (12.00-20.00) Ratio POC Glucose (mg/dL) 232 H 319 H 58 L (70-110) mg/dL Calcium (8.7-10.3) mg/dL ALT (8-44) U/L Alkaline Phosphatase (41-126) U/L Albumin (3.8-4.9) g/dL Albumin/Globulin Ratio (1.60-3.17) Ratio 08/23/23 08/23/23 Range/Units 06:16 06:16 RBC 3.43 L (4.10-5.20) X 10*6/uL Hgb 10.3 L (12.0-15.0) g/dL Hct 34.4 L (37.2-46.3) % MCV 100.3 H (80.0-97.0) FL MCHC 29.9 L (32.0-37.0) g/dL RDW 15.9 H (11.5-14.5) % Plt Count 99 L (140-440) X 10*3/uL MPV 12.4 H (9.5-12.2) FL Immature Gran # 0.07 H (0.00-0.04) X 10*3/uL Lymphocytes # 0.81 L (0.90-5.00) X 10*3/uL Chloride 95 L (96-109) mmol/L Anion Gap 19.20 H (4.00-12.00) mmol/L BUN 49.8 H (9.0-27.0) mg/dL Creatinine 6.3 H (0.6-1.5) mg/dL Est GFR (CKD-EPI) 7 L (>=60) BUN/Creatinine Ratio 7.90 L (12.00-20.00) Ratio POC Glucose (mg/dL) (70-110) mg/dL Calcium 8.2 L (8.7-10.3) mg/dL ALT 60 H (8-44) U/L Alkaline Phosphatase 153 H (41-126) U/L Albumin 3.4 L (3.8-4.9) g/dL Albumin/Globulin Ratio 1.21 L (1.60-3.17) Ratio Microbiology - Last 24 Hours (Table) 08/21/23 13:11 Blood Culture - Preliminary Blood Assessment and Plan Assessment: 1. End stage renal disease on HD on a MWF schedule. 2. Syncopal episode post HD with no documented hypotension. BP noted to high. Neurology consult 3. CKD mineral bone disorder. 4. HTN with CKD stage 5, uncontrolled. Increase hydralazine to 50 mg tid 5. Small infiltrate noted at the right arm AV fistula site. Plan: Hemodialysis in a.m. goal UF of about 2 L.
--- NOTE | 2023-08-23 15:07 | P.PN ---
Subjective Progress Note Date: 08/23/23 Principal diagnosis: Reason for follow-up is positive COVID-19 test and a question of pneumonia Patient is a 72-year female with a past medical history significant for end-stage renal disease on dialysis patient was brought into the hospital after the patient did have a syncopal episode and dialysis she tested positive for COVID-19 however the patient did not have any hypoxemia chest x-ray was suggestive of retrocardiac infiltrate and did have mildly elevated proca lcitonin. On today's evaluation that is 08/23/2023, The patient remains to be afebrile, the patient is breathing comfortably on 4 L nasal cannula oxygen, patient denies having any chest pain or cough no nausea vomiting no abdominal pain or diarrhea has been complaining of some discomfort to the left upper chest and arm area with the patient did have a bruise from recent fall. Feeling better no new symptoms Patient did have white count of 7.04, creatinine is 6.3 Pro-Lex 0.21 Objective - Vital Signs Vital signs: Vital Signs Temp 97.5 F L 08/23/23 09:45 Pulse 71 08/23/23 09:45 Resp 19 08/23/23 09:45 BP 116/57 08/23/23 09:45 Pulse Ox 100 08/23/23 09:45 FiO2 Intake & Output 08/22/23 08/23/23 08/23/23 18:59 06:59 18:59 Intake Total 500 200 Output Total 1850 0 Balance -1350 200 Intake: Oral 200 Hemodialysis 500 Output: Urine 0 0 Hemodialysis 1850 Other: # Voids 1 # Bowel Movements 1 - Exam GENERAL DESCRIPTION: An elderly female lying in bed in no distress RESPIRATORY SYSTEM: Unlabored breathing , decreased breath sounds at bases HEART: S1 S2 regular rate and rhythm , ABDOMEN: Soft , no tenderness EXTREMITIES: No edema feet - Labs CBC & Chem 7: 08/23/23 06:16 08/23/23 06:16 Labs: Abnormal Lab Results - Last 24 Hours (Table) 08/22/23 08/22/23 08/23/23 Range/Units 17:17 20:35 05:30 RBC (4.10-5.20) X 10*6/uL Hgb (12.0-15.0) g/dL Hct (37.2-46.3) % MCV (80.0-97.0) FL MCHC (32.0-37.0) g/dL RDW (11.5-14.5) % Plt Count (140-440) X 10*3/uL MPV (9.5-12.2) FL Immature Gran # (0.00-0.04) X 10*3/uL Lymphocytes # (0.90-5.00) X 10*3/uL Chloride (96-109) mmol/L Anion Gap (4.00-12.00) mmol/L BUN (9.0-27.0) mg/dL Creatinine (0.6-1.5) mg/dL Est GFR (CKD-EPI) (>=60) BUN/Creatinine Ratio (12.00-20.00) Ratio POC Glucose (mg/dL) 232 H 319 H 58 L (70-110) mg/dL Calcium (8.7-10.3) mg/dL ALT (8-44) U/L Alkaline Phosphatase (41-126) U/L Albumin (3.8-4.9) g/dL Albumin/Globulin Ratio (1.60-3.17) Ratio 08/23/23 08/23/23 Range/Units 06:16 06:16 RBC 3.43 L (4.10-5.20) X 10*6/uL Hgb 10.3 L (12.0-15.0) g/dL Hct 34.4 L (37.2-46.3) % MCV 100.3 H (80.0-97.0) FL MCHC 29.9 L (32.0-37.0) g/dL RDW 15.9 H (11.5-14.5) % Plt Count 99 L (140-440) X 10*3/uL MPV 12.4 H (9.5-12.2) FL Immature Gran # 0.07 H (0.00-0.04) X 10*3/uL Lymphocytes # 0.81 L (0.90-5.00) X 10*3/uL Chloride 95 L (96-109) mmol/L Anion Gap 19.20 H (4.00-12.00) mmol/L BUN 49.8 H (9.0-27.0) mg/dL Creatinine 6.3 H (0.6-1.5) mg/dL Est GFR (CKD-EPI) 7 L (>=60) BUN/Creatinine Ratio 7.90 L (12.00-20.00) Ratio POC Glucose (mg/dL) (70-110) mg/dL Calcium 8.2 L (8.7-10.3) mg/dL ALT 60 H (8-44) U/L Alkaline Phosphatase 153 H (41-126) U/L Albumin 3.4 L (3.8-4.9) g/dL Albumin/Globulin Ratio 1.21 L (1.60-3.17) Ratio Microbiology - Last 24 Hours (Table) 08/21/23 13:11 Blood Culture - Preliminary Blood Assessment and Plan (1) Pneumonia Current Visit: Yes Status: Acute Code(s): J18.9 - PNEUMONIA, UNSPECIFIED ORGANISM SNOMED Code(s): 076495522 (2) COVID-19 Current Visit: Yes Status: Acute Code(s): U07.1 - COVID-19 SNOMED Code(s): 409067818 Plan: 1patient presented to hospital after the patient have a syncopal episode at dialysis in this patient with no fever did not have any respiratory symptoms tested positive for COVID-19 with a question of incidental finding patient chest x-ray did show some retrocardiac infiltrate and a question of possible secondary bacterial pneumonia rather than related to COVID-19 2-patient do have renal failure and no significant hypoxemia documented not an ideal candidate for remdesivir 3-patient did have mild elevated procalcitonin level and with a retrocardiac infiltrate concern for possible secondary bacterial pneumonia 4-patient did have some clinical improvement and will continue with Rocephin and monitor clinical course closely Dictation was produced using [employer] dictation software. please excuse any grammatical, word or spelling errors. Time with Patient: Less than 30
[2023-08-23 16:51] LABS: Glucose,Whole Blood 155 mg/dL (70-110)
[2023-08-23 19:12] LABS: Glucose,Whole Blood 223 mg/dL (70-110)
[2023-08-23] MEDS: ATORVASTATIN 40 MG TAB PO SCH (21:36)
[2023-08-23] MEDS: INSULIN DETEMIR (LEVEMIR) 100 UNIT/ML SYR SQ SCH (21:46)
--- NOTE | 2023-08-24 03:04 | PN ---
PROGRESS NOTE DATE OF SERVICE: 08/23/2023 SUBJECTIVE: This is a 72-year-old woman who was admitted with syncope secondary to hypotension. She is not feeling well today. The patient also had acute COVID-19 infection. The chest x-ray which I reviewed personally which was done today showed no acute abnormality except mild cardiomegaly. OBJECTIVE: VITAL SIGNS: Pulse is 71, blood pressure 160/51, respirations 19. CHEST: Few scattered rhonchi. ABDOMEN: Soft. NERVOUS SYSTEM: No focal deficits. LABORATORY DATA: Hemoglobin 10.2. Rest of the labs are noted. ASSESSMENT: 1. Syncope, possibly secondary to hypotension. 2. Acute COVID-19 infection, status post possible COVID-19 pneumonia. 3. Possible superadded bacterial pneumonia, retrocardiac. 4. Hypertension. 5. Elevated procalcitonin. 6. Thrombocytopenia. 7. End-stage renal disease, on hemodialysis. 8. Anemia, multifactorial. 9. Asthma. 10.Hemodialysis. 11.Hypothyroidism. 12.Sleep apnea. RECOMMENDATIONS: Recommended to continue current management, continue symptomatic treatment, continue with current medications and I would also recommend repeat labs. D-dimer is elevated. V/Q scan has been ordered. Guarded prognosis. Further recommendations to follow. MMODL / IJN: [id number] /
[2023-08-24 06:01] LABS: Glucose,Whole Blood 46 mg/dL (70-110)
[2023-08-24] MEDS: INSULIN ASPART (NovoLOG) 100 UNIT/ML VIAL SQ SCH ×4 (06:05→22:12)
[2023-08-24 06:24] LABS: Glucose,Whole Blood 55 mg/dL (70-110)
[2023-08-24 06:53] LABS: Glucose,Whole Blood 80 mg/dL (70-110)
[2023-08-24] MEDS: carvediloL 12.5 MG TAB PO SCH ×2 (08:08→16:53)
[2023-08-24] MEDS: amLODIPine 10 MG TAB PO SCH (08:08)
[2023-08-24] MEDS: hydrALAZINE HCL 50 MG TAB PO SCH ×2 (08:08→23:24)
[2023-08-24] MEDS: ISOSORBIDE DINITRATE 20 MG TAB PO SCH ×2 (08:09→23:25)
[2023-08-24] MEDS: HEPARIN SODIUM,PORCINE 5,000 UNIT/ML 1 ML VIAL SQ SCH ×2 (08:09→22:13)
[2023-08-24] MEDS: DICYCLOMINE 20 MG TAB PO SCH (08:11)
[2023-08-24] MEDS: ZINC SULFATE 220 MG CAP PO SCH (08:11)
[2023-08-24] MEDS: CLOPIDOGREL 75 MG TAB PO SCH (08:11)
[2023-08-24] MEDS: SEVELAMER 800 MG TAB PO SCH ×3 (08:11→16:53)
[2023-08-24] MEDS: ALPRAZolam 0.5 MG TAB PO SCH (08:11)
[2023-08-24] MEDS: allopurinoL 100 MG TAB PO SCH (08:11)
[2023-08-24] MEDS: ALBUTEROL HFA INHALER INHALATION SCH ×4 (09:19→21:44)
[2023-08-24 11:38] LABS: Glucose,Whole Blood 109 mg/dL (70-110)
[2023-08-24 11:52] LABS: Basophils # (A) 0.04 X 10*3/uL (0.00-0.10); Basophils % (A) 0.3 %; Eosinophils # (A) 0.17 X 10*3/uL (0.04-0.35); Eosinophils % (A) 1.2 %; HCT 32.4 % (37.2-46.3); HGB 10.2 g/dL (12.0-15.0); Lymphocytes # (A) 1.89 X 10*3/uL (0.90-5.00); Lymphocytes % (A) 13.6 %; MCH 29.3 pg (27.0-32.0); MCHC 31.5 g/dL (32.0-37.0); MCV 93.1 FL (80.0-97.0); Mean Platelet Volume 12.2 FL (9.5-12.2); Monocytes # (A) 0.84 X 10*3/uL (0.20-1.00); Monocytes % (A) 6.1 %; NRBC Per 100 WBC 0 X 10*3/uL (0.00-0.01); Platelet Count 190 X 10*3/uL (140-440); RBC 3.48 X 10*6/uL (4.10-5.20); RBC Morphology Normal (Normal); RDW 15.7 % (11.5-14.5); WBC 13.85 X 10*3/uL (4.50-10.00)
--- NOTE | 2023-08-24 12:49 | P.PN ---
Subjective Patient is seen for follow-up for end-stage renal disease. Seen on hemodialysis. Tolerating treatment well. No significant complaints today. Objective - Vital Signs Vital signs: Vital Signs Temp 97.7 F 08/24/23 08:00 Pulse 61 08/24/23 08:00 Resp 18 08/24/23 08:00 BP 178/77 08/24/23 08:00 Pulse Ox 98 08/24/23 08:00 FiO2 Intake & Output 08/23/23 08/24/23 08/24/23 18:59 06:59 18:59 Intake Total 200 Output Total 0 Balance 200 Intake: Oral 200 Output: Urine 0 Other: # Voids 0 # Bowel Movements 1 - Exam atient is aake, comfortable, no acute distress. Answers questions appropriately. Lungs are clear CVS S1 and S2 Abdomen is soft, non tender. 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 - Labs CBC & Chem 7: 08/24/23 06:10 08/23/23 06:16 Labs: Abnormal Lab Results - Last 24 Hours (Table) 08/23/23 08/23/23 08/24/23 Range/Units 16:50 19:11 05:59 WBC (4.50-10.00) X 10*3/uL RBC (4.10-5.20) X 10*6/uL Hgb (12.0-15.0) g/dL Hct (37.2-46.3) % MCHC (32.0-37.0) g/dL RDW (11.5-14.5) % Immature Gran # (0.00-0.04) X 10*3/uL Neutrophils # (1.80-7.70) X 10*3/uL POC Glucose (mg/dL) 155 H 223 H 46 L (70-110) mg/dL 08/24/23 08/24/23 Range/Units 06:10 06:22 WBC 13.85 H (4.50-10.00) X 10*3/uL RBC 3.48 L (4.10-5.20) X 10*6/uL Hgb 10.2 L (12.0-15.0) g/dL Hct 32.4 L (37.2-46.3) % MCHC 31.5 L (32.0-37.0) g/dL RDW 15.7 H (11.5-14.5) % Immature Gran # 0.11 H (0.00-0.04) X 10*3/uL Neutrophils # 10.80 H (1.80-7.70) X 10*3/uL POC Glucose (mg/dL) 55 L (70-110) mg/dL Microbiology - Last 24 Hours (Table) 08/21/23 13:11 Blood Culture - Preliminary Blood Assessment and Plan Assessment: 1. End stage renal disease on HD on a MWF schedule. 2. Syncopal episode post HD with no documented hypotension. Neurology consult 3. CKD mineral bone disorder. 4. HTN with CKD stage 5, uncontrolled. Increase hydralazine to 50 mg tid 5. Small infiltrate noted at the right arm AV fistula site. 6. Covid positive Plan: Hemodialysis today with goal UF about 2 L Antibiotics as per ID
[2023-08-24 16:33] LABS: Glucose,Whole Blood 123 mg/dL (70-110)
[2023-08-24 20:49] LABS: Glucose,Whole Blood 183 mg/dL (70-110)
[2023-08-24] MEDS: ONDANSETRON 4 MG/2 ML VIAL IVP PRN (20:54)
--- NOTE | 2023-08-24 20:56 | P.PN ---
Subjective Progress Note Date: 08/24/23 Principal diagnosis: Reason for follow-up is positive COVID-19 test and a question of pneumonia Patient is a 72-year female with a past medical history significant for end-stage renal disease on dialysis patient was brought into the hospital after the patient did have a syncopal episode and dialysis she tested positive for COVID-19 however the patient did not have any hypoxemia chest x-ray was suggestive of retrocardiac infiltrate and did have mildly elevated proca lcitonin. On today's evaluation that is 08/24/2023, The patient continues to be afebrile, the patient is breathing comfortably on 2 L nasal cannula oxygen, patient denies having any chest pain, did have occasional dry cough no nausea vomiting no abdominal pain or diarrhea, no new symptoms Patient did have white count of 13.85, creatinine is 6.3 Pro-Lex 0.21 Objective - Vital Signs Vital signs: Vital Signs Temp 97.5 F L 08/24/23 13:01 Pulse 69 08/24/23 13:01 Resp 18 08/24/23 13:01 BP 142/71 08/24/23 13:01 Pulse Ox 98 08/24/23 13:01 FiO2 Intake & Output 08/23/23 08/24/23 08/24/23 18:59 06:59 18:59 Intake Total 200 500 Output Total 0 2000 Balance 200 -1500 Intake: Oral 200 Hemodialysis 500 Output: Urine 0 Hemodialysis 2000 Other: # Voids 0 # Bowel Movements 1 - Exam GENERAL DESCRIPTION: An elderly female lying in bed in no distress RESPIRATORY SYSTEM: Unlabored breathing , decreased breath sounds at bases HEART: S1 S2 regular rate and rhythm , ABDOMEN: Soft , no tenderness EXTREMITIES: No edema feet - Labs CBC & Chem 7: 08/24/23 06:10 08/23/23 06:16 Labs: Abnormal Lab Results - Last 24 Hours (Table) 08/23/23 08/23/23 08/24/23 Range/Units 16:50 19:11 05:59 WBC (4.50-10.00) X 10*3/uL RBC (4.10-5.20) X 10*6/uL Hgb (12.0-15.0) g/dL Hct (37.2-46.3) % MCHC (32.0-37.0) g/dL RDW (11.5-14.5) % Immature Gran # (0.00-0.04) X 10*3/uL Neutrophils # (1.80-7.70) X 10*3/uL POC Glucose (mg/dL) 155 H 223 H 46 L (70-110) mg/dL 08/24/23 08/24/23 Range/Units 06:10 06:22 WBC 13.85 H (4.50-10.00) X 10*3/uL RBC 3.48 L (4.10-5.20) X 10*6/uL Hgb 10.2 L (12.0-15.0) g/dL Hct 32.4 L (37.2-46.3) % MCHC 31.5 L (32.0-37.0) g/dL RDW 15.7 H (11.5-14.5) % Immature Gran # 0.11 H (0.00-0.04) X 10*3/uL Neutrophils # 10.80 H (1.80-7.70) X 10*3/uL POC Glucose (mg/dL) 55 L (70-110) mg/dL Microbiology - Last 24 Hours (Table) 08/21/23 13:11 Blood Culture - Preliminary Blood Assessment and Plan (1) Pneumonia Current Visit: Yes Status: Acute Code(s): J18.9 - PNEUMONIA, UNSPECIFIED ORGANISM SNOMED Code(s): 964275668 (2) COVID-19 Current Visit: Yes Status: Acute Code(s): U07.1 - COVID-19 SNOMED Code(s): 838865235 Plan: 1patient presented to hospital after the patient have a syncopal episode at dialysis in this patient with no fever did not have any respiratory symptoms te sted positive for COVID-19 with a question of incidental finding patient chest x-ray did show some retrocardiac infiltrate and a question of possible secondary bacterial pneumonia rather than related to COVID-19 2-patient did have mild elevated procalcitonin level and with a retrocardiac infiltrate concern for possible secondary bacterial pneumonia 4-patient did have some clinical improvement and will continue with Rocephin, did have slight worsening of the white count we will repeat a CBC and inflammatory markers with a.m. labs and a chest x-ray Dictation was produced using [employer] software. please excuse any grammatical, word or spelling errors. Time with Patient: Less than 30
[2023-08-24] MEDS: INSULIN DETEMIR (LEVEMIR) 100 UNIT/ML SYR SQ SCH (22:12)
[2023-08-24] MEDS: ATORVASTATIN 40 MG TAB PO SCH (23:24)
--- NOTE | 2023-08-24 23:56 | PN ---
PROGRESS NOTE DATE OF SERVICE: 08/24/2023 SUBJECTIVE: This is a 72-year-old woman, who was admitted with syncope, possibly secondary to hypotension, is complaining of weakness. The patient is receiving hemodialysis. The patient also had possible COVID pneumonia also and retrocardiac pneumonia is also suspected. Multiple consultants are following the patient closely. The patient has hypoglycemia. PAST MEDICAL HISTORY: Reviewed. REVIEW OF SYSTEMS: A 14-point review is negative except as mentioned earlier. CURRENT MEDICATIONS: Reviewed include Fluv[place], doses and rest of medications noted. PHYSICAL EXAMINATION: VITAL SIGNS: Pulse is 61, blood pressure 170/87, respirations 18. CHEST: A few scattered rhonchi and crackles. ABDOMEN: Soft. NERVOUS SYSTEM: Nonfocal. LABORATORY DATA: Noted. Glucose 46. Chest x-ray reviewed personally. ASSESSMENT: 1. Syncope, possibly secondary to hypotension, present on admission. 2. Acute COVID-19 infection with possible COVID-19 pneumonia. 3. Possible superadded bacterial pneumonia, retrocardiac. 4. Hypoglycemia. 5. Hypertension. 6. Elevated procalcitonin. 7. Thrombocytopenia. 8. History of renal disease, on hemodialysis. 9. Anemia, multifactorial. 10.Asthma. 11.Hypothyroidism. 12.Sleep apnea. 13.Multiple complex medical issues. 14.Full code. RECOMMENDATIONS: Recommended to continue current management, continue symptomatic treatment. Reduce Levemir to 30 units. Continue with Rocephin. Follow the cultures. Closely follow with multiple consultants. PT OT evaluation. Prognosis guarded. Further recommendations to follow. See order for further details. Discussed at length with the family. MMODL / IJN: [id number] /
[2023-08-25] MEDS: ONDANSETRON 4 MG/2 ML VIAL IVP PRN (05:08)
[2023-08-25 05:11] LABS: Glucose,Whole Blood 69 mg/dL (70-110)
[2023-08-25 06:07] LABS: Glucose,Whole Blood 77 mg/dL (70-110)
[2023-08-25] MEDS: INSULIN ASPART (NovoLOG) 100 UNIT/ML VIAL SQ SCH ×4 (06:39→21:31)
[2023-08-25] MEDS: SEVELAMER 800 MG TAB PO SCH ×3 (06:45→17:41)
[2023-08-25] MEDS: carvediloL 12.5 MG TAB PO SCH ×2 (06:45→17:42)
[2023-08-25] MEDS: ALBUTEROL HFA INHALER INHALATION SCH ×4 (08:28→21:15)
[2023-08-25] MEDS: HEPARIN SODIUM,PORCINE 5,000 UNIT/ML 1 ML VIAL SQ SCH ×2 (08:49→21:30)
[2023-08-25] MEDS: hydrALAZINE HCL 50 MG TAB PO SCH ×2 (08:50→21:30)
[2023-08-25] MEDS: CLOPIDOGREL 75 MG TAB PO SCH (08:50)
[2023-08-25] MEDS: ALPRAZolam 0.5 MG TAB PO SCH (08:50)
[2023-08-25] MEDS: allopurinoL 100 MG TAB PO SCH (08:50)
[2023-08-25] MEDS: amLODIPine 10 MG TAB PO SCH (08:50)
[2023-08-25] MEDS: ZINC SULFATE 220 MG CAP PO SCH ×2 (08:50→08:59)
[2023-08-25] MEDS: DICYCLOMINE 20 MG TAB PO SCH (08:50)
[2023-08-25] MEDS: ISOSORBIDE DINITRATE 20 MG TAB PO SCH ×2 (08:50→21:30)
[2023-08-25 10:15] LABS: Basophils # (A) 0.02 X 10*3/uL (0.00-0.10); Basophils % (A) 0.2 %; Eosinophils # (A) 0.05 X 10*3/uL (0.04-0.35); Eosinophils % (A) 0.4 %; HCT 31.4 % (37.2-46.3); HGB 9.9 g/dL (12.0-15.0); Lymphocytes # (A) 1.45 X 10*3/uL (0.90-5.00); Lymphocytes % (A) 11.3 %; MCH 29.3 pg (27.0-32.0); MCHC 31.5 g/dL (32.0-37.0); MCV 92.9 FL (80.0-97.0); Mean Platelet Volume 10.8 FL (9.5-12.2); Monocytes # (A) 1.07 X 10*3/uL (0.20-1.00); Monocytes % (A) 8.3 %; NRBC Per 100 WBC 0 X 10*3/uL (0.00-0.01); Neutrophils # (A) 10.16 X 10*3/uL (1.80-7.70); Neutrophils % (A) 79.3 %; Platelet Count 179 X 10*3/uL (140-440); RBC 3.38 X 10*6/uL (4.10-5.20); RDW 15.7 % (11.5-14.5); WBC 12.82 X 10*3/uL (4.50-10.00)
[2023-08-25 10:44] LABS: BUN/Creat Ratio 6.76 Ratio (12.00-20.00); Blood Urea Nitrogen 31.1 mg/dL (9.0-27.0); Calcium 8.4 mg/dL (8.7-10.3); Carbon Dioxide 26.5 mmol/L (21.6-31.8); Chloride 94 mmol/L (96-109); Glucose 74 mg/dL (70-110); Sodium 135 mmol/L (135-145)
--- NOTE | 2023-08-25 10:51 | P.PN ---
Subjective Patient is seen for follow-up for end-stage renal disease. Status post UF of 2 L with hemodialysis yesterday. Mild bruising still persists at the access site but it has been functional. No significant complaints today. Objective - Vital Signs Vital signs: Vital Signs Temp 98.9 F 08/25/23 07:47 Pulse 71 08/25/23 07:47 Resp 18 08/25/23 07:47 BP 161/82 08/25/23 07:47 Pulse Ox 99 08/25/23 07:47 FiO2 Intake & Output 08/24/23 08/25/23 08/25/23 18:59 06:59 18:59 Intake Total 500 Output Total 1999 1 Balance -1500 -1 Intake: Hemodialysis 500 Output: Stool 1 Hemodialysis 1999 Other: Voiding Method Bedside Commode # Voids 4 1 - Exam Patient is awake, comfortable, no acute distress. Answers questions appropriately. Lungs are clear CVS S1 and S2 Abdomen is soft, non tender. 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 - Labs CBC & Chem 7: 08/25/23 05:54 08/25/23 06:02 Labs: Abnormal Lab Results - Last 24 Hours (Table) 08/24/23 08/24/23 08/24/23 Range/Units 06:10 16:32 20:48 WBC 13.85 H (4.50-10.00) X 10*3/uL RBC 3.48 L (4.10-5.20) X 10*6/uL Hgb 10.2 L (12.0-15.0) g/dL Hct 32.4 L (37.2-46.3) % MCHC 31.5 L (32.0-37.0) g/dL RDW 15.7 H (11.5-14.5) % Immature Gran # 0.11 H (0.00-0.04) X 10*3/uL Neutrophils # 10.80 H (1.80-7.70) X 10*3/uL Monocytes # (0.20-1.00) X 10*3/uL Chloride (96-109) mmol/L Anion Gap (4.00-12.00) mmol/L BUN (9.0-27.0) mg/dL Creatinine (0.6-1.5) mg/dL Est GFR (CKD-EPI) (>=60) BUN/Creatinine Ratio (12.00-20.00) Ratio POC Glucose (mg/dL) 123 H 183 H (70-110) mg/dL Calcium (8.7-10.3) mg/dL C-Reactive Protein (0.00-0.80) mg/dL 08/25/23 08/25/23 08/25/23 Range/Units 05:10 05:54 06:02 WBC 12.82 H (4.50-10.00) X 10*3/uL RBC 3.38 L (4.10-5.20) X 10*6/uL Hgb 9.9 L (12.0-15.0) g/dL Hct 31.4 L (37.2-46.3) % MCHC 31.5 L (32.0-37.0) g/dL RDW 15.7 H (11.5-14.5) % Immature Gran # 0.07 H (0.00-0.04) X 10*3/uL Neutrophils # 10.16 H (1.80-7.70) X 10*3/uL Monocytes # 1.07 H (0.20-1.00) X 10*3/uL Chloride 94 L (96-109) mmol/L Anion Gap 14.50 H (4.00-12.00) mmol/L BUN 31.1 H (9.0-27.0) mg/dL Creatinine 4.6 H (0.6-1.5) mg/dL Est GFR (CKD-EPI) 10 L (>=60) BUN/Creatinine Ratio 6.76 L (12.00-20.00) Ratio POC Glucose (mg/dL) 69 L (70-110) mg/dL Calcium 8.4 L (8.7-10.3) mg/dL C-Reactive Protein 1.20 H (0.00-0.80) mg/dL Microbiology - Last 24 Hours (Table) 08/21/23 13:11 Blood Culture - Preliminary Blood Assessment and Plan Assessment: 1. End stage renal disease on HD on a MWF schedule. 2. Syncopal episode post HD with no documented hypotension. Neurology consult 3. CKD mineral bone disorder. 4. HTN with CKD stage 5, uncontrolled. Increase hydralazine to 50 mg tid 5. Small infiltrate noted at the right arm AV fistula site. 6. Covid infection/pneumonia Plan: Hemodialysis on 08/27/2023 Antibiotics as per ID
[2023-08-25 11:35] LABS: Glucose,Whole Blood 99 mg/dL (70-110)
[2023-08-25] MEDS: PANTOPRAZOLE 40 MG/10 ML VIAL IVP SCH ×2 (11:35→21:31)
[2023-08-25] MEDS ORDERED: ZINC OXIDE PASTE (Z-GUARD) 1 APPLIC TOPICAL PRN (12:51)
--- NOTE | 2023-08-25 14:52 | P.PN ---
Subjective Progress Note Date: 08/25/23 Principal diagnosis: Reason for follow-up is positive COVID-19 test and a question of pneumonia Patient is a 72-year female with a past medical history significant for end-stage renal disease on dialysis patient was brought into the hospital after the patient did have a syncopal episode and dialysis she tested positive for COVID-19 however the patient did not have any hypoxemia chest x-ray was suggestive of retrocardiac infiltrate and did have mildly elevated proca lcitonin. On today's evaluation that is 08/25/2023, The patient remains to be afebrile, the patient is breathing comfortably on 2 L nasal cannula oxygen, patient denies chest pain, the patient did have occasional dry cough no nausea vomiting no abdominal pain or diarrhea, no new symptoms feeling better Patient did have white count is down to 12.82, creatinine is 6.3 Pro-Lex repeat is 0.26 Objective - Vital Signs Vital signs: Vital Signs Temp 98.9 F 08/25/23 07:47 Pulse 71 08/25/23 07:47 Resp 18 08/25/23 07:47 BP 161/82 08/25/23 07:47 Pulse Ox 99 08/25/23 07:47 FiO2 Intake & Output 08/24/23 08/25/23 08/25/23 18:59 06:59 18:59 Intake Total 500 Output Total 1999 08 Balance -1500 -1 Intake: Hemodialysis 500 Output: Stool 1 Hemodialysis 1999 Other: Voiding Method Bedside Commode # Voids 4 1 - Exam GENERAL DESCRIPTION: An elderly female lying in bed in no distress RESPIRATORY SYSTEM: Unlabored breathing , decreased breath sounds at bases HEART: S1 S2 regular rate and rhythm , ABDOMEN: Soft , no tenderness EXTREMITIES: No edema feet - Labs CBC & Chem 7: 08/25/23 05:54 08/25/23 06:02 Labs: Abnormal Lab Results - Last 24 Hours (Table) 08/24/23 08/24/23 08/25/23 Range/Units 16:32 20:48 05:10 WBC (4.50-10.00) X 10*3/uL RBC (4.10-5.20) X 10*6/uL Hgb (12.0-15.0) g/dL Hct (37.2-46.3) % MCHC (32.0-37.0) g/dL RDW (11.5-14.5) % Immature Gran # (0.00-0.04) X 10*3/uL Neutrophils # (1.80-7.70) X 10*3/uL Monocytes # (0.20-1.00) X 10*3/uL Chloride (96-109) mmol/L Anion Gap (4.00-12.00) mmol/L BUN (9.0-27.0) mg/dL Creatinine (0.6-1.5) mg/dL Est GFR (CKD-EPI) (>=60) BUN/Creatinine Ratio (12.00-20.00) Ratio POC Glucose (mg/dL) 123 H 183 H 69 L (70-110) mg/dL Calcium (8.7-10.3) mg/dL C-Reactive Protein (0.00-0.80) mg/dL Procalcitonin (0.02-0.09) ng/mL 08/25/23 08/25/23 08/25/23 Range/Units 05:54 06:02 06:02 WBC 12.82 H (4.50-10.00) X 10*3/uL RBC 3.38 L (4.10-5.20) X 10*6/uL Hgb 9.9 L (12.0-15.0) g/dL Hct 31.4 L (37.2-46.3) % MCHC 31.5 L (32.0-37.0) g/dL RDW 15.7 H (11.5-14.5) % Immature Gran # 0.07 H (0.00-0.04) X 10*3/uL Neutrophils # 10.16 H (1.80-7.70) X 10*3/uL Monocytes # 1.07 H (0.20-1.00) X 10*3/uL Chloride 94 L (96-109) mmol/L Anion Gap 14.50 H (4.00-12.00) mmol/L BUN 31.1 H (9.0-27.0) mg/dL Creatinine 4.6 H (0.6-1.5) mg/dL Est GFR (CKD-EPI) 10 L (>=60) BUN/Creatinine Ratio 6.76 L (12.00-20.00) Ratio POC Glucose (mg/dL) (70-110) mg/dL Calcium 8.4 L (8.7-10.3) mg/dL C-Reactive Protein 1.20 H (0.00-0.80) mg/dL Procalcitonin 0.26 H (0.02-0.09) ng/mL Microbiology - Last 24 Hours (Table) 08/21/23 13:11 Blood Culture - Preliminary Blood Assessment and Plan (1) Pneumonia Current Visit: Yes Status: Acute Code(s): J18.9 - PNEUMONIA, UNSPECIFIED ORGANISM SNOMED Code(s): 655833918 (2) COVID-19 Current Visit: Yes Status: Acute Code(s): U07.1 - COVID-19 SNOMED Code(s): 561301932 Plan: 1patient presented to hospital after the patient have a syncopal episode at dialysis in this patient with no fever did not have any respiratory symptoms tested positive for COVID-19 with a question of incidental finding patient chest x-ray did show some retrocardiac infiltrate and a question of possible secondary bacterial pneumonia rather than related to COVID-19 2-patient did have mild elevated procalcitonin level and with a retrocardiac infiltrate concern for possible secondary bacterial pneumonia 4-patient slowly clinically improving white count is trending down, patient to continue with Rocephin and monitor clinical course closely Dictation was produced using Lua dictation software. please excuse any grammatical, word or spelling errors. Time with Patient: Less than 30
[2023-08-25 17:03] LABS: Glucose,Whole Blood 122 mg/dL (70-110)
[2023-08-25 19:54] LABS: Glucose,Whole Blood 222 mg/dL (70-110)
[2023-08-25] MEDS: ATORVASTATIN 40 MG TAB PO SCH (21:30)
[2023-08-25] MEDS: INSULIN DETEMIR (LEVEMIR) 100 UNIT/ML SYR SQ SCH (21:30)
--- NOTE | 2023-08-25 22:17 | PN ---
PROGRESS NOTE DATE OF SERVICE: 08/25/2023 SUBJECTIVE: This 72-year-old woman who was admitted with syncope, also had a COVID-19 infection. The patient significant vomiting at this time. No chest pain. No palpitations. PAST MEDICAL HISTORY: Reviewed. REVIEW OF SYSTEMS: A 14-point review is negative except as mentioned earlier. CURRENT MEDICATIONS: Reviewed include Tylenol. Rest of medications noted. PHYSICAL EXAM: VITAL SIGNS: Pulse is 71, blood pressure 161/82, respirations 18. HEENT: Conjunctivae normal. NECK: No jugular venous distention. CARDIOVASCULAR: S1, S2. RESPIRATIONS: Breath sounds diminished at the bases. ABDOMEN: Soft, nontender. LEGS: No swelling. NERVOUS SYSTEM: Nonfocal. LABORATORY DATA: Reviewed. ASSESSMENT: 1. Syncope, possibly secondary to hypotension present on admission. 2. Acute COVID-19 infection with possible acute COVID-19 pneumonia. 3. Possible superadded retrocardiac bacterial infection. 4. Persistent vomiting. 5. Increased WBC. 6. Hypoglycemia. 7. Hypertension. 8. Elevated procalcitonin. 9. Thrombocytopenia. 10.History of end-stage renal disease, on hemodialysis. 11.Asthma. 12.Multiple medical issues. RECOMMEND: To continue current medications, continue symptomatic treatment. Otherwise, I would recommend cultures. Repeat chest x-ray. Symptomatic treatment. Cut down the food to clear liquids and advance as tolerated. See orders for details. Prognosis guarded. IV Protonix 40 b.i.d. Further recommendations to follow. MMODL / IJN: [id number] / MTDD
[2023-08-26 04:59] LABS: Glucose,Whole Blood 50 mg/dL (70-110)
[2023-08-26 05:56] LABS: Glucose,Whole Blood 101 mg/dL (70-110)
[2023-08-26] MEDS: carvediloL 12.5 MG TAB PO SCH ×2 (06:09→18:34)
[2023-08-26] MEDS: SEVELAMER 800 MG TAB PO SCH ×3 (06:09→18:35)
[2023-08-26] MEDS: INSULIN ASPART (NovoLOG) 100 UNIT/ML VIAL SQ SCH ×4 (06:51→21:59)
[2023-08-26] MEDS: ALBUTEROL HFA INHALER INHALATION SCH ×4 (08:29→18:25)
[2023-08-26] MEDS: PANTOPRAZOLE 40 MG/10 ML VIAL IVP SCH ×2 (09:42→21:58)
[2023-08-26] MEDS: ZINC SULFATE 220 MG CAP PO SCH (09:43)
[2023-08-26] MEDS: CLOPIDOGREL 75 MG TAB PO SCH (09:43)
[2023-08-26] MEDS: amLODIPine 10 MG TAB PO SCH (09:43)
[2023-08-26] MEDS: DICYCLOMINE 20 MG TAB PO SCH (09:43)
[2023-08-26] MEDS: allopurinoL 100 MG TAB PO SCH (09:43)
[2023-08-26] MEDS: HEPARIN SODIUM,PORCINE 5,000 UNIT/ML 1 ML VIAL SQ SCH ×2 (09:43→22:00)
[2023-08-26] MEDS: hydrALAZINE HCL 50 MG TAB PO SCH ×2 (09:43→22:00)
[2023-08-26] MEDS: ISOSORBIDE DINITRATE 20 MG TAB PO SCH ×2 (09:43→22:00)
[2023-08-26] MEDS: ALPRAZolam 0.5 MG TAB PO SCH (09:43)
[2023-08-26 10:07] LABS: Basophils # (A) 0.02 X 10*3/uL (0.00-0.10); Basophils % (A) 0.2 %; Eosinophils # (A) 0.14 X 10*3/uL (0.04-0.35); Eosinophils % (A) 1.6 %; HCT 29.2 % (37.2-46.3); HGB 9.2 g/dL (12.0-15.0); Lymphocytes # (A) 1.58 X 10*3/uL (0.90-5.00); Lymphocytes % (A) 17.8 %; MCH 29.6 pg (27.0-32.0); MCHC 31.5 g/dL (32.0-37.0); MCV 93.9 FL (80.0-97.0); Mean Platelet Volume 10.4 FL (9.5-12.2); Monocytes # (A) 0.75 X 10*3/uL (0.20-1.00); Monocytes % (A) 8.4 %; NRBC Per 100 WBC 0 X 10*3/uL (0.00-0.01); Neutrophils # (A) 6.36 X 10*3/uL (1.80-7.70); Neutrophils % (A) 71.6 %; Platelet Count 163 X 10*3/uL (140-440); RBC 3.11 X 10*6/uL (4.10-5.20); RDW 15.8 % (11.5-14.5); WBC 8.89 X 10*3/uL (4.50-10.00)
[2023-08-26 10:17] LABS: ALT 37 U/L (8-44); AST 14 U/L (13-35); Albumin 3.2 g/dL (3.8-4.9); Albumin/Globulin Ratio 1.28 Ratio (1.60-3.17); Alkaline Phosphatase 126 U/L (41-126); BUN/Creat Ratio 6.75 Ratio (12.00-20.00); Blood Urea Nitrogen 40.5 mg/dL (9.0-27.0); Calcium 8.7 mg/dL (8.7-10.3); Carbon Dioxide 28.1 mmol/L (21.6-31.8); Chloride 91 mmol/L (96-109); Globulin 2.5 g/dL (1.6-3.3); Glucose 76 mg/dL (70-110); Potassium 5.4 mmol/L (3.5-5.5); Sodium 131 mmol/L (135-145); Total Bilirubin 0.4 mg/dL (0.3-1.2); Total Protein 5.7 g/dL (6.2-8.2)
[2023-08-26 11:34] LABS: Glucose,Whole Blood 128 mg/dL (70-110)
--- NOTE | 2023-08-26 11:37 | P.PN ---
Subjective Patient is seen for follow-up for end-stage renal disease. Mild bruising still persists at the access site but it has been functional. No significant complaints today. Scheduled for hemodialysis in a.m. Objective - Vital Signs Vital signs: Vital Signs Temp 97.6 F 08/26/23 07:48 Pulse 71 08/26/23 07:48 Resp 22 08/26/23 07:48 BP 137/58 08/26/23 07:48 Pulse Ox 100 08/26/23 07:48 FiO2 Intake & Output 08/25/23 08/26/23 08/26/23 18:59 06:59 18:59 Other: Voiding Method Bedside Commode # Voids 0 # Bowel Movements 1 - Exam Patient is awake, comfortable, no acute distress. Answers questions appropriately. Abdomen is soft, non tender. 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 - Labs CBC & Chem 7: 08/26/23 05:27 08/26/23 05:27 Labs: Abnormal Lab Results - Last 24 Hours (Table) 08/25/23 08/25/23 08/25/23 Range/Units 06:02 17:02 19:52 RBC (4.10-5.20) X 10*6/uL Hgb (12.0-15.0) g/dL Hct (37.2-46.3) % MCHC (32.0-37.0) g/dL RDW (11.5-14.5) % Sodium (135-145) mmol/L Chloride (96-109) mmol/L BUN (9.0-27.0) mg/dL Creatinine (0.6-1.5) mg/dL Est GFR (CKD-EPI) (>=60) BUN/Creatinine Ratio (12.00-20.00) Ratio POC Glucose (mg/dL) 122 H 222 H (70-110) mg/dL Total Protein (6.2-8.2) g/dL Albumin (3.8-4.9) g/dL Albumin/Globulin Ratio (1.60-3.17) Ratio Procalcitonin 0.26 H (0.02-0.09) ng/mL 08/26/23 08/26/23 08/26/23 Range/Units 04:58 05:27 05:27 RBC 3.11 L (4.10-5.20) X 10*6/uL Hgb 9.2 L (12.0-15.0) g/dL Hct 29.2 L (37.2-46.3) % MCHC 31.5 L (32.0-37.0) g/dL RDW 15.8 H (11.5-14.5) % Sodium 131 L (135-145) mmol/L Chloride 91 L (96-109) mmol/L BUN 40.5 H (9.0-27.0) mg/dL Creatinine 6.0 H (0.6-1.5) mg/dL Est GFR (CKD-EPI) 7 L (>=60) BUN/Creatinine Ratio 6.75 L (12.00-20.00) Ratio POC Glucose (mg/dL) 50 L (70-110) mg/dL Total Protein 5.7 L (6.2-8.2) g/dL Albumin 3.2 L (3.8-4.9) g/dL Albumin/Globulin Ratio 1.28 L (1.60-3.17) Ratio Procalcitonin (0.02-0.09) ng/mL 08/26/23 Range/Units 11:32 RBC (4.10-5.20) X 10*6/uL Hgb (12.0-15.0) g/dL Hct (37.2-46.3) % MCHC (32.0-37.0) g/dL RDW (11.5-14.5) % Sodium (135-145) mmol/L Chloride (96-109) mmol/L BUN (9.0-27.0) mg/dL Creatinine (0.6-1.5) mg/dL Est GFR (CKD-EPI) (>=60) BUN/Creatinine Ratio (12.00-20.00) Ratio POC Glucose (mg/dL) 128 H (70-110) mg/dL Total Protein (6.2-8.2) g/dL Albumin (3.8-4.9) g/dL Albumin/Globulin Ratio (1.60-3.17) Ratio Procalcitonin (0.02-0.09) ng/mL Assessment and Plan Assessment: 1. End stage renal disease on HD on a MWF schedule. 2. Syncopal episode post HD with no documented hypotension. Neurology on consult 3. CKD mineral bone disorder. 4. HTN with CKD stage 5, uncontrolled. Increase hydralazine to 50 mg tid 5. Small infiltrate noted at the right arm AV fistula site. 6. Covid infection/pneumonia Plan: Hemodialysis on 08/27/2023 Antibiotics as per ID
[2023-08-26 16:27] LABS: Glucose,Whole Blood 139 mg/dL (70-110)
--- NOTE | 2023-08-26 17:04 | P.PN ---
Subjective Progress Note Date: 08/26/23 Principal diagnosis: Reason for follow-up is positive COVID-19 test and a question of pneumonia Patient is a 72-year female with a past medical history significant for end-stage renal disease on dialysis patient was brought into the hospital after the patient did have a syncopal episode and dialysis she tested positive for COVID-19 however the patient did not have any hypoxemia chest x-ray was suggestive of retrocardiac infiltrate and did have mildly elevated proca lcitonin. On today's evaluation that is 08/26/2023, the patient remains to be afebrile, the patient is breathing comfortably on 3 L nasal cannula oxygen and the patient denies any shortness of breath, the patient denies chest pain, did have occasional dry cough , patient denies any nausea/vomiting abdominal pain or diarrhea Patient did have white count is down to 8.89, creatinine is 6.0 Pro-Lex repeat is 0.26 Objective - Vital Signs Vital signs: Vital Signs Temp 98.1 F 08/26/23 14:00 Pulse 66 08/26/23 14:00 Resp 22 08/26/23 14:00 BP 101/56 08/26/23 14:00 Pulse Ox 98 08/26/23 14:00 FiO2 Intake & Output 08/25/23 08/26/23 08/26/23 18:59 06:59 18:59 Other: Voiding Method Bedside Commode # Voids 0 # Bowel Movements 1 - Exam GENERAL DESCRIPTION: An elderly female lying in bed in no distress RESPIRATORY SYSTEM: Unlabored breathing , decreased breath sounds at bases HEART: S1 S2 regular rate and rhythm , ABDOMEN: Soft , no tenderness EXTREMITIES: No edema feet - Labs CBC & Chem 7: 08/26/23 05:27 08/26/23 05:27 Labs: Abnormal Lab Results - Last 24 Hours (Table) 08/25/23 08/25/23 08/26/23 Range/Units 17:02 19:52 04:58 RBC (4.10-5.20) X 10*6/uL Hgb (12.0-15.0) g/dL Hct (37.2-46.3) % MCHC (32.0-37.0) g/dL RDW (11.5-14.5) % Sodium (135-145) mmol/L Chloride (96-109) mmol/L BUN (9.0-27.0) mg/dL Creatinine (0.6-1.5) mg/dL Est GFR (CKD-EPI) (>=60) BUN/Creatinine Ratio (12.00-20.00) Ratio POC Glucose (mg/dL) 122 H 222 H 50 L (70-110) mg/dL Total Protein (6.2-8.2) g/dL Albumin (3.8-4.9) g/dL Albumin/Globulin Ratio (1.60-3.17) Ratio 08/26/23 08/26/23 08/26/23 Range/Units 05:27 05:27 11:32 RBC 3.11 L (4.10-5.20) X 10*6/uL Hgb 9.2 L (12.0-15.0) g/dL Hct 29.2 L (37.2-46.3) % MCHC 31.5 L (32.0-37.0) g/dL RDW 15.8 H (11.5-14.5) % Sodium 131 L (135-145) mmol/L Chloride 91 L (96-109) mmol/L BUN 40.5 H (9.0-27.0) mg/dL Creatinine 6.0 H (0.6-1.5) mg/dL Est GFR (CKD-EPI) 7 L (>=60) BUN/Creatinine Ratio 6.75 L (12.00-20.00) Ratio POC Glucose (mg/dL) 128 H (70-110) mg/dL Total Protein 5.7 L (6.2-8.2) g/dL Albumin 3.2 L (3.8-4.9) g/dL Albumin/Globulin Ratio 1.28 L (1.60-3.17) Ratio 08/26/23 Range/Units 16:25 RBC (4.10-5.20) X 10*6/uL Hgb (12.0-15.0) g/dL Hct (37.2-46.3) % MCHC (32.0-37.0) g/dL RDW (11.5-14.5) % Sodium (135-145) mmol/L Chloride (96-109) mmol/L BUN (9.0-27.0) mg/dL Creatinine (0.6-1.5) mg/dL Est GFR (CKD-EPI) (>=60) BUN/Creatinine Ratio (12.00-20.00) Ratio POC Glucose (mg/dL) 139 H (70-110) mg/dL Total Protein (6.2-8.2) g/dL Albumin (3.8-4.9) g/dL Albumin/Globulin Ratio (1.60-3.17) Ratio Assessment and Plan (1) Pneumonia Current Visit: Yes Status: Acute Code(s): J18.9 - PNEUMONIA, UNSPECIFIED ORGANISM SNOMED Code(s): 604966684 (2) COVID-19 Current Visit: Yes Status: Acute Code(s): U07.1 - COVID-19 SNOMED Code(s): 940281460 Plan: 1patient presented to hospital after the patient have a syncopal episode at dialysis in this patient with no fever did not have any respiratory symptoms tested positive for COVID-19 with a question of incidental finding patient chest x-ray did show some retrocardiac infiltrate and a question of possible secondary bacterial pneumonia rather than related to COVID-19 2-patient did have mild elevated procalcitonin level and with a retrocardiac infiltrate concern for possible secondary bacterial pneumonia 4-patient slowly clinically improving patient white count has normalized curren tly on Rocephin short course of oral Ceftin on discharge family at the bedside questions were answered Dictation was produced using [employer] dictation software. please excuse any grammatical, word or spelling errors. Time with Patient: Less than 30
[2023-08-26 19:57] LABS: Glucose,Whole Blood 173 mg/dL (70-110)
[2023-08-26] MEDS: INSULIN DETEMIR (LEVEMIR) 100 UNIT/ML SYR SQ SCH (21:58)
[2023-08-26] MEDS: ATORVASTATIN 40 MG TAB PO SCH (22:00)
[2023-08-27 05:37] LABS: Glucose,Whole Blood 248 mg/dL (70-110)
[2023-08-27 05:37] LABS: Glucose,Whole Blood 32 mg/dL (70-110)
--- NOTE | 2023-08-27 05:43 | PN ---
PROGRESS NOTE DATE OF SERVICE: 08/26/2023 SUBJECTIVE: This is a 72-year-old woman, who was admitted with syncope and also acute COVID infection, complains of generalized significant weakness. The patient's p.o. intake was also erratic. The patient is slightly drowsy. PHYSICAL EXAMINATION: VITAL SIGNS: Pulse is 66, blood pressuren. CHEST: Clear to auscultation. ABDOMEN: Soft. NERVOUS SYSTEM: Nonfocal. LABORATORY STUDIES: Hemoglobin 9.2. Sodium 131. The chest x-ray, which was done couple of days ago, which was reviewed, showed no acute abnormality. ASSESSMENT: 1. Syncope possibly secondary to hypotension during dialysis, present on admission. 2. Acute COVID-19 infection with possible acute COVID-19 pneumonia. 3. Possibly suspected superadded retrocardiac bacterial infection, gram- negative. 4. Persistent vomiting. 6. Hypoglycemia. 7. Hypertension. 8. Elevated procalcitonin. 9. Thrombocytopenia. 10.History of end-stage renal disease renal disease on hemodialysis. 11.History of asthma. 12.Multiple medical issues. RECOMMENDATIONS: I recommend to continue current medications, continue symptomatic treatment. Otherwise at this time, I recommend continue with antibiotics. Repeat labs in the morning. We will check orthostatic vitals and if the patient is stable, the patient might be able to be discharged home MMAMEEL / SOBEIDAN: [id number] / MTDDang
[2023-08-27] MEDS: ONDANSETRON 4 MG/2 ML VIAL IVP PRN (05:50)
[2023-08-27 06:05] LABS: Glucose,Whole Blood 139 mg/dL (70-110)
[2023-08-27] MEDS: INSULIN ASPART (NovoLOG) 100 UNIT/ML VIAL SQ SCH ×4 (06:13→21:49)
[2023-08-27 06:34] LABS: Glucose,Whole Blood 119 mg/dL (70-110)
[2023-08-27 07:12] LABS: Glucose,Whole Blood 114 mg/dL (70-110)
[2023-08-27 07:47] LABS: Glucose,Whole Blood 131 mg/dL (70-110)
[2023-08-27 09:00] LABS: BUN/Creat Ratio 7.17 Ratio (12.00-20.00); Blood Urea Nitrogen 53.8 mg/dL (9.0-27.0); Calcium 9.2 mg/dL (8.7-10.3); Carbon Dioxide 26.4 mmol/L (21.6-31.8); Chloride 89 mmol/L (96-109); Glucose 28 mg/dL (70-110); Potassium 5.6 mmol/L (3.5-5.5); Sodium 130 mmol/L (135-145)
[2023-08-27] MEDS: ALBUTEROL HFA INHALER INHALATION SCH ×4 (09:03→20:51)
[2023-08-27 09:35] LABS: Basophils # (A) 0.03 X 10*3/uL (0.00-0.10); Basophils % (A) 0.2 %; Eosinophils # (A) 0.19 X 10*3/uL (0.04-0.35); Eosinophils % (A) 1.1 %; HCT 31.7 % (37.2-46.3); HGB 10.2 g/dL (12.0-15.0); Lymphocytes # (A) 1.75 X 10*3/uL (0.90-5.00); Lymphocytes % (A) 10.6 %; MCH 29.7 pg (27.0-32.0); MCHC 32.2 g/dL (32.0-37.0); MCV 92.2 FL (80.0-97.0); Mean Platelet Volume 10.8 FL (9.5-12.2); Monocytes # (A) 1.02 X 10*3/uL (0.20-1.00); Monocytes % (A) 6.2 %; NRBC Per 100 WBC 0 X 10*3/uL (0.00-0.01); Neutrophils # (A) 13.47 X 10*3/uL (1.80-7.70); Neutrophils % (A) 81.2 %; Platelet Count 211 X 10*3/uL (140-440); RBC 3.44 X 10*6/uL (4.10-5.20); RDW 15.7 % (11.5-14.5); WBC 16.58 X 10*3/uL (4.50-10.00)
[2023-08-27] MEDS: carvediloL 12.5 MG TAB PO SCH ×2 (10:22→17:03)
[2023-08-27] MEDS: SEVELAMER 800 MG TAB PO SCH ×3 (10:23→17:03)
[2023-08-27 11:32] LABS: Glucose,Whole Blood 65 mg/dL (70-110)
[2023-08-27] MEDS: amLODIPine 10 MG TAB PO SCH (12:00)
[2023-08-27] MEDS: ZINC SULFATE 220 MG CAP PO SCH (12:00)
[2023-08-27] MEDS: hydrALAZINE HCL 50 MG TAB PO SCH ×2 (12:00→21:52)
[2023-08-27] MEDS: CLOPIDOGREL 75 MG TAB PO SCH (12:00)
[2023-08-27] MEDS: allopurinoL 100 MG TAB PO SCH (12:00)
[2023-08-27] MEDS: DICYCLOMINE 20 MG TAB PO SCH (12:00)
[2023-08-27] MEDS: ISOSORBIDE DINITRATE 20 MG TAB PO SCH ×2 (12:01→21:49)
[2023-08-27] MEDS: PANTOPRAZOLE 40 MG/10 ML VIAL IVP SCH ×2 (12:01→21:52)
[2023-08-27] MEDS: HEPARIN SODIUM,PORCINE 5,000 UNIT/ML 1 ML VIAL SQ SCH ×2 (12:01→21:50)
[2023-08-27] MEDS: ALPRAZolam 0.5 MG TAB PO SCH (12:17)
--- NOTE | 2023-08-27 15:29 | P.PN ---
Subjective Patient is seen in follow-up for end-stage renal disease. Maintain on hemodialysis on Sunday schedule. Completed hemodialysis today. 2.4 L ultrafiltration. On nasal cannula. No active complaints. Vital signs are stable. General: No acute distress. HEENT: Head exam is unremarkable. LUNGS: No audible rhonchi or wheezes. HEART: Rate and Rhythm are regular. ABDOMEN: Nontender. EXTREMITITES: No edema. Objective - Vital Signs Vital signs: Vital Signs Temp 98.4 F 08/27/23 14:20 Pulse 77 08/27/23 14:20 Resp 16 08/27/23 14:20 BP 157/70 08/27/23 14:20 Pulse Ox 96 08/27/23 14:20 FiO2 Intake & Output 08/26/23 08/27/23 08/27/23 18:59 06:59 18:59 Intake Total 400 Output Total 2 2400 Balance - -1999 Intake: Hemodialysis 400 Output: Stool 2 Hemodialysis 2400 Other: # Voids 1 1 - Labs CBC & Chem 7: 08/27/23 04:40 08/27/23 04:40 Labs: Abnormal Lab Results - Last 24 Hours (Table) 08/26/23 08/26/23 08/27/23 Range/Units 16:25 19:56 04:40 WBC 16.58 H (4.50-10.00) X 10*3/uL RBC 3.44 L (4.10-5.20) X 10*6/uL Hgb 10.2 L (12.0-15.0) g/dL Hct 31.7 L (37.2-46.3) % RDW 15.7 H (11.5-14.5) % Immature Gran # 0.12 H (0.00-0.04) X 10*3/uL Neutrophils # 13.47 H (1.80-7.70) X 10*3/uL Monocytes # 1.02 H (0.20-1.00) X 10*3/uL Sodium (135-145) mmol/L Potassium (3.5-5.5) mmol/L Chloride (96-109) mmol/L Anion Gap (4.00-12.00) mmol/L BUN (9.0-27.0) mg/dL Creatinine (0.6-1.5) mg/dL Est GFR (CKD-EPI) (>=60) BUN/Creatinine Ratio (12.00-20.00) Ratio Glucose (70-110) mg/dL POC Glucose (mg/dL) 139 H 173 H (70-110) mg/dL 08/27/23 08/27/23 08/27/23 Range/Units 04:40 05:28 05:35 WBC (4.50-10.00) X 10*3/uL RBC (4.10-5.20) X 10*6/uL Hgb (12.0-15.0) g/dL Hct (37.2-46.3) % RDW (11.5-14.5) % Immature Gran # (0.00-0.04) X 10*3/uL Neutrophils # (1.80-7.70) X 10*3/uL Monocytes # (0.20-1.00) X 10*3/uL Sodium 130 L (135-145) mmol/L Potassium 5.6 H (3.5-5.5) mmol/L Chloride 89 L (96-109) mmol/L Anion Gap 14.60 H (4.00-12.00) mmol/L BUN 53.8 H (9.0-27.0) mg/dL Creatinine 7.5 A* (0.6-1.5) mg/dL Est GFR (CKD-EPI) 5 L (>=60) BUN/Creatinine Ratio 7.17 L (12.00-20.00) Ratio Glucose 28 A* (70-110) mg/dL POC Glucose (mg/dL) 32 L 248 H (70-110) mg/dL 08/27/23 08/27/23 08/27/23 Range/Units 06:03 06:33 07:10 WBC (4.50-10.00) X 10*3/uL RBC (4.10-5.20) X 10*6/uL Hgb (12.0-15.0) g/dL Hct (37.2-46.3) % RDW (11.5-14.5) % Immature Gran # (0.00-0.04) X 10*3/uL Neutrophils # (1.80-7.70) X 10*3/uL Monocytes # (0.20-1.00) X 10*3/uL Sodium (135-145) mmol/L Potassium (3.5-5.5) mmol/L Chloride (96-109) mmol/L Anion Gap (4.00-12.00) mmol/L BUN (9.0-27.0) mg/dL Creatinine (0.6-1.5) mg/dL Est GFR (CKD-EPI) (>=60) BUN/Creatinine Ratio (12.00-20.00) Ratio Glucose (70-110) mg/dL POC Glucose (mg/dL) 139 H 119 H 114 H (70-110) mg/dL 08/27/23 08/27/23 Range/Units 07:45 11:31 WBC (4.50-10.00) X 10*3/uL RBC (4.10-5.20) X 10*6/uL Hgb (12.0-15.0) g/dL Hct (37.2-46.3) % RDW (11.5-14.5) % Immature Gran # (0.00-0.04) X 10*3/uL Neutrophils # (1.80-7.70) X 10*3/uL Monocytes # (0.20-1.00) X 10*3/uL Sodium (135-145) mmol/L Potassium (3.5-5.5) mmol/L Chloride (96-109) mmol/L Anion Gap (4.00-12.00) mmol/L BUN (9.0-27.0) mg/dL Creatinine (0.6-1.5) mg/dL Est GFR (CKD-EPI) (>=60) BUN/Creatinine Ratio (12.00-20.00) Ratio Glucose (70-110) mg/dL POC Glucose (mg/dL) 131 H 65 L (70-110) mg/dL Microbiology - Last 24 Hours (Table) 08/25/23 14:56 Blood Culture - Preliminary Blood 08/21/23 13:11 Blood Culture - Final Blood Assessment and Plan Plan: Assessment: 1. End-stage renal disease maintained on hemodialysis on Sunday schedule. 2. COVID-19 infection/pneumonia. ID following. 3. Hypertension with chronic kidney disease. 4. Diabetes mellitus. 5. Chronic kidney disease mineral bone disease maintained on Renvela. 6. Anemia of chronic kidney disease. Plan: Hemodialysis Sunday. Check iron studies.
[2023-08-27 18:25] LABS: Glucose,Whole Blood 206 mg/dL (70-110)
[2023-08-27 20:44] LABS: Glucose,Whole Blood 273 mg/dL (70-110)
[2023-08-27] MEDS: ATORVASTATIN 40 MG TAB PO SCH (21:49)
[2023-08-27] MEDS: INSULIN DETEMIR (LEVEMIR) 100 UNIT/ML SYR SQ SCH (21:51)
[2023-08-27 22:24] LABS: Glucose,Whole Blood 131 mg/dL (70-110)
[2023-08-27 23:15] LABS: % Iron Saturation 46.67 (12.00-45.00)
[2023-08-28 02:01] LABS: Glucose,Whole Blood 151 mg/dL (70-110)
[2023-08-28 05:53] LABS: Glucose,Whole Blood 52 mg/dL (70-110)
[2023-08-28] MEDS: INSULIN ASPART (NovoLOG) 100 UNIT/ML VIAL SQ SCH ×2 (06:01→12:29)
[2023-08-28] MEDS: carvediloL 12.5 MG TAB PO SCH (06:10)
[2023-08-28] MEDS: SEVELAMER 800 MG TAB PO SCH ×2 (06:11→12:59)
--- NOTE | 2023-08-28 07:10 | PN ---
PROGRESS NOTE DATE OF SERVICE: 08/27/2023 SUBJECTIVE: This 72-year-old woman was admitted with syncope as well as acute COVID-19 infection, is being closely monitored. The patient was confused. The patient had some vomiting yesterday. No chest pain, no palpitation. OBJECTIVE: VITAL SIGNS: Pulse is 52, blood pressure 140/70, and respirations 20. CHEST: Few scattered rhonchi and crackles. ABDOMEN: Soft. NERVOUS SYSTEM: Nonfocal. Blood sugar is a 65 at this time, WBC elevated. ASSESSMENT: 1. Syncope, possibly secondary to hypotension during dialysis, present on admission. 2. Acute COVID-19 infection with possible acute COVID-19 pneumonia. 3. Possible suspected superadded retrocardiac bacterial infection gram-negative. 4. Persistent vomiting. 5. Hypoglycemia. 6. Hypertension. 7. Elevated procalcitonin. 8. Thrombocytopenia. 9. History of end-stage renal disease, on hemodialysis. 10.History of asthma. 11.Multiple complex medical issues. RECOMMENDATIONS: Recommended to continue current management, continue symptomatic treatment, otherwise monitor potassium closely. White count is also elevated. The patient is on empiric antibiotics. Closely follow with Infectious Disease as well as Nephrology. Guarded prognosis. Further recommendations to follow. See orders for details. MMODL / IJN: [id number] /
[2023-08-28] MEDS: amLODIPine 10 MG TAB PO SCH (07:48)
[2023-08-28] MEDS: ALPRAZolam 0.5 MG TAB PO SCH (07:48)
[2023-08-28] MEDS: allopurinoL 100 MG TAB PO SCH (07:48)
[2023-08-28] MEDS: HEPARIN SODIUM,PORCINE 5,000 UNIT/ML 1 ML VIAL SQ SCH (07:49)
[2023-08-28] MEDS: hydrALAZINE HCL 50 MG TAB PO SCH (07:49)
[2023-08-28] MEDS: ISOSORBIDE DINITRATE 20 MG TAB PO SCH (07:49)
[2023-08-28] MEDS: DICYCLOMINE 20 MG TAB PO SCH (07:49)
[2023-08-28] MEDS: CLOPIDOGREL 75 MG TAB PO SCH (07:49)
[2023-08-28] MEDS: ZINC SULFATE 220 MG CAP PO SCH (07:50)
[2023-08-28] MEDS: PANTOPRAZOLE 40 MG/10 ML VIAL IVP SCH (07:50)
[2023-08-28 08:41] VITALS: BMI 35.9
[2023-08-28] MEDS: ALBUTEROL HFA INHALER INHALATION SCH ×2 (09:36→12:47)
[2023-08-28 11:15] LABS: BUN/Creat Ratio 6.23 Ratio (12.00-20.00); Blood Urea Nitrogen 32.4 mg/dL (9.0-27.0); Calcium 8.6 mg/dL (8.7-10.3); Carbon Dioxide 26.2 mmol/L (21.6-31.8); Chloride 96 mmol/L (96-109); Glucose 128 mg/dL (70-110); Potassium 5.3 mmol/L (3.5-5.5); Sodium 136 mmol/L (135-145)
[2023-08-28 11:30] LABS: Basophils # (A) 0.02 X 10*3/uL (0.00-0.10); Basophils % (A) 0.2 %; Eosinophils # (A) 0.08 X 10*3/uL (0.04-0.35); Eosinophils % (A) 0.9 %; HCT 28.7 % (37.2-46.3); HGB 8.9 g/dL (12.0-15.0); Hypochromasia (M) 2+; Lymphocytes # (A) 1.14 X 10*3/uL (0.90-5.00); Lymphocytes % (A) 13.4 %; MCH 29.9 pg (27.0-32.0); MCV 96.3 FL (80.0-97.0); Mean Platelet Volume 11.8 FL (9.5-12.2); Monocytes # (A) 0.64 X 10*3/uL (0.20-1.00); Monocytes % (A) 7.5 %; NRBC Per 100 WBC 0 X 10*3/uL (0.00-0.01); Neutrophils # (A) 6.57 X 10*3/uL (1.80-7.70); Neutrophils % (A) 77.6 %; Platelet Count 129 X 10*3/uL (140-440); RBC 2.98 X 10*6/uL (4.10-5.20); WBC 8.48 X 10*3/uL (4.50-10.00)
[2023-08-28 11:42] LABS: Glucose,Whole Blood 75 mg/dL (70-110)
--- NOTE | 2023-08-28 12:13 | P.PN ---
Subjective Patient is seen in follow-up for end-stage renal disease. Maintain on hemodialysis on Sunday schedule. Tolerated 2 L ultrafiltration yesterday. Resting in bed. No active complaints. Vital signs are stable. General: No acute distress. HEENT: Head exam is unremarkable. LUNGS: No audible rhonchi or wheezes. HEART: Rate and Rhythm are regular. ABDOMEN: Nontender. EXTREMITITES: No edema. Objective - Vital Signs Vital signs: Vital Signs Temp 98.5 F 08/28/23 07:03 Pulse 76 08/28/23 07:03 Resp 18 08/28/23 08:00 BP 148/63 08/28/23 07:03 Pulse Ox 100 08/28/23 07:03 FiO2 Intake & Output 08/27/23 08/28/23 08/28/23 18:59 06:59 18:59 Intake Total 400 Output Total 2400 Balance -1999 Weight 86.183 kg Intake: Hemodialysis 400 Output: Hemodialysis 2400 Other: # Voids 1 - Labs CBC & Chem 7: 08/28/23 07:59 08/28/23 07:59 Labs: Abnormal Lab Results - Last 24 Hours (Table) 08/27/23 08/27/23 08/27/23 Range/Units 04:40 16:32 17:56 RBC (4.10-5.20) X 10*6/uL Hgb (12.0-15.0) g/dL Hct (37.2-46.3) % MCHC (32.0-37.0) g/dL RDW (11.5-14.5) % Plt Count (140-440) X 10*3/uL Hypochromasia (manual) Anion Gap (4.00-12.00) mmol/L BUN (9.0-27.0) mg/dL Creatinine (0.6-1.5) mg/dL Est GFR (CKD-EPI) (>=60) BUN/Creatinine Ratio (12.00-20.00) Ratio Glucose (70-110) mg/dL POC Glucose (mg/dL) 131 H 206 H (70-110) mg/dL Calcium (8.7-10.3) mg/dL TIBC 225 L (228-460) UG/DL % Saturation 46.67 H (12.00-45.00) Transferrin 161.0 L (204.0-354.0) mg/dL Ferritin 1987.0 H (10.0-291.0) ng/mL 08/27/23 08/28/23 08/28/23 Range/Units 20:43 01:59 05:52 RBC (4.10-5.20) X 10*6/uL Hgb (12.0-15.0) g/dL Hct (37.2-46.3) % MCHC (32.0-37.0) g/dL RDW (11.5-14.5) % Plt Count (140-440) X 10*3/uL Hypochromasia (manual) Anion Gap (4.00-12.00) mmol/L BUN (9.0-27.0) mg/dL Creatinine (0.6-1.5) mg/dL Est GFR (CKD-EPI) (>=60) BUN/Creatinine Ratio (12.00-20.00) Ratio Glucose (70-110) mg/dL POC Glucose (mg/dL) 273 H 151 H 52 L (70-110) mg/dL Calcium (8.7-10.3) mg/dL TIBC (228-460) UG/DL % Saturation (12.00-45.00) Transferrin (204.0-354.0) mg/dL Ferritin (10.0-291.0) ng/mL 08/28/23 08/28/23 Range/Units 07:59 07:59 RBC 2.98 L (4.10-5.20) X 10*6/uL Hgb 8.9 L (12.0-15.0) g/dL Hct 28.7 L (37.2-46.3) % MCHC 31.0 L (32.0-37.0) g/dL RDW 16.0 H (11.5-14.5) % Plt Count 129 L (140-440) X 10*3/uL Hypochromasia (manual) 2+ A Anion Gap 13.80 H (4.00-12.00) mmol/L BUN 32.4 H (9.0-27.0) mg/dL Creatinine 5.2 H (0.6-1.5) mg/dL Est GFR (CKD-EPI) 8 L (>=60) BUN/Creatinine Ratio 6.23 L (12.00-20.00) Ratio Glucose 128 H (70-110) mg/dL POC Glucose (mg/dL) (70-110) mg/dL Calcium 8.6 L (8.7-10.3) mg/dL TIBC (228-460) UG/DL % Saturation (12.00-45.00) Transferrin (204.0-354.0) mg/dL Ferritin (10.0-291.0) ng/mL Microbiology - Last 24 Hours (Table) 08/25/23 14:56 Blood Culture - Preliminary Blood Assessment and Plan Plan: Assessment: 1. End-stage renal disease maintained on hemodialysis on Sunday schedule. 2. COVID-19 infection/pneumonia. ID following. 3. Hypertension with chronic kidney disease. 4. Diabetes mellitus. 5. Chronic kidney disease mineral bone disease maintained on Renvela. 6. Anemia of chronic kidney disease. Iron replete. Plan: Hemodialysis Sunday. Add Araalexsandra.
[2023-08-28] MEDS ORDERED: DARBEPOETIN ALFA 40 MCG/0.4 ML SYRINGE SQ SCH (12:30)
[2023-08-28 14:35] VITALS: BP 124/70; PULSE 82; RESP 19; TEMP 97.7
--- NOTE | 2023-08-28 16:31 | P.PN ---
Subjective Progress Note Date: 08/27/23 Principal diagnosis: Reason for follow-up is positive COVID-19 test and a question of pneumonia Patient is a 72-year female with a past medical history significant for end-stage renal disease on dialysis patient was brought into the hospital after the patient did have a syncopal episode and dialysis she tested positive for COVID-19 however the patient did not have any hypoxemia chest x-ray was suggestive of retrocardiac infiltrate and did have mildly elevated proca lcitonin. On today's evaluation that is 08/27/2023, the patient continues to be afebrile patient is breathing comfortably on 2 L nasal cannula supplemental oxygen the patient denies chest pain did have occasional cough no sputum production patient denies abdominal pain no nausea no vomiting and no diarrhea has been reported Patient did have white count is 16.58, creatinine 7.5 Pro-Lex repeat is 0.26 Objective - Vital Signs Vital signs: Vital Signs Temp 98.4 F 08/27/23 14:20 Pulse 77 08/27/23 14:20 Resp 16 08/27/23 14:20 BP 157/70 08/27/23 14:20 Pulse Ox 96 08/27/23 14:20 FiO2 Intake & Output 08/26/23 08/27/23 08/27/23 18:59 06:59 18:59 Intake Total 400 Output Total 2 2400 Balance - Intake: Hemodialysis 400 Output: Stool 2 Hemodialysis 2400 Other: # Voids 1 1 - Exam GENERAL DESCRIPTION: An elderly female lying in bed in no distress RESPIRATORY SYSTEM: Unlabored breathing , decreased breath sounds at bases HEART: S1 S2 regular rate and rhythm , ABDOMEN: Soft , no tenderness EXTREMITIES: No edema feet - Labs CBC & Chem 7: 08/28/23 07:59 08/28/23 07:59 Labs: Abnormal Lab Results - Last 24 Hours (Table) 08/26/23 08/26/23 08/27/23 Range/Units 16:25 19:56 04:40 WBC 16.58 H (4.50-10.00) X 10*3/uL RBC 3.44 L (4.10-5.20) X 10*6/uL Hgb 10.2 L (12.0-15.0) g/dL Hct 31.7 L (37.2-46.3) % RDW 15.7 H (11.5-14.5) % Immature Gran # 0.12 H (0.00-0.04) X 10*3/uL Neutrophils # 13.47 H (1.80-7.70) X 10*3/uL Monocytes # 1.02 H (0.20-1.00) X 10*3/uL Sodium (135-145) mmol/L Potassium (3.5-5.5) mmol/L Chloride (96-109) mmol/L Anion Gap (4.00-12.00) mmol/L BUN (9.0-27.0) mg/dL Creatinine (0.6-1.5) mg/dL Est GFR (CKD-EPI) (>=60) BUN/Creatinine Ratio (12.00-20.00) Ratio Glucose (70-110) mg/dL POC Glucose (mg/dL) 139 H 173 H (70-110) mg/dL 08/27/23 08/27/23 08/27/23 Range/Units 04:40 05:28 05:35 WBC (4.50-10.00) X 10*3/uL RBC (4.10-5.20) X 10*6/uL Hgb (12.0-15.0) g/dL Hct (37.2-46.3) % RDW (11.5-14.5) % Immature Gran # (0.00-0.04) X 10*3/uL Neutrophils # (1.80-7.70) X 10*3/uL Monocytes # (0.20-1.00) X 10*3/uL Sodium 130 L (135-145) mmol/L Potassium 5.6 H (3.5-5.5) mmol/L Chloride 89 L (96-109) mmol/L Anion Gap 14.60 H (4.00-12.00) mmol/L BUN 53.8 H (9.0-27.0) mg/dL Creatinine 7.5 A* (0.6-1.5) mg/dL Est GFR (CKD-EPI) 5 L (>=60) BUN/Creatinine Ratio 7.17 L (12.00-20.00) Ratio Glucose 28 A* (70-110) mg/dL POC Glucose (mg/dL) 32 L 248 H (70-110) mg/dL 08/27/23 08/27/23 08/27/23 Range/Units 06:03 06:33 07:10 WBC (4.50-10.00) X 10*3/uL RBC (4.10-5.20) X 10*6/uL Hgb (12.0-15.0) g/dL Hct (37.2-46.3) % RDW (11.5-14.5) % Immature Gran # (0.00-0.04) X 10*3/uL Neutrophils # (1.80-7.70) X 10*3/uL Monocytes # (0.20-1.00) X 10*3/uL Sodium (135-145) mmol/L Potassium (3.5-5.5) mmol/L Chloride (96-109) mmol/L Anion Gap (4.00-12.00) mmol/L BUN (9.0-27.0) mg/dL Creatinine (0.6-1.5) mg/dL Est GFR (CKD-EPI) (>=60) BUN/Creatinine Ratio (12.00-20.00) Ratio Glucose (70-110) mg/dL POC Glucose (mg/dL) 139 H 119 H 114 H (70-110) mg/dL 08/27/23 08/27/23 Range/Units 07:45 11:31 WBC (4.50-10.00) X 10*3/uL RBC (4.10-5.20) X 10*6/uL Hgb (12.0-15.0) g/dL Hct (37.2-46.3) % RDW (11.5-14.5) % Immature Gran # (0.00-0.04) X 10*3/uL Neutrophils # (1.80-7.70) X 10*3/uL Monocytes # (0.20-1.00) X 10*3/uL Sodium (135-145) mmol/L Potassium (3.5-5.5) mmol/L Chloride (96-109) mmol/L Anion Gap (4.00-12.00) mmol/L BUN (9.0-27.0) mg/dL Creatinine (0.6-1.5) mg/dL Est GFR (CKD-EPI) (>=60) BUN/Creatinine Ratio (12.00-20.00) Ratio Glucose (70-110) mg/dL POC Glucose (mg/dL) 131 H 65 L (70-110) mg/dL Microbiology - Last 24 Hours (Table) 08/25/23 14:56 Blood Culture - Preliminary Blood 08/21/23 13:11 Blood Culture - Final Blood Assessment and Plan (1) Pneumonia Status: Acute Code(s): J18.9 - PNEUMONIA, UNSPECIFIED ORGANISM SNOMED Code(s): 425818386 (2) COVID-19 Status: Acute Code(s): U07.1 - COVID-19 SNOMED Code(s): 548840410 Plan: 1patient presented to hospital after the patient have a syncopal episode at dialysis in this patient with no fever did not have any respiratory symptoms tested positive for COVID-19 with a question of incidental finding patient chest x-ray did show some retrocardiac infiltrate and a question of possible secondary bacterial pneumonia rather than related to COVID-19 2-patient did have mild elevated procalcitonin level and with a retrocardiac infiltrate concern for possible secondary bacterial pneumonia 4-patient did have some clinical improvement however the patient white count slightly Up and will monitor closely continue Rocephin Dictation was produced using luma-id dictation software. please excuse any grammatical, word or spelling errors.
--- NOTE | 2023-08-28 16:32 | P.PN ---
Subjective Progress Note Date: 08/28/23 Principal diagnosis: Reason for follow-up is positive COVID-19 test and a question of pneumonia Patient is a 72-year female with a past medical history significant for end-stage renal disease on dialysis patient was brought into the hospital after the patient did have a syncopal episode and dialysis she tested positive for COVID-19 however the patient did not have any hypoxemia chest x-ray was suggestive of retrocardiac infiltrate and did have mildly elevated proca lcitonin. On today's evaluation that is 08/28/2023, the patient remains to be afebrile, the patient is breathing comfortably on 2 L nasal cannula oxygen and the patient denies any shortness of breath, the patient denies chest pain and denies any cough or sputum production, patient denies any nausea/vomiting abdominal pain or diarrhea, patient is feeling better wants to go home Patient did have white count normalized to 8.48, creatinine is 5.2, Pro-Lex repeat is 0.26 Objective - Vital Signs Vital signs: Vital Signs Temp 98.5 F 08/28/23 07:03 Pulse 76 08/28/23 07:03 Resp 18 08/28/23 08:00 BP 148/63 08/28/23 07:03 Pulse Ox 100 08/28/23 07:03 FiO2 Intake & Output 08/27/23 08/28/23 08/28/23 18:59 06:59 18:59 Intake Total 400 Output Total 2400 Balance -2000 Weight 86.183 kg Intake: Hemodialysis 400 Output: Hemodialysis 2400 Other: # Voids 1 - Exam GENERAL DESCRIPTION: An elderly female lying in bed in no distress RESPIRATORY SYSTEM: Unlabored breathing , decreased breath sounds at bases HEART: S1 S2 regular rate and rhythm , ABDOMEN: Soft , no tenderness EXTREMITIES: No edema feet - Labs CBC & Chem 7: 08/28/23 07:59 08/28/23 07:59 Labs: Abnormal Lab Results - Last 24 Hours (Table) 08/27/23 08/27/23 08/27/23 Range/Units 04:40 16:32 17:56 RBC (4.10-5.20) X 10*6/uL Hgb (12.0-15.0) g/dL Hct (37.2-46.3) % MCHC (32.0-37.0) g/dL RDW (11.5-14.5) % Plt Count (140-440) X 10*3/uL Hypochromasia (manual) Anion Gap (4.00-12.00) mmol/L BUN (9.0-27.0) mg/dL Creatinine (0.6-1.5) mg/dL Est GFR (CKD-EPI) (>=60) BUN/Creatinine Ratio (12.00-20.00) Ratio Glucose (70-110) mg/dL POC Glucose (mg/dL) 131 H 206 H (70-110) mg/dL Calcium (8.7-10.3) mg/dL TIBC 225 L (228-460) UG/DL % Saturation 46.67 H (12.00-45.00) Transferrin 161.0 L (204.0-354.0) mg/dL Ferritin 1987.0 H (10.0-291.0) ng/mL 08/27/23 08/28/23 08/28/23 Range/Units 20:43 01:59 05:52 RBC (4.10-5.20) X 10*6/uL Hgb (12.0-15.0) g/dL Hct (37.2-46.3) % MCHC (32.0-37.0) g/dL RDW (11.5-14.5) % Plt Count (140-440) X 10*3/uL Hypochromasia (manual) Anion Gap (4.00-12.00) mmol/L BUN (9.0-27.0) mg/dL Creatinine (0.6-1.5) mg/dL Est GFR (CKD-EPI) (>=60) BUN/Creatinine Ratio (12.00-20.00) Ratio Glucose (70-110) mg/dL POC Glucose (mg/dL) 273 H 151 H 52 L (70-110) mg/dL Calcium (8.7-10.3) mg/dL TIBC (228-460) UG/DL % Saturation (12.00-45.00) Transferrin (204.0-354.0) mg/dL Ferritin (10.0-291.0) ng/mL 08/28/23 08/28/23 Range/Units 07:59 07:59 RBC 2.98 L (4.10-5.20) X 10*6/uL Hgb 8.9 L (12.0-15.0) g/dL Hct 28.7 L (37.2-46.3) % MCHC 31.0 L (32.0-37.0) g/dL RDW 16.0 H (11.5-14.5) % Plt Count 129 L (140-440) X 10*3/uL Hypochromasia (manual) 2+ A Anion Gap 13.80 H (4.00-12.00) mmol/L BUN 32.4 H (9.0-27.0) mg/dL Creatinine 5.2 H (0.6-1.5) mg/dL Est GFR (CKD-EPI) 8 L (>=60) BUN/Creatinine Ratio 6.23 L (12.00-20.00) Ratio Glucose 128 H (70-110) mg/dL POC Glucose (mg/dL) (70-110) mg/dL Calcium 8.6 L (8.7-10.3) mg/dL TIBC (228-460) UG/DL % Saturation (12.00-45.00) Transferrin (204.0-354.0) mg/dL Ferritin (10.0-291.0) ng/mL Microbiology - Last 24 Hours (Table) 08/25/23 14:56 Blood Culture - Preliminary Blood Assessment and Plan (1) Pneumonia Status: Acute Code(s): J18.9 - PNEUMONIA, UNSPECIFIED ORGANISM SNOMED Code(s): 343001689 (2) COVID-19 Status: Acute Code(s): U07.1 - COVID-19 SNOMED Code(s): 328212532 Plan: 1patient presented to hospital after the patient have a syncopal episode at dialysis in this patient with no fever did not have any respiratory symptoms tested positive for COVID-19 with a question of incidental finding patient chest x-ray did show some retrocardiac infiltrate and a question of possible secondary bacterial pneumonia rather than related to COVID-19 2-patient did have mild elevated procalcitonin level and with a retrocardiac infiltrate concern for possible secondary bacterial pneumonia 4-patient did have some clinical improvement and the patient white count has normalized patient insisting on going home we will give a short course of oral Ceftin on discharge discussed with the SHIPPING CLERK/ADMIN for admitting team working on discharge Dictation was produced using [employer]ation software. please excuse any grammatical, word or spelling errors. Time with Patient: Less than 30
[2023-08-28] MEDS ORDERED: INSULIN DETEMIR (LEVEMIR) 100 UNIT/ML SYR SQ SCH (21:00)
[2023-08-28] MEDS ORDERED: FAMOTIDINE 20 MG/2 ML VIAL IV SCH ×2 (21:00)
--- NOTE | 2023-08-29 16:15 | P.DS ---
Providers Date of admission: 08/21/23 12:59 Attending physician: Carolyn Torres Consults: 08/20/23 18:45 Consult Physician Urgent Consulting Provider: Carl Velázquez Consult Reason/Comments: Syncope Do you want consulting provider notified?: Yes Consult Physician Urgent Consulting Provider: Christy Mcneill Consult Reason/Comments: ESRD on hemodialysis, syncope Do you want consulting provider notified?: Yes 08/21/23 12:46 Consult Physician Urgent Consulting Provider: Donya Barrera Consult Reason/Comments: covid, remdesivir??? Do you want consulting provider notified?: Yes Primary care physician: Charles Kohler Hospital Course: Final Diagnosis Syncopal episode likely from dehydration and hypotension End-stage renal disease maintained on hemodialysis on Sunday schedule. COVID-19 infection with underlying bacterial pneumonia community acquired gram negative Hypertension and hypertensive encephalopathy Prior history of stroke on plavix and aspirin therapy Diabetes mellitus type 2 Chronic kidney disease Anemia of chronic kidney disease Full Code Discharge Disposition Patient is stable for discharge home. Continue hemodialysis as per usual F outpatient. Follow up with Dr Kohler in 1 week regarding continuing aranesp. Continue antibiotics twice a day for 3 days. Recommending to decrease lantus due to hypoglycemia. Follow up recommended with PCP, nephrology and Dr. Barrera. Repeat labs in 2 to 3 days. Hospital Course Patient is a 72-year-old right-handed female with history of ESRD, on hemodialysis, diabetes, previous history of CVA came to the hospital by ambula deione due to an acute syncopal episode while at dialysis. Patient was unconscious. Patient was also hypotensive prior to the incident. Patient was alert x 3 on presentation was brought in by EMS. Chest x-ray showed clinical correlation recommended for retrocardiac infiltrate. CT head showed subacute or old ischemic changes within the brain. Stable from comparison. Paranasal sinusitis including bilateral sphenoid sinuses, ethmoid air cells., Left maxillary sinus. EKG shows sinus rhythm. Patient was recently hospitalized in and July of last year and during that hospital stay had undergone neurological work up with routine EEG x 2, echocardiogram showing an EF 55-60%, with mild pulmonary hypertension, mild aortic stenosis, normal LV function. Patient also had carotid doppler done showing no significant stenosis bilaterally. Patient was admitted to the hospital this time for syncope covid and anemia. ID, neurology and nephrology were consulted. Was treated empirically with IV ceftriaxone had minimally elevated procalcitonin level. Also started on aranesp. Mentation is alert x 3. She has been dialized per MWF schedule. Blood pressure has improved. ID recommending 3 additional days of antibiotics on discharge unable to completely rule out underlying bacterial pneumonia. Patient has been cleared for discharge home. Please see medication reconciliation for a list of current medication. Thank you for allowing us to participate in the care of this patient. The impression and plan of care has been dictated by Kayleigh New, Nurse Practitioner as directed. Dr. Paty MD I have performed a history and physical examination and medical decision making of this patient, discussed the same with the dictator, and agree with the dictators assessment and plan as written, documented as a scribe. Based on total visit time, I have performed more than 50% of this visit. Plan - Discharge Summary New Discharge Prescriptions: New Famotidine [Pepcid] 20 mg PO DAILY #30 tablet Albuterol Sulfate [Albuterol Sulfate Hfa] 1 puff PO Q4-6H PRN #8.5 gm PRN Reason: Shortness Of Breath Or Wheezing cefUROXime axetiL [Ceftin] 500 mg PO BID 3 Days #6 tab Continue Dicyclomine [Bentyl] 20 mg PO DAILY ALPRAZolam [Xanax] 0.5 mg PO DAILY Atorvastatin [Lipitor] 40 mg PO HS #30 tab Clopidogrel [Plavix] 75 mg PO DAILY #30 tablet carvediloL [Coreg] 25 mg PO BID-W/MEALS Sevelamer [Renvela] 2,400 mg PO AC-TID amLODIPine [Norvasc] 10 mg PO DAILY PRN PRN Reason: sbp >180 allopurinoL [Zyloprim] 100 mg PO DAILY Ondansetron [Zofran] 4 mg PO BID PRN PRN Reason: Nausea Lidocaine-Prilocaine Cream [Emla Cream 2.5%/2.5%] 1 applic TOPICAL MOWEFR PRN PRN Reason: dialysis Isosorbide Dinitrate 20 mg PO BID Sevelamer [Renvela] 1,600 mg PO BID PRN PRN Reason: WITH SNACKS Insulin Lispro [humaLOG Kwikpen] See Protocol SQ AC-TID PRN PRN Reason: Blood Sugar - High hydrALAZINE HCL 50 mg PO BID #60 tablet Acetaminophen-Codeine 300-30mg [Tylenol w/codeine #3] 1 tab PO Q6HR PRN PRN Reason: Pain Changed Insulin Glargine [Lantus Vial] 15 unit SQ HS #0 Discharge Medication List ALPRAZolam [Xanax] 0.5 mg PO DAILY 10/27/22 [History] Dicyclomine [Bentyl] 20 mg PO DAILY 10/27/22 [History] Isosorbide Dinitrate 20 mg PO BID 10/27/22 [History] Lidocaine-Prilocaine Cream [Emla Cream 2.5%/2.5%] 1 applic TOPICAL MOWEFR PRN 10/27/22 [History] Ondansetron [Zofran] 4 mg PO BID PRN 10/27/22 [History] Sevelamer [Renvela] 2,400 mg PO AC-TID 10/27/22 [History] allopurinoL [Zyloprim] 100 mg PO DAILY 10/27/22 [History] amLODIPine [Norvasc] 10 mg PO DAILY PRN 10/27/22 [History] carvediloL [Coreg] 25 mg PO BID-W/MEALS 10/27/22 [History] Insulin Lispro [humaLOG Kwikpen] See Protocol SQ AC-TID PRN 06/18/23 [History] Sevelamer [Renvela] 1,600 mg PO BID PRN 06/18/23 [History] Atorvastatin [Lipitor] 40 mg PO HS #30 tab 06/21/23 [Rx] Clopidogrel [Plavix] 75 mg PO DAILY #30 tablet 08/10/23 [Rx] hydrALAZINE HCL 50 mg PO BID #60 tablet 08/10/23 [Rx] Acetaminophen-Codeine 300-30mg [Tylenol w/codeine #3] 1 tab PO Q6HR PRN 08/20/23 [History] Albuterol Sulfate [Albuterol Sulfate Hfa] 1 puff PO Q4-6H PRN #8.5 gm 08/28/23 [Rx] Famotidine [Pepcid] 20 mg PO DAILY #30 tablet 08/28/23 [Rx] Insulin Glargine [Lantus Vial] 15 unit SQ HS #0 08/28/23 [Rx] cefUROXime axetiL [Ceftin] 500 mg PO BID 3 Days #6 tab 08/28/23 [Rx] Follow up Appointment(s)/Referral(s): Yenifer Bateman NPC [REFERRING] - 1 Week Charles Kohler DO [Primary Care Provider] - 1-2 days Donya Barrera MD [STAFF PHYSICIAN] - 09/12/23 3:00 pm [facility] Visiting Nurse, [NON-STAFF] - As Needed Ambulatory/Diagnostic Orders: Basic Metabolic Panel [LAB.AMB] Time Frame: 3 Days, Location: None Selected Activity/Diet/Wound Care/Special Instructions: Continue hemodialysis as per usual MWF outpatient Follow up with Dr Kohler in 1 week regarding continuing aranesp Continue antibiotics twice a day for 3 days Discharge Disposition: HOME WITH HOME HEALTH SERVICES
== END 2023-08-28 15:19 | disposition home health service (06) | DRG 177 ==
LOC: EC 14:21 → 4SSUR 18:51 → OBSVTOIN 08-21 12:59 → 4SSUR 08-21 17:51
PROVIDERS: ADMIT Hospitalist; ATTEND Hospitalist
PROC: 5A1D70Z Performance of Urinary Filtration, Intermittent, Less than 6 Hours Per Day (ICD-10-PCS; 2023-08-22)
PROC: 05HA33Z Insertion of Infusion Device into Left Brachial Vein, Percutaneous Approach (ICD-10-PCS; principal; 2023-08-23 09:55)
DX: U07.1 COVID-19 (principal); J12.82 Pneumonia due to coronavirus disease 2019; N18.6 End stage renal disease; J15.69 Pneumonia due to other Gram-negative bacteria; I67.4 Hypertensive encephalopathy; J44.0 Chronic obstructive pulmonary disease with (acute) lower respiratory infection; I69.354 Hemiplegia and hemiparesis following cerebral infarction affecting left non-dominant side; I12.0 Hypertensive chronic kidney disease with stage 5 chronic kidney disease or end stage renal disease; G47.30 Sleep apnea, unspecified; E86.0 Dehydration; I95.9 Hypotension, unspecified; E11.22 Type 2 diabetes mellitus with diabetic chronic kidney disease; D63.1 Anemia in chronic kidney disease; M89.8X9 Other specified disorders of bone, unspecified site; I27.20 Pulmonary hypertension, unspecified; H54.8 Legal blindness, as defined in USA; R11.10 Vomiting, unspecified; E11.649 Type 2 diabetes mellitus with hypoglycemia without coma; E03.9 Hypothyroidism, unspecified; D69.6 Thrombocytopenia, unspecified; Z91.041 Radiographic dye allergy status; Z88.5 Allergy status to narcotic agent; Z79.4 Long term (current) use of insulin; Z99.2 Dependence on renal dialysis; Z79.899 Other long term (current) drug therapy; Z79.02 Long term (current) use of antithrombotics/antiplatelets; Z79.82 Long term (current) use of aspirin
CPT/HCPCS: 36410; 36415; 70450; 71045; 71046; 76937; 80048; 80053; 82140; 82728; 83036; 83540; 83550; 83735; 83880; 84145; 84484; 85025; 85379; 85610; 85730; 86140; 87040; 87636; 90935; 93005; 94640; 96365; 99285